=== PATIENT | female | born 1965 | race Caucasian/White ===

== ENCOUNTER 2019-02-04 14:30 | Outpatient (CLI) | payer OTHER, SELFPAY ==
--- NOTE | 2019-02-04 14:03 | DI.RAD_ITS ---
EXAM: XR KNEE RT 3V AP,LAT,PRAVIN INDICATION: R knee pain. COMPARISON: XR KNEE STANDING ALIGNMENT AP LAT AGUILAR SKYLINE RIGHT from 08/21/2017 TECHNIQUE: 2D digital imaging was performed. FINDINGS: There is [id number] narrowing of the medial femorotibial joint and the patellofemoral joint. P eriarticular spurring is seen in the lateral femorotibial joint and patellofemoral joint. The bones are intact and normally mineralized. Extensive atherosclerosis is present. IMPRESSION: Moderate degenerative changes in the right knee.
== END 2019-02-04 14:50 ==
PROVIDERS: PCP Family Medicine; Visit Provider Physician Assistant
DX: M25.561 Pain in right knee (principal); M17.11 Unilateral primary osteoarthritis, right knee
CPT/HCPCS: 73562

== ENCOUNTER 2019-08-19 12:15 | Emergency (ER) | payer MEDICARE, SELFPAY ==
[2019-08-19 12:18] VITALS: BP 193/95; PULSE 91; RESP 18; TEMP 36.9; O2SAT 97
--- NOTE | 2019-08-19 12:42 | W.ED.GENAD ---
Discharge Plan Disposition Patient Disposition: HOME Condition: Stable Discharge Details Chief Complaint: Urinary Clinical Impression: Bacterial vaginosis, Candidiasis of vagina Primary Care Provider: Sudarshan Deutsch ED Provider: Jhonatan Ponce Home Meds and New Rx's Prescriptions: New metronidazole [Flagyl] 500 mg tablet 500 mg PO Q12H Qty: 14 RF: 0 Clotrimazole-3 2 % cream 1 appful VG QHS 3 Days Qty: 3 RF: 0 Continued gabapentin 300 mg capsule 300 mg PO BID RF: 0 metformin 1,000 mg tablet 1,000 mg PO BID RF: 0 insulin aspart U-100 [Novolog Flexpen U-100 Insulin] 100 unit/mL (3 mL) insulin pen 10 unit SC BID RF: 0 hydrochlorothiazide 50 mg tablet 50 mg PO QAM RF: 0 omeprazole 40 mg capsule,delayed release(DR/EC) 40 mg PO DAILY RF: 0 montelukast 10 mg tablet 10 mg PO DAILY RF: 0 tramadol 50 mg tablet 50 mg PO TID PRNRF: 0 Discharge Instructions Instructions: Bacterial Vaginosis (ED), Yeast Infection (ED) Additional Instructions: I would like you to add on Flagyl and Clotrimazole-3 as directed. Please watch for new or worsening symptoms and return to the ER for any concerns. I recommend reaching out your primary care provider tomorrow for prompt outpatient reevaluation Discharge Data Discharge Date/Time-TO BE ENTERED AT DEPARTURE: 08/19/19 16:12 Medical Decision Making <Dayana Lao - Last Filed: 08/21/19 16:32> 53-year-old female presents to the ED with a chief complaint of vaginal itching, burning and dysuria which started . Patient was being treated by PCP over telemedicine and was prescribed fluconazole Monday night. Patient states that she took 1 tablet and felt like bugs were crawling all over her skin denies any new rash to body or extremities. She is a diabetic and takes metformin. Patient reports trying [id number] Monistat cream with little to no relief in symptoms. Patient is postmenopausal, , denies any concern for STDs. Pelvic exam performed and vaginal pathogen swab obtained. Awaiting urine results at this time, plan is to change medication to topical. Care to be handed out to oncoming provider CARLOTTA Moseley pending urinalysis and disposition with topical antifungal. <CARLOTTA Arteaga - Last Filed: 08/19/19 16:36> 53-year-old female with history of diabetes, currently being treated for a yeast infection via her primary care provider after a telemedicine appointment was signed out to me by ASHLEY Lao awaiting urinalysis and vaginal screen. Patient was treated and felt a reaction to the medication so came here for further evaluation. Catheter placed and pelvic exam already provided, see note of ASHLEY Lao. Patient resting comfortably in room 2A. She is ambulating steadily to the restroom using a walker. Abdomen is obese, soft, nontender. Patient appears well, nontoxic. Urinalysis reveals yellow urine, moderate blood, 20-50 high-power field red blood cells, negative leuk esterase, moderate epithelial cells, few bacteria. Appears to be contaminated, no culture indicated. Vaginal screen negative for Cortney and trichomonas. Positive for Gardnerella. Patient will discontinue her topical antifungal. Recommendation per ASHLEY Lao was to use topical antifungal and given the Gardnerella I will add on p.o. Flagyl. Patient comfortable with plan and has no additional questions or concerns. Encouraged to contact her primary care provider tomorrow for prompt outpatient reevaluation and to return to the ER for new or worsening symptoms Lab Data Lab results reviewed: Yes I reviewed the patient's lab results. Lab results narrative: 08/19/19 13:33 Vaginal Vaginitis Screen - Final Laboratory Tests Range/Units 08/19/19 13:33 Urine Color (Yellow) Yellow Urine Clarity (Clear) Clear Urine pH (5-8) 6.5 Ur Specific [place] (1.005-1.025) 1.020 Urine Protein (Negative) mg/dL >=300 H Urine Ketones (Negative) mg/dL Negative Urine Blood (Negative) Moderate H Urine Nitrite (Negative) Negative Urine Bilirubin (Negative) Negative Urine Urobilinogen (Up TO 0.2) EU/dL 0.2 Ur Leukocyte Esterase (Negative) Negative Urine RBC (0-2) HPF 20-50 H Urine WBC (0-5) HPF 0-2 Ur Epithelial Cells (Negative) HPF Moderate Urine Crystals (Negative) HPF Negative Urine Bacteria (Negative) HPF Few Urine Casts (Negative) LPF 3-5 hyaline Urine Mucus (Negative) Negative Urine Other (Negative) Ur Culture Indicated? No/sq. contamination Urine Glucose (Negative) mg/dL 500 H HPI <Dayana Lao - Last Filed: 08/21/19 16:32> General Mode of arrival: ambulatory. Date/Time Provider Initiated Documentation: 08/19/19 12:28. Limitations to Documentation: no limitations. Information obtained by: patient. HPI Narrative: 53-year-old female presents to the ED with a chief complaint of vaginal itching, burning and dysuria which started . Patient was being treated by PCP over telemedicine and was prescribed fluconazole Monday night. Patient states that she took 1 tablet and felt like bugs were crawling all over her skin denies any new rash to body or extremities. She is a diabetic and takes metformin. Patient reports trying [id number] Monistat cream with little to no relief in symptoms. Patient is postmenopausal, , denies any concern for STDs. Related Data Home Medications Medication Instructions Recorded Confirmed gabapentin 300 mg capsule 300 mg PO BID 02/04/19 08/19/19 hydrochlorothiazide 50 mg tablet 50 mg PO QAM 02/04/19 08/19/19 insulin aspart U-100 100 unit/mL 10 unit SC BID ml 02/04/19 08/19/19 (3 mL) subcutaneous pen metformin 1,000 mg tablet 1,000 mg PO BID 02/04/19 08/19/19 montelukast 10 mg tablet 10 mg PO DAILY 02/04/19 08/19/19 omeprazole 40 mg capsule,delayed 40 mg PO DAILY 02/04/19 08/19/19 release tramadol 50 mg tablet 50 mg PO TID PRN 02/04/19 08/19/19 clotrimazole [Clotrimazole-3] 1 appful VG QHS 3 Days #3 gm 08/19/19 metronidazole [Flagyl] 500 mg PO Q12H #14 tab 08/19/19 Previous Rx's Medication Instructions Recorded clotrimazole [Clotrimazole-3] 1 appful VG QHS 3 Days #3 gm 08/19/19 metronidazole [Flagyl] 500 mg PO Q12H #14 tab 08/19/19 Allergies Allergy/AdvReac Type Severity Reaction Status Date / Time acetaminophen [From Vicodin] Allergy Unverified 08/19/19 12:26 albuterol [From ProAir HFA] Allergy Unverified 08/19/19 12:26 amoxicillin Allergy Verified 08/19/19 12:26 cephalexin Allergy Unverified 08/19/19 12:26 guaifenesin Allergy Unverified 08/19/19 12:26 hydrocodone [From Vicodin] Allergy Unverified 08/19/19 12:26 omeprazole [From Prilosec] Allergy Unverified 08/19/19 12:26 promethazine Allergy Unverified 08/19/19 12:26 simvastatin Allergy Unverified 08/19/19 12:26 fluconazole AdvReac Intermediate feels like Unverified 08/19/19 12:26 bugs crawling on her lisinopril AdvReac NAUSEA Verified 08/19/19 12:26 General Stated Complaint: Urinary WILY: 3 Review of Systems <Dayana Lao - Last Filed: 08/21/19 16:32> Narrative: Constitutional: Negative for weight loss, alert and oriented, well groomed, normal body habitus, appears comfortable. HEENT: Denies trauma, headaches, blurry vision, nasal discharge, sore throat, trouble swallowing. Chest: Denies chest pain, palpitations, irregular rhythm, hypertension. Respiratory: Denies Shortness of breath, cough, hemoptysis. GI: Denies abdominal pain, nausea, vomiting, diarrhea, constipation. : Denies hematuria, flank pain, rectal bleeding. Positive dysuria, vaginal burning, swelling. Neuro: Denies dizziness, blurry vision, weakness, syncope, headache or facial numbness. Hematologic: Denies easy bruising, intolerance to heat or cold, hair loss. PFSH <Dayana Lao - Last Filed: 08/21/19 16:32> Social History Smoking/Tobacco Use Status: Never Alcohol Intake: current Alcohol Intake frequency: holidays/special occasions only Drug use: Never Current gender identity: female Do you feel safe at home: Yes Do you feel safe in your relationship?: Yes Female Reproductive History Menstrual Menopause type: natural Exam <Dayana Lao - Last Filed: 08/21/19 16:32> Narrative Exam Narrative: Constitutional: Alert and oriented x3. Appears stated age. Obese body habitus. Head: Normocephalic, no trauma. Eyes: Pupils PERRLA, Red reflex noted, EOM's intact. Eyelids symmetrical without lesions, discharge, or swelling. ENT: Bilateral TM's WNL, External ear normal to inspection, no mastoid TTP, swelling, or erythema, Nasal turbinates WNL, no nasal discharge. Normal dentition, Posterior pharynx WNL, no exudate. Chest: RRR, Normal S1, S2, distal pulses intact. Resp: Lungs clear to auscultation bilaterally, no wheezes, rales, or rhonchi. Musculoskeletal: Normal gait, 5/5 strength to all four extremities. Genitourinary: Pelvic exam performed with only witness Jin, vaginal pathogen swab collected, urine in and out catheter specimen obtained, patient tolerated with somewhat difficulty. Vaginal mucosa is very swollen, beefy red, with thick white cottage cheeselike discharge consistent with candidiasis. Skin: No suspicious rashes or lesions. Capillary refill less than 2 sec. Neurologic: Cranial nerves II-XII intact. Alert and oriented x 3. DTR's intact. Hematologic/Lymphatic: No ecchymosis, no lymphadenopathy. Course <Dayana Lao - Last Filed: 08/21/19 16:32> Vital Signs Vital signs: Vital Signs Temperature 36.9 C 08/19/19 12:18 Pulse 91 H 08/19/19 12:18 Respiratory Rate 18 08/19/19 12:18 Blood Pressure 193/95 H 08/19/19 12:18 Pulse Oximetry 97 08/19/19 12:18 Temperature 36.9 C 08/19/19 12:18 Temperature Source Skin 08/19/19 12:18 Pulse 91 H 08/19/19 12:18 Respiratory Rate 18 08/19/19 12:18 Respiratory Effort 08/19/19 12:28 Blood Pressure 193/95 H 08/19/19 12:18 Pulse Oximetry 97 08/19/19 12:18 Oxygen Delivery Method Room Air 08/19/19 12:18 Oxygen Flow Rate 0 08/19/19 12:18 Pain Level 10 08/19/19 12:26 Comment 08/19/19 12:18 Sign Out <Dayana Lao - Last Filed: 08/21/19 16:32> Sign Out Data: Sign Out Comment: Pending UA, Vag pathogen swab, discharge Last updated by Dayana Lao at 08/19/19 13:40
[2019-08-19 13:55] LABS: Bilirubin Negative (Negative); Blood Moderate (Negative); Clarity Clear (Clear); Glucose 500 mg/dL (Negative); Ketones Negative (Negative); Leukocyte Esterase Negative (Negative); Nitrite Negative (Negative); Urobilinogen 0.2 EU/dL (Up TO 0.2); pH 6.5 (5-8)
[2019-08-19 14:03] VITALS: BP 167/64; PULSE 90; RESP 20; TEMP 36.6; O2SAT 99
[2019-08-19 14:07] LABS: Bacteria Few HPF (Negative); Casts 3-5 Hyaline LPF (Negative); Crystals Negative HPF (Negative); Epithelial Cells Moderate HPF (Negative); Mucus Negative (Negative); RBC 20-50 HPF (0-2); WBC 0-2 HPF (0-5)
[2019-08-19 14:08] LABS: C & S Indicated? No/Sq. Contamination
== END 2019-08-19 16:12 | disposition home or self-care (01) ==
PROVIDERS: Registered Nurse Emergency; Emergency Provider Physician Assistant; PCP Nurse Practitioner Family
DX: N76.0 Acute vaginitis (principal); B96.89 Other specified bacterial agents as the cause of diseases classified elsewhere; B37.3 Candidiasis of vulva and vagina; Z87.440 Personal history of urinary (tract) infections; E11.9 Type 2 diabetes mellitus without complications; Z79.84 Long term (current) use of oral hypoglycemic drugs
CPT/HCPCS: 99284; 81003; 81015; 87480; 87510; 87660

== ENCOUNTER 2020-01-03 07:52 | Emergency (ER) | payer MEDICARE, SELFPAY ==
[2020-01-03 07:53] VITALS: BP 194/73; PULSE 77; RESP 16; TEMP 36.9; O2SAT 95
--- NOTE | 2020-01-03 08:07 | W.ED.GENAD ---
Discharge Plan Disposition Patient Disposition: HOME Condition: Stable Discharge Details Clinical Impression: Contusion of left chest wall Primary Care Provider: Michelle Augustin ED Provider: Bryan Chao Home Meds and New Rx's Prescriptions: Continued gabapentin 300 mg capsule 300 mg PO BID RF: 0 metformin 1,000 mg tablet 1,000 mg PO BID RF: 0 insulin aspart U-100 [Novolog Flexpen U-100 Insulin] 100 unit/mL (3 mL) insulin pen 10 unit SC BID RF: 0 hydrochlorothiazide 50 mg tablet 50 mg PO QAM RF: 0 omeprazole 40 mg capsule,delayed release(DR/EC) 40 mg PO DAILY RF: 0 montelukast 10 mg tablet 10 mg PO DAILY RF: 0 tramadol 50 mg tablet 50 mg PO TID PRNRF: 0 Discharge Instructions Instructions: Contusion in Adults (ED) Additional Instructions: follow up with your primary care provider if pain continues in a week if you have severe worsening pain or new pain such as abdominal pain or vomit return to the emergency department Medical Decision Making 54 yo female comes in after she fell and landed on her left chest. She was at her sister's house using her walker when it got stuck on a rug and caused her to fall to the left and land on her left chest on the walker. Denies any preceding symptoms such as lightheadedness, dyspnea, chest pain. Has pain over 7 and 8th ribs in mid axillary line on the left, normal lung sounds, no abdominal tenderness, no midline c/t/l spine pain and no signs of head trauma. Suspect contusion but will xray to evaluate for rib fx, has clear breath sounds so doubt ptx. xray is negative on my read, if radiology does not see any acute findings will d/c and have her f/u with pcp, return precautions given Differential Diagnosis Differential Diagnosis: contusion, fracture, ptx Imaging Data Radiologic Study: Attestation: I personally reviewed and interpreted this imaging study as follows: Imaging: X-Ray My impression: no acute findings HPI General Mode of arrival: EMS. Date/Time Provider Initiated Documentation: 01/03/20 07:52. Limitations to Documentation: no limitations. Information obtained by: patient. History of Present Illness 54 year old F presents to the emergency department with the chief complaint of left sided chest pain s/p fall, described as moderate, Patient reports no radiation. Patient started experiencing this hour(s) (1) and it has been constant. No relieving factors improve symptom(s), No exacerbating factors reported . Patient notes no other symptoms.. Patient did receive the following treatments prior to arrival, none Related Data Home Medications Medication Instructions Recorded Confirmed gabapentin 300 mg capsule 300 mg PO BID 02/04/19 01/03/20 hydrochlorothiazide 50 mg tablet 50 mg PO QAM 02/04/19 01/03/20 insulin aspart U-100 100 unit/mL 10 unit SC BID ml 02/04/19 01/03/20 (3 mL) subcutaneous pen metformin 1,000 mg tablet 1,000 mg PO BID 02/04/19 01/03/20 montelukast 10 mg tablet 10 mg PO DAILY 02/04/19 01/03/20 omeprazole 40 mg capsule,delayed 40 mg PO DAILY 02/04/19 01/03/20 release tramadol 50 mg tablet 50 mg PO TID PRN 02/04/19 01/03/20 Allergies Allergy/AdvReac Type Severity Reaction Status Date / Time acetaminophen [From Vicodin] Allergy Unverified 01/03/20 07:59 albuterol [From ProAir HFA] Allergy Unverified 01/03/20 07:59 amoxicillin Allergy Verified 01/03/20 07:59 cephalexin Allergy Unverified 01/03/20 07:59 guaifenesin Allergy Unverified 01/03/20 07:59 hydrocodone [From Vicodin] Allergy Unverified 01/03/20 07:59 omeprazole [From Prilosec] Allergy Unverified 01/03/20 07:59 promethazine Allergy Unverified 01/03/20 07:59 simvastatin Allergy Unverified 01/03/20 07:59 fluconazole AdvReac Intermediate feels like Unverified 01/03/20 07:59 bugs crawling on her lisinopril AdvReac NAUSEA Verified 01/03/20 07:59 General Stated Complaint: Chest/Rib WILY: 3 Review of Systems All systems reviewed & are unremarkable except as noted in HPI and below Constitutional Constitutional: Denies chills, Denies fever(s) and Denies weakness ENT Ears, Nose, Mouth, and Throat: Denies change in voice Cardiovascular Cardiovascular: Denies dyspnea Respiratory Respiratory: Denies cough and Denies dyspnea Gastrointestinal Gastrointestinal: Denies abdominal pain, Denies nausea and Denies vomiting Integumentary/Breasts Skin/Breast: Denies rash Neurologic Neurologic: Denies weakness Psychiatric Psychiatric: Denies depression [facility] Social History Smoking/Tobacco Use Status: Never Smoking risk assessment performed?: Yes Alcohol Intake: current Alcohol Intake frequency: holidays/special occasions only Drug use: Never Current gender identity: female Do you feel safe at home: Yes Do you feel safe in your relationship?: Yes Female Reproductive History Menstrual Menopause type: natural Exam Const General: no acute distress Orientation: alert HENMT Head: normal to inspection Ears: external ears normal General nose exam: external nose normal Mouth: moist mucous membranes Eyes General: appearance normal, both eyes and all related structures Neck Neck: normal visual inspection Chest Chest: no crepitus Resp Effort & Inspection: normal respiratory effort and able to speak in complete sentences Cardio Rate: regular rate Skin General skin exam: no rashes or lesions noted Neuro General: patient alert and patient oriented x3 Extrem General: normal to inspection Psych Mental Status: mental status grossly normal Course Vital Signs Vital signs: Vital Signs Temperature 36.9 C 01/03/20 07:53 Pulse 77 01/03/20 07:53 Respiratory Rate 16 01/03/20 07:53 Blood Pressure 194/73 H 01/03/20 07:53 Pulse Oximetry 95 01/03/20 07:53 Temperature 36.9 C 01/03/20 07:53 Temperature Source Skin 01/03/20 07:53 Pulse 77 01/03/20 07:53 Respiratory Rate 16 01/03/20 07:53 Respiratory Effort 01/03/20 07:58 Blood Pressure 194/73 H 01/03/20 07:53 Blood Pressure Position Sitting 01/03/20 07:53 Pulse Oximetry 95 01/03/20 07:53 Oxygen Delivery Method Room Air 01/03/20 07:53 Oxygen Flow Rate 0 01/03/20 07:53 Pain Level 8 01/03/20 07:53 Comment 01/03/20 07:53
[2020-01-03] MEDS: Acetaminophen 500 MG TAB 1000 MG PO (08:14)
--- NOTE | 2020-01-03 08:45 | DI.RAD_ITS ---
EXAM: XR CHEST 2V PA LATERAL CLINICAL HISTORY: left sided chest pain s/p fall TECHNIQUE: COMPARISON: No exams were available for comparison FINDINGS: The heart is not enlarged. Lungs are predominantly clear with minimal linear radiodensities in the l eft mid lung consistent with small area of scarring or atelectasis. No pleural effusion seen. No ev idence of pneumothorax. No gross rib fracture on this routine PA/lateral view. IMPRESSION: Question mild left-sided atelectasis, no other significant findings. RADIATION DOSE DELIVERED: Total DLP
[2020-01-03 09:07] VITALS: BP 164/70; PULSE 70; RESP 16; TEMP 36.9; O2SAT 96
== END 2020-01-03 09:06 | disposition home or self-care (01) ==
LOC: ER 08:52
PROVIDERS: Emergency Provider Emergency Medicine; PCP Physician Assistant Medical
DX: S20.212A Contusion of left front wall of thorax, initial encounter (principal); W01.0XXA Fall on same level from slipping, tripping and stumbling without subsequent striking against object, initial encounter
CPT/HCPCS: 99283; 71046

== ENCOUNTER 2021-01-13 07:40 | Outpatient (REF) | payer SELFPAY ==
[2021-01-13 08:59] LABS: AST 26 U/L (15-37); Albumin 1.9 g/dL (3.4-5.0); Alkaline Phosphatase 252 U/L (46-116); BUN 30 mg/dL (7-18); Bilirubin, Total 0.3 mg/dL (0.2-1.0); CREATININE 1.3 mg/dL (0.55-1.02); Calcium 7.9 mg/dL (8.5-10.1); Chloride 109 mmol/L (98-107); Estimated GFR 42.37 (mL/min/1.73m2); Glucose 69 mg/dL (74-106); Potassium 4.7 mmol/L (3.5-5.1); Sodium 142 mmol/L (136-145)
[2021-01-13 09:00] LABS: ALT 14 U/L (14-59)
== END 2021-01-13 07:41 | disposition home or self-care (01) ==
LOC: LBN 07:40
PROVIDERS: PCP Physician Assistant Medical; Visit Provider Family Medicine
DX: D50.9 Iron deficiency anemia, unspecified (principal); I10 Essential (primary) hypertension
CPT/HCPCS: 80053; 85025

== ENCOUNTER 2021-01-15 23:20 | Outpatient (REF) | payer SELFPAY ==
[2021-01-16 01:47] LABS: Abs Immature Grans 0.03 10^3/uL (0.0-0.06); Absolute Basophil Count 0.01 10^3/uL (0.0-0.2); Basophils % 0.1; HCT 29.5 % (36.0-46.0); HGB 9.1 g/dL (11.2-15.7); Immature Grans % 0.3; MCH 28.8 pg (27.0-33.0); MCHC 30.8 % (32.0-36.0); MCV 93.4 fL (80-95); MPV 10.5 fL (8.0-11.0); Monocytes % 6.9; Neutrophils % 89.7; Nucleated RBC 0 %; Platelet Count 183 10^3/uL (130-400); RBC 3.16 10^6/uL (3.93-5.22); RDW 16.4 % (11.7-14.6); RDW-SD 55.7 fL; WBC 10.14 10^3/uL (4.4-10.8)
[2021-01-16 02:09] LABS: ALT 39 U/L (14-59); AST 71 U/L (15-37); Albumin 2.2 g/dL (3.4-5.0); Alkaline Phosphatase 578 U/L (46-116); Anion Gap 9.2 mmol/L (3-11); BUN 28 mg/dL (7-18); Bilirubin, Total 1.2 mg/dL (0.2-1.0); CO2 22.8 mmol/L (21.0-32.0); CREATININE 1.4 mg/dL (0.55-1.02); Calcium 7.7 mg/dL (8.5-10.1); Chloride 106 mmol/L (98-107); Glucose 84 mg/dL (74-106); Potassium 5.1 mmol/L (3.5-5.1); Sodium 138 mmol/L (136-145); Total Protein 6.3 g/dL (6.4-8.2)
[2021-01-16 03:37] LABS: Clarity Cloudy (Clear); Leukocyte Esterase Negative (Negative); Nitrite Negative (Negative); Specific Gravity 1.025 (1.005-1.025)
[2021-01-16 03:38] LABS: Bilirubin Small (Negative); Blood Moderate (Negative); Glucose Negative (Negative); Ketones Negative (Negative)
[2021-01-16 03:40] LABS: Crystals Many Amorphous HPF (Negative)
[2021-01-16 03:41] LABS: C & S Indicated? C&S Done As Ordered
== END 2021-01-15 23:21 | disposition home or self-care (01) ==
LOC: LBN 23:20
PROVIDERS: PCP Physician Assistant Medical; Visit Provider Nurse Practitioner Family
DX: R50.9 Fever, unspecified (principal)
CPT/HCPCS: 80053; 81003; 81015; 85025; 87086

== ENCOUNTER 2021-01-25 18:03 | Outpatient (REF) | payer SELFPAY ==
[2021-01-25 19:33] LABS: Abs Immature Grans 0.02 10^3/uL (0.0-0.06); Absolute Basophil Count 0.01 10^3/uL (0.0-0.2); Absolute Eosinophil Count 0.01 10^3/uL (0.0-0.7); Absolute Lymphocyte Count 0.18 10^3/uL (1.2-3.4); Absolute Monocyte Count 0.32 10^3/uL (0.1-0.8); Absolute Neutrophil Count 5.56 10^3/uL (1.2-6.7); Basophils % 0.2; Eosinophils % 0.2; HGB 10.1 g/dL (11.2-15.7); Immature Grans % 0.3; MCH 28.5 pg (27.0-33.0); MCHC 29.7 % (32.0-36.0); MCV 95.8 fL (80-95); MPV 9.7 fL (8.0-11.0); Monocytes % 5.2; Neutrophils % 91.1; Nucleated RBC 0 %; Platelet Count 281 10^3/uL (130-400); RBC 3.55 10^6/uL (3.93-5.22); RDW-SD 60.1 fL
[2021-01-25 19:59] LABS: Iron 65 ug/dL (50-170)
[2021-01-25 20:07] LABS: ALT 39 U/L (14-59); AST 86 U/L (15-37); Albumin 2.6 g/dL (3.4-5.0); Alkaline Phosphatase 688 U/L (46-116); Anion Gap 15.4 mmol/L (3-11); BUN 35 mg/dL (7-18); Bilirubin, Total 1.8 mg/dL (0.2-1.0); CO2 20.6 mmol/L (21.0-32.0); CREATININE 1.5 mg/dL (0.55-1.02); Calcium 8.4 mg/dL (8.5-10.1); Chloride 105 mmol/L (98-107); Estimated GFR 35.92 (mL/min/1.73m2); Ferritin 129 ng/mL (8-252); Glucose 100 mg/dL (74-106); Sodium 141 mmol/L (136-145); Total Protein 7.6 g/dL (6.4-8.2)
[2021-01-25 20:33] LABS: NT-proBNP 7138 pg/mL (<300)
== END 2021-01-25 18:04 | disposition home or self-care (01) ==
LOC: LBN 18:03
PROVIDERS: PCP Physician Assistant Medical; Visit Provider Family Medicine
DX: I50.9 Heart failure, unspecified (principal); E11.9 Type 2 diabetes mellitus without complications; D50.9 Iron deficiency anemia, unspecified
CPT/HCPCS: 80053; 82728; 83540; 83880; 85025

== ENCOUNTER 2021-01-26 12:02 | Inpatient (IN) | payer MEDICARE, MEDICAID, SELFPAY ==
[2021-01-26] VITALS (92 sets, daily range): BP systolic 80–136; BP diastolic 32–106; PULSE 56–111; RESP 12–26; TEMP 35.6–36.8; O2SAT 90–97
--- NOTE | 2021-01-26 12:00 | RT.EKG_ITS ---
APPROVED REPORT Exam: Resting ECG Reason for Exam: SOB Patient Location: E HR:65 bpm ECG Measurements Heart Rate 65 AXIS SD 150 P 19 QRSd 76 QRS 7 QT 383 T 120 QTc 398 Conclusion Sinus rhythm...normal P axis, V-rate 60- 99 Nonspecific T abnormalities, lateral leads...T <-0.10mV, I aVL V5 V6. Sinus. No STEMI. I have reviewed and interpreted ECG and agree with software generated interpretation.
[2021-01-26 12:19] LABS: Abs Immature Grans 0.05 10^3/uL (0.0-0.06); Absolute Basophil Count 0.02 10^3/uL (0.0-0.2); Absolute Lymphocyte Count 0.52 10^3/uL (1.2-3.4); Absolute Neutrophil Count 9.79 10^3/uL (1.2-6.7); Basophils % 0.2; HCT 25.6 % (36.0-46.0); HGB 7.8 g/dL (11.2-15.7); Immature Grans % 0.4; Lymphocytes % 4.6; MCH 29.3 pg (27.0-33.0); MCHC 30.5 % (32.0-36.0); MCV 96.2 fL (80-95); MPV 9.3 fL (8.0-11.0); Neutrophils % 86.8; Nucleated RBC 0 %; Platelet Count 184 10^3/uL (130-400); RBC 2.66 10^6/uL (3.93-5.22); RDW 17.8 % (11.7-14.6); RDW-SD 62.7 fL; WBC 11.28 10^3/uL (4.4-10.8)
--- NOTE | 2021-01-26 12:31 | W.ED.GENAD ---
Discharge Plan Disposition Patient Disposition: [facility] INPATIENT Condition: Serious Discharge Details Chief Complaint: GenMedical Clinical Impression: UTI (urinary tract infection), Anemia, Heme positive stool, Acute hypotension, SOB (shortness of breath), ИВАН (acute kidney injury), Elevated troponin, CHF exacerbation Admit Date/Time: 01/26/21 16:01 Admit Provider: Casey Latham Attending Provider: Casey Latham Primary Care Provider: Michelle Augustin ED Provider: Gian Lopez Discharge Data Discharge Date/Time-TO BE ENTERED AT DEPARTURE: 01/26/21 16:55 Medical Decision Making Patient is a 55-year-old female presents today with chief complaint of not feeling well. She reports that she is currently residing at [facility]. Is a recovering from left humeral fracture with surgical fixation. Surgery was in December. Last night, patient had an episode of shortness of breath. During that time, her oxygen dropped. Back up currently, and not having any oxygen demand. Patient states that she is feeling fatigued. She denies any chest pain. She denies any current shortness of breath. She denies any recent fevers or chills. No cough. Patient has chronic bilateral extremity pain as well as restless legs that she is normal and chronic for her On exam, patient appears acutely ill. She is pale, appears sedate. She is easily arousable. I do not appreciate any focal deficit. Her lungs are clear. Normal cardiac exam. Initially, the patient pressure was 85/60 but her systolic since being here has been around 110. Heart rate has remained in the 60s. Rapid sequence patient does have a history of being on a beta-sheila, we will validate her medications. Her abdomen is benign. Bilateral calf tenderness. No appreciable edema. She states that the calf tenderness is chronic. EKG was reviewed by Dr. Barber. Patient is in a normal sinus rhythm with a rate of 65. No acute ischemic changes noted. Labs reviewed. Patient has a white count of 11.28. Hbg 7.8, this is down from 10.1 yesterday. CMP significant for sodium of 135, potassium of one 5.3, BUN of 43, creatinine of 2.4. This is up from 1.5 yesterday. Magnesium is low at 1.5, will replenish this therapy here. Her bili is up at 2.5, slept from 1.8 yesterday. Patient's BNP is 22,000, this is up from 7000 yesterday. Her alk phos is elevated at 520 which is typical. Troponin is elevated at 0.67. Patient is not endorsing chest pain. Patient history is not consistent at this time with ACS. However, I am certainly continuing to consider this. I am more concerned for cardiac strain. The patient had a recent leg fracture, has been sedentary, I am more concerned for pulmonary embolism. I am wondering if this is causing cardiac strain. However, with the patient acute kidney injury, unable to obtain CTA at this time. VQ scan was able to be ordered for tomorrow. Instead, will obtain bilateral DVT studies as well as echocardiogram for further evaluation. Also considered septicemia, CHF vs. other. Patient does have hx of CHF and is not currently on diuretic. Heme positive stool. No lucretia red blood, specles of blue on the testing strip. Stool appears grossly light browh. We will hold off on any anticoagulation at this time with this will consult with hospitalist. Type and screen ordered. Spoke with hospitalist who is concerned about cardiorenal syndrome and advised 40mg IV Lasix. We will continue to monitor the patient's blood pressure. Pressure slightly soft, held off on Lasix. Considered potential adrenal insufficiency and will give IV steroids. Will try the patient with a 250 cc bolus of fluids. Sent cortisol level, will also obtain TSH. Patient tolerated the 250 cc bolus well. Patient's pressures, heart rate and oxygen remained stable at this time. She continues to appear quite sedate. Lasix given. DVT study was limited secondary to calf tenderness. Patient is not able to tolerate left lower extreme Echo obtained and reviewed by morning show newscast producer: Conclusion Mild concentric left ventricular hypertrophy. Estimated ejection fraction is 55 to 60%. Wall motion is normal Normal right ventricular size and systolic function The left atrium is mildly dilated. The right atrium is normal in size Aortic valve is trileaflet and sclerotic with trace regurgitation. There is no aortic stenosis Moderate mitral annular calcification. Mild mitral regurgitation Normal tricuspid valve. Mild tricuspid regurgitation. Estimated right ventricular systolic pressure is 42 mmHg Normal pulmonic valve Urine appears consistent with UTI. Considered urosepsis. Will start on ciprofloxacin IV. Lactate 1.5. Discussed with hospitalist. He will repeat the Hgb at 1800 when patient is admitted to trend. If normal, plans to start on heparin drip. VQ scan in the AM. Patient remains quite ill and tenuous but stable now. Spoke with patients and sister who are both on the HIPPA. Advised that patient is quiet ill. Treating for UTI. Cocnerned for bleeding, possible PE or other cause of heart strain. Sister is also concerned for her mental health. Patients daughter one year ago, approaching anniversary. She has requested MH consult while patient is in house. HPI General Mode of arrival: EMS. Date/Time Provider Initiated Documentation: 01/26/21 12:31. Limitations to Documentation: no limitations. Information obtained by: patient, EMS, RN notes reviewed and old records reviewed. History of Present Illness 55 year old F presents to the emergency department with the chief complaint of SOB last night, general fatigue and malaise, described as moderate, Quality is described as other (has chronic pain in BLE, she denies any acute discomfort), Patient started experiencing this day(s) (1) and it has been now resolved (SOB resolved, malaise persisting). No relieving factors improve symptom(s), No exacerbating factors reported . Patient notes diaphoresis, loss of appetite, malaise, shortness of breath (resolved) and weakness (generalized weakness and fatigue); denies chest pain, cough, fever/chills, headaches, nausea/vomiting, rash and syncope. Patient did receive the following treatments prior to arrival, none Related Data Home Medications Medication Instructions Recorded Confirmed hydrochlorothiazide 50 mg tablet 50 mg PO QAM 02/04/19 01/26/21 insulin aspart U-100 100 unit/mL 10 unit SC TID ml 02/04/19 01/26/21 (3 mL) subcutaneous pen metformin 1,000 mg tablet 1,000 mg PO BID 02/04/19 01/26/21 tramadol 50 mg tablet 50 mg PO TID PRN 02/04/19 01/26/21 acetaminophen 1,000 mg PO .Q6HRS PRN 01/26/21 01/26/21 albuterol 180 mcg INHALATION Q4H PRN PRN 01/26/21 01/26/21 amlodipine 10 mg PO DAILY 01/26/21 01/26/21 atorvastatin 40 mg PO HS 01/26/21 01/26/21 cholecalciferol (vitamin D3) 125 mcg PO .Q Monday01/26/21 01/26/21 cyanocobalamin (vitamin B-12) 1,000 mcg PO DAILY 01/26/21 01/26/21 docusate sodium 100 mg PO .HS PRN 01/26/21 01/26/21 ferrous sulfate 325 mg PO QAM 01/26/21 01/26/21 gabapentin 300 mg PO BID 01/26/21 01/26/21 gabapentin 300 mg PO HS 01/26/21 01/26/21 hydromorphone 2 mg PO Q6H PRN 01/26/21 01/26/21 insulin glargine [Lantus Solostar 25 unit SUBCUT HS 01/26/21 01/26/21 U-100 Insulin] losartan 100 mg PO DAILY 01/26/21 01/26/21 metoprolol tartrate 50 mg PO BID 01/26/21 01/26/21 montelukast 10 mg PO DAILY 01/26/21 01/26/21 ondansetron HCl 8 mg PO Q8H PRN 01/26/21 01/26/21 pantoprazole 40 mg PO BID 01/26/21 01/26/21 polyethylene glycol 3350 [Miralax] 17 g PO .QHS 01/26/21 01/26/21 Allergies Allergy/AdvReac Type Severity Reaction Status Date / Time albuterol [From ProAir HFA] Allergy Unverified 01/26/21 12:11 amoxicillin Allergy Verified 01/26/21 12:11 cephalexin Allergy Unverified 01/26/21 12:11 guaifenesin Allergy Unverified 01/26/21 12:11 hydrocodone [From Vicodin] Allergy Unverified 01/26/21 12:11 omeprazole [From Prilosec] Allergy Unverified 01/26/21 12:11 promethazine Allergy Unverified 01/26/21 12:11 simvastatin Allergy Unverified 01/26/21 12:11 fluconazole AdvReac Intermediate feels like Unverified 01/26/21 12:11 bugs crawling on her lisinopril AdvReac NAUSEA Verified 01/26/21 12:11 General Stated Complaint: GenMedical WILY: 2 Review of Systems Narrative: Patient answering and short responses. She appears very sedate but is appropriate on questioning. Constitutional Constitutional: Reports as per HPI, Denies chills, Denies fever(s), Denies headache(s), Denies lethargy and Denies poor appetite Eyes Eyes: Denies change in vision ENT Ears, Nose, Mouth, and Throat: Denies dizziness and Denies headache(s) Cardiovascular Cardiovascular: Reports as per HPI, Denies chest pain, Denies chest pain with activity, Denies syncope, Denies edema, Reports claudication (reports chronic BLE pain), Denies lightheadedness and Reports dyspnea (last night, required O2 briefly, now resolved) Respiratory Respiratory: Reports as per HPI, Denies chest congestion, Denies cough, Denies pain on inspiration, Denies pain with cough and Reports dyspnea (last night, required O2 briefly, now resolved) Gastrointestinal Gastrointestinal: Reports as per HPI, Denies abdominal pain, Denies diarrhea, Denies nausea and Denies vomiting (vomted last night per H&R, patient denies nausea) Musculoskeletal Musculoskeletal: Reports as per HPI, Denies back pain and Reports other (BLE pain, states is chornic) Integumentary/Breasts Skin/Breast: Reports as per HPI and Denies rash Neurologic Neurologic: Reports as per HPI, Denies dizziness, Denies syncope and Denies headache(s) [facility] Active Problem List (Updated 01/27/21 @ 07:26 by Casey Latham MD) HLD (hyperlipidemia) (Acute) Morbid obesity (Acute) Restless leg syndrome (Acute) Diabetes mellitus (Chronic) Essential hypertension (Acute) Left humeral fracture (Acute) Heart failure with preserved ejection fraction (Acute) Blood loss anemia (Acute) Primary osteoarthritis of right knee (Acute) Social History Smoking/Tobacco Use Status: Never Smoking risk assessment performed?: Yes Alcohol Intake: current Alcohol Intake frequency: holidays/special occasions only Drug use: Never Current gender identity: female Do you feel safe at home: Yes Do you feel safe in your relationship?: Yes Female Reproductive History Menstrual Menopause type: natural Exam Const General: cooperative, no acute distress and ill appearing acutely Nutritional Appearance: well nourished and obese Orientation: alert, awake, oriented x3 and other (appears lethargic, need to arouse to get answers) HENMT Head: normal to inspection Ears: hearing grossly normal bilaterally Eyes General: appearance normal, both eyes and all related structures Pupils: PERRL EOM: EOM intact bilaterally Neck Neck: no lymphadenopathy and no meningeal signs Chest Chest: normal inspection of the chest, normal palpation of entire chest wall and no crepitus Resp Effort & Inspection: normal respiratory effort, able to speak in complete sentences and no respiratory distress Auscultation: clear to auscultation bilaterally, no rales, no rhonchi and no wheezes Cardio Rate: regular rate Rhythm: regular rhythm Heart Sounds: S1 normal and S2 normal GI Inspection: normal to inspection, no edema, non-distended and obesity Palpation: soft, no hepatosplenomegaly, not firm, no guarding, not rigid and nontender Auscultation: normal bowel sounds Back/Spine/Pelvis Back: no CVA tenderness Thoracic/Lumbar Spine: thoracic and lumbar spine normal to inspection Skin General skin exam: erythema (some break down on her bottom) Neuro General: patient alert, patient awake and patient oriented x3 (appears lethargic) Cognition: normal cognition Speech: speech normal Motor: muscle tone normal throughout, strength 5/5 throughout and movement abnormality noted (frequent movement of BLE, ) Extrem General: normal to inspection, capillary refill normal, no pedal edema and calf tenderness bilaterally Psych Appearance: grossly normal and well kempt Mental Status: mental status grossly normal Speech and Movement: speech and movement normal Course Vital Signs Vital signs: Vital Signs Temperature 36.8 C 01/26/21 12:02 Pulse 66 01/26/21 12:02 Respiratory Rate 18 01/26/21 12:02 Blood Pressure 85/56 L 01/26/21 12:02 Pulse Oximetry 97 01/26/21 12:02 Temperature 36.8 C 01/26/21 12:02 Temperature Source Skin 01/26/21 12:02 Pulse 66 01/26/21 12:02 Respiratory Rate 18 01/26/21 12:02 Respiratory Effort Non-Labored 01/26/21 12:02 Blood Pressure 85/56 L 01/26/21 12:02 Blood Pressure Position Sitting 01/26/21 12:02 Pulse Oximetry 97 01/26/21 12:02 Oxygen Delivery Method Room Air 01/26/21 12:02 Oxygen Flow Rate 0 01/26/21 12:02 Pain Level 7 01/26/21 12:02 Comment 01/26/21 12:02 Lab/Test Results Lab/Test Results: Laboratory Tests Range/Units 01/26/21 12:12 WBC (4.4-10.8) 10^3/uL 11.28 H D RBC (3.93-5.22) 10^6/uL 2.66 L Hgb (11.2-15.7) g/dL 7.8 L D Hct (36.0-46.0) % 25.6 L D MCV (80-95) fL 96.2 H MCH (27.0-33.0) pg 29.3 MCHC (32.0-36.0) % 30.5 L RDW (11.7-14.6) % 17.8 H Plt Count (130-400) 10^3/uL 184 MPV (8.0-11.0) fL 9.3 Immature Gran % 0.4 Neutrophils % 86.8 Lymphocytes % 4.6 Monocytes % 8.0 Eosinophils % 0.0 Basophils % 0.2 Nucleated RBC % % 0 Absolute Neutrophils (1.2-6.7) 10^3/uL 9.79 H Absolute Lymphocytes (1.2-3.4) 10^3/uL 0.52 L Absolute Monocytes (0.1-0.8) 10^3/uL 0.90 H Absolute Eosinophils (0.0-0.7) 10^3/uL 0.00 Absolute Basophils (0.0-0.2) 10^3/uL 0.02
[2021-01-26 12:40] LABS: ALT 32 U/L (14-59); AST 76 U/L (15-37); Albumin 1.8 g/dL (3.4-5.0); Alkaline Phosphatase 520 U/L (46-116); Anion Gap 10.1 mmol/L (3-11); BUN 43 mg/dL (7-18); Bilirubin, Total 2.5 mg/dL (0.2-1.0); CO2 19.9 mmol/L (21.0-32.0); CREATININE 2.4 mg/dL (0.55-1.02); Calcium 8.1 mg/dL (8.5-10.1); Chloride 105 mmol/L (98-107); Estimated GFR 20.88 (mL/min/1.73m2); Glucose 86 mg/dL (74-106); Magnesium 1.5 mg/dL (1.8-2.4); NT-proBNP 22739 pg/mL (<300); Potassium 5.3 mmol/L (3.5-5.1); Sodium 135 mmol/L (136-145); Total Protein 6.6 g/dL (6.4-8.2)
[2021-01-26 12:45] LABS: Troponin I 0.67 ng/mL (<0.06)
--- NOTE | 2021-01-26 12:45 | DI.US_ITS ---
Exam(s) US EXTREMITY VENOUS BI EXAM: US EXTREMITY VENOUS BI CLINICAL HISTORY: bilateral calf pain TECHNIQUE: Ultrasound performed using standard protocol. COMPARISON: No exams were available for comparison FINDINGS: This examination was planned as bilateral examination. The examination of the left leg was incomplet e as the patient was unable to tolerate the examination. There is normally compressible deep venous system of the right lower extremity, normal Doppler evalua tion on the right. No evidence of DVT. On the left common femoral vein, greater saphenous vein, profundus vein, proximal to mid femoral vein , and popliteal vein were visualized and appear normal. Distal portion of femoral vein and the deep veins of the calf were not included on the examination. IMPRESSION: No evidence of DVT. The examination was terminated at the patient's request, the deep calf veins and distal femoral vein of the left lower extremity were not examined. DATA REPOSITORY:
--- NOTE | 2021-01-26 13:00 | DI.US_ITS ---
APPROVED REPORT EXAM: Comprehensive 2D, Doppler, and color-flow Echocardiogram Patient Location: ER Room/Bed: 1 Assistant Branch Manager: Katey Meyer RDCS (AE) Indications: Cardiac strain, Elevated troponin, BNP, Hyptotensive Other Information Study Quality: Fair. Technically limited study due to body habitus, inability to position patient. Conclusion Mild concentric left ventricular hypertrophy. Estimated ejection fraction is 55 to 60%. Wall motio n is normal Normal right ventricular size and systolic function The left atrium is mildly dilated. The right atrium is normal in size Aortic valve is trileaflet and sclerotic with trace regurgitation. There is no aortic stenosis Moderate mitral annular calcification. Mild mitral regurgitation Normal tricuspid valve. Mild tricuspid regurgitation. Estimated right ventricular systolic pressure is 42 mmHg Normal pulmonic valve Wall motion Left Ventricle The left ventricle is normal size. The left ventricular systolic function is normal. The left ventric ular ejection fraction is within the normal range. Mild concentric left ventricular hypertrophy. Ther e is normal LV segmental wall motion. There is no ventricular septal defect visualized. LVEF is 57%. Right Ventricle The right ventricle is normal size. The right ventricular systolic function is normal. The RVSP is 42 .5 mmHg. Atria Left atrium is mildly dilated. The right atrium size is normal. The interatrial septum is intact with no evidence for an atrial septal defect. Aortic Valve The Aortic valve is sclerotic. Aortic valve is trileaflet. There is no aortic valvular stenosis. Trac e aortic regurgitation. Mitral Valve Moderate mitral annular calcification. No evidence of mitral valve stenosis. Mild mitral regurgitatio n. Tricuspid Valve The tricuspid valve is normal in structure. There is no tricuspid valve stenosis. Mild tricuspid regu rgitation. Pulmonic Valve The pulmonary valve is normal in structure. There is no pulmonic valvular stenosis. There is no pulmo marcos valvular regurgitation. Great Vessels The aortic root is normal in size. The ascending aorta is normal in size. Aortic arch is not well vis ualized. The IVC collapses <50% with inspiration. Pericardium There is no pericardial effusion. 2D Dimensions IVSD d PLAX 1.13 cm F: 0.6-1.0 LV Vol A2C d MOD 136.8 mL LVPW d PLAX 1.12 cm F: 0.6 - 1.0 LV Vol A4C d MOD 169.8 mL LVID d PLAX 4.71 cm F: 3.8 - 5.2 LA vol/ BSA A2C s A-L 28.8 mL/m2 LVDs 3.30 cm F: 2.2 - 3.5 LA vol/ BSA A4C s A-L 21.6 mL/m2 Ao Root d 2.84 cm F: 2.7 - 3.3 LA Vol/ BSA Biplane s A-L 26.6 mL/m2 RA Area A4C 16.55 cm2 LA Area A4C s MOD 16.89 cm2 RA Vol/ BSA A4C s A-L 19.3 mL/m2 LA Area A2C s MOD 20.79 cm2 Ao Asc Diam d 3.18 cm F: 2.3 - 3.1 LV EF A4C MOD 57.3 % LV EF Teichholz 56.2 % LV EF A2C MOD 56.3 % LVEF (Tellez's) 56.97 % F: 54 - 74 LV EF Biplane MOD 57.0 % LV Volume 113.72 mL F: 46 - 106 SV 89.95 mL LV Volume Index 50.09 mL/m2 F: 29 - 61 SV Index 39.62 mL/m2 LV Vol Biplane MOD 157.9 mL FS 29.30 % M-Mode TAPSE 1.63 cm (M/F) >1.7 LV Diastology MV E' medial 0.064 (>0.07 m/s) E/A Ratio 1.5 LV E/e MED 16.25 (<14) MV E Vmax 1.03 (0.4-1.3 m/s) MV E' lateral 0.068 (>0.1 m/s) MV A Vmax 0.70 (0.4-1.3 m/s) LV E/e LAT 15.10 (<14) MV E/A Ratio 1.43 MV E/E' medial 16.28 MV E/E' lateral 15.12 Aortic Valve LVOT Area 3.99 cm2 AoV Area Vmax 2.79 cm2 LVOT Vmax 1.15 m/s AoV Area/ BSA (Vmax) 1.23 cm2/m2 LVOT Mean Osbaldo. 0.68 m/s YOUNG Mean Osbaldo. 2.32 cm2 LVOT Peak Grad 5.3 mmHg YOUNG Mean Osbaldo. Index 1.02 cm2/m2 LVOT Mean Grad 2.3 mmHg LVOT VTI 0.270 m LVOT Diam s 2.25 cm AoV Vmax 1.65 m/s Velocity Ratio 0.69 AoV Mean Osbaldo. 1.17 m/s AoV Peak Grad 10.8 mmHg LVOT SV 107.63 mL AoV Mean Grad 6.1 mmHg AoV VTI 0.375 m AoV Area VTI 2.87 cm2 AoV Area/ BSA (VTI) 1.26 cm/m2 Mitral Valve MV DT 184 (160-240 msec) MV PHT 53 msec MV Area PHT 4.13 cm2 MV VTI 0.461 m MV Area VTI 2.34 (4.0-6.0 cm2) Pulmonary Valve PV Vmax 0.99 (0.5-1.5 m/s) RVOT Peak Gr. 1.13 mmHg PV Peak Grad 4.0 mmHg RVOT Mean Gr. 0.60 mmHg PV Mean Grad 1.9 mmHg RVOT VTI 0.121 m PV VTI 0.208 m RVOT Vmax 0.53 m/s Tricuspid Valve TR Peak Grad 34.5 mmHg TR Vmax 2.94 m/s RA Pressure 8.00 mmHg RVSP (TR) 42.5 mmHg
--- NOTE | 2021-01-26 13:05 | DI.RAD_ITS ---
Exam(s) XR PORTABLE CHEST AP EXAM: XR PORTABLE CHEST AP CLINICAL HISTORY: SOB TECHNIQUE: COMPARISON: CR XR CHEST 2V PA LATERAL from 01/03/2020 FINDINGS: Portable chest at 1305 hours. The heart appears mildly enlarged. There are predominantly linear are as of increased radiodensity in both lungs, these may represent areas of atelectasis. Possible multi focal consolidation. No gross pleural effusion on this frontal film. IMPRESSION: Findings suggesting atelectasis and/or consolidation. RADIATION DOSE DELIVERED: Total DLP
[2021-01-26 13:18] LABS: PTT Activated 37.7 sec (21.0-27.5); Prothrombin Time 12.5 sec (9.3-11.0)
[2021-01-26 13:19] LABS: INR 1.2 (0.9-1.1)
[2021-01-26] MEDS: MAGNESIUM SULFATE 1 GM/100 ML BAG IVPB (13:19)
[2021-01-26 13:40] LABS: D-Dimer 3586 ng/mlFEU (<500)
[2021-01-26 13:44] LABS: Lactate 1.5 mmol/L (0.6-1.4)
[2021-01-26] MEDS: Hydrocortisone SOD SUC. 100 MG VIAL IVP (13:53)
[2021-01-26 14:12] LABS: Bilirubin Moderate (Negative); Blood Trace-intact (Negative); Clarity Sl Cloudy (Clear); Glucose Negative (Negative); Ketones Negative (Negative); Leukocyte Esterase Small (Negative); Nitrite Negative (Negative); Specific Gravity >= 1.030 (1.005-1.025); pH 5.5 (5-8)
[2021-01-26 14:13] LABS: Source Nasal/Nares
[2021-01-26] MEDS: Normal Saline 250 ML IV ×2 (14:13→16:30)
[2021-01-26 14:25] LABS: Bacteria Many HPF (Negative); C & S Indicated? Yes; Casts 3-5 Coarse Granular LPF (Negative); Crystals Negative HPF (Negative); Epithelial Cells Rare HPF (Negative); Mucus Trace (Negative)
[2021-01-26 14:29] LABS: TSH (W/Ref FT4) 1.22 uIU/mL (0.36-3.74)
[2021-01-26] MEDS: Furosemide 40 MG/4 ML VIAL IVP (14:51)
[2021-01-26] MEDS: ACETAMINOPHEN 1,000 MG/100 ML BTL 400 MG IVPB (15:38)
[2021-01-26 15:54] LABS: COVID-19 PCR Negative (Negative)
[2021-01-26] MEDS: CIPROFLOXACIN 200 MG/100 ML BAG 100 MG IVPB (15:55)
[2021-01-26 16:12] LABS: Troponin I 0.75 ng/mL (<0.06)
[2021-01-26 17:18] LABS: Iron 16 ug/dL (50-170); Total Iron Binding Capacity 204 ug/dL (250-450); Transferrin Sat 8 % (15-50)
[2021-01-26] MEDS: IRON SUCROSE COMPLEX 300 MG in Normal Saline 250 ML 167 MG IVPB (18:19)
[2021-01-26] MEDS: MAGNESIUM SULFATE 4 GM/100 ML BAG IVPB (18:33)
[2021-01-26 18:45] LABS: Troponin I 0.79 ng/mL (<0.06)
[2021-01-26] MEDS: Acetaminophen 325 MG TAB 650 MG PO (20:12)
[2021-01-26] MEDS: Magnesium Oxide 400 MG TAB PO (20:12)
[2021-01-26] MEDS: diphenhydrAMINE 25 MG CAP PO (20:12)
[2021-01-26] MEDS: Gabapentin 300 MG CAP 600 MG PO (20:12)
[2021-01-26] MEDS: Normal Saline Flush 10 ML SYR IVP (20:13)
[2021-01-26] MEDS: Pantoprazole 40 MG VIAL 80 MG IVP (20:13)
--- NOTE | 2021-01-26 20:40 | W.PM.HP.N ---
Date of service: 01/26/21 Time of Service: 17:41 Assessment and Plan Assessment and plan (1) Blood loss anemia: Status: Acute Assessment and plan: No gross melena or hematochezia noted. Known iron deficiency and she states she was scheduled for IV iron. Transfuse 1 unit RBCs and monitor. PPI and carafate. Pt [place] [facility] will review their findings. Not on any anticoagulants or NSAIDS. (2) Heart failure with preserved ejection fraction: Status: Acute Assessment and plan: Likely demand ischemia d/t anemia. Transfuse; will d/w [facility] cardi[place] regarding target Hgb. On a BB (3) Left humeral fracture: Status: Acute Assessment and plan: Consult PT for ongoing rehab efforts. (4) Essential hypertension: Status: Acute Assessment and plan: Cont amlodipine and Metoprolol with parameters. Monitor. (5) Diabetes mellitus: Status: Chronic Assessment and plan: Pt on Lantus; will hold until blood glucose monitoring indicates the need during hospitalization. She states her appetite is poor at this time. ACHS glucose monitoring SS insulin correction dosing. Consistent carb diet. (6) Restless leg syndrome: Status: Acute Assessment and plan: Chronic but more pronounced currently per pt. Likely driven by Fe def anemia and hypomagnosemia. Cont gabapentin. Replete Mg. Venofer and RBC transfusions. (7) Morbid obesity: Status: Acute Assessment and plan: Will encourage activity and sensible calorie intake. (8) HLD (hyperlipidemia): Status: Acute Assessment and plan: Held atorvastatin d/t elevated bilirubin and mild AST elevation. Elevations likely from hepatic congestion. Follow lab and restart atorvastatin if values improve. History of Present Illness History of Present Illness Chief Complaint: SOA and fatigue Narrative: This is a 55 dyo female with a PMH of DM2, HTN, obesity, OA of knee, closed T12 fx. She is currently residing at [facility] s/o left humeral fracture with surgical fixation. She presented with the general complaint of not feeling well. The night prior to admission she had an episode of shortness of air and her O2 saturation was noted to drop but no specifics were related to the ED provider. She notes fatigued. No SOA in the ED. NO CP/palpitations. No cough/fever/chills. No N/V/abd pain/diarrhea. No dysuria. Her initial BP was 85/60 then improved into the low 100's. HR in the 60's. WBC count 11.28. Hgb 7.8 (10.1 the previous day from [facility] Na 135. K 5.3. BUN 43. Creatinine 2.4 (1.5 the previous day). Mg low at 1.5. Bilirubin 2.5 (1.8 the previous day). NTProBNP 57440 (7000). Troponin 0.67. D dimer 3586. Stool was heme positive w/o gross blood. 40mg IV lasix given. Transfusion of RBCs planned once admitted. Echocardiogram showed:Mild concentric left ventricular hypertrophy. Estimated ejection fraction is 55 to 60%. Wall motion is normal Normal right ventricular size and systolic function The left atrium is mildly dilated. The right atrium is normal in size Aortic valve is trileaflet and sclerotic with trace regurgitation. There is no aortic stenosis Moderate mitral annular calcification. Mild mitral regurgitation Normal tricuspid valve. Mild tricuspid regurgitation. Estimated right ventricular systolic pressure is 42 mmHg Normal pulmonic valve Concern was a possible pulmonary embolism but a CTA chest was not obtain d/t ИВАН. A V/Q scan ordered but cannot be performed until the following day. Venous doppler exam of BLEs: No evidence of DVT. The examination was terminated at the patient's request, the deep calf veins and distal femoral vein of the left lower extremity were not examined. Review of Systems All systems reviewed & are unremarkable except as noted in HPI and below PFSH Active Problem List (Updated 01/27/21 @ 07:26 by Casey Latham MD) HLD (hyperlipidemia) (Acute) Morbid obesity (Acute) Restless leg syndrome (Acute) Diabetes mellitus (Chronic) Essential hypertension (Acute) Left humeral fracture (Acute) Heart failure with preserved ejection fraction (Acute) Blood loss anemia (Acute) Primary osteoarthritis of right knee (Acute) Social History Smoking/Tobacco Use Status: Never Smoking risk assessment performed?: Yes Alcohol Intake: current Alcohol Intake frequency: holidays/special occasions only Drug use: Never Current gender identity: female Do you feel safe at home: Yes Do you feel safe in your relationship?: Yes Female Reproductive History Menstrual Menopause type: natural Meds Allergies and Home Medications Allergies Allergy/AdvReac Type Severity Reaction Status Date / Time albuterol [From ProAir HFA] Allergy Unverified 01/26/21 12:11 amoxicillin Allergy Verified 01/26/21 12:11 cephalexin Allergy Unverified 01/26/21 12:11 guaifenesin Allergy Unverified 01/26/21 12:11 hydrocodone [From Vicodin] Allergy Unverified 01/26/21 12:11 omeprazole [From Prilosec] Allergy Unverified 01/26/21 12:11 promethazine Allergy Unverified 01/26/21 12:11 simvastatin Allergy Unverified 01/26/21 12:11 fluconazole AdvReac Intermediate feels like Unverified 01/26/21 12:11 bugs crawling on her lisinopril AdvReac NAUSEA Verified 01/26/21 12:11 Home Medications Medication Instructions Recorded Confirmed Type hydrochlorothiazide 50 mg tablet 50 mg PO QAM 02/04/19 01/26/21 History insulin aspart U-100 100 unit/mL 10 unit SC TID ml 02/04/19 01/26/21 History (3 mL) subcutaneous pen metformin 1,000 mg tablet 1,000 mg PO BID 02/04/19 01/26/21 History tramadol 50 mg tablet 50 mg PO TID PRN 02/04/19 01/26/21 History acetaminophen 1,000 mg PO .Q6HRS PRN 01/26/21 01/26/21 History albuterol 180 mcg INHALATION Q4H PRN PRN 01/26/21 01/26/21 History amlodipine 10 mg PO DAILY 01/26/21 01/26/21 History atorvastatin 40 mg PO HS 01/26/21 01/26/21 History cholecalciferol (vitamin D3) 125 mcg PO .Q Monday01/26/21 01/26/21 History cyanocobalamin (vitamin B-12) 1,000 mcg PO DAILY 01/26/21 01/26/21 History docusate sodium 100 mg PO .HS PRN 01/26/21 01/26/21 History ferrous sulfate 325 mg PO QAM 01/26/21 01/26/21 History gabapentin 300 mg PO BID 01/26/21 01/26/21 History gabapentin 300 mg PO HS 01/26/21 01/26/21 History hydromorphone 2 mg PO Q6H PRN 01/26/21 01/26/21 History insulin glargine [Lantus Solostar 25 unit SUBCUT HS 01/26/21 01/26/21 History U-100 Insulin] losartan 100 mg PO DAILY 01/26/21 01/26/21 History metoprolol tartrate 50 mg PO BID 01/26/21 01/26/21 History montelukast 10 mg PO DAILY 01/26/21 01/26/21 History ondansetron HCl 8 mg PO Q8H PRN 01/26/21 01/26/21 History pantoprazole 40 mg PO BID 01/26/21 01/26/21 History polyethylene glycol 3350 [Miralax] 17 g PO .QHS 01/26/21 01/26/21 History Exam Narrative Exam Narrative: Fatigued appearing female that appears older than her stated age. Lying supine and in no distress. Face appears pale. Const General: cooperative Nutritional Appearance: obese Orientation: awake and oriented x3 HENMT Head: normocephalic and atraumatic Eyes General: appearance normal, both eyes and all related structures Conjunctivae: conjunctival abnormality (pale palpebral conjunctivae) Sclera: sclerae normal Neck Neck: no JVD (Difficult to adequately gauge JVD d/t large neck girth) Resp Effort & Inspection: normal respiratory effort Auscultation: clear to auscultation bilaterally Cardio Rate: bradycardic Rhythm: regular rhythm Heart Sounds: S1 normal, S2 normal and murmur GI Palpation: soft and nontender Auscultation: normal bowel sounds Skin General skin exam: no rashes or lesions noted and pallor (face) Neuro General: no focal motor deficits Cognition: normal cognition Speech: speech normal Extrem General: edema Laterality: bilateral (1+) and other (Tenderness diffusely of BLE below the knees.) Psych Speech and Movement: speech and movement normal Affect: blunted Results Labs Result diagrams: 01/27/21 04:15 01/27/21 04:07 Labs: Laboratory Results - last 24 hr 01/26/21 01/26/21 01/26/21 12:12 12:12 12:12 WBC 11.28 H D RBC 2.66 L Hgb 7.8 L D Hct 25.6 L D MCV 96.2 H MCH 29.3 MCHC 30.5 L RDW 17.8 H Plt Count 184 MPV 9.3 Immature Gran % 0.4 Neutrophils % 86.8 Lymphocytes % 4.6 Monocytes % 8.0 Eosinophils % 0.0 Basophils % 0.2 Nucleated RBC % 0 Absolute Neutrophils 9.79 H Absolute Lymphocytes 0.52 L Absolute Monocytes 0.90 H Absolute Eosinophils 0.00 Absolute Basophils 0.02 PT INR APTT D-Dimer VBG Lactate Sodium 135 L Potassium 5.3 H Chloride 105 Carbon Dioxide 19.9 L Anion Gap 10.1 BUN 43 H Creatinine 2.4 H D Estimated GFR/1.73 m2 20.88 Glucose 86 Calcium 8.1 L Magnesium 1.5 L Iron TIBC Transferrin % Sat Total Bilirubin 2.5 H AST 76 H ALT 32 Alkaline Phosphatase 520 H Troponin I 0.67 H* NT-Pro-B Natriuret Pep 96905 H Total Protein 6.6 Albumin 1.8 L TSH 1.22 Urine Color Urine Clarity Urine pH Ur Specific [place] Urine Protein Urine Ketones Urine Blood Urine Nitrite Urine Bilirubin Urine Urobilinogen Ur Leukocyte Esterase Urine RBC Urine WBC Ur Epithelial Cells Urine Crystals Urine Bacteria Urine Casts Urine Mucus Ur Culture Indicated? Urine Glucose COVID-19 Source SARS-CoV-2 (PCR) Patient ABO/Rh Antibody Screen Crossmatch 01/26/21 01/26/21 01/26/21 12:55 12:55 13:38 WBC RBC Hgb Hct MCV MCH MCHC RDW Plt Count MPV Immature Gran % Neutrophils % Lymphocytes % Monocytes % Eosinophils % Basophils % Nucleated RBC % Absolute Neutrophils Absolute Lymphocytes Absolute Monocytes Absolute Eosinophils Absolute Basophils PT 12.5 H INR 1.2 H APTT 37.7 H D-Dimer 3586 H VBG Lactate 1.5 H Sodium Potassium Chloride Carbon Dioxide Anion Gap BUN Creatinine Estimated GFR/1.73 m2 Glucose Calcium Magnesium Iron TIBC Transferrin % Sat Total Bilirubin AST ALT Alkaline Phosphatase Troponin I NT-Pro-B Natriuret Pep Total Protein Albumin TSH Urine Color Urine Clarity Urine pH Ur Specific [place] Urine Protein Urine Ketones Urine Blood Urine Nitrite Urine Bilirubin Urine Urobilinogen Ur Leukocyte Esterase Urine RBC Urine WBC Ur Epithelial Cells Urine Crystals Urine Bacteria Urine Casts Urine Mucus Ur Culture Indicated? Urine Glucose COVID-19 Source SARS-CoV-2 (PCR) Patient ABO/Rh Antibody Screen Crossmatch 01/26/21 01/26/21 01/26/21 13:38 13:38 14:05 WBC RBC Hgb Hct MCV MCH MCHC RDW Plt Count MPV Immature Gran % Neutrophils % Lymphocytes % Monocytes % Eosinophils % Basophils % Nucleated RBC % Absolute Neutrophils Absolute Lymphocytes Absolute Monocytes Absolute Eosinophils Absolute Basophils PT INR APTT D-Dimer VBG Lactate Sodium Potassium Chloride Carbon Dioxide Anion Gap BUN Creatinine Estimated GFR/1.73 m2 Glucose Calcium Magnesium Iron 16 L TIBC 204 L Transferrin % Sat 8 L Total Bilirubin AST ALT Alkaline Phosphatase Troponin I NT-Pro-B Natriuret Pep Total Protein Albumin TSH Urine Color Yellow Urine Clarity Sl Cloudy Urine pH 5.5 Ur Specific [place] >= 1.030 H Urine Protein >=300 H Urine Ketones Negative Urine Blood Trace-intact H Urine Nitrite Negative Urine Bilirubin Moderate H Urine Urobilinogen 4.0 H Ur Leukocyte Esterase Small H Urine RBC 3-5 H Urine WBC 5-10 Ur Epithelial Cells Rare Urine Crystals Negative Urine Bacteria Many Urine Casts 3-5 Coarse Granular Urine Mucus Trace Ur Culture Indicated? Yes Urine Glucose Negative COVID-19 Source SARS-CoV-2 (PCR) Patient ABO/Rh B Positive Antibody Screen NEGATIVE Crossmatch See Detail 01/26/21 01/26/21 01/26/21 14:10 15:20 18:12 WBC RBC Hgb Hct MCV MCH MCHC RDW Plt Count MPV Immature Gran % Neutrophils % Lymphocytes % Monocytes % Eosinophils % Basophils % Nucleated RBC % Absolute Neutrophils Absolute Lymphocytes Absolute Monocytes Absolute Eosinophils Absolute Basophils PT INR APTT D-Dimer VBG Lactate Sodium Potassium Chloride Carbon Dioxide Anion Gap BUN Creatinine Estimated GFR/1.73 m2 Glucose Calcium Magnesium Iron TIBC Transferrin % Sat Total Bilirubin AST ALT Alkaline Phosphatase Troponin I 0.75 H* 0.79 H* NT-Pro-B Natriuret Pep Total Protein Albumin TSH Urine Color Urine Clarity Urine pH Ur Specific [place] Urine Protein Urine Ketones Urine Blood Urine Nitrite Urine Bilirubin Urine Urobilinogen Ur Leukocyte Esterase Urine RBC Urine WBC Ur Epithelial Cells Urine Crystals Urine Bacteria Urine Casts Urine Mucus Ur Culture Indicated? Urine Glucose COVID-19 Source Nasal/Nares SARS-CoV-2 (PCR) Negative Patient ABO/Rh Antibody Screen Crossmatch Last Vital Signs Temp 36.0 C L 01/26/21 20:31 Pulse 58 L 01/26/21 20:31 Resp 15 01/26/21 20:31 BP 118/58 L 01/26/21 20:31 Pulse Ox 95 01/26/21 20:31
--- NOTE | 2021-01-26 22:45 | RT.EKG_ITS ---
APPROVED REPORT Exam: Resting ECG Reason for Exam: elevated troponin Patient Location: I HR:60 bpm ECG Measurements Heart Rate 60 AXIS WY 141 P 21 QRSd 82 QRS 7 QT 418 T 104 QTc 417 Conclusion Sinus rhythm...normal P axis, V-rate 60- 99 Nonspecific T abnormalities, lateral leads...T <-0.10mV, I aVL V5 V6
--- NOTE | 2021-01-26 23:09 | NUR.NOTE ---
faxed ekg taken 229901/26/21 and ekg taken in ed earlier tonight to [facility] cardiology [phone]
--- NOTE | 2021-01-26 23:39 | PGE_ITS ---
Date of Service Date of service: 01/26/21 Time of Service: 23:39 Subjective Subjective Interval history since last seen: Case discussed with [facility] Cardiology (Dr Mario). He feels anemia is the likely crude oil driver of the cardiac strain, and there is evidence of GI bleeding with dropping hemoglobin and hemoccult positive stool in the ED. The patient, in fact, had an EGD and colonoscopy at [facility] on December 24. EGD did not show active bleeding, but did demonstrate gastritis. Biopsies showed nonspecific reacitve gastropathy. Colonoscopy showed 7 nonbleeding polyps which were not biopsies or resected. There was evidence of a single colonic angioectasia, not actively bleeding. Dr Mario recommends transfusing and diuresing the patient (as we are) with target Hgb closer to 10. He specifically recommends against aspirin, plavix, or heparin. Recommends continuing to trend troponin. He does not feel that a transfer is indicated at this time. Objective Last Vital Signs Temp 35.8 C L 01/26/21 23:16 Pulse 60 01/26/21 21:16 Resp 17 01/26/21 21:16 BP 116/44 L 01/26/21 20:46 Pulse Ox 94 01/26/21 21:16 Laboratory Results - last 24 hr 01/26/21 01/26/21 01/26/21 12:12 12:12 12:12 WBC 11.28 H D RBC 2.66 L Hgb 7.8 L D Hct 25.6 L D MCV 96.2 H MCH 29.3 MCHC 30.5 L RDW 17.8 H Plt Count 184 MPV 9.3 Immature Gran % 0.4 Neutrophils % 86.8 Lymphocytes % 4.6 Monocytes % 8.0 Eosinophils % 0.0 Basophils % 0.2 Nucleated RBC % 0 Absolute Neutrophils 9.79 H Absolute Lymphocytes 0.52 L Absolute Monocytes 0.90 H Absolute Eosinophils 0.00 Absolute Basophils 0.02 PT INR APTT D-Dimer VBG Lactate Sodium 135 L Potassium 5.3 H Chloride 105 Carbon Dioxide 19.9 L Anion Gap 10.1 BUN 43 H Creatinine 2.4 H D Estimated GFR/1.73 m2 20.88 Glucose 86 Calcium 8.1 L Magnesium 1.5 L Iron TIBC Transferrin % Sat Total Bilirubin 2.5 H AST 76 H ALT 32 Alkaline Phosphatase 520 H Troponin I 0.67 H* NT-Pro-B Natriuret Pep 16360 H Total Protein 6.6 Albumin 1.8 L TSH 1.22 Urine Color Urine Clarity Urine pH Ur Specific [place] Urine Protein Urine Ketones Urine Blood Urine Nitrite Urine Bilirubin Urine Urobilinogen Ur Leukocyte Esterase Urine RBC Urine WBC Ur Epithelial Cells Urine Crystals Urine Bacteria Urine Casts Urine Mucus Ur Culture Indicated? Urine Glucose COVID-19 Source SARS-CoV-2 (PCR) Patient ABO/Rh Antibody Screen Crossmatch 01/26/21 01/26/21 01/26/21 12:55 12:55 13:38 WBC RBC Hgb Hct MCV MCH MCHC RDW Plt Count MPV Immature Gran % Neutrophils % Lymphocytes % Monocytes % Eosinophils % Basophils % Nucleated RBC % Absolute Neutrophils Absolute Lymphocytes Absolute Monocytes Absolute Eosinophils Absolute Basophils PT 12.5 H INR 1.2 H APTT 37.7 H D-Dimer 3586 H VBG Lactate 1.5 H Sodium Potassium Chloride Carbon Dioxide Anion Gap BUN Creatinine Estimated GFR/1.73 m2 Glucose Calcium Magnesium Iron TIBC Transferrin % Sat Total Bilirubin AST ALT Alkaline Phosphatase Troponin I NT-Pro-B Natriuret Pep Total Protein Albumin TSH Urine Color Urine Clarity Urine pH Ur Specific [place] Urine Protein Urine Ketones Urine Blood Urine Nitrite Urine Bilirubin Urine Urobilinogen Ur Leukocyte Esterase Urine RBC Urine WBC Ur Epithelial Cells Urine Crystals Urine Bacteria Urine Casts Urine Mucus Ur Culture Indicated? Urine Glucose COVID-19 Source SARS-CoV-2 (PCR) Patient ABO/Rh Antibody Screen Crossmatch 01/26/21 01/26/21 01/26/21 13:38 13:38 14:05 WBC RBC Hgb Hct MCV MCH MCHC RDW Plt Count MPV Immature Gran % Neutrophils % Lymphocytes % Monocytes % Eosinophils % Basophils % Nucleated RBC % Absolute Neutrophils Absolute Lymphocytes Absolute Monocytes Absolute Eosinophils Absolute Basophils PT INR APTT D-Dimer VBG Lactate Sodium Potassium Chloride Carbon Dioxide Anion Gap BUN Creatinine Estimated GFR/1.73 m2 Glucose Calcium Magnesium Iron 16 L TIBC 204 L Transferrin % Sat 8 L Total Bilirubin AST ALT Alkaline Phosphatase Troponin I NT-Pro-B Natriuret Pep Total Protein Albumin TSH Urine Color Yellow Urine Clarity Sl Cloudy Urine pH 5.5 Ur Specific [place] >= 1.030 H Urine Protein >=300 H Urine Ketones Negative Urine Blood Trace-intact H Urine Nitrite Negative Urine Bilirubin Moderate H Urine Urobilinogen 4.0 H Ur Leukocyte Esterase Small H Urine RBC 3-5 H Urine WBC 5-10 Ur Epithelial Cells Rare Urine Crystals Negative Urine Bacteria Many Urine Casts 3-5 Coarse Granular Urine Mucus Trace Ur Culture Indicated? Yes Urine Glucose Negative COVID-19 Source SARS-CoV-2 (PCR) Patient ABO/Rh B Positive Antibody Screen NEGATIVE Crossmatch See Detail 01/26/21 01/26/21 01/26/21 14:10 15:20 18:12 WBC RBC Hgb Hct MCV MCH MCHC RDW Plt Count MPV Immature Gran % Neutrophils % Lymphocytes % Monocytes % Eosinophils % Basophils % Nucleated RBC % Absolute Neutrophils Absolute Lymphocytes Absolute Monocytes Absolute Eosinophils Absolute Basophils PT INR APTT D-Dimer VBG Lactate Sodium Potassium Chloride Carbon Dioxide Anion Gap BUN Creatinine Estimated GFR/1.73 m2 Glucose Calcium Magnesium Iron TIBC Transferrin % Sat Total Bilirubin AST ALT Alkaline Phosphatase Troponin I 0.75 H* 0.79 H* NT-Pro-B Natriuret Pep Total Protein Albumin TSH Urine Color Urine Clarity Urine pH Ur Specific [place] Urine Protein Urine Ketones Urine Blood Urine Nitrite Urine Bilirubin Urine Urobilinogen Ur Leukocyte Esterase Urine RBC Urine WBC Ur Epithelial Cells Urine Crystals Urine Bacteria Urine Casts Urine Mucus Ur Culture Indicated? Urine Glucose COVID-19 Source Nasal/Nares SARS-CoV-2 (PCR) Negative Patient ABO/Rh Antibody Screen Crossmatch
[2021-01-26] MEDS: Polyethylene Glycol 3350 17 GM PACKET PO (23:40)
[2021-01-26] MEDS: Sucralfate 1 GM TAB PO (23:40)
[2021-01-27] VITALS (98 sets, daily range): BP systolic 109–159; BP diastolic 41–81; PULSE 53–77; RESP 10–22; TEMP 35.8–37.7; O2SAT 90–98
--- NOTE | 2021-01-27 | DI.US_ITS ---
Exam(s) US ABDOMEN EXAM: US ABDOMEN CLINICAL HISTORY: Elevated bilirubin TECHNIQUE: Ultrasound performed using standard protocol. COMPARISON: US US EXTREMITY VENOUS BI from 01/26/2021 FINDINGS: The examination was limited by patient's inability to cooperate fully, overlying bowel gas, and the p atient's body habitus. There is hepatosplenomegaly. Significant portions of the liver are nonvisual ized but there is no focal lesion seen. Gallbladder is poorly visualized, possible gallbladder neck stones. Gallbladder wall is thickened at about 5 millimeters. No biliary dilatation. Kidneys are grossly unremarkable with no hydronephrosis. Abdominal aorta is borderline aneurysmal at 2.7 cm in diameter. IMPRESSION: Limited scan. Suspect cholelithiasis. Repeat examination suggested when clinically appropriate. DATA REPOSITORY:
[2021-01-27] MEDS: HYDROmorphone 2 MG TAB PO ×2 (00:18→21:26)
[2021-01-27] MEDS: Normal Saline Flush 10 ML SYR IVP ×2 (00:18→21:25)
[2021-01-27 04:17] LABS: HCT 29.4 % (36.0-46.0); HGB 9.2 g/dL (11.2-15.7)
[2021-01-27 04:41] LABS: Troponin I 0.54 ng/mL (<0.06)
[2021-01-27] MEDS: Furosemide 40 MG TAB PO (05:13)
[2021-01-27 07:31] LABS: Abs Immature Grans 0.04 10^3/uL (0.0-0.06); Absolute Lymphocyte Count 0.39 10^3/uL (1.2-3.4); Absolute Neutrophil Count 7.66 10^3/uL (1.2-6.7); HCT 30.1 % (36.0-46.0); HGB 9.2 g/dL (11.2-15.7); Immature Grans % 0.5; Lymphocytes % 4.6; MCH 28.4 pg (27.0-33.0); MCHC 30.6 % (32.0-36.0); MCV 92.9 fL (80-95); MPV 9.7 fL (8.0-11.0); Monocytes % 4.7; Neutrophils % 90.2; Nucleated RBC 0 %; Platelet Count 174 10^3/uL (130-400); RBC 3.24 10^6/uL (3.93-5.22); RDW 18.6 % (11.7-14.6); RDW-SD 64.2 fL; WBC 8.49 10^3/uL (4.4-10.8)
[2021-01-27 07:42] LABS: ALT 28 U/L (14-59); AST 69 U/L (15-37); Albumin 1.9 g/dL (3.4-5.0); Alkaline Phosphatase 493 U/L (46-116); Anion Gap 12.5 mmol/L (3-11); BUN 46 mg/dL (7-18); CO2 19.5 mmol/L (21.0-32.0); CREATININE 2.4 mg/dL (0.55-1.02); Calcium 8.2 mg/dL (8.5-10.1); Chloride 104 mmol/L (98-107); Estimated GFR 20.88 (mL/min/1.73m2); Glucose 108 mg/dL (74-106); Magnesium 2.5 mg/dL (1.8-2.4); Potassium 5.3 mmol/L (3.5-5.1); Sodium 136 mmol/L (136-145); Total Protein 6.6 g/dL (6.4-8.2)
[2021-01-27] MEDS: Sucralfate 1 GM TAB PO ×2 (07:57→15:53)
[2021-01-27] MEDS: amLODIPine 10 MG TAB PO (07:57)
[2021-01-27] MEDS: Gabapentin 300 MG CAP PO (08:08)
[2021-01-27] MEDS: Pantoprazole 40 MG VIAL 80 MG IVP ×2 (08:09→21:24)
--- NOTE | 2021-01-27 09:01 | PDOC.CMIN ---
- If Service Date Differs Date of service: 01/27/21 Time of Service: 09:01 Care Management Initial Assess REASON FOR HOSPITALIZATION:: Anemia, Left Humeral Fracture PAST MEDICAL HISTORY/PAST SURGICAL HISTORY:: Active Problem List (Updated 01/27/21 @ 07:26 by Casey Latham MD). HLD (hyperlipidemia) (Acute). Morbid obesity (Acute). Restless leg syndrome (Acute). Diabetes mellitus (Chronic). Essential hypertension (Acute). Left humeral fracture (Acute). Heart failure with preserved ejection fraction (Acute). Blood loss anemia (Acute). Primary osteoarthritis of right knee (Acute) PREVIOUS FUNCTIONAL STATUS/SOCIAL/FAMILY SUPPORTS:: Desiree resides at [facility] for SNF following left humeral fracture and fixation. She anticipates being discharged back to the [facility] when she is medically ready. Historically she lives with her in [place] and was independent at baseline. When she is ready to be discharged home from [facility] she has made arrangements to stay with her sister Opal in [place] short term until she is fully independent on her own. CURRENT FUNCTIONAL STATUS:: Desiree was lying in bed when CM met with her. She was pleasant and easily engaged in conversation. She reports that [facility] is helping her with her insurance and she is anticipating her dropping off the forms for her to fill out. ADVANCE DIRECTIVES:: None on file Has patient been provided with info about the portal/API?: Yes Did the patient sign up for the portal?: Yes CODE STATUS:: Full Code INSURANCE COVERAGE / FINANCIAL ISSUES:: Medicaid. Medicare CURRENT HOME/COMMUNITY SERVICES/EQUIPMENT:: Uses a cane and walker. Has a wheelchair at home PRIMARY CARE PHYSICIAN:: Michelle Zuniga PATIENT/FAMILY EDUCATION NEEDS:: Review discharge instructions, limitations and plan to follow up with community providers. ask me three. TRANSPORTATION:: Desiree will transport back to [facility] via facility van. PLAN:: Anticipate Desiree will be discharged back to [facility] when medically cleared via facility van. Will follow up with community providers and discharge plan of care as prescribed.
--- NOTE | 2021-01-27 10:00 | DI.NM_ITS ---
Exam(s) NM LUNG SCAN VENT PERF AEROS EXAM: NM LUNG SCAN VENT PERF AEROS CLINICAL HISTORY: Shortness of breath. Elevated d dimer. COMPARISON: No exams were available for comparison TECHNIQUE: This examination was performed utilizing intravenous infusion of 4.3 millicuries of techn etium 99 labeled macroaggregated albumin and inhalation of 30.3 millicuries technetium 99 labeled DTP A. FINDINGS: The patient was claustrophobic and the examination was limited to only anterior and posterior perfusi on and ventilation views. Persist fusion and ventilation views are within normal limits with no sign ificant perfusion defect identified. IMPRESSION: Normal ventilation perfusion lung scan, no evidence of pulmonary embolic disease. DATA REPOSITORY:
--- NOTE | 2021-01-27 10:28 | PUCC_ITS ---
General Date of Service Date of service: 01/27/21 Time of Service: 07:30 Reason for Admission to ICU: Anemia Assessment and Plan Assessment and plan (1) Diabetes mellitus: Status: Chronic (2) Essential hypertension: Status: Acute (3) Blood loss anemia: Status: Acute (4) Elevated troponin: Status: Acute (5) Hypotension: Status: Acute Assessment and plan: This is a 55 yo female currently being worked up for blood loss anemia who presents with weakness and SOB found to have an acute drop in her Hb. She improved dramatically after blood transfusion. She had an elevated troponin with a normal echo and EKG. This most likely represents demand in the setting of acute anemia. I have no clinical suspicion for a PE and so the VQ scan was cancelled. Addiitonally, if PE was a true concern obtaining a CTPE is preferred regardless of whether an ИВАН is present or not. I do not beleive she needs further investigation into the troponin. She did have an increase in her bilirubin so ruling out an obstructive process is reasonable. Patient stable for transfer to Med/Surg. Recommendations Pulmonary: Atelectasis - seen on Xray - recommend Incentive spirometry Cardiac: Elevated troponin - in the setting of acute anemia - echo and EKG normal - no further work up needed Renal: ИВАН - likely prerenal 2/2 anemia - continue adequate PO intake - s/p transfusion - consider decreasing gabapentin dosing given ИВАН I&O: Intake & Output 01/24/21 01/25/21 01/26/21 01/27/21 23:59 23:59 23:59 23:59 Intake Total 1530 / 1530 1813 / 1813 Output Total 900 / 900 850 / 850 Balance 630 / 630 963 / 963 Weight 126.1 kg 131.3 kg Daily Fluid Goal:: Even GI Nutrition: OK for PO Elevated bilirubin - US abdomen ordered, again could be transient injury due to decreased oxygen carrying capacity of blood given anemia Date of Last Bowel Movement: 01/27/21 Infectious Disease: UTI - on Cipro, agree with this Hematologic: Blood loss Anemia - s/p transfusion - goal for transfusion should be 7, would not continue with transfusions to reach a higher goal - repeat CBC scheduled for 2pm this afternoon - Protonix IV bid Neurologic: No acute concerns Endocrine: Diabetes - on insulin Lines: PIV Prophylaxis: SCD's, on Protonix Code Status: Resuscitation Status Full Code Subjective Critical and life-threatening events over the past 24 hours: This is a 55 yo female with a recent humueral fracture s/p surgical fixation and blood loss anemia who is currently being worked up as an outpatient, including an endoscopy at [facility]. She presented with shortness of breath and weakness. Her Hb was found to be 3g lower than a recent CBC and she was transiently hypotensive. She was resuscitated with blood and transferred to the ICU. Her blood pressure quickly improved and her vital signs remained stable. There was some concern for a potential PE, however the patient is not hypoxic, never tachycardic and has an very viable explanation for any shortness of breath symptoms. Her EKG was normal, although her troponins were elevated (likely due to the anemia). This morning she is feeling much better. She has no chest pain or shortness of breath. Exam Const General: no acute distress Nutritional Appearance: obese [facility] Head: normocephalic Ears: external ears normal and no periauricular adenopathy General nose exam: nasal mucous membranes and turbinates normal Face and sinus: sinuses nontender Mouth: oropharynx normal and moist mucous membranes Teeth and gingiva: dentition normal Eyes General: appearance normal, both eyes and all related structures Pupils: PERRL Neck Neck: normal visual inspection and no lymphadenopathy Chest Chest: normal inspection of the chest Resp Effort & Inspection: normal respiratory effort Auscultation: clear to auscultation bilaterally, no rales, no rhonchi and no wheezes Cardio Rate: regular rate Rhythm: regular rhythm Heart Sounds: S1 normal, S2 normal and no murmurs Pulses: radial pulses present bilaterally GI Inspection: normal to inspection Palpation: soft Skin General skin exam: no rashes or lesions noted Neuro General: patient alert, patient awake and patient oriented x3 Extrem General: no clubbing, cyanosis or edema Psych Mental Status: mental status grossly normal Affect: normal affect Attitude: cooperative Most Recent VS/Results Last Vital Signs Temp 36.2 C L 01/27/21 08:31 Pulse 59 L 01/27/21 08:31 Resp 14 01/27/21 08:31 BP 143/76 H 01/27/21 08:31 Pulse Ox 97 01/27/21 08:31 Laboratory Results - last 24 hr 01/26/21 01/26/21 01/26/21 12:12 12:12 12:12 WBC 11.28 H D RBC 2.66 L Hgb 7.8 L D Hct 25.6 L D MCV 96.2 H MCH 29.3 MCHC 30.5 L RDW 17.8 H Plt Count 184 MPV 9.3 Immature Gran % 0.4 Neutrophils % 86.8 Lymphocytes % 4.6 Monocytes % 8.0 Eosinophils % 0.0 Basophils % 0.2 Nucleated RBC % 0 Absolute Neutrophils 9.79 H Absolute Lymphocytes 0.52 L Absolute Monocytes 0.90 H Absolute Eosinophils 0.00 Absolute Basophils 0.02 PT INR APTT D-Dimer VBG Lactate Sodium 135 L Potassium 5.3 H Chloride 105 Carbon Dioxide 19.9 L Anion Gap 10.1 BUN 43 H Creatinine 2.4 H D Estimated GFR/1.73 m2 20.88 Glucose 86 Calcium 8.1 L Magnesium 1.5 L Iron TIBC Transferrin % Sat Total Bilirubin 2.5 H AST 76 H ALT 32 Alkaline Phosphatase 520 H Troponin I 0.67 H* NT-Pro-B Natriuret Pep 86869 H Total Protein 6.6 Albumin 1.8 L TSH 1.22 Urine Color Urine Clarity Urine pH Ur Specific [place] Urine Protein Urine Ketones Urine Blood Urine Nitrite Urine Bilirubin Urine Urobilinogen Ur Leukocyte Esterase Urine RBC Urine WBC Ur Epithelial Cells Urine Crystals Urine Bacteria Urine Casts Urine Mucus Ur Culture Indicated? Urine Glucose COVID-19 Source SARS-CoV-2 (PCR) Patient ABO/Rh Antibody Screen Crossmatch 01/26/21 01/26/21 01/26/21 12:55 12:55 13:38 WBC RBC Hgb Hct MCV MCH MCHC RDW Plt Count MPV Immature Gran % Neutrophils % Lymphocytes % Monocytes % Eosinophils % Basophils % Nucleated RBC % Absolute Neutrophils Absolute Lymphocytes Absolute Monocytes Absolute Eosinophils Absolute Basophils PT 12.5 H INR 1.2 H APTT 37.7 H D-Dimer 3586 H VBG Lactate 1.5 H Sodium Potassium Chloride Carbon Dioxide Anion Gap BUN Creatinine Estimated GFR/1.73 m2 Glucose Calcium Magnesium Iron TIBC Transferrin % Sat Total Bilirubin AST ALT Alkaline Phosphatase Troponin I NT-Pro-B Natriuret Pep Total Protein Albumin TSH Urine Color Urine Clarity Urine pH Ur Specific [place] Urine Protein Urine Ketones Urine Blood Urine Nitrite Urine Bilirubin Urine Urobilinogen Ur Leukocyte Esterase Urine RBC Urine WBC Ur Epithelial Cells Urine Crystals Urine Bacteria Urine Casts Urine Mucus Ur Culture Indicated? Urine Glucose COVID-19 Source SARS-CoV-2 (PCR) Patient ABO/Rh Antibody Screen Crossmatch 01/26/21 01/26/21 01/26/21 13:38 13:38 14:05 WBC RBC Hgb Hct MCV MCH MCHC RDW Plt Count MPV Immature Gran % Neutrophils % Lymphocytes % Monocytes % Eosinophils % Basophils % Nucleated RBC % Absolute Neutrophils Absolute Lymphocytes Absolute Monocytes Absolute Eosinophils Absolute Basophils PT INR APTT D-Dimer VBG Lactate Sodium Potassium Chloride Carbon Dioxide Anion Gap BUN Creatinine Estimated GFR/1.73 m2 Glucose Calcium Magnesium Iron 16 L TIBC 204 L Transferrin % Sat 8 L Total Bilirubin AST ALT Alkaline Phosphatase Troponin I NT-Pro-B Natriuret Pep Total Protein Albumin TSH Urine Color Yellow Urine Clarity Sl Cloudy Urine pH 5.5 Ur Specific [place] >= 1.030 H Urine Protein >=300 H Urine Ketones Negative Urine Blood Trace-intact H Urine Nitrite Negative Urine Bilirubin Moderate H Urine Urobilinogen 4.0 H Ur Leukocyte Esterase Small H Urine RBC 3-5 H Urine WBC 5-10 Ur Epithelial Cells Rare Urine Crystals Negative Urine Bacteria Many Urine Casts 3-5 Coarse Granular Urine Mucus Trace Ur Culture Indicated? Yes Urine Glucose Negative COVID-19 Source SARS-CoV-2 (PCR) Patient ABO/Rh B Positive Antibody Screen NEGATIVE Crossmatch See Detail 01/26/21 01/26/21 01/26/21 14:10 15:20 18:12 WBC RBC Hgb Hct MCV MCH MCHC RDW Plt Count MPV Immature Gran % Neutrophils % Lymphocytes % Monocytes % Eosinophils % Basophils % Nucleated RBC % Absolute Neutrophils Absolute Lymphocytes Absolute Monocytes Absolute Eosinophils Absolute Basophils PT INR APTT D-Dimer VBG Lactate Sodium Potassium Chloride Carbon Dioxide Anion Gap BUN Creatinine Estimated GFR/1.73 m2 Glucose Calcium Magnesium Iron TIBC Transferrin % Sat Total Bilirubin AST ALT Alkaline Phosphatase Troponin I 0.75 H* 0.79 H* NT-Pro-B Natriuret Pep Total Protein Albumin TSH Urine Color Urine Clarity Urine pH Ur Specific [place] Urine Protein Urine Ketones Urine Blood Urine Nitrite Urine Bilirubin Urine Urobilinogen Ur Leukocyte Esterase Urine RBC Urine WBC Ur Epithelial Cells Urine Crystals Urine Bacteria Urine Casts Urine Mucus Ur Culture Indicated? Urine Glucose COVID-19 Source Nasal/Nares SARS-CoV-2 (PCR) Negative Patient ABO/Rh Antibody Screen Crossmatch 01/27/21 01/27/21 01/27/21 04:07 04:07 04:07 WBC RBC Hgb Hct MCV MCH MCHC RDW Plt Count MPV Immature Gran % Neutrophils % Lymphocytes % Monocytes % Eosinophils % Basophils % Nucleated RBC % Absolute Neutrophils Absolute Lymphocytes Absolute Monocytes Absolute Eosinophils Absolute Basophils PT INR APTT D-Dimer VBG Lactate Sodium 136 Potassium 5.3 H Chloride 104 Carbon Dioxide 19.5 L Anion Gap 12.5 H BUN 46 H Creatinine 2.4 H Estimated GFR/1.73 m2 20.88 Glucose 108 H Calcium 8.2 L Magnesium 2.5 H Iron TIBC Transferrin % Sat Total Bilirubin 4.0 H AST 69 H ALT 28 Alkaline Phosphatase 493 H Troponin I 0.54 H* NT-Pro-B Natriuret Pep Total Protein 6.6 Albumin 1.9 L TSH Urine Color Urine Clarity Urine pH Ur Specific [place] Urine Protein Urine Ketones Urine Blood Urine Nitrite Urine Bilirubin Urine Urobilinogen Ur Leukocyte Esterase Urine RBC Urine WBC Ur Epithelial Cells Urine Crystals Urine Bacteria Urine Casts Urine Mucus Ur Culture Indicated? Urine Glucose COVID-19 Source SARS-CoV-2 (PCR) Patient ABO/Rh Antibody Screen Crossmatch 01/27/21 01/27/21 04:07 04:15 WBC 8.49 RBC 3.24 L Hgb 9.2 L 9.2 L Hct 29.4 L 30.1 L MCV 92.9 D MCH 28.4 MCHC 30.6 L RDW 18.6 H Plt Count 174 MPV 9.7 Immature Gran % 0.5 Neutrophils % 90.2 Lymphocytes % 4.6 Monocytes % 4.7 Eosinophils % 0.0 Basophils % 0.0 Nucleated RBC % 0 Absolute Neutrophils 7.66 H Absolute Lymphocytes 0.39 L Absolute Monocytes 0.40 Absolute Eosinophils 0.00 Absolute Basophils 0.00 PT INR APTT D-Dimer VBG Lactate Sodium Potassium Chloride Carbon Dioxide Anion Gap BUN Creatinine Estimated GFR/1.73 m2 Glucose Calcium Magnesium Iron TIBC Transferrin % Sat Total Bilirubin AST ALT Alkaline Phosphatase Troponin I NT-Pro-B Natriuret Pep Total Protein Albumin TSH Urine Color Urine Clarity Urine pH Ur Specific [place] Urine Protein Urine Ketones Urine Blood Urine Nitrite Urine Bilirubin Urine Urobilinogen Ur Leukocyte Esterase Urine RBC Urine WBC Ur Epithelial Cells Urine Crystals Urine Bacteria Urine Casts Urine Mucus Ur Culture Indicated? Urine Glucose COVID-19 Source SARS-CoV-2 (PCR) Patient ABO/Rh Antibody Screen Crossmatch Review of Systems All systems reviewed & are unremarkable except as noted in HPI and below Time spent with patient Time spent in Critical Care: 35 Time spent in Critical care included: Coordination of care, Chart review, Documenting critically ill care, Time at immediate bedside and Discussing critically ill care with other medical staff
--- NOTE | 2021-01-27 11:27 | NUR.NOTE ---
ICU nurse takes call from optical coating technician who indicates lung scan has been cancelled. RN send SNPP message to Dr. Latham to place order anew.Nursing Note:
[2021-01-27] MEDS: CIPROFLOXACIN 200 MG/100 ML BAG 100 MG IVPB ×2 (11:28→21:26)
--- NOTE | 2021-01-27 11:44 | NUR.NOTE ---
At approximately 11:00 a.m. patient is transported from nuclear medicine to Med/Surg where patient will remain.Nursing Note:
[2021-01-27 14:01] LABS: Source Nasal/Nares
[2021-01-27 15:05] LABS: COVID-19 PCR Negative (Negative)
--- NOTE | 2021-01-27 16:11 | IN_ITS ---
Date of service: 01/27/21 Time of Service: 16:11 PT Notes Visit Reasons: Acute blood loss anemia, UTI Physical Therapy Inpatient Initial Evaluation Date: 01/27/2021 Referring Doctor: Casey Latham MD PT Orders: PT CONSULT: Eval/treat Precautions: Fall. Standard. NWB on left LE. Mechanical lift only for transfers. Patient Profile/Admitting Diagnosis: Desiree is a 55-year-old female who presented to the ED on 01/27/2021 due to weakness and shortness of breath. Patient had been receiving rehabilitation services at the [facility] for a left femoral neck fracture with surgical fixation at [facility] and for a close T12 compression fracture. Patient is in negative for NSTEMI. Will need to reach out to [facility] to clarify weight bearing precautions for the left LE. PMHX: Active Problem List (Updated 01/27/21 @ 07:26 by Casey Latham MD) HLD (hyperlipidemia) (Acute) Morbid obesity (Acute) Restless leg syndrome (Acute) Diabetes mellitus (Chronic) Essential hypertension (Acute) Left humeral fracture (Acute) Heart failure with preserved ejection fraction (Acute) Blood loss anemia (Acute) Primary osteoarthritis of right knee (Acute) Social History/Home Situation: Prior to SNF admission, patient lives with her in a private home in [place] with 3 steps to enter. She was independent with the use of a front wheel walker for all mobility ADL performance. Equipment Owned/DME: [facility] Subjective: Desiree states that the orthopedic surgeon at [facility] who repaired her left hip ordered non-weightbearing on the left LE until March 2021. She reports that for the past 20 days she has been at the SNF, she only has been wo rking on the use of a slide board for transferring as she did not feel safe standing up on the right foot yet. She feels that she needs more strengthening of her arms and her trunk. She stresses that both her knees have a tendency to give way and cause her to fall. Complained of low back pain during sit to supine movement transitions. Objective: General Observation: Supine in bed. High catheter in place. Surgical incision on the left thigh and knee well approximated. Swelling in BLE with the left more affected than the right Mental Status: Alert and oriented as to person, place, time, and purpose. Able to pay attention, focus, and respond appropriately. Pain: Reported significant pain in bilateral legs to palpation ROM: Right Upper Extremity: Shoulder Flexion lacks 50% of available range of motion. Shoulder abduction acks 50% of available range of motion. Elbow flexion WFL. Wrist flexion WFL. Functional opening and closing of hand WFL. Left Upper Extremity: houlder Flexion lacks 50% of available range of motion. Shoulder abduction acks 50% of available range of motion. Elbow flexion WFL. Wrist flexion WFL. Functional opening and closing of hand WFL. Right Lower Extremity: Hip flexion lacks 50% of available range of motion. Hip abduction lacks 50% of available range of motion. Knee flexion lacks 50% of available range of motion. Knee extension lacks 50% of available range of motion. Ankle dorsiflexion to neutral only. Ankle plantarflexion 30 degrees from neutral. Left Lower Extremity: Hip flexion lacks 75% of available range of motion. Hip abduction lacks 75% of available range of motion. Knee flexion 30 degrees to 50 degrees. Knee extension -30 degrees. Ankle dorsiflexion has less than 25% of active range of motion. Ankle plantarflexion has less than 25% of active range of motion. Strength: Right Upper Extremity: Shoulder flexors 3-/5. Shoulder abductors 3-/5. Elbow flexors 3-/5. Elbow extensors 3-/5. Water Treatment Technician strong. Left Upper Extremity: Shoulder flexors 3-/5. Shoulder abductors 3-/5. Elbow flexors 3-/5. Elbow extensors 3-/5. Water Treatment Technician strong. Right Lower Extremity: Hip flexors 3--/5. Hip abductors 3-/5. Knee flexors 3-/5. Knee extensors 3-/5. Ankle dorsiflexors 3-/5. Ankle plantarflexors 3-/5. Left Lower Extremity: Hip flexors 2-/5. Hip abductors 2-/5. Knee flexors 2-/5. Knee extensors 2-/5. Ankle dorsiflexors 2-/5. Ankle plantarflexors 2-/5. Bed Mobility/Transfers: Rolling moderate assist of 2 Supine to sit moderate assist of 2 Sit to supine moderate to maximal assist of 2 Gait: Will hold off on gait activities until clarification on weight bearing precautions has been sought from [facility] orthopedic surgeon. Balance: Static Sitting: Fair Dynamic Sitting: Fair Static Standing: Unable to test Dynamic Standing: Unable to test Special Tests: Mobility Limitations Standardized Measure [facility] AM-PAC 6 clicks Basic Mobility Inpatient Short Form: Raw Score: 6 CMS Score: 100% deficit Informed Consent/Education: Patient was instructed in purpose of PT consult and plan of care. Agreeable to proceed with established PT POC to achieve personal goals. Assessment: Will need to reach out to [facility] orthopedic surgeon for clarification of weight bearing caution to safely progress mobility level. Patient does not feel safe to be attempting any out of bed activities at this time unless mechanical lift is used. T12 compression fracture, restless leg syndrome, body habitus, and postoperative status all limit prognosis for achieving goals at this time. Patient presents with clinical signs and symptoms consistent with current/admitting diagnoses that have resulted to mobility limitations, gait instability, generalized weakness, and overall ADL decline as demonstrated by the following impairment level findings: 1. Decreased strength to BUE/LE major muscle groups 2. Impaired sitting balance 3. Impaired activity tolerance 4. Limitation of joint range of motion in B shoulders and B LE 5. Shortness of breath 6. Swelling in B LE with left more than the right Impairments are contributing to the following functional limitations: 1. Decline in bed mobility skills 2. Decline in transfer skills 3. Inability to ambulate due to fear of falling and orthopedic weight bearing precautions 4. Increased completion time for mobility ADL performance 5. Increased risk for falls Patient is assessed as a 00952 high complexity based on the following: History: 55-year-old female with past medical history as indicated above Examination: Demonstrable impairment in strength, balance, and mobility level with underlying impairments and functional limitations as exhibited above as well as deficit score of 100% utilizing the [facility] Mobility Inpatient Short Form Presentation: Evolving Decision Makin high complexity Goals: Goals X1 week 1. Supine-Sit minimal assist 2. Sit-Supine minimal assist 5. Bed-Chair minimal assist of 2 using slide board 6. Chair-Bed minimal assist of 2 using slide board 7. Normal static and dynamic sitting balance/tolerance 8. Minimal assist of 2 with scooting to R using B UE and R LE at edge of bed Plan of Care/Treatment Plan: 1-2x/day, 7 days/week x 1 week. Plan of care has been reviewed with the AUTOMOBILE INSPECTOR providing the service under Physical Therapy direction. Initiate Physical Therapy intervention for pain management as needed, strengthening, bed mobility, transfers, gait, stairs, balance training, and use of assistive device. DISCHARGE RECOMMENDATIONS: Return to SNF for continued rehabilitation once cleared by hospitalist. TREATMENT CODE/TIME: 34865 x 30 minutes, 63898 x 26 minutes beginning at 16:11 PM. Thank you for the opportunity to participate in the care of this patient. Iqra Luke PT, DPT, CLT [facility] [place], [place]
--- NOTE | 2021-01-27 16:16 | W.PM.PROGNOT ---
Date of Service Date of service: 01/27/21 Time of Service: 16:17 Assessment and Plan Assessment and plan (1) Blood loss anemia: Status: Acute Assessment and plan: No gross melena or hematochezia noted. Known iron deficiency and she states she was scheduled for IV iron. Transfused 3 unit RBCs. Hgb 9.2 after first two units. Hgb after 3rd unit pending. PPI and carafate. Pt [place] [facility] colonic angioectasia and gastritis but no active bleeding. Not on any anticoagulants or NSAIDS. (2) Heart failure with preserved ejection fraction: Status: Acute Assessment and plan: Likely demand ischemia d/t anemia. Transfuse; will d/w [facility] [place] regarding target Hgb. On a BB (3) Essential hypertension: Status: Acute Assessment and plan: Cont amlodipine and Metoprolol with parameters. Monitor. (4) Diabetes mellitus: Status: Chronic Assessment and plan: Pt on Lantus; continue to hold until blood glucose monitoring indicates the need during hospitalization. She states her appetite is poor at this time. ACHS glucose monitoring SS insulin correction dosing. Consistent carb diet. (5) Restless leg syndrome: Status: Acute Assessment and plan: Chronic but more pronounced currently per pt. Likely driven by Fe def anemia and hypomagnosemia. Cont gabapentin. Repleted Mg. Venofer and RBC transfusions. Improved. (6) Morbid obesity: Status: Acute Assessment and plan: Will encourage activity and sensible calorie intake. (7) HLD (hyperlipidemia): Status: Acute Assessment and plan: Held atorvastatin d/t elevated bilirubin and mild AST elevation. Elevations likely from hepatic congestion. Follow lab and restart atorvastatin if values improve. (8) Left femoral shaft fracture: Status: Acute Assessment and plan: REhabing at [facility]. Cont PT while hospitalized. (9) Hyperbilirubinemia: Status: Acute Assessment and plan: Total bilirubin has increased to 4.0; normal on 01/13 then has increased each day since then. Abd US was limited d/t large body habitus; read as likely cholelithiasis. Nontender abd. Consider MRCP vs CT abd/pelvis if continues to climb or becomes symptomatic. Monitor (10) Elevated d-dimer: Status: Acute Assessment and plan: V/Q scan; low probability of pulmonary embolism. Elevation likely d/t obesity, fracture, ИВАН. Subjective Subjective Patient reports: no new complaints, feels better and afebrile; denies diarrhea, nausea, vomiting and shortness of breath Exam Narrative Exam Narrative: Fatigued appearing female that appears older than her stated age. Lying supine and in no distress. No longer appears pale. Const General: cooperative Nutritional Appearance: obese Orientation: awake and oriented x3 HENMT Head: normocephalic and atraumatic Eyes General: appearance normal, both eyes and all related structures Conjunctivae: conjunctival abnormality (pale palpebral conjunctivae) Sclera: sclerae normal Neck Neck: no JVD (Difficult to adequately gauge JVD d/t large neck girth) Resp Effort & Inspection: normal respiratory effort Auscultation: clear to auscultation bilaterally Cardio Rate: bradycardic Rhythm: regular rhythm Heart Sounds: S1 normal, S2 normal and murmur GI Palpation: soft and nontender Auscultation: normal bowel sounds Skin General skin exam: no rashes or lesions noted and pallor (face) Neuro General: no focal motor deficits Cognition: normal cognition Speech: speech normal Extrem General: edema Laterality: bilateral (trace) and other (Tenderness diffusely of BLE below the knees.) Psych Speech and Movement: speech and movement normal Affect: blunted Objective Last Vital Signs Temp 36.8 C 01/27/21 14:14 Pulse 65 01/27/21 14:14 Resp 17 01/27/21 14:14 BP 135/78 01/27/21 14:14 Pulse Ox 96 01/27/21 14:14 Laboratory Results - last 24 hr 01/26/21 01/26/21 01/26/21 13:38 13:38 18:12 WBC RBC Hgb Hct MCV MCH MCHC RDW Plt Count MPV Immature Gran % Neutrophils % Lymphocytes % Monocytes % Eosinophils % Basophils % Nucleated RBC % Absolute Neutrophils Absolute Lymphocytes Absolute Monocytes Absolute Eosinophils Absolute Basophils Sodium Potassium Chloride Carbon Dioxide Anion Gap BUN Creatinine Estimated GFR/1.73 m2 Glucose Calcium Magnesium Iron 16 L TIBC 204 L Transferrin % Sat 8 L Total Bilirubin AST ALT Alkaline Phosphatase Troponin I 0.79 H* Total Protein Albumin COVID-19 Source SARS-CoV-2 (PCR) Patient ABO/Rh B Positive Antibody Screen NEGATIVE Crossmatch See Detail 01/27/21 01/27/21 01/27/21 04:07 04:07 04:07 WBC RBC Hgb Hct MCV MCH MCHC RDW Plt Count MPV Immature Gran % Neutrophils % Lymphocytes % Monocytes % Eosinophils % Basophils % Nucleated RBC % Absolute Neutrophils Absolute Lymphocytes Absolute Monocytes Absolute Eosinophils Absolute Basophils Sodium 136 Potassium 5.3 H Chloride 104 Carbon Dioxide 19.5 L Anion Gap 12.5 H BUN 46 H Creatinine 2.4 H Estimated GFR/1.73 m2 20.88 Glucose 108 H Calcium 8.2 L Magnesium 2.5 H Iron TIBC Transferrin % Sat Total Bilirubin 4.0 H AST 69 H ALT 28 Alkaline Phosphatase 493 H Troponin I 0.54 H* Total Protein 6.6 Albumin 1.9 L COVID-19 Source SARS-CoV-2 (PCR) Patient ABO/Rh Antibody Screen Crossmatch 01/27/21 01/27/21 01/27/21 04:07 04:15 12:01 WBC 8.49 RBC 3.24 L Hgb 9.2 L 9.2 L Hct 29.4 L 30.1 L MCV 92.9 D MCH 28.4 MCHC 30.6 L RDW 18.6 H Plt Count 174 MPV 9.7 Immature Gran % 0.5 Neutrophils % 90.2 Lymphocytes % 4.6 Monocytes % 4.7 Eosinophils % 0.0 Basophils % 0.0 Nucleated RBC % 0 Absolute Neutrophils 7.66 H Absolute Lymphocytes 0.39 L Absolute Monocytes 0.40 Absolute Eosinophils 0.00 Absolute Basophils 0.00 Sodium Cancelled Potassium Cancelled Chloride Cancelled Carbon Dioxide Cancelled Anion Gap Cancelled BUN Cancelled Creatinine Cancelled Estimated GFR/1.73 m2 Cancelled Glucose Cancelled Calcium Cancelled Magnesium Iron TIBC Transferrin % Sat Total Bilirubin Cancelled AST Cancelled ALT Cancelled Alkaline Phosphatase Cancelled Troponin I Total Protein Cancelled Albumin Cancelled COVID-19 Source SARS-CoV-2 (PCR) Patient ABO/Rh Antibody Screen Crossmatch 01/27/21 13:51 WBC RBC Hgb Hct MCV MCH MCHC RDW Plt Count MPV Immature Gran % Neutrophils % Lymphocytes % Monocytes % Eosinophils % Basophils % Nucleated RBC % Absolute Neutrophils Absolute Lymphocytes Absolute Monocytes Absolute Eosinophils Absolute Basophils Sodium Potassium Chloride Carbon Dioxide Anion Gap BUN Creatinine Estimated GFR/1.73 m2 Glucose Calcium Magnesium Iron TIBC Transferrin % Sat Total Bilirubin AST ALT Alkaline Phosphatase Troponin I Total Protein Albumin COVID-19 Source Nasal/Nares SARS-CoV-2 (PCR) Negative Patient ABO/Rh Antibody Screen Crossmatch
[2021-01-27 17:04] LABS: HCT 32.3 % (36.0-46.0); HGB 10.2 g/dL (11.2-15.7); MCH 29.1 pg (27.0-33.0); MCHC 31.6 % (32.0-36.0); MPV 9.6 fL (8.0-11.0); Platelet Count 198 10^3/uL (130-400); RBC 3.51 10^6/uL (3.93-5.22); RDW 18.6 % (11.7-14.6); RDW-SD 62.4 fL; WBC 9.17 10^3/uL (4.4-10.8)
[2021-01-27] MEDS: Gabapentin 300 MG CAP 600 MG PO (21:25)
[2021-01-28] VITALS (8 sets, daily range): BP systolic 146–163; BP diastolic 75–80; PULSE 65–74; RESP 12–20; TEMP 37–37.8; O2SAT 89–94
--- NOTE | 2021-01-28 | DI.RAD_ITS ---
Exam(s) XR PORTABLE CHEST AP EXAM: XR PORTABLE CHEST AP CLINICAL HISTORY: hypoxia TECHNIQUE: 2D digital imaging was performed. COMPARISON: CR XR CHEST 2V PA LATERAL from 01/03/2020 CR XR PORTABLE CHEST AP from 01/26/2021 FINDINGS: Limited exam due to patient body habitus and poor pulmonary inflation. LUNGS: Bilateral linear areas of atelectasis. Increased bilateral interstitial markings, CHF versus infiltrates.. No pleural abnormality seen. HEART: Mildly enlarged MEDIASTINUM: Pulmonary artery prominence. BONES: Unremarkable. IMPRESSION: Bilateral subsegmental atelectasis. Interstitial pneumonitis versus mild CHF. DATA REPOSITORY: RADIATION DOSE DELIVERED:
[2021-01-28] MEDS: Sucralfate 1 GM TAB PO ×5 (00:05→21:53)
[2021-01-28] MEDS: Polyethylene Glycol 3350 17 GM PACKET PO ×2 (00:05→21:51)
--- NOTE | 2021-01-28 03:14 | DI.VRAD_ITS ---
PROCEDURE INFORMATION: Exam: XR Chest Exam date and time: 01/28/2021 2:40 AM Age: 55 years old Clinical indication: Other: Hypoxia TECHNIQUE: Imaging protocol: XR of the chest. Views: 1 view. COMPARISON: CR XR PORTABLE CHEST AP 01/26/2021 12:57 PM FINDINGS: Lungs: Mild interstitial opacities and areas of subsegmental atelectasis Pleural spaces: No pleural effusion. No pneumothorax. Heart/Mediastinum: Mild cardiomegaly. Bones/joints: Degenerative changes in the shoulders. Mild gaseous distention in the upper abdomen IMPRESSION: Mild interstitial pneumonitis and areas of subsegmental atelectasis appear mildly increased since the prior study Dictated and Authenticated by: Joel Fortune MD. Ordering:GABRIEL Fortune MD
[2021-01-28 07:29] LABS: HCT 29.9 % (36.0-46.0); HGB 9.5 g/dL (11.2-15.7); MCH 28.9 pg (27.0-33.0); MCHC 31.8 % (32.0-36.0); MCV 90.9 fL (80-95); MPV 9.7 fL (8.0-11.0); Platelet Count 170 10^3/uL (130-400); RBC 3.29 10^6/uL (3.93-5.22); RDW 18.6 % (11.7-14.6); RDW-SD 61.9 fL; WBC 7.67 10^3/uL (4.4-10.8)
[2021-01-28 07:48] LABS: Magnesium 2.4 mg/dL (1.8-2.4)
[2021-01-28] MEDS: CIPROFLOXACIN 200 MG/100 ML BAG 100 MG IVPB ×2 (09:12→20:00)
[2021-01-28] MEDS: amLODIPine 10 MG TAB PO (09:12)
[2021-01-28] MEDS: Gabapentin 300 MG CAP PO (09:13)
[2021-01-28] MEDS: Furosemide 20 MG/2 ML VIAL IVP ×2 (09:13→16:37)
[2021-01-28] MEDS: Pantoprazole 40 MG VIAL 80 MG IVP ×2 (09:14→20:03)
[2021-01-28] MEDS: HYDROmorphone 2 MG TAB PO ×2 (11:31→20:21)
--- NOTE | 2021-01-28 11:33 | PGE_ITS ---
Date of Service Date of service: 01/28/21 Time of Service: 11:33 Assessment and Plan Assessment and plan (1) Blood loss anemia: Status: Acute Assessment and plan: No gross melena or hematochezia noted. Known iron deficiency and she states she was scheduled for IV iron. Transfused 3 unit RBCs. Hgb 9.2 after first two units. Hgb after 3rd unit 10.2, then 9.5 today. No melena or hematochezia PPI and carafate. Pt [place] [facility] [place] colonic angioectasia and gastritis but no active bleeding. Not on any anticoagulants or NSAIDS. (2) Heart failure with preserved ejection fraction: Status: Acute Assessment and plan: Likely demand ischemia d/t anemia. Target Hgb per [facility] [place] 10 >. On a BB (3) Essential hypertension: Status: Acute Assessment and plan: Cont amlodipine and Metoprolol with parameters. Monitor. (4) Diabetes mellitus: Status: Chronic Assessment and plan: Pt on Lantus; continue to hold until blood glucose monitoring indicates the need during hospitalization. She states her appetite is poor at this time. ACHS glucose monitoring SS insulin correction dosing. Consistent carb diet. (5) Restless leg syndrome: Status: Acute Assessment and plan: Chronic but more pronounced currently per pt. Likely driven by Fe def anemia and hypomagnosemia. Cont gabapentin. Repleted Mg. Venofer and RBC transfusions. Improved. (6) Morbid obesity: Status: Acute Assessment and plan: Will encourage activity and sensible calorie intake. (7) HLD (hyperlipidemia): Status: Acute Assessment and plan: Held atorvastatin d/t elevated bilirubin and mild AST elevation. Elevations likely from hepatic congestion. Follow lab and restart atorvastatin if values improve. (8) Left femoral shaft fracture: Status: Acute Assessment and plan: REhabing at [facility]. Cont PT while hospitalized. (9) Hyperbilirubinemia: Status: Acute Assessment and plan: Total bilirubin has increased to 4.0; normal on 01/13 then has increased each day since then. Lab pending. Abd US was limited d/t large body habitus; read as likely cholelithiasis. Nontender abd. Consider MRCP vs CT abd/pelvis if continues to climb or becomes symptomatic. Monitor (10) Elevated d-dimer: Status: Acute Assessment and plan: V/Q scan; low probability of pulmonary embolism. Elevation likely d/t obesity, fracture, ИВАН. (11) Urinary tract infection: Status: Acute Assessment and plan: Cipro IV initiated on admission. Urine cx growing E.Coli; sensitivities pending. WBC count normal. Subjective Subjective Patient reports: no new complaints, tolerating a regular diet (Diminished appetite) and afebrile; denies nausea, vomiting and shortness of breath Interval history since last seen: + restless leg last PM Exam Narrative Exam Narrative: Sitting up in bed. Conversant. No longer appears fatigued. Const General: cooperative Nutritional Appearance: obese Orientation: awake and oriented x3 HENMT Head: normocephalic and atraumatic Eyes General: appearance normal, both eyes and all related structures Conjunctivae: conjunctival abnormality (pale palpebral conjunctivae) Sclera: sclerae normal Neck Neck: no JVD (Difficult to adequately gauge JVD d/t large neck girth) Resp Effort & Inspection: normal respiratory effort Auscultation: clear to auscultation bilaterally Cardio Rate: bradycardic Rhythm: regular rhythm Heart Sounds: S1 normal, S2 normal and murmur GI Palpation: soft and nontender Auscultation: normal bowel sounds Skin General skin exam: no rashes or lesions noted and pallor (face) Neuro General: no focal motor deficits Cognition: normal cognition Speech: speech normal Extrem General: edema Laterality: bilateral (trace) and other (Tenderness diffusely of BLE below the knees.) Psych Speech and Movement: speech and movement normal Affect: blunted Objective Last Vital Signs Temp 37 C 01/28/21 09:22 Pulse 68 01/28/21 09:22 Resp 12 01/28/21 09:22 BP 153/79 H 01/28/21 09:22 Pulse Ox 93 01/28/21 09:22 Laboratory Results - last 24 hr 01/27/21 01/27/21 01/27/21 12:01 13:51 16:55 WBC 9.17 RBC 3.51 L Hgb 10.2 L Hct 32.3 L MCV 92.0 MCH 29.1 MCHC 31.6 L RDW 18.6 H Plt Count 198 MPV 9.6 Sodium Cancelled Potassium Cancelled Chloride Cancelled Carbon Dioxide Cancelled Anion Gap Cancelled BUN Cancelled Creatinine Cancelled Estimated GFR/1.73 m2 Cancelled Glucose Cancelled Calcium Cancelled Magnesium Total Bilirubin Cancelled AST Cancelled ALT Cancelled Alkaline Phosphatase Cancelled Total Protein Cancelled Albumin Cancelled COVID-19 Source Nasal/Nares SARS-CoV-2 (PCR) Negative 01/28/21 01/28/21 06:20 06:20 WBC 7.67 RBC 3.29 L Hgb 9.5 L Hct 29.9 L MCV 90.9 MCH 28.9 MCHC 31.8 L RDW 18.6 H Plt Count 170 MPV 9.7 Sodium Potassium Chloride Carbon Dioxide Anion Gap BUN Creatinine Estimated GFR/1.73 m2 Glucose Calcium Magnesium 2.4 Total Bilirubin AST ALT Alkaline Phosphatase Total Protein Albumin COVID-19 Source SARS-CoV-2 (PCR)
[2021-01-28 11:57] LABS: ALT 30 U/L (14-59); AST 79 U/L (15-37); Alkaline Phosphatase 521 U/L (46-116); Anion Gap 12.6 mmol/L (3-11); BUN 48 mg/dL (7-18); Bilirubin, Total 4.9 mg/dL (0.2-1.0); CO2 20.4 mmol/L (21.0-32.0); CREATININE 2.3 mg/dL (0.55-1.02); Calcium 7.8 mg/dL (8.5-10.1); Chloride 101 mmol/L (98-107); Estimated GFR 21.93 (mL/min/1.73m2); Glucose 121 mg/dL (74-106); Potassium 4.6 mmol/L (3.5-5.1); Sodium 134 mmol/L (136-145); Total Protein 6.9 g/dL (6.4-8.2)
[2021-01-28] MEDS: Gabapentin 300 MG CAP 600 MG PO (20:08)
[2021-01-28] MEDS: Insulin Aspart 300 UNITS/3 ML PEN SC (21:51)
[2021-01-28] MEDS: Acetaminophen 325 MG TAB 650 MG PO (21:53)
[2021-01-29 02:14] VITALS: BP 127/70; PULSE 62; RESP 19; TEMP 36.1; O2SAT 92
[2021-01-29 05:57] VITALS: BP 130/52; PULSE 60; RESP 20; TEMP 36.2; O2SAT 93
[2021-01-29 07:39] LABS: WBC 4.47 10^3/uL (4.4-10.8)
[2021-01-29 07:40] LABS: Abs Immature Grans 0.02 10^3/uL (0.0-0.06); Absolute Eosinophil Count 0.06 10^3/uL (0.0-0.7); Absolute Lymphocyte Count 0.58 10^3/uL (1.2-3.4); Absolute Monocyte Count 0.41 10^3/uL (0.1-0.8); Eosinophils % 1.3; HCT 29.8 % (36.0-46.0); HGB 9.5 g/dL (11.2-15.7); Immature Grans % 0.4; MCH 28.5 pg (27.0-33.0); MCHC 31.9 % (32.0-36.0); MCV 89.5 fL (80-95); MPV 9.7 fL (8.0-11.0); Monocytes % 9.2; Neutrophils % 76.1; Nucleated RBC 0 %; Platelet Count 137 10^3/uL (130-400); RBC 3.33 10^6/uL (3.93-5.22); RDW 18.1 % (11.7-14.6)
[2021-01-29 08:30] VITALS: O2SAT 94
[2021-01-29] MEDS: Pantoprazole 40 MG VIAL 80 MG IVP (08:30)
[2021-01-29] MEDS: Furosemide 20 MG/2 ML VIAL IVP (08:30)
[2021-01-29] MEDS: Normal Saline Flush 10 ML SYR IVP (08:31)
[2021-01-29] MEDS: amLODIPine 10 MG TAB PO (08:31)
[2021-01-29] MEDS: Sucralfate 1 GM TAB PO ×2 (08:31→11:39)
[2021-01-29 08:33] VITALS: BP 168/79; PULSE 63; RESP 18; TEMP 35.8; O2SAT 94
[2021-01-29] MEDS: CIPROFLOXACIN 200 MG/100 ML BAG 100 MG IVPB (09:47)
[2021-01-29] MEDS: Cholecalciferol (Vitamin D3) 1,000 UNIT TAB 5000 UNITS PO (09:49)
[2021-01-29] MEDS: Gabapentin 300 MG CAP PO (09:49)
[2021-01-29 09:50] LABS: Source Nasal/Nares
--- NOTE | 2021-01-29 10:59 | W.PM.DS.N ---
Date of service: 01/29/21 Time of Service: 10:59 DS: Diagnosis Discharge Diagnosis (1) Blood loss anemia: Status: Acute (2) Heart failure with preserved ejection fraction: Status: Acute (3) Essential hypertension: Status: Acute (4) Diabetes mellitus: Status: Chronic (5) Restless leg syndrome: Status: Acute (6) Morbid obesity: Status: Acute (7) HLD (hyperlipidemia): Status: Acute (8) Left femoral shaft fracture: Status: Acute (9) Hyperbilirubinemia: Status: Acute (10) Elevated d-dimer: Status: Acute (11) Urinary tract infection: Status: Acute Discharge Plan Disposition Patient Disposition: SNF (LEVEL 1) [facility] Condition: Improving Discharge Details Reason For Visit: Acute blood loss anemia, UTI Admit Date/Time: 01/26/21 16:01 Admit Provider: Casey Latham Attending Provider: Casey Latham Primary Care Provider: Michelle Augustin Hospital Course Hospital Course: This is a 55 dyo female with a PMH of DM2, HTN, obesity, OA of knee, closed T12 fx. She is currently residing at [facility] s/o left humeral fracture with surgical fixation. Is nonweightbearing on the left lower ext. She presented with the general complaint of not feeling well. The night prior to admission she had an episode of shortness of air and her O2 saturation was noted to drop but no specifics were related to the ED provider. She notes fatigued. No SOA in the ED. NO CP/palpitations. No cough/fever/chills. No N/V/abd pain/diarrhea. No dysuria. Her initial BP was 85/60 then improved into the low 100's. HR in the 60's. WBC count 11.28. Hgb 7.8 (10.1 the previous day from blood draw at [facility]). Na 135. K 5.3. BUN 43. Creatinine 2.4 (1.5 the previous day). Mg low at 1.5. Bilirubin 2.5 (1.8 the previous day). NTProBNP 54803 (7000). Troponin 0.67. D dimer 3586. Stool was heme positive w/o gross blood. 40mg IV lasix given. Transfusion of RBCs planned once admitted. Echocardiogram showed:Mild concentric left ventricular hypertrophy. Estimated ejection fraction is 55 to 60%. Wall motion is normal Normal right ventricular size and systolic function The left atrium is mildly dilated. The right atrium is normal in size Aortic valve is trileaflet and sclerotic with trace regurgitation. There is no aortic stenosis Moderate mitral annular calcification. Mild mitral regurgitation Normal tricuspid valve. Mild tricuspid regurgitation. Estimated right ventricular systolic pressure is 42 mmHg Normal pulmonic valve Concern was a possible pulmonary embolism but a CTA chest was not obtain d/t ИВАН. A V/Q scan was low probability for pulm. emboli. Venous doppler exam of BLEs: No evidence of DVT. The examination was terminated at the patient's request, the deep calf veins and distal femoral vein of the left lower extremity were not examined She was transfused 1 unit RBCs. Lasix administered. [facility] cardiology consulted and suggested a target hgb of around 10. They were awre of her troponin levels of 0.67>0.75>0.79>0.54. Likely d/t demand ischemia from anemia. She was transfused 2 more units of RBCs and her Hgb at time of d/c was 9.5. She was feeling, overall, better. Of note, she had a recent endoscopy at [facility] that found colonic angioectasia and gastritis but no active bleeding. She received further doses of IV lasix. Her pedal edema resolved. No further SOA. Her bilirubin (normal at 0.3 on 01/13/21) increased to 1.2>1.8>2.5>4.0>4.9 then declined to 3.5. AST mildly elevated. ALT normal. Abd US showed likely cholelithiasis. The study was difficult d/t large body habitus. She had no N/V/abd pain/fever. Her UA was positive; started on Rocephin. Urine cultures grew pansensitive haemophilus and ESBL E.Coli. She was given a dose of fosfomycin which will be repeat in 3 days. She is [facility] Repeat CMP to follow bilirubin suggested on 02/02/21. Home Meds and New Rx's Prescriptions: New fosfomycin tromethamine 3 gram Packet 3 g PO ONCE Qty: 1 RF: 0 sucralfate 1 gram Tablet 1 g PO AC & HS Qty: 0 RF: 0 Continued insulin aspart U-100 [Novolog Flexpen U-100 Insulin] 100 unit/mL (3 mL) insulin pen 10 unit SC TID RF: 0 hydrochlorothiazide 50 mg tablet 50 mg PO QAM RF: 0 tramadol 50 mg tablet 50 mg PO TID PRNRF: 0 hydromorphone 2 mg Tablet 2 mg PO Q6H PRNRF: 0 cyanocobalamin (vitamin B-12) 500 mcg Tablet 1,000 mcg PO DAILY RF: 0 amlodipine 10 mg Tablet 10 mg PO DAILY RF: 0 metoprolol tartrate 50 mg Tablet 50 mg PO BID RF: 0 docusate sodium 100 mg Capsule 100 mg PO .HS PRNRF: 0 polyethylene glycol 3350 [Miralax] 17 gram/dose Powder 17 g PO .QHS RF: 0 losartan 100 mg Tablet 100 mg PO DAILY RF: 0 cholecalciferol (vitamin D3) 125 mcg (5,000 unit) Capsule 125 mcg PO .Q MONDAY RF: 0 ferrous sulfate 325 mg (65 mg iron) Capsule, Extended Release 325 mg PO QAM RF: 0 Lantus Solostar U-100 Insulin 100 unit/mL (3 mL) Insulin Pen 25 unit SUBCUT HS RF: 0 acetaminophen 500 mg Tablet 1,000 mg PO .Q6HRS PRNRF: 0 gabapentin 300 mg Capsule 300 mg PO BID RF: 0 gabapentin 300 mg Capsule 300 mg PO HS RF: 0 ondansetron HCl 8 mg Tablet 8 mg PO Q8H PRNRF: 0 albuterol 90 mcg/actuation Aerosol 180 mcg INHALATION Q4H PRN PRNRF: 0 montelukast 10 mg Tablet 10 mg PO DAILY RF: 0 pantoprazole 40 mg Tablet,Delayed Release (Dr/Ec) 40 mg PO BID RF: 0 Discontinued metformin 1,000 mg tablet 1,000 mg PO BID RF: 0 atorvastatin 40 mg Tablet 40 mg PO HS RF: 0 Discharge Instructions Instructions: Urinary Tract Infection in Women (DC) Stand Alone Forms: Nursing Discharge Form Activity:: Non-weight bearing on LLE Equipment/Supplies:: No Equipment Needed Diet:: Carb controlled low Na Discharge Orders Discharge Orders: Discharge Order (Routine); Ordered 01/29/21 Ordered By: Casey Latham Discharge Data Discharge Date/Time-TO BE ENTERED AT DEPARTURE: 01/29/21 13:05 DS: Summary Time Spent with Patient providing and/or coordinating discharge services: Greater than 30 minutes Status at Discharge Functional status at discharge: wheelchair bound (while non-weight bearing on her left lower extremity.) Overall status at discharge: patient is progressing back to baseline Mental Status: mental status grossly normal Speech and Movement: speech and movement normal Mood: congruent mood Affect: normal affect Exam Narrative Exam Narrative: Sitting up in bed. Conversant. No longer appears fatigued. Const General: cooperative Nutritional Appearance: obese Orientation: awake and oriented x3 HENMT Head: normocephalic and atraumatic Eyes General: appearance normal, both eyes and all related structures Conjunctivae: conjunctival abnormality (pale palpebral conjunctivae) Sclera: sclerae normal Neck Neck: no JVD (Difficult to adequately gauge JVD d/t large neck girth) Resp Effort & Inspection: normal respiratory effort Auscultation: clear to auscultation bilaterally Cardio Rate: bradycardic Rhythm: regular rhythm Heart Sounds: S1 normal, S2 normal and murmur GI Palpation: soft and nontender Auscultation: normal bowel sounds Skin General skin exam: no rashes or lesions noted and pallor (face/improved. ) Full body images: 1. Well healed surgical wound w/o redness or drainage. Neuro General: no focal motor deficits Cognition: normal cognition Speech: speech normal Extrem General: edema Laterality: bilateral (trace) and other (Tenderness diffusely of BLE below the knees.) Psych Mental Status: mental status grossly normal Speech and Movement: speech and movement normal Mood: congruent mood Affect: normal affect DS: Data Vitals/I&O Vitals and I&O: Vital Signs Temperature 35.8 C L 01/29/21 08:33 Temperature Source Tympanic 01/29/21 08:33 Pulse 63 01/29/21 08:33 Pulse Rhythm Regular 01/29/21 02:15 Pulse 65 01/27/21 10:50 Respiratory Rate 18 01/29/21 08:33 Respiratory Effort 01/29/21 02:15 Respiratory Depth Normal 01/29/21 02:15 Respiratory Pattern Normal 01/29/21 02:15 Blood Pressure 168/79 H 01/29/21 08:33 Blood Pressure Mean 91 01/27/21 08:34 Blood Pressure Position Supine 01/27/21 08:00 Pulse Oximetry 94 01/29/21 08:33 Oxygen Delivery Method Nasal Cannula 01/29/21 08:33 Oxygen Flow Rate 2 01/29/21 08:33 Pain Level 0 01/29/21 08:33 Comment 01/27/21 21:22 Intake & Output 01/28/21 01/28/21 01/29/21 11:59 23:59 11:59 Intake Total 350 / 450 100 / 450 550 / 550 Output Total 750 / 1800 1050 / 1800 1800 / 1800 Balance -400 / -1350 -950 / -1350 -1250 / -1250 Weight 124 kg Intake: IV 200 / 300 100 / 300 Oral 150 / 150 550 / 550 Output: Urine 750 / 1800 1050 / 1800 1800 / 1800 Other: Urine Color Light Stephanie Light Stephanie Yellow Urine Appearance Sediment Sediment Clear Urine Odor Normal Normal Voiding Methods Indwelling Catheter Indwelling Catheter Data Completed and Pending Labs on day of discharge: Labs from last 24 hours 01/29/21 01/29/21 01/29/21 09:45 08:30 06:40 WBC 4.47 D RBC 3.33 L Hgb Cancelled 9.5 L Hct Cancelled 29.8 L MCV 89.5 MCH 28.5 MCHC 31.9 L RDW 18.1 H Plt Count 137 MPV 9.7 Immature Gran % 0.4 Neutrophils % 76.1 Lymphocytes % 13.0 Monocytes % 9.2 Eosinophils % 1.3 Basophils % 0.0 Nucleated RBC % 0 Absolute Neutrophils 3.40 Absolute Lymphocytes 0.58 L Absolute Monocytes 0.41 Absolute Eosinophils 0.06 Absolute Basophils 0.00 Sodium Potassium Chloride Carbon Dioxide Anion Gap BUN Creatinine Estimated GFR/1.73 m2 Glucose Calcium Total Bilirubin AST ALT Alkaline Phosphatase Total Protein Albumin COVID-19 Source Nasal/Nares SARS-CoV-2 (PCR) Pending 01/28/21 06:20 WBC RBC Hgb Hct MCV MCH MCHC RDW Plt Count MPV Immature Gran % Neutrophils % Lymphocytes % Monocytes % Eosinophils % Basophils % Nucleated RBC % Absolute Neutrophils Absolute Lymphocytes Absolute Monocytes Absolute Eosinophils Absolute Basophils Sodium 134 L Potassium 4.6 Chloride 101 Carbon Dioxide 20.4 L Anion Gap 12.6 H BUN 48 H Creatinine 2.3 H Estimated GFR/1.73 m2 21.93 Glucose 121 H Calcium 7.8 L Total Bilirubin 4.9 H AST 79 H ALT 30 Alkaline Phosphatase 521 H Total Protein 6.9 Albumin 2.0 L COVID-19 Source SARS-CoV-2 (PCR) Preliminary micro results at discharge 11/23/21 13:48 Blood Culture - Preliminary Blood NO GROWTH 48 HOURS 01/26/21 13:38 Blood Culture - Preliminary Blood NO GROWTH 48 HOURS PFS Active Problem List Urinary tract infection (Acute) Elevated d-dimer (Acute) Hyperbilirubinemia (Acute) Left femoral shaft fracture (Acute) Elevated troponin (Acute) Hypotension (Acute) HLD (hyperlipidemia) (Acute) Morbid obesity (Acute) Restless leg syndrome (Acute) Diabetes mellitus (Chronic) Essential hypertension (Acute) Left humeral fracture (Acute) Heart failure with preserved ejection fraction (Acute) Blood loss anemia (Acute) Primary osteoarthritis of right knee (Acute) Social History Smoking/Tobacco Use Status: Never Smoking risk assessment performed?: Yes Alcohol Intake: current Alcohol Intake frequency: holidays/special occasions only Drug use: Never Current gender identity: female Do you feel safe at home: Yes Do you feel safe in your relationship?: Yes Female Reproductive History Menstrual Menopause type: natural
[2021-01-29 11:27] LABS: ALT 33 U/L (14-59); AST 73 U/L (15-37); Albumin 1.9 g/dL (3.4-5.0); Alkaline Phosphatase 538 U/L (46-116); Anion Gap 10.7 mmol/L (3-11); BUN 47 mg/dL (7-18); Bilirubin, Total 3.5 mg/dL (0.2-1.0); CO2 22.3 mmol/L (21.0-32.0); CREATININE 2.2 mg/dL (0.55-1.02); Calcium 7.9 mg/dL (8.5-10.1); Chloride 102 mmol/L (98-107); Estimated GFR 23.09 (mL/min/1.73m2); Glucose 109 mg/dL (74-106); Sodium 135 mmol/L (136-145); Total Protein 6.2 g/dL (6.4-8.2)
[2021-01-29] MEDS: Fosfomycin Tromethamine 3 GM PACKET PO (11:39)
[2021-01-29 11:42] VITALS: BP 143/54; PULSE 67; RESP 18; TEMP 36.8; O2SAT 96
--- NOTE | 2021-01-29 12:11 | PDOC.CMDIS ---
- If Service Date Differs Date of service: 01/29/21 Time of Service: 12:11 LACE Index Scoring Tool - Questions: Length of Stay (in days): 3 Acuity (Admit via E.D.?): Yes Comorbidities: Diabetes w/o Complication, Congestive Heart Failure E.D. Visits: 1 - Answers: Total Score: 10 Risk of Readmission: High Risk Care Management Discharge Reason for Hospitalization: Anemia, Left Humeral Fracture Discharge Plan: Desiree will be discharged back to [facility] via ambulance coordinated by CM. She will follow up with community providers and discharge plan of care as prescribed. Patient/Family Education Needs: Review discharge instructions, limitations and plan to follow up with community providers. ask me three. Services Needed at Discharge: Long-Term Facility
[2021-01-29 12:48] LABS: COVID-19 PCR Negative (Negative)
--- NOTE | 2021-01-29 18:30 | INDS_ITS ---
Date of service: 01/27/21 PT Notes Visit Reasons: Acute Blood Loss Anemia, UTI Physical Therapy Inpatient Discharge Summary Date: 01/29/2021 Dates of Service: 01/27/2021 and 01/28/2021 only This is a clinical summary of care provided for the duration of dates listed above. No charge was made in the completion of this documentation. Referring Doctor: Casey Latham MD PT Orders: PT CONSULT: Eval/treat Precautions: Fall. Standard. NWB on left LE. Mechanical lift only for transfers. Patient Profile/Admitting Diagnosis: Desiree is a 55-year-old female who presented to the ED on 01/27/2021 due to weakness and shortness of breath. Patient had been receiving rehabilitation services at the [facility] for a left femoral neck fracture with surgical fixation at [facility] and for a close T12 compression fracture. Patient is in negative for NSTEMI. Will need to reach out to [facility] to clarify weight bearing precautions for the left LE. PMHX: Active Problem List (Updated 01/27/21 @ 07:26 by Casey Latham MD) HLD (hyperlipidemia) (Acute) Morbid obesity (Acute) Restless leg syndrome (Acute) Diabetes mellitus (Chronic) Essential hypertension (Acute) Left humeral fracture (Acute) Heart failure with preserved ejection fraction (Acute) Blood loss anemia (Acute) Primary osteoarthritis of right knee (Acute) Social History/Home Situation: Prior to SNF admission, patient lives with her in a private home in [place] with 3 steps to enter. She was independent with the use of a front wheel walker for all mobility ADL performance. Equipment Owned/DME: [facility] Subjective: NT. See most recent [employer] notes. Objective: General Observation: NT. See most recent [employer] notes. Mental Status: NT. See most recent [employer] notes. Pain: NT. See most recent [employer] notes. ROM: Right Upper Extremity: Shoulder Flexion lacks 50% of available range of motion. Shoulder abduction acks 50% of available range of motion. Elbow flexion WFL. Wrist flexion WFL. Functional opening and closing of hand WFL. Left Upper Extremity: houlder Flexion lacks 50% of available range of motion. Shoulder abduction acks 50% of available range of motion. Elbow flexion WFL. Wrist flexion WFL. Functional opening and closing of hand WFL. Right Lower Extremity: Hip flexion lacks 50% of available range of motion. Hip abduction lacks 50% of available range of motion. Knee flexion lacks 50% of available range of motion. Knee extension lacks 50% of available range of motion. Ankle dorsiflexion to neutral only. Ankle plantarflexion 30 degrees from neutral. Left Lower Extremity: Hip flexion lacks 75% of available range of motion. Hip abduction lacks 75% of available range of motion. Knee flexion 30 degrees to 50 degrees. Knee extension -30 degrees. Ankle dorsiflexion has less than 25% of active range of motion. Ankle plantarflexion has less than 25% of active range of motion. Strength: Right Upper Extremity: Shoulder flexors 3-/5. Shoulder abductors 3-/5. Elbow flexors 3-/5. Elbow extensors 3-/5. Machining [employer] Supervisor strong. Left Upper Extremity: Shoulder flexors 3-/5. Shoulder abductors 3-/5. Elbow flexors 3-/5. Elbow extensors 3-/5. Machining Department Supervisor strong. Right Lower Extremity: Hip flexors 3--/5. Hip abductors 3-/5. Knee flexors 3-/5. Knee extensors 3-/5. Ankle dorsiflexors 3-/5. Ankle plantarflexors 3-/5. Left Lower Extremity: Hip flexors 2-/5. Hip abductors 2-/5. Knee flexors 2-/5. Knee extensors 2-/5. Ankle dorsiflexors 2-/5. Ankle plantarflexors 2-/5. Bed Mobility/Transfers: Rolling moderate assist of 2 Supine to sit moderate assist of 2 Sit to supine moderate to maximal assist of 2 Gait: Will hold off on gait activities until clarification on weight bearing precautions has been sought from [facility] orthopedic surgeon. Balance: Static Sitting: Fair Dynamic Sitting: Fair Static Standing: Unable to test Dynamic Standing: Unable to test Assessment: Received copy of [facility] weight bearing order faxed by PT dept at [facility] regarding patient's NWB status on the L LE. Patient does not feel safe to be attempting any out of bed activities at this time unless mechanical lift is used. T12 compression fracture, restless leg syndrome, body habitus, and postoperative status all limit prognosis for achieving goals at this time. Patient presents with clinical signs and symptoms consistent with current/admitting diagnoses that have resulted to mobility limitations, gait instability, generalized weakness, and overall ADL decline as demonstrated by the following impairment level findings: 1. Decreased strength to BUE/LE major muscle groups 2. Impaired sitting balance 3. Impaired activity tolerance 4. Limitation of joint range of motion in B shoulders and B LE 5. Shortness of breath 6. Swelling in B LE with left more than the right Impairments are contributing to the following functional limitations: 1. Decline in bed mobility skills 2. Decline in transfer skills 3. Inability to ambulate due to fear of falling and orthopedic weight bearing precautions 4. Increased completion time for mobility ADL performance 5. Increased risk for falls Goals: Goals X1 week 1. Supine-Sit minimal assist NOT MET 2. Sit-Supine minimal assist NOT MET 5. Bed-Chair minimal assist of 2 using slide board NOT MET 6. Chair-Bed minimal assist of 2 using slide board NOT MET 7. Normal static and dynamic sitting balance/tolerance NOT MET 8. Minimal assist of 2 with scooting to R using B UE and R LE at edge of bed NOT MET DISCHARGE RECOMMENDATIONS: Return to SNF for continued rehabilitation once cleared by hospitalist. TREATMENT CODE/TIME: SD Thank you for the opportunity to participate in the care of this patient. Iqra Luke PT, DPT, CLT [facility] [place], [place]
[2021-02-01 13:46] LABS: Alkaline Phosphatase 514 U/L (35 - 104); Bone % 10.6 % (19.1-67.7); Liver % 62.3 % (27.8-76.3); Liver 2% 26.7 % (0.0-8.0)
== END 2021-01-29 13:05 | disposition skilled nursing facility (03) | DRG 811 ==
LOC: ER 15:14 → ICU 17:00 → MS 01-27 10:45
PROVIDERS: Internal Medicine; Student in an Organized Health Care Education/Training Program; Admitting Provider Family Medicine; Emergency Provider Physician Assistant; PCP Physician Assistant Medical; Visit Provider Family Medicine
DX: D62 Acute posthemorrhagic anemia (principal); I50.31 Acute diastolic (congestive) heart failure; N39.0 Urinary tract infection, site not specified; N17.9 Acute kidney failure, unspecified; Z68.42 Body mass index [BMI] 45.0-49.9, adult; I24.8 Other forms of acute ischemic heart disease; J98.11 Atelectasis; Z16.12 Extended spectrum beta lactamase (ESBL) resistance; I11.0 Hypertensive heart disease with heart failure; I95.9 Hypotension, unspecified; G25.81 Restless legs syndrome; E78.5 Hyperlipidemia, unspecified; E66.01 Morbid (severe) obesity due to excess calories; E11.9 Type 2 diabetes mellitus without complications; X58.XXXD Exposure to other specified factors, subsequent encounter; M17.11 Unilateral primary osteoarthritis, right knee; S72.8X2D Other fracture of left femur, subsequent encounter for closed fracture with routine healing; Z79.4 Long term (current) use of insulin; Z20.822 Contact with and (suspected) exposure to COVID-19; E80.6 Other disorders of bilirubin metabolism; E61.1 Iron deficiency; B96.20 Unspecified Escherichia coli [E. coli] as the cause of diseases classified elsewhere; B96.3 Hemophilus influenzae [H. influenzae] as the cause of diseases classified elsewhere; R19.5 Other fecal abnormalities
CPT/HCPCS: 36415; 36416; 36430; 51702; 80053; 82962; 84075; 84080; 85027; 86850; 86900; 86901; 86920; 87040; 87077; 87081; 87635; 93005; 93306; 96361; 96365; 96366; 96367; 96368; 96375; 97110; 97163; 97530; 99285; 71045; 76700; 78582; 81003; 81015; 83540; 83550; 83605; 83735; 83880; 84443; 84484; 85014; 85018; 85025; 85379; 85610; 85730; 87086; 87186; 93010; 93970; 99223; 99233; 99239; J0131; J0744; J1720; J1756; J1940; J1941; J3475; J3490; P9016

== ENCOUNTER 2021-02-04 20:06 | Outpatient (REF) | payer MEDICARE, SELFPAY ==
[2021-02-04 17:40] LABS: Abs Immature Grans 0.02 10^3/uL (0.0-0.06); Absolute Basophil Count 0.02 10^3/uL (0.0-0.2); Absolute Eosinophil Count 0.06 10^3/uL (0.0-0.7); Absolute Lymphocyte Count 0.76 10^3/uL (1.2-3.4); Absolute Monocyte Count 0.45 10^3/uL (0.1-0.8); Absolute Neutrophil Count 3.47 10^3/uL (1.2-6.7); Basophils % 0.4; Eosinophils % 1.3; HCT 34.6 % (36.0-46.0); HGB 10.6 g/dL (11.2-15.7); Immature Grans % 0.4; Lymphocytes % 15.9; MCH 28.6 pg (27.0-33.0); MCHC 30.6 % (32.0-36.0); MCV 93.5 fL (80-95); MPV 10.7 fL (8.0-11.0); Monocytes % 9.4; Neutrophils % 72.6; Nucleated RBC 0 %; Platelet Count 164 10^3/uL (130-400); RDW 18.3 % (11.7-14.6); WBC 4.78 10^3/uL (4.4-10.8)
[2021-02-04 17:49] LABS: Albumin 2.1 g/dL (3.4-5.0); Alkaline Phosphatase 753 U/L (46-116); Anion Gap 9.6 mmol/L (3-11); BUN 30 mg/dL (7-18); Bilirubin, Direct 0.8 mg/dL (0.0-0.2); Bilirubin, Total 1.2 mg/dL (0.2-1.0); CO2 23.4 mmol/L (21.0-32.0); CREATININE 1.3 mg/dL (0.55-1.02); Chloride 102 mmol/L (98-107); Estimated GFR 42.37 (mL/min/1.73m2); Glucose 138 mg/dL (74-106); LDH 322 U/L (81-234); Sodium 135 mmol/L (136-145)
[2021-02-04 20:58] LABS: ALT 30 U/L (14-59); AST 78 U/L (15-37)
[2021-02-08 09:19] LABS: Haptoglobin 195 mg/dL (32-197)
== END 2021-02-04 20:07 | disposition home or self-care (01) ==
LOC: LBN 20:06
PROVIDERS: PCP Physician Assistant Medical; Visit Provider Family Medicine
DX: D50.9 Iron deficiency anemia, unspecified (principal); I10 Essential (primary) hypertension; I50.31 Acute diastolic (congestive) heart failure; R79.89 Other specified abnormal findings of blood chemistry
CPT/HCPCS: 80053; 82248; 83010; 83615; 85025

== ENCOUNTER 2021-02-12 19:07 | Outpatient (REF) | payer MEDICARE, SELFPAY ==
[2021-02-12 19:21] LABS: Anion Gap 7.2 mmol/L (3-11); BUN 27 mg/dL (7-18); CO2 25.8 mmol/L (21.0-32.0); CREATININE 1.2 mg/dL (0.55-1.02); Calcium 8.3 mg/dL (8.5-10.1); Chloride 105 mmol/L (98-107); Estimated GFR 46.47 (mL/min/1.73m2); Glucose 137 mg/dL (74-106); Potassium 4.2 mmol/L (3.5-5.1); Sodium 138 mmol/L (136-145)
[2021-02-12 19:28] LABS: Abs Immature Grans 0.01 10^3/uL (0.0-0.06); Absolute Basophil Count 0.03 10^3/uL (0.0-0.2); Absolute Eosinophil Count 0.07 10^3/uL (0.0-0.7); Absolute Lymphocyte Count 0.87 10^3/uL (1.2-3.4); Absolute Monocyte Count 0.47 10^3/uL (0.1-0.8); Basophils % 0.8; Eosinophils % 1.8; HCT 32.7 % (36.0-46.0); Immature Grans % 0.3; Lymphocytes % 22.6; MCH 28.5 pg (27.0-33.0); MCHC 30.6 % (32.0-36.0); MCV 93.2 fL (80-95); Monocytes % 12.2; Neutrophils % 62.3; Nucleated RBC 0 %; Platelet Count 158 10^3/uL (130-400); RBC 3.51 10^6/uL (3.93-5.22); RDW 17.2 % (11.7-14.6); RDW-SD 59.1 fL; WBC 3.85 10^3/uL (4.4-10.8)
== END 2021-02-12 19:08 | disposition home or self-care (01) ==
LOC: LBN 19:07
PROVIDERS: PCP Physician Assistant Medical; Visit Provider Nurse Practitioner Family
DX: D50.0 Iron deficiency anemia secondary to blood loss (chronic) (principal); N17.9 Acute kidney failure, unspecified; I95.9 Hypotension, unspecified
CPT/HCPCS: 80048; 85025

== ENCOUNTER 2021-02-26 11:42 | Outpatient (REF) | payer MEDICARE, SELFPAY ==
[2021-02-26 11:59] LABS: Abs Immature Grans 0.01 10^3/uL (0.0-0.06); Absolute Basophil Count 0.03 10^3/uL (0.0-0.2); Absolute Eosinophil Count 0.16 10^3/uL (0.0-0.7); Absolute Lymphocyte Count 0.97 10^3/uL (1.2-3.4); Absolute Monocyte Count 0.39 10^3/uL (0.1-0.8); Absolute Neutrophil Count 3.37 10^3/uL (1.2-6.7); Basophils % 0.6; Eosinophils % 3.2; HCT 33.1 % (36.0-46.0); HGB 10.4 g/dL (11.2-15.7); Immature Grans % 0.2; Lymphocytes % 19.7; MCH 30.2 pg (27.0-33.0); MCHC 31.4 % (32.0-36.0); MCV 96.2 fL (80-95); MPV 10.5 fL (8.0-11.0); Monocytes % 7.9; Neutrophils % 68.4; Nucleated RBC 0 %; Platelet Count 189 10^3/uL (130-400); RBC 3.44 10^6/uL (3.93-5.22); RDW 16.9 % (11.7-14.6); RDW-SD 60.1 fL; WBC 4.93 10^3/uL (4.4-10.8)
[2021-02-26 12:09] LABS: ALT 32 U/L (14-59); AST 39 U/L (15-37); Albumin 2.6 g/dL (3.4-5.0); Alkaline Phosphatase 498 U/L (46-116); BUN 27 mg/dL (7-18); Bilirubin, Total 0.5 mg/dL (0.2-1.0); CREATININE 1.4 mg/dL (0.55-1.02); Calcium 8.7 mg/dL (8.5-10.1); Chloride 104 mmol/L (98-107); Glucose 115 mg/dL (74-106); Potassium 4.1 mmol/L (3.5-5.1); Sodium 139 mmol/L (136-145)
== END 2021-02-26 11:43 | disposition home or self-care (01) ==
LOC: LBN 11:42
PROVIDERS: PCP Physician Assistant Medical; Visit Provider Family Medicine
DX: E11.9 Type 2 diabetes mellitus without complications (principal); R79.89 Other specified abnormal findings of blood chemistry
CPT/HCPCS: 80053; 83036; 85025

== ENCOUNTER 2021-04-01 11:14 | Outpatient (REF) | payer MEDICARE, SELFPAY ==
[2021-04-01 13:19] LABS: MCH 29.7 pg (27.0-33.0); MCHC 29.7 % (32.0-36.0); MPV 10.5 fL (8.0-11.0); Platelet Count 178 10^3/uL (130-400); RBC 1.85 10^6/uL (3.93-5.22); RDW 13.6 % (11.7-14.6)
[2021-04-01 13:28] LABS: HGB 5.5 g/dL (11.2-15.7)
[2021-04-01 13:33] LABS: HCT 18.5 % (36.0-46.0)
[2021-04-01 13:37] LABS: ALT 27 U/L (14-59); AST 28 U/L (15-37); Albumin 2.5 g/dL (3.4-5.0); Alkaline Phosphatase 257 U/L (46-116); Anion Gap 7.9 mmol/L (3-11); BUN 50 mg/dL (7-18); Bilirubin, Total 0.2 mg/dL (0.2-1.0); CO2 24.1 mmol/L (21.0-32.0); CREATININE 1.8 mg/dL (0.55-1.02); Calcium 8.3 mg/dL (8.5-10.1); Chloride 106 mmol/L (98-107); Estimated GFR 29.11 (mL/min/1.73m2); Glucose 149 mg/dL (74-106); Potassium 4.7 mmol/L (3.5-5.1); Sodium 138 mmol/L (136-145); Total Protein 5.9 g/dL (6.4-8.2)
[2021-04-01 23:33] LABS: Estimated Average Glucose 94 mg/dL; Hemoglobin A1C 4.9 % (<5.7)
== END 2021-04-01 11:15 | disposition home or self-care (01) ==
LOC: LBN 11:14
PROVIDERS: PCP Physician Assistant Medical; Visit Provider Nurse Practitioner Family
DX: E11.40 Type 2 diabetes mellitus with diabetic neuropathy, unspecified (principal); E87.8 Other disorders of electrolyte and fluid balance, not elsewhere classified
CPT/HCPCS: 80053; 85027; 83036

== ENCOUNTER 2021-04-01 13:58 | Observation (INO) | payer MEDICARE, MEDICAID, SELFPAY ==
[2021-04-01] VITALS (156 sets, daily range): BP systolic 102–166; BP diastolic 34–82; PULSE 69–88; RESP 10–99; TEMP 36–37; O2SAT 96–100
--- NOTE | 2021-04-01 14:45 | DI.RAD_ITS ---
Exam(s) XR CHEST 2V PA LATERAL EXAM: XR CHEST 2V PA LATERAL CLINICAL HISTORY: GI bleed TECHNIQUE: 2D digital imaging was performed of the chest. Two images were obtained. PA and lateral views were obtained. COMPARISON: CR XR CHEST 2V PA LATERAL from 01/03/2020 CR,XR XR PORTABLE CHEST AP from 01/28/2021 FINDINGS: MEDIASTINUM: Normal. HEART: Normal. PULMONARY VASCULATURE: Normal. LUNGS: No focal consolidating infiltrates. Stable linear scarring or atelectasis in the left mid amos g. PLEURAL SPACE: No pleural effusion or pneumothorax. BONE:Within normal limits for the patient's age. OTHER FINDINGS:Normal. IMPRESSION: No acute pulmonary findings. DATA REPOSITORY: RADIATION DOSE DELIVERED:
--- NOTE | 2021-04-01 14:45 | RT.EKG_ITS ---
APPROVED REPORT Exam: Resting ECG Reason for Exam: gi blee Patient Location: E HR:73 bpm ECG Measurements Heart Rate 73 AXIS IL 145 P 15 QRSd 89 QRS 4 QT 374 T 92 QTc 413 Conclusion Sinus rhythm...normal P axis Probable LVH with secondary repol abnrm...multiple LVH criteria
[2021-04-01] MEDS: Normal Saline 1,000 ML 125 ML IV ×2 (14:58→20:53)
[2021-04-01 15:19] LABS: Source Nasal/Nares
[2021-04-01 15:35] LABS: ALT 22 U/L (14-59); AST 25 U/L (15-37); Albumin 2.6 g/dL (3.4-5.0); Alkaline Phosphatase 264 U/L (46-116); Anion Gap 8.1 mmol/L (3-11); BUN 47 mg/dL (7-18); Bilirubin, Total 0.2 mg/dL (0.2-1.0); CO2 23.9 mmol/L (21.0-32.0); CREATININE 1.6 mg/dL (0.55-1.02); Calcium 8.6 mg/dL (8.5-10.1); Chloride 104 mmol/L (98-107); Estimated GFR 33.34 (mL/min/1.73m2); Glucose 177 mg/dL (74-106); Lipase 82 U/L (73-393); Potassium 4.2 mmol/L (3.5-5.1); Sodium 136 mmol/L (136-145); Total Protein 6.7 g/dL (6.4-8.2)
[2021-04-01 16:08] LABS: COVID-19 PCR Negative (Negative)
--- NOTE | 2021-04-01 16:17 | W.ED.GENAD ---
Discharge Plan Disposition Patient Disposition: [facility] Condition: Stable Discharge Details Clinical Impression: Acute GI bleeding Admit Date/Time: 04/01/21 17:09 Admit Provider: Donn Rouse Attending Provider: Donn Rouse Primary Care Provider: Michelle Augustin ED Provider: Sybil Yeager Discharge Data Discharge Date/Time-TO BE ENTERED AT DEPARTURE: 04/01/21 18:39 Medical Decision Making Patient has tarry stools and is anemic, hemoglobin 5.5, hematocrit 18, significant change since January with a hemoglobin of 10 Initially patient was listed as being allergic to omeprazole, she is actually on Protonix at home and I will order 40 mg of Protonix in addition to the amount she currently takes She has been on telemetry, she is hemodynamically stable She has received 1 unit of packed red blood cells consent was obtained I am concerned for an upper GI bleed, I do not see a recent scope in her system Her BUN is also elevated, likely consistent with upper GI bleed Nontender abdominal exam, chest x-ray does not show evidence of free air, liver suspicion for perforation Alert, oriented, very anxious and claustrophobic Received infusion of saline, 1 unit of packed red blood cells Dr. Jordan will admit patient Medical Records Medical records reviewed: Yes I reviewed the patient's medical records. Lab Data Lab results reviewed: Yes I reviewed the patient's lab results. HPI General Mode of arrival: EMS. Date/Time Provider Initiated Documentation: 04/01/21 13:59. Limitations to Documentation: no limitations. Information obtained by: patient. HPI Narrative: This 55-year-old female with history of CHF, diabetes, GERD, hypertension, anemia, chronic pain presents with report of acute exacerbation of chronic anemia, 5.5 and 18. Hemoglobin and hematocrit respectively. This was drawn today at 9:00 from the rehab per patient. No new falls or injuries. Denies any abdominal pain or chest pain. Denies any current dizziness. Does states she feels mildly lightheaded. Denies any blood in stool. States her stools are always dark secondary to iron consumption. Denies any alcohol consumption. Currently resides at the rehabilitation center for her left hip fracture which was treated in December. Denies any vomiting. Denies any nonsteroidals, anticoagulation. Unsure as to when she had her last scope, she thinks she had a scope when she was at [facility] previously but is unsure as to the timeline. Related Data Home Medications Medication Instructions Recorded Confirmed hydrochlorothiazide 50 mg tablet 50 mg PO QAM 02/04/19 04/01/21 tramadol 50 mg tablet 50 mg PO TID PRN 02/04/19 04/01/21 Lantus Solostar U-100 Insulin 25 unit SUBCUT HS 01/26/21 04/01/21 acetaminophen 1,000 mg PO .Q6HRS PRN 01/26/21 04/01/21 albuterol 180 mcg INHALATION Q4H PRN PRN 01/26/21 04/01/21 amlodipine 10 mg PO DAILY 01/26/21 04/01/21 cholecalciferol (vitamin D3) 125 mcg PO .Q Monday01/26/21 04/01/21 cyanocobalamin (vitamin B-12) 1,000 mcg PO DAILY 01/26/21 04/01/21 docusate sodium 100 mg PO .HS PRN 01/26/21 04/01/21 ferrous sulfate 325 mg PO QAM 01/26/21 04/01/21 gabapentin 300 mg PO HS 01/26/21 04/01/21 hydromorphone 2 mg PO Q6H PRN 01/26/21 04/01/21 losartan 100 mg PO DAILY 01/26/21 04/01/21 montelukast 10 mg PO DAILY 01/26/21 04/01/21 ondansetron HCl 8 mg PO Q8H PRN 01/26/21 04/01/21 pantoprazole 40 mg PO BID 01/26/21 04/01/21 polyethylene glycol 3350 [Miralax] 17 g PO .QHS 01/26/21 04/01/21 sucralfate 1 g PO AC & HS #0 tab 01/29/21 04/01/21 clindamycin HCl 300 mg PO QID 04/01/21 04/01/21 cyclobenzaprine 5 mg PO DAILY PRN 04/01/21 04/01/21 magnesium oxide 400 mg PO DAILY 04/01/21 04/01/21 metformin 500 mg PO BID 04/01/21 04/01/21 Previous Rx's Medication Instructions Recorded sucralfate 1 g PO AC & HS #0 tab 01/29/21 Allergies Allergy/AdvReac Type Severity Reaction Status Date / Time albuterol [From ProAir HFA] Allergy Unverified 01/26/21 12:11 amoxicillin Allergy Verified 01/26/21 12:11 cephalexin Allergy Unverified 01/26/21 12:11 guaifenesin Allergy Unverified 01/26/21 12:11 hydrocodone [From Vicodin] Allergy Unverified 01/26/21 12:11 omeprazole [From Prilosec] Allergy Unverified 01/26/21 12:11 promethazine Allergy Unverified 01/26/21 12:11 simvastatin Allergy Unverified 01/26/21 12:11 fluconazole AdvReac Intermediate feels like Unverified 01/26/21 12:11 bugs crawling on her lisinopril AdvReac NAUSEA Verified 01/26/21 12:11 General Stated Complaint: GenMedical WILY: 2 Review of Systems All systems reviewed & are unremarkable except as noted in HPI and below PFSH All Active Problems (Updated 04/03/21 @ 20:43 by CARLOTTA Ibarra) Acute GI bleeding (Acute) Medical History Anxiety Chronic kidney disease Claustrophobia Elevated d-dimer Elevated troponin HLD (hyperlipidemia) Hyperbilirubinemia Hypotension Left humeral fracture Primary osteoarthritis of right knee Restless leg syndrome Urinary tract infection Social History Smoking/Tobacco Use Status: Never Smoking risk assessment performed?: Yes Alcohol Intake: current Alcohol Intake frequency: holidays/special occasions only Drug use: Never Current gender identity: female Do you feel safe at home: Yes Do you feel safe in your relationship?: Yes Female Reproductive History Menstrual Menopause type: natural Exam Const General: no acute distress Orientation: alert and oriented x3 HENMT Mouth: oral mucosae normal Chest Chest: normal inspection of the chest Resp Effort & Inspection: normal respiratory effort Auscultation: clear to auscultation bilaterally Cardio Rate: regular rate Rhythm: regular rhythm GI Other: Nontender abdominal exam Other: Guaiac positive tarry stool Skin General skin exam: no rashes or lesions noted Neuro General: patient alert and patient oriented x3 Extrem Other: Distal pulses intact Psych Appearance: well kempt Course Vital Signs Vital signs: Vital Signs Temperature 36 C L 04/01/21 14:02 Pulse 84 04/01/21 14:02 Respiratory Rate 99 H 04/01/21 14:02 Blood Pressure 166/82 H 04/01/21 14:02 Pulse Oximetry 99 04/01/21 14:02 Temperature 36 C L 04/01/21 14:02 Temperature Source Tympanic 04/01/21 14:02 Pulse 75 04/01/21 15:08 Respiratory Rate 15 04/01/21 15:08 Respiratory Effort 04/01/21 14:36 Respiratory Pattern Normal 04/01/21 14:36 Blood Pressure 116/39 L 04/01/21 15:08 Blood Pressure Position Supine 04/01/21 14:02 Pulse Oximetry 99 04/01/21 15:08 Oxygen Delivery Method Room Air 04/01/21 14:02 Oxygen Flow Rate 0 04/01/21 14:02 Pain Level 6 04/01/21 14:02 Lab/Test Results Lab/Test Results: Laboratory Tests Range/Units 04/01/21 04/01/21 04/01/21 15:03 15:03 15:13 Sodium (136-145) mmol/L 136 Potassium (3.5-5.1) mmol/L 4.2 Chloride (98-107) mmol/L 104 Carbon Dioxide (21.0-32.0) mmol/L 23.9 Anion Gap (3-11) mmol/L 8.1 BUN (7-18) mg/dL 47 H Creatinine (0.55-1.02) mg/dL 1.6 H Estimated GFR/1.73 m2 (mL/min/1.73m2) 33.34 Glucose (74-106) mg/dL 177 H Calcium (8.5-10.1) mg/dL 8.6 Total Bilirubin (0.2-1.0) mg/dL 0.2 AST (15-37) U/L 25 ALT (14-59) U/L 22 Alkaline Phosphatase (46-116) U/L 264 H Total Protein (6.4-8.2) g/dL 6.7 Albumin (3.4-5.0) g/dL 2.6 L Lipase (73-393) U/L 82 COVID-19 Source Nasal/Nares SARS-CoV-2 (PCR) (Negative) Negative Patient ABO/Rh B Positive Antibody Screen NEGATIVE Crossmatch See Detail Critical Care Time Critical Care Time Critical Care Time: Yes Total Critical Care Time: 40 Attestation: 1 unit of packed cells, telemetry monitoring, admission, diagnostic blood work
[2021-04-01] MEDS: Sucralfate 1 GM TAB PO ×2 (17:28→21:07)
--- NOTE | 2021-04-01 17:46 | W.PM.HP.N ---
Date of service: 04/01/21 Time of Service: 17:46 Assessment and Plan Assessment and plan (1) Blood loss anemia: Status: Acute Assessment and plan: She has known colonic angio ectasia. She has refused any further work-up or treatment for this. She will require subspecialty gastroenterology to consider ablation of these lesions. She appears to have chronic black tarry stools with slow ongoing blood loss. She was transfused in December 2020 and again in January 2021. Plan is to give her 1 unit of packed red cells and observe the response 30 minutes after the unit of blood is in. The goal is to maintain a hemoglobin above 7. She is on oral iron therapy. Iron studies were not drawn on this admission. Her iron level was normal at 65 on 01/25/2021. (2) Diabetes mellitus: Status: Chronic Assessment and plan: She is a diabetic on both Lantus and Metformin. Given her renal dysfunction we will hold the Metformin. We will give her Lantus 25 units in the a.m. as she has previously received it. We will put her on sliding scale aspart. Her last hemoglobin A1c on 02/26/2021 was 5%. (3) Essential hypertension: Status: Acute Assessment and plan: Her blood pressure is 116/39. We will hold on her blood pressure medications given the ongoing blood loss and concern for potential hypotension. (4) Heart failure with preserved ejection fraction: Status: Acute Assessment and plan: It sounds like she had evidence of fluid overload with a 3 units she received in January 2021. Her lungs are clear and her chest x-ray is negative at this time. Will monitor for evidence of fluid overload given her history. Her echocardiogram in January 2021 was reassuring. She did have a bump in her troponin during that admission which was thought to be related to her demand ischemia from the anemia. She is completely asymptomatic at this time. We will hold on trending troponins. (5) Left femoral shaft fracture: Status: Acute Assessment and plan: She has just begun full weightbearing as of 03/24/2021. We will ask physical therapy to see her regarding her ability to mobilize. (6) Morbid obesity: Status: Acute Assessment and plan: She has been immobile for more than 3 months now. She is in a weakened condition. We will ask physical therapy to help with mobilization. History of Present Illness History of Present Illness Chief Complaint: GI bleeding with anemia Narrative: This is a 57-year-old woman who has chronic anemia. She has had this worked up at [facility] including upper and lower endoscopy. Last endoscopy showed some gastritis and colonic angio- ectasia. Since that time she has refused further colonoscopies or work-up. She was admitted to [facility] in January 2021 for anemia and received 3 units of packed red cells. She had some trouble with fluid overload during that admission. An echocardiogram showed normal LV function. She resides at [facility] and rehab because of a left femur fracture in December 2020. She was at [facility] receiving a blood transfusion when she fell and suffered the femur fracture. She has been nonweightbearing on that left leg until 03/24/2021. She has just begun physical therapy at [facility]. Today she was feeling extremely weak and lightheaded and was transported to [facility] for evaluation. Her lab evaluation showed a hemoglobin of 5.5, down from a hemoglobin of 10 in February 2021. A rectal exam revealed dark tarry stool that was guaiac positive. She was given 1 unit of packed red cells in the ED which was transfusing at the time I evaluated her. She was recently started on clindamycin for a dental abscess. That will be completed on 04/04/2021. Review of Systems Narrative: Patient is alert and able to give somewhat of a history. She has chronic pain from the left femur fracture and osteoarthritis of the right knee. She takes chronic opiates and muscle relaxants. She has just begun physical therapy. She has been nonambulatory for several months. She is not having any chest pain or shortness of breath. She has no cough. She denies any Covid symptoms. She has no abdominal pain or discomfort. She has not been vomiting. She had a normal bowel movement yesterday which she does not see because she wears a diaper and someone else changes her. She has no recollection of any ongoing bleeding. [facility] All Active Problems (Updated 04/01/21 @ 17:53 by Bryan Jordan MD) Left femoral shaft fracture (Acute) Morbid obesity (Acute) Diabetes mellitus (Chronic) Essential hypertension (Acute) Heart failure with preserved ejection fraction (Acute) Blood loss anemia (Acute) Medical History (Updated 04/01/21 @ 17:53 by Bryan Jordan MD) Anxiety Chronic kidney disease Claustrophobia Elevated d-dimer Elevated troponin HLD (hyperlipidemia) Hyperbilirubinemia Hypotension Left humeral fracture Primary osteoarthritis of right knee Restless leg syndrome Urinary tract infection Social History Smoking/Tobacco Use Status: Never Smoking risk assessment performed?: Yes Alcohol Intake: current Alcohol Intake frequency: holidays/special occasions only Drug use: Never Current gender identity: female Do you feel safe at home: Yes Do you feel safe in your relationship?: Yes Female Reproductive History Menstrual Menopause type: natural Meds Allergies and Home Medications Allergies Allergy/AdvReac Type Severity Reaction Status Date / Time albuterol [From ProAir HFA] Allergy Unverified 01/26/21 12:11 amoxicillin Allergy Verified 01/26/21 12:11 cephalexin Allergy Unverified 01/26/21 12:11 guaifenesin Allergy Unverified 01/26/21 12:11 hydrocodone [From Vicodin] Allergy Unverified 01/26/21 12:11 omeprazole [From Prilosec] Allergy Unverified 01/26/21 12:11 promethazine Allergy Unverified 01/26/21 12:11 simvastatin Allergy Unverified 01/26/21 12:11 fluconazole AdvReac Intermediate feels like Unverified 01/26/21 12:11 bugs crawling on her lisinopril AdvReac NAUSEA Verified 01/26/21 12:11 Home Medications Medication Instructions Recorded Confirmed Type hydrochlorothiazide 50 mg tablet 50 mg PO QAM 02/04/19 04/01/21 History tramadol 50 mg tablet 50 mg PO TID PRN 02/04/19 04/01/21 History Lantus Solostar U-100 Insulin 25 unit SUBCUT HS 01/26/21 04/01/21 History acetaminophen 1,000 mg PO .Q6HRS PRN 01/26/21 04/01/21 History albuterol 180 mcg INHALATION Q4H PRN PRN 01/26/21 04/01/21 History amlodipine 10 mg PO DAILY 01/26/21 04/01/21 History cholecalciferol (vitamin D3) 125 mcg PO .Q Monday01/26/21 04/01/21 History cyanocobalamin (vitamin B-12) 1,000 mcg PO DAILY 01/26/21 04/01/21 History docusate sodium 100 mg PO .HS PRN 01/26/21 04/01/21 History ferrous sulfate 325 mg PO QAM 01/26/21 04/01/21 History gabapentin 300 mg PO HS 01/26/21 04/01/21 History hydromorphone 2 mg PO Q6H PRN 01/26/21 04/01/21 History losartan 100 mg PO DAILY 01/26/21 04/01/21 History montelukast 10 mg PO DAILY 01/26/21 04/01/21 History ondansetron HCl 8 mg PO Q8H PRN 01/26/21 04/01/21 History pantoprazole 40 mg PO BID 01/26/21 04/01/21 History polyethylene glycol 3350 [Miralax] 17 g PO .QHS 01/26/21 04/01/21 History sucralfate 1 g PO AC & HS #0 tab 01/29/21 04/01/21 Rx clindamycin HCl 300 mg PO QID 04/01/21 04/01/21 History cyclobenzaprine 5 mg PO DAILY PRN 04/01/21 04/01/21 History magnesium oxide 400 mg PO DAILY 04/01/21 04/01/21 History metformin 500 mg PO BID 04/01/21 04/01/21 History Exam Narrative Exam Narrative: On exam she is moderately obese, very pale appearing, she is alert and attentive. Her speech is clear. She has no respiratory difficulty. She was able to turn to the left side and auscultation of her lungs showed them to be completely clear. Her heart sounds were regular and there was no detectable murmur. Her abdomen is overall moderately obese but soft and nontender to palpation. No masses were palpable. A rectal exam was done in the ED by the PA. The lower extremities showed no significant edema. She has a well-healed surgical scar in the lateral portion of the left upper leg. There is no sign of infection. Neurologically she can follow commands and has relatively good upper body strength. I did not test her lower extremity strength. Results Labs Result diagrams: 04/01/21 15:03 Labs: Laboratory Results - last 24 hr 04/01/21 04/01/21 04/01/21 15:03 15:03 15:13 Sodium 136 Potassium 4.2 Chloride 104 Carbon Dioxide 23.9 Anion Gap 8.1 BUN 47 H Creatinine 1.6 H Estimated GFR/1.73 m2 33.34 Glucose 177 H Calcium 8.6 Total Bilirubin 0.2 AST 25 ALT 22 Alkaline Phosphatase 264 H Total Protein 6.7 Albumin 2.6 L Lipase 82 COVID-19 Source Nasal/Nares SARS-CoV-2 (PCR) Negative Patient ABO/Rh B Positive Antibody Screen NEGATIVE Crossmatch See Detail Last Vital Signs Temp 36.2 C L 04/01/21 16:57 Pulse 77 04/01/21 16:57 Resp 78 H 04/01/21 16:57 BP 124/58 L 04/01/21 16:57 Pulse Ox 99 04/01/21 16:57 PAWSS Pt Consumed Any Amount of Alcohol Within the Last 30 days OR had positive MCKENNA Upon Admission: No
[2021-04-01] MEDS: Pantoprazole 40 MG VIAL IVP (18:18)
[2021-04-01] MEDS: FAMOTIDINE 20 MG/50 ML BAG 200 MG (20:53)
[2021-04-01] MEDS: Pantoprazole 40 MG TABCR PO (21:07)
[2021-04-01] MEDS: Gabapentin 300 MG CAP PO (21:07)
[2021-04-01] MEDS: Clindamycin 300 MG CAP PO (21:07)
[2021-04-01 21:11] LABS: HCT 22.2 % (36.0-46.0)
[2021-04-01 21:18] LABS: HGB 6.8 g/dL (11.2-15.7)
[2021-04-01] MEDS: Insulin Glargine 300 UNITS/3 ML PEN 25 UNITS SC (21:44)
[2021-04-02 00:29] VITALS: BP 142/79; PULSE 70; RESP 19; TEMP 37.1; O2SAT 97
[2021-04-02 03:45] VITALS: BP 151/79; PULSE 72; RESP 18; TEMP 36.4; O2SAT 96
[2021-04-02] MEDS: Normal Saline 1,000 ML 125 ML IV (06:21)
[2021-04-02 07:00] VITALS: PULSE 63
[2021-04-02 07:13] LABS: Abs Immature Grans 0.01 10^3/uL (0.0-0.06); Absolute Basophil Count 0.02 10^3/uL (0.0-0.2); Absolute Eosinophil Count 0.14 10^3/uL (0.0-0.7); Absolute Lymphocyte Count 0.84 10^3/uL (1.2-3.4); Absolute Monocyte Count 0.47 10^3/uL (0.1-0.8); Absolute Neutrophil Count 2.46 10^3/uL (1.2-6.7); Basophils % 0.5; Eosinophils % 3.6; HCT 23.8 % (36.0-46.0); HGB 7.2 g/dL (11.2-15.7); Immature Grans % 0.3; Lymphocytes % 21.3; MCH 29.4 pg (27.0-33.0); MCHC 30.3 % (32.0-36.0); MCV 97.1 fL (80-95); Monocytes % 11.9; Neutrophils % 62.4; Nucleated RBC 0 %; Platelet Count 168 10^3/uL (130-400); RBC 2.45 10^6/uL (3.93-5.22); RDW 14.8 % (11.7-14.6); RDW-SD 53.1 fL; WBC 3.94 10^3/uL (4.4-10.8)
[2021-04-02 07:33] LABS: Anion Gap 8.4 mmol/L (3-11); BUN 41 mg/dL (7-18); CO2 24.6 mmol/L (21.0-32.0); CREATININE 1.5 mg/dL (0.55-1.02); Calcium 8.4 mg/dL (8.5-10.1); Chloride 106 mmol/L (98-107); Estimated GFR 35.92 (mL/min/1.73m2); Glucose 75 mg/dL (74-106); Potassium 4.1 mmol/L (3.5-5.1); Sodium 139 mmol/L (136-145)
[2021-04-02 07:41] VITALS: BP 156/80; PULSE 67; RESP 15; TEMP 36.6; O2SAT 98
[2021-04-02] MEDS: Sucralfate 1 GM TAB PO ×2 (08:16→11:40)
[2021-04-02] MEDS: Clindamycin 300 MG CAP PO ×2 (08:17→11:40)
[2021-04-02] MEDS: Pantoprazole 40 MG TABCR PO (08:18)
[2021-04-02] MEDS: traMADol 50 MG TAB PO (10:11)
--- NOTE | 2021-04-02 11:21 | IN_ITS ---
Date of service: 04/02/21 Time of Service: 11:21 PT Notes Visit Reasons: GI Bleed Physical Therapy Inpatient Initial Evaluation Date: 04/02/2021 Referring Doctor: Bryan Jordan MD PT Orders: PT CONSULT: Eval/treat Precautions: Fall. Standard. Per hospitalist, FWB on L LE with AD. Patient Profile/Admitting Diagnosis: Desiree is a 55-year-old female who presented to the ED on 04/01/2021 due to mild lightheadedness. Patient had been receiving rehabilitation services at the [facility] for a left femoral neck fracture with surgical fixation at [facility] and for a close T12 compression fracture. Per conversation with the therapy department at the [facility], patient has just been okayed to do FWB on L LE and that she has been doing sit<>stand inside parallel bars prior to hospital admission. PMHX: All Active Problems (Updated 04/01/21 @ 17:53 by Bryan Jordan MD) Left femoral shaft fracture (Acute) Morbid obesity (Acute) Diabetes mellitus (Chronic) Essential hypertension (Acute) Heart failure with preserved ejection fraction (Acute) Blood loss anemia (Acute) Medical History (Updated 04/01/21 @ 17:53 by Bryan Jordan MD) Anxiety Chronic kidney disease Claustrophobia Elevated d-dimer Elevated troponin HLD (hyperlipidemia) Hyperbilirubinemia Hypotension Left humeral fracture Primary osteoarthritis of right knee Restless leg syndrome Urinary tract infection Social History/Home Situation: Has been a resident of SNF since January of 2021 for rehab of a femoral shaft fracture on the L LE. Equipment Owned/DME: [facility] Subjective: Desiree states that the orthopedic surgeon at [facility] who repaired her left hip ordered non-weightbearing on the left LE until March 2021. She recently was allowed for FWB on the L LE last March 24, 2021. She however continues to be highly anxious and teary-eyed when she is asked to put weight on her legs. Needed three attempts today to stand up from the edge of bed. Was able to stand up about 1 minute and adamantly requested to sit back down stating that her feet hurt at 8/10. Nurse Mac mahan. Objective: General Observation: Supine in bed. High catheter in place. Surgical incision now well-healed. Mental Status: Alert and oriented as to person, place, time, and purpose. Able to pay attention, focus, and respond appropriately. Lacks motivation for standing. Pain: Reported significant pain in bilateral legs to palpation ROM: Right Upper Extremity: Shoulder Flexion lacks 25% of available range of motion. Shoulder abduction acks 50% of available range of motion. Elbow flexion WFL. Wrist flexion WFL. Functional opening and closing of hand WFL. Left Upper Extremity: houlder Flexion lacks 25% of available range of motion. Shoulder abduction acks 50% of available range of motion. Elbow flexion WFL. Wrist flexion WFL. Functional opening and closing of hand WFL. Right Lower Extremity: Hip flexion lacks 50% of available range of motion. Hip abduction lacks 50% of available range of motion. Knee flexion lacks 50% of av ailable range of motion. Knee extension lacks 50% of available range of motion. Ankle dorsiflexion to neutral only. Ankle plantarflexion 30 degrees from neutral. Left Lower Extremity: Hip flexion lacks 75% of available range of motion. Hip abduction lacks 75% of available range of motion. Knee flexion 30 degrees to 50 degrees. Knee extension -20 degrees. Ankle dorsiflexion has less than 25% of active range of motion. Ankle plantarflexion has less than 25% of active range of motion. Strength: Right Upper Extremity: Shoulder flexors 3-/5. Shoulder abductors 3-/5. Elbow flexors 3-/5. Elbow extensors 3-/5. Moisture Tester strong. Left Upper Extremity: Shoulder flexors 3-/5. Shoulder abductors 3-/5. Elbow flexors 3-/5. Elbow extensors 3-/5. Moisture Tester strong. Right Lower Extremity: Hip flexors 3-/5. Hip abductors 3-/5. Knee flexors 3-/5. Knee extensors 3-/5. Ankle dorsiflexors 3-/5. Ankle plantarflexors 3-/5. Left Lower Extremity: Hip flexors 2-/5. Hip abductors 2-/5. Knee flexors 2-/5. Knee extensors 2-/5. Ankle dorsiflexors 2-/5. Ankle plantarflexors 2-/5. Bed Mobility/Transfers: Rolling moderate assist of 2 Supine to sit moderate assist of 2 Sit to supine moderate to maximal assist of 2 Sit to stand moderate assist of 2 using STEDY LIFT Stand to sit moderate assist of 2 using STEDY LIFT Gait: Unable. Highly anxious and gets tearful about weight bearing at this time. Balance: Static Sitting: Fair Dynamic Sitting: Fair Static Standing: Unable to test Dynamic Standing: Unable to test Special Tests: Mobility Limitations Standardized Measure [facility] AM-PAC 6 clicks Basic Mobility Inpatient Short Form: Raw Score: 6 CMS Score: 100% deficit Informed Consent/Education: Patient was instructed in purpose of PT consult and plan of care. Agreeable to proceed with established PT POC to achieve personal goals. Assessment: Highly anxious and tearful about trying to put weight on L LE. At the SNF, therapy still has been slowly doing sit<>stand activities prior to hospital admission. Will need to be premedicated for pain. Patient presents with clinical signs and symptoms consistent with current/admitting diagnoses that have resulted to mobility limitations, gait instability, generalized weakness, and overall ADL decline as demonstrated by the following impairment level findings: 1. Decreased strength to BUE/LE major muscle groups 2. Impaired sitting balance 3. Impaired activity tolerance 4. Limitation of joint range of motion in B shoulders and B LE 5. Increasing anxiety over WB on L LE Impairments are contributing to the following functional limitations: 1. Decline in bed mobility skills 2. Decline in transfer skills 3. Inability to ambulate due to fear of falling and orthopedic weight bearing precautions 4. Increased completion time for mobility ADL performance 5. Increased risk for falls Patient is assessed as a [id number] high complexity based on the following: History: 55-year-old female with past medical history as indicated above Examination: Demonstrable impairment in strength, balance, and mobility level with underlying impairments and functional limitations as exhibited above as well as deficit score of 100% utilizing the [facility] Mobility Inpatient Short Form Presentation: Evolving Decision Makin high complexity Goals: Goals X1 week 1. Supine-Sit minimal assist 2. Sit-Supine minimal assist 5. Bed-Chair minimal assist of 2 using slide board 6. Chair-Bed minimal assist of 2 using slide board 7. Normal static and dynamic sitting balance/tolerance 8. Minimal assist of 2 with scooting to R using B UE and R LE at edge of bed Plan of Care/Treatment Plan: 1-2x/day, 7 days/week x 1 week. Plan of care has been reviewed with the FINANCIAL SPECIALIST providing the service under Physical Therapy direction. Initiate Physical Therapy intervention for pain management as needed, strengthening, bed mobility, transfers, gait, stairs, balance training, and use of assistive device. DISCHARGE RECOMMENDATIONS: Return to SNF for continued rehabilitation once cleared by hospitalist. TREATMENT CODE/TIME: 27921 x 30 minutes, 66451 x 19 minutes beginning at 9:20 AM, 10:02 AM, and 11:21 AM. Thank you for the opportunity to participate in the care of this patient. Iqra Luke PT, DPT, CLT [facility] [place], [place]
[2021-04-02 11:26] VITALS: BP 154/84; PULSE 70; RESP 16; TEMP 36.6; O2SAT 100
--- NOTE | 2021-04-02 11:46 | SCONE_ITS ---
Date of service: 04/02/21 Time of Service: 11:46 Assessment and Plan Assessment and plan (1) Morbid obesity: Status: Acute (2) Blood loss anemia: Status: Acute Assessment and plan: Patient with chronic anemia. Has history of both gastritis and AV malformations. Last EGD and [place] at [facility]. Patient is stable at this time. Recommend referal to [facility] for EGD and [place] as outpatient. Continue with Protonix 40 mg BID as outpatient in case this is a upper GI bleed. Will follow peripherally. History of Present Illness Narrative: This is a 57-year-old woman who has chronic anemia. She has had this worked up at [facility] including upper and lower endoscopy. Last endoscopy showed some gastritis and colonic angio- ectasia. Since that time she has refused further colonoscopies or work-up. She was admitted to [facility] in January 2021 for anemia and received 3 units of packed red cells. She had some trouble with fluid overload during that admission. An echocardiogram showed normal LV function. She resides at [facility] rehab because of a left femur fracture in December 2020. She was at [facility] receiving a blood transfusion when she fell and suffered the femur fracture. She has been nonweightbearing on that left leg until 03/24/2021. She has just begun physical therapy at [facility]. Today she was feeling extremely weak and lightheaded and was transported to [facility] for evaluation. Her lab evaluation showed a hemoglobin of 5.5, down from a hemoglobin of 10 in February 2021. A rectal exam revealed dark tarry stool that was guaiac positive. She was given 1 unit of packed red cells in the ED which was transfusing at the time I evaluated her. She was recently started on clindamycin for a dental abscess. That will be completed on 04/04/2021. PAtient is feeling better this am after having the one unit of blood. She is unaware of any bright red blood, per ER she had melena. Patient has history of GERD and av malformations. Consults Consult date: 04/02/21 Requesting physician: Devika Hdz Review of Systems Constitutional Constitutional: Reports fatigue, Denies fever(s), Denies headache(s) and Denies weight loss Eyes Eyes: Denies change in vision ENT Ears, Nose, Mouth, and Throat: Reports as per HPI, Denies dysphagia, Denies headache(s) and Denies hoarseness Cardiovascular Cardiovascular: Denies chest pain, Denies irregular heart rhythm, Denies palpitations and Denies dyspnea Respiratory Respiratory: Denies cough and Denies dyspnea Gastrointestinal Gastrointestinal: Reports as per HPI, Reports system reviewed and no additional complaints, except as documented, Denies dysphagia, Denies dyspepsia and Denies heartburn Genitourinary Genitourinary: Reports system reviewed and no additional complaints, except as documented Musculoskeletal Musculoskeletal: Reports system reviewed and no additional complaints, except as documented Neurologic Neurologic: Denies headache(s) Endocrine Endocrine: Reports fatigue and Denies palpitations PFSH All Active Problems Left femoral shaft fracture (Acute) Morbid obesity (Acute) Diabetes mellitus (Chronic) Essential hypertension (Acute) Heart failure with preserved ejection fraction (Acute) Blood loss anemia (Acute) Medical History Anxiety Chronic kidney disease Claustrophobia Elevated d-dimer Elevated troponin HLD (hyperlipidemia) Hyperbilirubinemia Hypotension Left humeral fracture Primary osteoarthritis of right knee Restless leg syndrome Urinary tract infection Social History Smoking/Tobacco Use Status: Never Smoking risk assessment performed?: Yes Alcohol Intake: current Alcohol Intake frequency: holidays/special occasions only Drug use: Never Current gender identity: female Do you feel safe at home: Yes Do you feel safe in your relationship?: Yes Female Reproductive History Menstrual Menopause type: natural Exam Const General: cooperative, comfortable and no acute distress Orientation: alert and oriented x3 HENWV Head: normocephalic and atraumatic Resp Effort & Inspection: normal respiratory effort Auscultation: clear to auscultation bilaterally Cardio Rate: regular rate Rhythm: regular rhythm GI Inspection: normal to inspection and obesity Palpation: soft, no hepatosplenomegaly and nontender Auscultation: normal bowel sounds Results Last Vital Signs Temp 97.9 F 04/02/21 11:26 Pulse 70 04/02/21 11:26 Resp 16 04/02/21 11:26 BP 154/84 H 04/02/21 11:26 Pulse Ox 100 04/02/21 11:26 Labs Result diagrams: 04/02/21 06:34 04/02/21 06:34 Labs: Laboratory Results - last 24 hr 04/01/21 04/01/21 04/01/21 15:03 15:03 15:13 WBC RBC Hgb Hct MCV MCH MCHC RDW Plt Count MPV Immature Gran % Neutrophils % Lymphocytes % Monocytes % Eosinophils % Basophils % Nucleated RBC % Absolute Neutrophils Absolute Lymphocytes Absolute Monocytes Absolute Eosinophils Absolute Basophils Sodium 136 Potassium 4.2 Chloride 104 Carbon Dioxide 23.9 Anion Gap 8.1 BUN 47 H Creatinine 1.6 H Estimated GFR/1.73 m2 33.34 Glucose 177 H Calcium 8.6 Total Bilirubin 0.2 AST 25 ALT 22 Alkaline Phosphatase 264 H Total Protein 6.7 Albumin 2.6 L Lipase 82 COVID-19 Source Nasal/Nares SARS-CoV-2 (PCR) Negative Patient ABO/Rh B Positive Antibody Screen NEGATIVE Crossmatch See Detail 04/01/21 04/02/21 04/02/21 21:00 06:34 06:34 WBC 3.94 L RBC 2.45 L Hgb 6.8 L* 7.2 L Hct 22.2 L 23.8 L MCV 97.1 H MCH 29.4 MCHC 30.3 L RDW 14.8 H Plt Count 168 MPV 10.0 Immature Gran % 0.3 Neutrophils % 62.4 Lymphocytes % 21.3 Monocytes % 11.9 Eosinophils % 3.6 Basophils % 0.5 Nucleated RBC % 0 Absolute Neutrophils 2.46 Absolute Lymphocytes 0.84 L Absolute Monocytes 0.47 Absolute Eosinophils 0.14 Absolute Basophils 0.02 Sodium 139 Potassium 4.1 Chloride 106 Carbon Dioxide 24.6 Anion Gap 8.4 BUN 41 H Creatinine 1.5 H Estimated GFR/1.73 m2 35.92 Glucose 75 D Calcium 8.4 L Total Bilirubin AST ALT Alkaline Phosphatase Total Protein Albumin Lipase COVID-19 Source SARS-CoV-2 (PCR) Patient ABO/Rh Antibody Screen Crossmatch
--- NOTE | 2021-04-02 13:12 | DSE_ITS ---
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 Her work u p in the ED shows hemoglobin of 5.5. Previously she has refused any further work-up or treatment for her colonic angio ectasia. She will require sub- specialty gastroenterology to consider ablation of these lesions. She appears to have chronic black tarry stools with slow ongoing blood loss. She was transfused in December 2020 and again in January 2021. Her work up was otherwise unremarkable and she was referred to observation for transfusion and received 2 units of packed red cells. The goal is to maintain a hemoglobin above 7. She is on oral iron therapy. Iron studies were not drawn on this admission. Her iron level was normal at 65 on 01/25/2021. after receiving the blood her hemoglobin dipesh to 6.8 and repeat this am was 7.2. she is tolerating orals well. no further c/o. We did as general surgery to consult and they feel she is safe for outpatient follow up with GI at [facility] [place]. discharge discussed with DR Gee Home Meds and New Rx's Prescriptions: Continued hydrochlorothiazide 50 mg tablet 50 mg PO QAM RF: 0 tramadol 50 mg tablet 50 mg PO TID PRNRF: 0 hydromorphone 2 mg Tablet 2 mg PO Q6H PRNRF: 0 cyanocobalamin (vitamin B-12) 500 mcg Tablet 1,000 mcg PO DAILY RF: 0 amlodipine 10 mg Tablet 10 mg PO DAILY RF: 0 docusate sodium 100 mg Capsule 100 mg PO .HS PRNRF: 0 polyethylene glycol 3350 [Miralax] 17 gram/dose Powder 17 g PO .QHS RF: 0 losartan 100 mg Tablet 100 mg PO DAILY RF: 0 cholecalciferol (vitamin D3) 125 mcg (5,000 unit) Capsule 125 mcg PO .Q MONDAY RF: 0 ferrous sulfate 325 mg (65 mg iron) Capsule, Extended Release 325 mg PO QAM RF: 0 Lantus Solostar U-100 Insulin 100 unit/mL (3 mL) Insulin Pen 25 unit SUBCUT HS RF: 0 acetaminophen 500 mg Tablet 1,000 mg PO .Q6HRS PRNRF: 0 gabapentin 300 mg Capsule 300 mg PO HS RF: 0 ondansetron HCl 8 mg Tablet 8 mg PO Q8H PRNRF: 0 albuterol 90 mcg/actuation Aerosol 180 mcg INHALATION Q4H PRN PRNRF: 0 montelukast 10 mg Tablet 10 mg PO DAILY RF: 0 pantoprazole 40 mg Tablet,Delayed Release (Dr/Ec) 40 mg PO BID RF: 0 sucralfate 1 gram Tablet 1 g PO AC & HS Qty: 0 RF: 0 clindamycin HCl 300 mg Capsule 300 mg PO QID RF: 0 cyclobenzaprine 5 mg Tablet 5 mg PO DAILY PRN (Reason: Pain) RF: 0 magnesium oxide 400 mg magnesium Capsule 400 mg PO DAILY RF: 0 metformin 500 mg Tablet 500 mg PO BID RF: 0 Discharge Instructions Instructions: Gastrointestinal Bleeding (DC) Stand Alone Forms: Nursing Discharge Form Referrals: GASTROENTEROLOGY,[facility] [place] [OTHER] - (Please for for an appointment in the next 2 weeks ) Activity:: Activity as Tolerated Equipment/Supplies:: No Equipment Needed Diet:: As Tolerated Discharge Orders Discharge Orders: Discharge Order (Routine); Ordered 04/02/21 Ordered By: Linda Escobar DS: Summary Time Spent with Patient providing and/or coordinating discharge services: Less than 30 minutes Status at Discharge Functional status at discharge: wheelchair bound Overall status at discharge: patient is back to baseline Mental Status: mental status grossly normal Speech and Movement: speech and movement normal Mood: congruent mood Affect: normal affect Exam Const General: no acute distress Orientation: alert and oriented x3 HENMT Mouth: oral mucosae normal Chest Chest: normal inspection of the chest Resp Effort & Inspection: normal respiratory effort Auscultation: clear to auscultation bilaterally Cardio Rate: regular rate Rhythm: regular rhythm Skin General skin exam: no rashes or lesions noted Neuro General: patient alert and patient oriented x3 Psych Mental Status: mental status grossly normal Speech and Movement: speech and movement normal Mood: congruent mood Affect: normal affect DS: Data Vitals/I&O Vitals and I&O: Vital Signs Temperature 36.6 C 04/02/21 11:26 Temperature Source Tympanic 04/02/21 11:26 Pulse 70 04/02/21 11:26 Pulse Rhythm Regular 04/02/21 10:43 Respiratory Rate 16 04/02/21 11:26 Respiratory Effort Non-Labored 04/02/21 10:43 Respiratory Depth Normal 04/02/21 10:43 Respiratory Pattern Normal 04/02/21 10:43 Blood Pressure 154/84 H 04/02/21 11:26 Blood Pressure Position Supine 04/01/21 14:02 Pulse Oximetry 100 04/02/21 11:26 Oxygen Delivery Method Room Air 04/02/21 11:26 Oxygen Flow Rate 0 04/02/21 11:26 Pain Level 6 04/02/21 11:26 Intake & Output 04/01/21 04/02/21 04/02/21 23:59 11:59 23:59 Intake Total 1089.583 / 7781.147 8587 / 1855 Balance 1089.583 / 4929.538 1275 / 1855 Weight 121.2 kg Intake: IV 739.583 / 489.169 0565 / 1000 Oral 480 / 480 Blood Product 350 / 350 300 / 300 Rbc Leuko Reduced Unit 300 / 300 [id number] Rbc Leuko Reduced Unit 350 / 350 [id number] Other 75 / 75 Rbc Leuko Reduced Unit 75 / 75 [id number] Other: Urine Color Straw Urine Appearance Clear Clear Voiding Methods Diaper Incontinent Data Completed and Pending Labs on day of discharge: Labs from last 24 hours 04/02/21 04/02/21 04/01/21 06:34 06:34 21:00 WBC 3.94 L RBC 2.45 L Hgb 7.2 L 6.8 L* Hct 23.8 L 22.2 L MCV 97.1 H MCH 29.4 MCHC 30.3 L RDW 14.8 H Plt Count 168 MPV 10.0 Immature Gran % 0.3 Neutrophils % 62.4 Lymphocytes % 21.3 Monocytes % 11.9 Eosinophils % 3.6 Basophils % 0.5 Nucleated RBC % 0 Absolute Neutrophils 2.46 Absolute Lymphocytes 0.84 L Absolute Monocytes 0.47 Absolute Eosinophils 0.14 Absolute Basophils 0.02 Sodium 139 Potassium 4.1 Chloride 106 Carbon Dioxide 24.6 Anion Gap 8.4 BUN 41 H Creatinine 1.5 H Estimated GFR/1.73 m2 35.92 Glucose 75 D Calcium 8.4 L Total Bilirubin AST ALT Alkaline Phosphatase Total Protein Albumin Lipase COVID-19 Source SARS-CoV-2 (PCR) Patient ABO/Rh Antibody Screen Crossmatch 04/01/21 04/01/21 04/01/21 15:13 15:03 15:03 WBC RBC Hgb Hct MCV MCH MCHC RDW Plt Count MPV Immature Gran % Neutrophils % Lymphocytes % Monocytes % Eosinophils % Basophils % Nucleated RBC % Absolute Neutrophils Absolute Lymphocytes Absolute Monocytes Absolute Eosinophils Absolute Basophils Sodium 136 Potassium 4.2 Chloride 104 Carbon Dioxide 23.9 Anion Gap 8.1 BUN 47 H Creatinine 1.6 H Estimated GFR/1.73 m2 33.34 Glucose 177 H Calcium 8.6 Total Bilirubin 0.2 AST 25 ALT 22 Alkaline Phosphatase 264 H Total Protein 6.7 Albumin 2.6 L Lipase 82 COVID-19 Source Nasal/Nares SARS-CoV-2 (PCR) Negative Patient ABO/Rh B Positive Antibody Screen NEGATIVE Crossmatch See Detail 04/01/21 17:11 Nose MRSA Screen - Pending Preliminary micro results at discharge 04/01/21 17:11 MRSA Screen - Pending Nose PFSH All Active Problems Left femoral shaft fracture (Acute) Morbid obesity (Acute) Diabetes mellitus (Chronic) Essential hypertension (Acute) Heart failure with preserved ejection fraction (Acute) Blood loss anemia (Acute) Medical History Anxiety Chronic kidney disease Claustrophobia Elevated d-dimer Elevated troponin HLD (hyperlipidemia) Hyperbilirubinemia Hypotension Left humeral fracture Primary osteoarthritis of right knee Restless leg syndrome Urinary tract infection Social History Smoking/Tobacco Use Status: Never Smoking risk assessment performed?: Yes Alcohol Intake: current Alcohol Intake frequency: holidays/special occasions only Drug use: Never Current gender identity: female Do you feel safe at home: Yes Do you feel safe in your relationship?: Yes Female Reproductive History Menstrual Menopause type: natural
--- NOTE | 2021-04-02 13:15 | CMPROGNOTE_ITS ---
- If Service Date Differs Date of service: 04/02/21 Time of Service: 13:15 Care Management Progress Note CM coordinated SNF return with [facility], Linda [facility]IRE[facility] request. piece goods clerkNena gustafson notified of timing and transport via [employer].
[2021-04-02 13:32] VITALS: PULSE 68
--- NOTE | 2021-04-02 14:09 | NUR.NOTE ---
Nursing Note: Patient's sister concerned that she needs [facility] to schedule follow up for the patient. I explained to the patient that she was admitted here for an acute problem . That problem was corrected. It is the responsibility of the patient or receiving facility to schedule follow up work.
== END 2021-04-02 14:01 | disposition skilled nursing facility (03) ==
LOC: ER 17:21 → MS 18:36
PROVIDERS: Family Medicine; Admitting Provider Family Medicine; Emergency Provider Physician Assistant; PCP Physician Assistant Medical; Visit Provider Family Medicine
DX: K92.1 Melena (principal); D50.0 Iron deficiency anemia secondary to blood loss (chronic); E11.9 Type 2 diabetes mellitus without complications; Z20.822 Contact with and (suspected) exposure to COVID-19; Z79.84 Long term (current) use of oral hypoglycemic drugs; Z79.4 Long term (current) use of insulin; I50.30 Unspecified diastolic (congestive) heart failure; Z79.891 Long term (current) use of opiate analgesic; F41.9 Anxiety disorder, unspecified; N18.9 Chronic kidney disease, unspecified; I13.0 Hypertensive heart and chronic kidney disease with heart failure and stage 1 through stage 4 chronic kidney disease, or unspecified chronic kidney disease; R74.8 Abnormal levels of other serum enzymes; E78.5 Hyperlipidemia, unspecified; M17.11 Unilateral primary osteoarthritis, right knee; G25.81 Restless legs syndrome; Z68.42 Body mass index [BMI] 45.0-49.9, adult; Q27.39 Arteriovenous malformation, other site; K21.9 Gastro-esophageal reflux disease without esophagitis
CPT/HCPCS: 36430; 80048; 80053; 83690; 86850; 86900; 86901; 86920; 87081; 87635; 93005; 96374; 97163; 97530; 99213; 99291; 71046; 85014; 85018; 85025; 93010; 99217; 99220; G0378; P9016

== ENCOUNTER 2021-04-04 17:03 | Outpatient (REF) | payer MEDICARE, SELFPAY ==
[2021-04-04 17:11] LABS: Abs Immature Grans 0.01 10^3/uL (0.0-0.06); Absolute Basophil Count 0.01 10^3/uL (0.0-0.2); Absolute Eosinophil Count 0.06 10^3/uL (0.0-0.7); Absolute Lymphocyte Count 0.76 10^3/uL (1.2-3.4); Absolute Monocyte Count 0.34 10^3/uL (0.1-0.8); Absolute Neutrophil Count 2.57 10^3/uL (1.2-6.7); Basophils % 0.3; Eosinophils % 1.6; HCT 26.9 % (36.0-46.0); HGB 8.2 g/dL (11.2-15.7); Immature Grans % 0.3; Lymphocytes % 20.3; MCH 29.5 pg (27.0-33.0); MCHC 30.5 % (32.0-36.0); MCV 96.8 fL (80-95); Monocytes % 9.1; Neutrophils % 68.4; Nucleated RBC 0 %; Platelet Count 177 10^3/uL (130-400); RBC 2.78 10^6/uL (3.93-5.22); WBC 3.75 10^3/uL (4.4-10.8)
[2021-04-04 17:17] LABS: Anion Gap 9.9 mmol/L (3-11); CO2 23.1 mmol/L (21.0-32.0); CREATININE 1.1 mg/dL (0.55-1.02); Calcium 9.1 mg/dL (8.5-10.1); Chloride 107 mmol/L (98-107); Estimated GFR 51.38 (mL/min/1.73m2); Glucose 87 mg/dL (74-106); Potassium 4.7 mmol/L (3.5-5.1); Sodium 140 mmol/L (136-145)
[2021-04-04 17:18] LABS: BUN 26 mg/dL (7-18)
== END 2021-04-04 17:04 | disposition home or self-care (01) ==
LOC: LBN 17:03
PROVIDERS: PCP Physician Assistant Medical; Visit Provider Nurse Practitioner Family
DX: D50.0 Iron deficiency anemia secondary to blood loss (chronic) (principal); I50.31 Acute diastolic (congestive) heart failure
CPT/HCPCS: 80048; 85025

== ENCOUNTER 2021-04-04 17:37 | Emergency (ER) | payer MEDICARE, SELFPAY ==
[2021-04-04] VITALS (9 sets, daily range): BP systolic 153–163; BP diastolic 42–71; PULSE 71–85; RESP 11–22; TEMP 36.7; O2SAT 98–100
[2021-04-04] MEDS: Normal Saline 500 ML IV (18:05)
[2021-04-04] MEDS: LORazepam 0.5 MG TAB PO (18:16)
[2021-04-04 18:17] LABS: Abs Immature Grans 0.01 10^3/uL (0.0-0.06); Absolute Basophil Count 0.01 10^3/uL (0.0-0.2); Absolute Eosinophil Count 0.06 10^3/uL (0.0-0.7); Absolute Neutrophil Count 2.74 10^3/uL (1.2-6.7); Basophils % 0.2; Eosinophils % 1.5; HCT 25.6 % (36.0-46.0); HGB 7.9 g/dL (11.2-15.7); Immature Grans % 0.2; Lymphocytes % 19.9; MCH 29.7 pg (27.0-33.0); MCHC 30.9 % (32.0-36.0); MCV 96.2 fL (80-95); MPV 9.6 fL (8.0-11.0); Neutrophils % 68.2; Nucleated RBC 0 %; Platelet Count 183 10^3/uL (130-400); RBC 2.66 10^6/uL (3.93-5.22); RDW-SD 49.6 fL; WBC 4.02 10^3/uL (4.4-10.8)
[2021-04-04] MEDS: ACETAMINOPHEN 1,000 MG/100 ML BTL 400 MG IVPB (18:17)
[2021-04-04 18:31] LABS: ALT 22 U/L (14-59); AST 27 U/L (15-37); Albumin 2.9 g/dL (3.4-5.0); Alkaline Phosphatase 262 U/L (46-116); Anion Gap 9.9 mmol/L (3-11); BUN 25 mg/dL (7-18); Bilirubin, Total 0.5 mg/dL (0.2-1.0); CO2 24.1 mmol/L (21.0-32.0); CREATININE 1.2 mg/dL (0.55-1.02); Calcium 9.1 mg/dL (8.5-10.1); Chloride 106 mmol/L (98-107); Estimated GFR 46.47 (mL/min/1.73m2); Glucose 87 mg/dL (74-106); Potassium 4.4 mmol/L (3.5-5.1); Sodium 140 mmol/L (136-145); Total Protein 7.2 g/dL (6.4-8.2)
--- NOTE | 2021-04-04 18:44 | ED.GENADUL_ITS ---
Discharge Plan Disposition Patient Disposition: HOME Condition: Stable Discharge Details Clinical Impression: Anemia, Oral thrush Primary Care Provider: Michelle Augustin ED Provider: Sybil Yeager Home Meds and New Rx's Prescriptions: New nystatin 100,000 unit/mL suspension 100,000 unit PO Q6H 7 Days Qty: 28 RF: 0 Continued hydrochlorothiazide 50 mg tablet 50 mg PO QAM RF: 0 tramadol 50 mg tablet 50 mg PO TID PRNRF: 0 hydromorphone 2 mg Tablet 2 mg PO Q6H PRNRF: 0 cyanocobalamin (vitamin B-12) 500 mcg Tablet 1,000 mcg PO DAILY RF: 0 amlodipine 10 mg Tablet 10 mg PO DAILY RF: 0 docusate sodium 100 mg Capsule 100 mg PO .HS PRNRF: 0 polyethylene glycol 3350 [Miralax] 17 gram/dose Powder 17 g PO .QHS RF: 0 losartan 100 mg Tablet 100 mg PO DAILY RF: 0 cholecalciferol (vitamin D3) 125 mcg (5,000 unit) Capsule 125 mcg PO .Q MONDAY RF: 0 ferrous sulfate 325 mg (65 mg iron) Capsule, Extended Release 325 mg PO QAM RF: 0 Lantus Solostar U-100 Insulin 100 unit/mL (3 mL) Insulin Pen 25 unit SUBCUT HS RF: 0 acetaminophen 500 mg Tablet 1,000 mg PO .Q6HRS PRNRF: 0 gabapentin 300 mg Capsule 300 mg PO HS RF: 0 ondansetron HCl 8 mg Tablet 8 mg PO Q8H PRNRF: 0 albuterol 90 mcg/actuation Aerosol 180 mcg INHALATION Q4H PRN PRNRF: 0 montelukast 10 mg Tablet 10 mg PO DAILY RF: 0 pantoprazole 40 mg Tablet,Delayed Release (Dr/Ec) 40 mg PO BID RF: 0 sucralfate 1 gram Tablet 1 g PO AC & HS Qty: 0 RF: 0 clindamycin HCl 300 mg Capsule 300 mg PO QID RF: 0 cyclobenzaprine 5 mg Tablet 5 mg PO DAILY PRN (Reason: Pain) RF: 0 magnesium oxide 400 mg magnesium Capsule 400 mg PO DAILY RF: 0 metformin 500 mg Tablet 500 mg PO BID RF: 0 Discharge Instructions Instructions: Anemia (ED) Additional Instructions: you must follow-up with pcp follow-up with [facility] as you will need GI follow-up closely take nystatin for thrush, return earlier with new or worsening complaints Referrals: Michelle Augustin [Primary Care Provider] - Discharge Data Discharge Date/Time-TO BE ENTERED AT DEPARTURE: 04/04/21 19:08 Medical Decision Making Patient is chronically ill, at this time she was recently admitted and fully evaluated, she have outpatient follow-up at [facility] There is no indication for emergent transfusion at this time Patient does appear anxious she was given 0.5 mg of Ativan I reviewed all patient's lab and I think at this time stable for discharge back to the rehabilitation center She patient reassessments, however there is no indication for admission or transfusion I did review her discharge summary from her hospitalization in detail Patient feels comfortable with plan I spoke with her regarding the need for outpatient follow-up Patient discharged home alert, oriented, stable Placed on nystatin outpatient for oral candidiasis, likely Throat Maintaining secretions, no indication for additional evaluation at this time Headache resolved at time of discharge home Medical Records Medical records reviewed: Yes I reviewed the patient's medical records. Lab Data Lab results reviewed: Yes I reviewed the patient's lab results. HPI General Mode of arrival: ambulatory . Date/Time Provider Initiated Documentation: 04/04/21 17:48 . Limitations to Documentation: no limitations . Information obtained by: patient . HPI Narrative: This 55-year-old female with history of chronic anemia and GI bleed, diabetes, hypertension, GERD presents with reports of sore throat and being concerned that her anemia is worsening. She states she had a mild headache today and has history of headaches. She states that this is not in fact why she is in the emergency room. She is requesting that her blood work be because she feels like she might be anemic. She denies any weakness or dizziness. She does report that she was transfused and discharged home yesterday. She denies any falls or injuries. She denies any nausea or vomiting. She denies any vision change. Related Data Home Medications Medication Instructions Recorded Confirmed hydrochlorothiazide 50 mg tablet 50 mg PO QAM 02/04/19 04/01/21 tramadol 50 mg tablet 50 mg PO TID PRN 02/04/19 04/01/21 Lantus Solostar U-100 Insulin 25 unit SUBCUT HS 01/26/21 04/01/21 acetaminophen 1,000 mg PO .Q6HRS PRN 01/26/21 04/01/21 albuterol 180 mcg INHALATION Q4H PRN PRN 01/26/21 04/01/21 amlodipine 10 mg PO DAILY 01/26/21 04/01/21 cholecalciferol (vitamin D3) 125 mcg PO .Q Monday01/26/21 04/01/21 cyanocobalamin (vitamin B-12) 1,000 mcg PO DAILY 01/26/21 04/01/21 docusate sodium 100 mg PO .HS PRN 01/26/21 04/01/21 ferrous sulfate 325 mg PO QAM 01/26/21 04/01/21 gabapentin 300 mg PO HS 01/26/21 04/01/21 hydromorphone 2 mg PO Q6H PRN 01/26/21 04/01/21 losartan 100 mg PO DAILY 01/26/21 04/01/21 montelukast 10 mg PO DAILY 01/26/21 04/01/21 ondansetron HCl 8 mg PO Q8H PRN 01/26/21 04/01/21 pantoprazole 40 mg PO BID 01/26/21 04/01/21 polyethylene glycol 3350 [Miralax] 17 g PO .QHS 01/26/21 04/01/21 sucralfate 1 g PO AC & HS #0 tab 01/29/21 04/01/21 clindamycin HCl 300 mg PO QID 04/01/21 04/01/21 cyclobenzaprine 5 mg PO DAILY PRN 04/01/21 04/01/21 magnesium oxide 400 mg PO DAILY 04/01/21 04/01/21 metformin 500 mg PO BID 04/01/21 04/01/21 nystatin 100,000 unit PO Q6H 7 Days #28 ml 04/04/21 Previous Rx's Medication Instructions Recorded sucralfate 1 g PO AC & HS #0 tab 01/29/21 nystatin 100,000 unit PO Q6H 7 Days #28 ml 04/04/21 Allergies Allergy/AdvReac Type Severity Reaction Status Date / Time albuterol [From ProAir HFA] Allergy Unverified 01/26/21 12:11 amoxicillin Allergy Verified 01/26/21 12:11 cephalexin Allergy Unverified 01/26/21 12:11 guaifenesin Allergy Unverified 01/26/21 12:11 hydrocodone [From Vicodin] Allergy Unverified 01/26/21 12:11 omeprazole [From Prilosec] Allergy Unverified 01/26/21 12:11 promethazine Allergy Unverified 01/26/21 12:11 simvastatin Allergy Unverified 01/26/21 12:11 fluconazole AdvReac Intermediate feels like Unverified 01/26/21 12:11 bugs crawling on her lisinopril AdvReac NAUSEA Verified 01/26/21 12:11 General Stated Complaint: GI Bleed WILY: 2 Review of Systems All systems reviewed & are unremarkable except as noted in HPI and below PFSH All Active Problems (Updated 04/04/21 @ 18:46 by CARLOTTA Ibarra) Acute GI bleeding (Acute) Anemia (Chronic) Oral thrush (Acute) Medical History Anxiety Chronic kidney disease Claustrophobia Elevated d-dimer Elevated troponin HLD (hyperlipidemia) Hyperbilirubinemia Hypotension Left humeral fracture Primary osteoarthritis of right knee Restless leg syndrome Urinary tract infection Social History Smoking/Tobacco Use Status: Never Smoking risk assessment performed?: Yes Alcohol Intake: current Alcohol Intake frequency: holidays/special occasions only Drug use: Never Current gender identity: female Do you feel safe at home: Yes Do you feel safe in your relationship?: Yes Female Reproductive History Menstrual Menopause type: natural Exam Const General: cooperative and comfortable Orientation: alert and oriented x3 Eyes Pupils: PERRL Other: Oral candidiasis, uvula midline, maintaining secretions Neck Other: No meningismus Resp Effort & Inspection: normal respiratory effort Auscultation: clear to auscultation bilaterally Cardio Rate: regular rate Rhythm: regular rhythm GI Other: No abdominal tenderness Skin General skin exam: no rashes or lesions noted Neuro General: patient alert and patient oriented x3 Course Vital Signs Vital signs: Vital Signs Temperature 36.7 C 04/04/21 17:38 Pulse 74 04/04/21 17:38 Respiratory Rate 13 04/04/21 17:38 Blood Pressure 155/65 H 04/04/21 17:38 Pulse Oximetry 100 04/04/21 17:38 Temperature 36.7 C 04/04/21 17:38 Temperature Source Skin 04/04/21 17:38 Pulse 71 04/04/21 18:31 Pulse 85 04/04/21 18:32 Respiratory Rate 11 L 04/04/21 18:32 Blood Pressure 153/54 H 04/04/21 18:31 Blood Pressure Mean 73 04/04/21 18:31 Pulse Oximetry 98 04/04/21 18:27 Oxygen Delivery Method Room Air 04/04/21 17:38 Oxygen Flow Rate 0 04/04/21 17:38 Pain Level 10 04/04/21 17:38 Comment 04/04/21 17:38 Lab/Test Results Lab/Test Results: Laboratory Tests Range/Units 04/04/21 04/04/21 17:55 17:55 WBC (4.4-10.8) 10^3/uL 4.02 L RBC (3.93-5.22) 10^6/uL 2.66 L Hgb (11.2-15.7) g/dL 7.9 L Hct (36.0-46.0) % 25.6 L MCV (80-95) fL 96.2 H MCH (27.0-33.0) pg 29.7 MCHC (32.0-36.0) % 30.9 L RDW (11.7-14.6) % 14.0 Plt Count (130-400) 10^3/uL 183 MPV (8.0-11.0) fL 9.6 Immature Gran % 0.2 Neutrophils % 68.2 Lymphocytes % 19.9 Monocytes % 10.0 Eosinophils % 1.5 Basophils % 0.2 Nucleated RBC % % 0 Absolute Neutrophils (1.2-6.7) 10^3/uL 2.74 Absolute Lymphocytes (1.2-3.4) 10^3/uL 0.80 L Absolute Monocytes (0.1-0.8) 10^3/uL 0.40 Absolute Eosinophils (0.0-0.7) 10^3/uL 0.06 Absolute Basophils (0.0-0.2) 10^3/uL 0.01 Sodium (136-145) mmol/L 140 Potassium (3.5-5.1) mmol/L 4.4 Chloride (98-107) mmol/L 106 Carbon Dioxide (21.0-32.0) mmol/L 24.1 Anion Gap (3-11) mmol/L 9.9 BUN (7-18) mg/dL 25 H Creatinine (0.55-1.02) mg/dL 1.2 H Estimated GFR/1.73 m2 (mL/min/1.73m2) 46.47 Glucose (74-106) mg/dL 87 Calcium (8.5-10.1) mg/dL 9.1 Total Bilirubin (0.2-1.0) mg/dL 0.5 AST (15-37) U/L 27 ALT (14-59) U/L 22 Alkaline Phosphatase (46-116) U/L 262 H Total Protein (6.4-8.2) g/dL 7.2 Albumin (3.4-5.0) g/dL 2.9 L
== END 2021-04-04 19:08 | disposition home or self-care (01) ==
PROVIDERS: Emergency Provider Physician Assistant; PCP Physician Assistant Medical
DX: D64.9 Anemia, unspecified (principal); B37.0 Candidal stomatitis; F41.9 Anxiety disorder, unspecified; R51.9 Headache, unspecified
CPT/HCPCS: 80053; 86900; 86901; 96361; 96365; 99284; 85025; 99283; J0131

== ENCOUNTER 2021-04-14 17:40 | Outpatient (REF) | payer MEDICARE, SELFPAY ==
[2021-04-14 19:30] LABS: Abs Immature Grans 0.01 10^3/uL (0.0-0.06); Absolute Basophil Count 0.02 10^3/uL (0.0-0.2); Absolute Eosinophil Count 0.14 10^3/uL (0.0-0.7); Absolute Lymphocyte Count 1.07 10^3/uL (1.2-3.4); Absolute Neutrophil Count 3.31 10^3/uL (1.2-6.7); Basophils % 0.4; Eosinophils % 2.8; HCT 29.3 % (36.0-46.0); HGB 8.9 g/dL (11.2-15.7); Immature Grans % 0.2; Lymphocytes % 21.2; MCH 28.6 pg (27.0-33.0); MCHC 30.4 % (32.0-36.0); MCV 94.2 fL (80-95); MPV 10.8 fL (8.0-11.0); Monocytes % 9.9; Neutrophils % 65.5; Nucleated RBC 0 %; Platelet Count 164 10^3/uL (130-400); RBC 3.11 10^6/uL (3.93-5.22); RDW 13.2 % (11.7-14.6); WBC 5.05 10^3/uL (4.4-10.8)
[2021-04-14 19:37] LABS: Iron 75 ug/dL (50-170); Total Iron Binding Capacity 293 ug/dL (250-450); Transferrin Sat 26 % (15-50)
[2021-04-14 19:50] LABS: Ferritin 28 ng/mL (8-252)
== END 2021-04-14 17:41 | disposition home or self-care (01) ==
LOC: LBN 17:40
PROVIDERS: PCP Physician Assistant Medical; Visit Provider Nurse Practitioner Family
DX: D50.0 Iron deficiency anemia secondary to blood loss (chronic) (principal); E11.9 Type 2 diabetes mellitus without complications
CPT/HCPCS: 82728; 83540; 83550; 85025

== ENCOUNTER 2021-04-29 01:33 | Outpatient (CLI) | payer MEDICARE, SELFPAY | END 2021-04-29 01:34 | disposition home or self-care (01) | LOC: LBO 01:33 | PROVIDERS: PCP Physician Assistant Medical; Visit Provider Internal Medicine ==

== ENCOUNTER 2021-05-11 16:29 | Outpatient (REF) | payer MEDICARE, SELFPAY ==
[2021-05-12 14:57] LABS: COVID-19 RT-PCR Result Positive ((See Note))
== END 2021-05-11 16:30 | disposition home or self-care (01) ==
LOC: LBN 16:29
PROVIDERS: PCP Physician Assistant Medical; Visit Provider Family Medicine
DX: Z20.822 Contact with and (suspected) exposure to COVID-19 (principal)
CPT/HCPCS: U0003

== ENCOUNTER 2021-06-07 20:17 | Outpatient (REF) | payer MEDICARE, SELFPAY ==
[2021-06-07 13:13] LABS: Abs Immature Grans 0.01 10^3/uL (0.0-0.06); Absolute Basophil Count 0.02 10^3/uL (0.0-0.2); Absolute Eosinophil Count 0.08 10^3/uL (0.0-0.7); Absolute Lymphocyte Count 0.89 10^3/uL (1.2-3.4); Absolute Monocyte Count 0.48 10^3/uL (0.1-0.8); Absolute Neutrophil Count 3.02 10^3/uL (1.2-6.7); Basophils % 0.4; Eosinophils % 1.8; HCT 28.4 % (36.0-46.0); HGB 8.6 g/dL (11.2-15.7); Immature Grans % 0.2; Lymphocytes % 19.8; MCH 29.7 pg (27.0-33.0); MCHC 30.3 % (32.0-36.0); MCV 97.9 fL (80-95); MPV 10.3 fL (8.0-11.0); Monocytes % 10.7; Neutrophils % 67.1; Nucleated RBC 0 %; Platelet Count 181 10^3/uL (130-400); RDW 14.3 % (11.7-14.6); RDW-SD 51.3 fL; Reticulocyte 3.6 % (0.5-2.4)
[2021-06-07 13:49] LABS: LDH 170 U/L (81-234)
[2021-06-07 14:14] LABS: Ferritin 32 ng/mL (8-252)
[2021-06-08 09:11] LABS: Haptoglobin 119 mg/dL (32-197)
== END 2021-06-07 20:18 | disposition home or self-care (01) ==
LOC: LBN 20:17
PROVIDERS: PCP Physician Assistant Medical; Visit Provider Nurse Practitioner Family
DX: D50.0 Iron deficiency anemia secondary to blood loss (chronic) (principal); N17.9 Acute kidney failure, unspecified
CPT/HCPCS: 82728; 83010; 83615; 85025; 85045

== ENCOUNTER 2021-06-18 18:49 | Outpatient (REF) | payer MEDICARE, MEDICAID, SELFPAY ==
[2021-06-18 17:31] LABS: Anion Gap 11.6 mmol/L (3-11); BUN 43 mg/dL (7-18); CO2 22.4 mmol/L (21.0-32.0); CREATININE 1.8 mg/dL (0.55-1.02); Calcium 8.3 mg/dL (8.5-10.1); Chloride 102 mmol/L (98-107); Estimated GFR 29.11 (mL/min/1.73m2); Glucose 156 mg/dL (74-106); Potassium 4.9 mmol/L (3.5-5.1); Sodium 136 mmol/L (136-145)
== END 2021-06-18 18:50 | disposition home or self-care (01) ==
LOC: LBN 18:49
PROVIDERS: PCP Physician Assistant Medical; Visit Provider Nurse Practitioner Family
DX: N17.9 Acute kidney failure, unspecified (principal)
CPT/HCPCS: 80048

== ENCOUNTER 2021-06-25 09:33 | Outpatient (REF) | payer MEDICARE, MEDICAID, SELFPAY ==
[2021-06-25 10:14] LABS: Abs Immature Grans 0.03 10^3/uL (0.0-0.06); Absolute Basophil Count 0.02 10^3/uL (0.0-0.2); Absolute Eosinophil Count 0.15 10^3/uL (0.0-0.7); Absolute Lymphocyte Count 0.87 10^3/uL (1.2-3.4); Absolute Neutrophil Count 4.01 10^3/uL (1.2-6.7); Basophils % 0.4; Eosinophils % 2.7; HCT 22.3 % (36.0-46.0); Immature Grans % 0.5; Lymphocytes % 15.6; MCH 28.7 pg (27.0-33.0); MCHC 30.5 % (32.0-36.0); MCV 94.1 fL (80-95); MPV 10.1 fL (8.0-11.0); Neutrophils % 71.8; Platelet Count 223 10^3/uL (130-400); RBC 2.37 10^6/uL (3.93-5.22); RDW 13.7 % (11.7-14.6); RDW-SD 47.1 fL; WBC 5.58 10^3/uL (4.4-10.8)
[2021-06-25 10:18] LABS: Anion Gap 6.9 mmol/L (3-11); BUN 52 mg/dL (7-18); CO2 25.1 mmol/L (21.0-32.0); CREATININE 1.8 mg/dL (0.55-1.02); Calcium 8.3 mg/dL (8.5-10.1); Chloride 101 mmol/L (98-107); Estimated GFR 29.11 (mL/min/1.73m2); Glucose 94 mg/dL (74-106); Potassium 4.7 mmol/L (3.5-5.1); Sodium 133 mmol/L (136-145)
[2021-06-25 10:27] LABS: HGB 6.8 g/dL (11.2-15.7)
== END 2021-06-25 09:34 | disposition home or self-care (01) ==
LOC: LBN 09:33
PROVIDERS: PCP Physician Assistant Medical; Visit Provider Nurse Practitioner Family
DX: D50.0 Iron deficiency anemia secondary to blood loss (chronic) (principal); N17.9 Acute kidney failure, unspecified; R53.83 Other fatigue
CPT/HCPCS: 80048; 85025

== ENCOUNTER 2021-06-25 11:42 | Emergency (ER) | payer MEDICARE, MEDICAID, SELFPAY ==
[2021-06-25] VITALS (40 sets, daily range): BP systolic 93–182; BP diastolic 48–82; PULSE 63–78; RESP 12–22; TEMP 36.5–37; O2SAT 93–100
--- NOTE | 2021-06-25 11:45 | DI.RAD_ITS ---
Exam(s) XR PORTABLE CHEST AP EXAM: XR PORTABLE CHEST AP CLINICAL HISTORY: shortness of breath, r/o acute disease TECHNIQUE: 2D digital imaging was performed. COMPARISON: CR XR CHEST 2V PA LATERAL from 01/03/2020 CR XR PORTABLE CHEST AP from 01/26/2021 CR XR CHEST 2V PA LATERAL from 04/01/2021 FINDINGS: LUNGS: Linear scarring above left diaphragm, otherwise clear. No pleural abnormality seen. HEART: Normal. MEDIASTINUM: Normal. BONES: Degenerative changes in the spine and shoulders. IMPRESSION: No acute pulmonary findings. DATA REPOSITORY: RADIATION DOSE DELIVERED:
--- NOTE | 2021-06-25 11:47 | ED.GENADUL_ITS ---
Discharge Plan Disposition Patient Disposition: HOME Condition: Stable Discharge Details Clinical Impression: Acute on chronic anemia Primary Care Provider: [facility] ED Provider: Shaneka Barber Home Meds and New Rx's Prescriptions: Continued hydrochlorothiazide 50 mg tablet 50 mg PO QAM 0RF tramadol 50 mg tablet 50 mg PO TID PRN0RF hydromorphone 2 mg Tablet 2 mg PO Q6H PRN0RF Rx Instructions: end 01/27 cyanocobalamin (vitamin B-12) 500 mcg Tablet 1,000 mcg PO DAILY 0RF amlodipine 10 mg Tablet 10 mg PO DAILY 0RF docusate sodium 100 mg Capsule 100 mg PO .HS PRN0RF polyethylene glycol 3350 [Miralax] 17 gram/dose Powder 17 g PO .QHS 0RF losartan 100 mg Tablet 100 mg PO DAILY 0RF cholecalciferol (vitamin D3) 125 mcg (5,000 unit) Capsule 125 mcg PO .Q MONDAY 0RF ferrous sulfate 325 mg (65 mg iron) Capsule, Extended Release 325 mg PO QAM 0RF Lantus Solostar U-100 Insulin 100 unit/mL (3 mL) Insulin Pen 25 unit SUBCUT HS 0RF acetaminophen 500 mg Tablet 1,000 mg PO .Q6HRS PRN0RF gabapentin 300 mg Capsule 300 mg PO HS 0RF ondansetron HCl 8 mg Tablet 8 mg PO Q8H PRN0RF albuterol 90 mcg/actuation Aerosol 180 mcg INHALATION Q4H PRN PRN0RF Rx Instructions: 2 PUFFS EVERY 4 TO 6 HOURS NEEDED montelukast 10 mg Tablet 10 mg PO DAILY 0RF pantoprazole 40 mg Tablet,Delayed Release (Dr/Ec) 40 mg PO BID 0RF sucralfate 1 gram Tablet 1 g PO AC & HS Qty: 0 0RF cyclobenzaprine 5 mg Tablet 5 mg PO DAILY PRN (Reason: Pain) 0RF magnesium oxide 400 mg magnesium Capsule 400 mg PO DAILY 0RF metformin 500 mg Tablet 500 mg PO BID 0RF simvastatin 40 mg Tablet 40 mg PO .QHS 0RF hydromorphone [Dilaudid] 2 mg tablet 2 mg PRN PRN0RF Label Comments: Take 1 tablet by mouth twice a day as needed for pain Discharge Instructions Instructions: Anemia (ED) Additional Instructions: Your lab work revealed today that your hemoglobin is 6.8. You were given 2 units of blood here in the emergency department. The parachutist/combatant diver qualified at [facility] were made aware of your hemoglobin and your blood transfusion here today. They recommend that you proceed with your planned EGD and colonoscopy on Wednesday 06/28. Continue all of your medications including your Protonix as directed. Return immediately to the emergency department if you develop any worsening or new concerning symptoms. Discharge Data Discharge Physician: Shaneka Barber Medical Decision Making 55-year-old female with a history of chronic blood loss anemia, GI bleed, morbid obesity, anxiety, hypertension, hyperlipidemia, diabetes, chronic kidney disease who presents from [facility] for hemoglobin of 6.8 today. Patient is complaining of only feeling cold and fatigue. She denies any hematemesis, known rectal bleeding, chest pain, shortness of breath or dizziness. Patient is hemodynamically stable. She appears comfortable and nontoxic. She is refused a rectal exam. Her abdomen is otherwise soft and nontender. Review of [facility] records note that she is scheduled for an EGD and colonoscopy on 06/28 at . Case discussed with charge nurse Darius Franz at the [facility] who stated that patient is followed by parachutist/combatant diver qualified Dr. Ball at [facility]. Labs repeated since this morning and confirm hemoglobin of 6.8. Remainder of her labs unremarkable. COVID-negative. 2 units of PRBCs ordered. Case discussed with [facility] gastroenterology who agreed with plan for blood transfusion here and as patient is hemodynamically stable without report of excessive rectal bleeding, plan for discharge back to the rehab with plan for scheduled EGD and colonoscopy on 06/28 after blood transfusion. Patient is already on Protonix twice daily. Patient is agreeable with this plan. Medical Records Medical records reviewed: Yes I reviewed the patient's medical records. Imaging Data Radiologic Study: Radiologist's impression: ?XR PORTABLE CHEST AP CLINICAL HISTORY:? shortness of breath, r/o acute disease TECHNIQUE:? 2D digital imaging was performed. COMPARISON:? CR XR CHEST 2V PA ? LATERAL from 01/03/2020 CR XR PORTABLE CHEST AP from 01/26/2021 CR XR CHEST 2V PA ? LATERAL from 04/01/2021 FINDINGS: LUNGS: Linear scarring above left diaphragm, otherwise clear.? No pleural abnormality seen. HEART: Normal. MEDIASTINUM: Normal. BONES: Degenerative changes in the spine and shoulders. IMPRESSION: No acute pulmonary findings. Lab Data Lab results reviewed: Yes I reviewed the patient's lab results. Labs: Laboratory Tests Range/Units 06/25/21 06/25/21 06/25/21 11:55 12:05 12:05 WBC (4.4-10.8) 10^3/uL 6.13 RBC (3.93-5.22) 10^6/uL 2.37 L Hgb (11.2-15.7) g/dL 6.8 L* Hct (36.0-46.0) % 22.4 L MCV (80-95) fL 94.5 MCH (27.0-33.0) pg 28.7 MCHC (32.0-36.0) % 30.4 L RDW (11.7-14.6) % 13.6 Plt Count (130-400) 10^3/uL 209 MPV (8.0-11.0) fL 9.2 Immature Gran % 0.3 Neutrophils % 75.2 Lymphocytes % 13.2 Monocytes % 8.8 Eosinophils % 2.3 Basophils % 0.2 Nucleated RBC % (0.0-0.3) % 0.0 Absolute Neutrophils (1.2-6.7) 10^3/uL 4.61 Absolute Lymphocytes (1.2-3.4) 10^3/uL 0.81 L Absolute Monocytes (0.1-0.8) 10^3/uL 0.54 Absolute Eosinophils (0.0-0.7) 10^3/uL 0.14 Absolute Basophils (0.0-0.2) 10^3/uL 0.01 Sodium (136-145) mmol/L 133 L Potassium (3.5-5.1) mmol/L 4.6 Chloride (98-107) mmol/L 100 Carbon Dioxide (21.0-32.0) mmol/L 25.3 Anion Gap (3-11) mmol/L 7.7 BUN (7-18) mg/dL 50 H Creatinine (0.55-1.02) mg/dL 1.9 H Estimated GFR/1.73 m2 (mL/min/1.73m2) 27.34 Glucose (74-106) mg/dL 103 Calcium (8.5-10.1) mg/dL 8.7 Total Bilirubin (0.2-1.0) mg/dL 0.3 AST (15-37) U/L 27 ALT (14-59) U/L 35 Alkaline Phosphatase (46-116) U/L 317 H Total Protein (6.4-8.2) g/dL 7.7 Albumin (3.4-5.0) g/dL 3.1 L COVID-19 Source Nasal/Nares SARS-CoV-2 (PCR) (Negative) Negative Patient ABO/Rh Antibody Screen Crossmatch Range/Units 06/25/21 12:05 WBC (4.4-10.8) 10^3/uL RBC (3.93-5.22) 10^6/uL Hgb (11.2-15.7) g/dL Hct (36.0-46.0) % MCV (80-95) fL MCH (27.0-33.0) pg MCHC (32.0-36.0) % RDW (11.7-14.6) % Plt Count (130-400) 10^3/uL MPV (8.0-11.0) fL Immature Gran % Neutrophils % Lymphocytes % Monocytes % Eosinophils % Basophils % Nucleated RBC % (0.0-0.3) % Absolute Neutrophils (1.2-6.7) 10^3/uL Absolute Lymphocytes (1.2-3.4) 10^3/uL Absolute Monocytes (0.1-0.8) 10^3/uL Absolute Eosinophils (0.0-0.7) 10^3/uL Absolute Basophils (0.0-0.2) 10^3/uL Sodium (136-145) mmol/L Potassium (3.5-5.1) mmol/L Chloride (98-107) mmol/L Carbon Dioxide (21.0-32.0) mmol/L Anion Gap (3-11) mmol/L BUN (7-18) mg/dL Creatinine (0.55-1.02) mg/dL Estimated GFR/1.73 m2 (mL/min/1.73m2) Glucose (74-106) mg/dL Calcium (8.5-10.1) mg/dL Total Bilirubin (0.2-1.0) mg/dL AST (15-37) U/L ALT (14-59) U/L Alkaline Phosphatase (46-116) U/L Total Protein (6.4-8.2) g/dL Albumin (3.4-5.0) g/dL COVID-19 Source SARS-CoV-2 (PCR) (Negative) Patient ABO/Rh B Positive Antibody Screen NEGATIVE Crossmatch See Detail HPI General Mode of arrival: ambulatory . Date/Time Provider Initiated Documentation: 06/25/21 11:44 . Limitations to Documentation: no limitations . Information obtained by: patient . HPI Narrative: Patient is a 55-year-old female with a known history of chronic blood loss anemia and GI bleed, anxiety, chronic kidney disease, hypertension, diabetes, obesity who presents from the health and rehab for a hemoglobin of 6.8. Patient is scheduled for an EGD and colonoscopy at [facility] on Wednesday 06/28. Records note that patient has been admitted in the past for blood loss anemia and has a history of known gastritis and AV malformations and has been referred to [facility] for endoscopy. Related Data Home Medications Medication Instructions Recorded Confirmed hydrochlorothiazide 50 mg tablet 50 mg PO QAM 02/04/19 06/25/21 tramadol 50 mg tablet 50 mg PO TID PRN 02/04/19 06/25/21 acetaminophen 500 mg tablet 1,000 mg PO .Q6HRS PRN 01/26/21 06/25/21 albuterol 90 mcg/actuation aerosol 180 mcg INHALATION Q4H PRN PRN 01/26/21 06/25/21 inhaler amlodipine 10 mg tablet 10 mg PO DAILY 01/26/21 06/25/21 cholecalciferol (vitamin D3) 125 125 mcg PO .Q Monday01/26/21 06/25/21 mcg (5,000 unit) capsule cyanocobalamin (vitamin B-12) 500 1,000 mcg PO DAILY 01/26/21 06/25/21 mcg tablet docusate sodium 100 mg capsule 100 mg PO .HS PRN 01/26/21 06/25/21 ferrous sulfate 325 mg (65 mg 325 mg PO QAM 01/26/21 06/25/21 iron) capsule,extended release gabapentin 300 mg capsule 300 mg PO HS 01/26/21 06/25/21 hydromorphone 2 mg tablet 2 mg PO Q6H PRN 01/26/21 06/25/21 insulin glargine 100 unit/mL (3 25 unit SUBCUT HS 01/26/21 06/25/21 mL) subcutaneous pen (Lantus Solostar U-100 Insulin) losartan 100 mg tablet 100 mg PO DAILY 01/26/21 06/25/21 montelukast 10 mg tablet 10 mg PO DAILY 01/26/21 06/25/21 ondansetron HCl 8 mg tablet 8 mg PO Q8H PRN 01/26/21 06/25/21 pantoprazole 40 mg tablet,delayed 40 mg PO BID 01/26/21 06/25/21 release polyethylene glycol 3350 17 17 g PO .QHS 01/26/21 06/25/21 gram/dose oral powder (Miralax) sucralfate 1 gram tablet 1 g PO AC & HS #0 tab 01/29/21 06/25/21 cyclobenzaprine 5 mg tablet 5 mg PO DAILY PRN 04/01/21 06/25/21 magnesium oxide 400 mg PO DAILY 04/01/21 06/25/21 metformin 500 mg tablet 500 mg PO BID 04/01/21 06/25/21 hydromorphone 2 mg tablet 2 mg PRN PRN 06/25/21 06/25/21 (Dilaudid) simvastatin 40 mg tablet 40 mg PO .QHS 06/25/21 06/25/21 Previous Rx's Medication Instructions Recorded sucralfate 1 gram tablet 1 g PO AC & HS #0 tab 01/29/21 Allergies Allergy/AdvReac Type Severity Reaction Status Date / Time albuterol [From ProAir HFA] Allergy Unverified 06/25/21 12:16 amoxicillin Allergy Verified 06/25/21 12:16 cephalexin Allergy Unverified 06/25/21 12:16 guaifenesin Allergy Unverified 06/25/21 12:16 hydrocodone [From Vicodin] Allergy Unverified 06/25/21 12:16 omeprazole [From Prilosec] Allergy Unverified 06/25/21 12:16 promethazine Allergy Unverified 06/25/21 12:16 simvastatin Allergy Unverified 06/25/21 12:16 fluconazole AdvReac Intermediate feels like Unverified 06/25/21 12:16 bugs crawling on her lisinopril AdvReac NAUSEA Verified 06/25/21 12:16 General Stated Complaint: GenMedical WILY: 3 Review of Systems All systems reviewed & are unremarkable except as noted in HPI and below Constitutional Constitutional: Denies chills, Denies excessive sweating, Reports fatigue, Denies fever(s), Denies weakness and Denies weight loss Eyes Eyes: Reports system reviewed and no additional complaints, except as documented and Denies blurry vision ENT Ears, Nose, Mouth, and Throat: Denies vertigo, Denies dizziness, Denies otalgia, Denies nasal congestion, Denies sore throat and Denies throat swelling Cardiovascular Cardiovascular: Denies chest pain, Denies syncope, Denies rapid heart rate and Denies dyspnea Respiratory Respiratory: Denies chest congestion, Denies cough, Denies pain on inspiration and Denies dyspnea Gastrointestinal Gastrointestinal: Denies abdominal pain, Denies diarrhea and Denies vomiting Genitourinary Genitourinary: Denies hematuria, Denies dysuria and Denies flank pain Musculoskeletal Musculoskeletal: Denies back pain and Denies joint swelling Integumentary/Breasts Skin/Breast: Denies lesions and Denies rash Neurologic Neurologic: Denies behavioral changes, Denies confusion, Denies vertigo, Denies dizziness, Denies syncope, Denies localized weakness and Denies weakness Psychiatric Psychiatric: Denies behavioral changes, Denies confusion and Denies depression Endocrine Endocrine: Denies excessive sweating and Reports fatigue Hematologic/Lymphatic Hematologic/Lymphatic: Denies easy bruising and Denies lymphadenopathy Allergic/Immunologic Allergic/Immunologic: Denies throat swelling PFSH All Active Problems (Updated 06/25/21 @ 14:12 by Shaneka Barber DO) Acute on chronic anemia (Acute) Acute GI bleeding (Acute) Medical History Anxiety Chronic kidney disease Claustrophobia Elevated d-dimer Elevated troponin HLD (hyperlipidemia) Hyperbilirubinemia Hypotension Left humeral fracture Primary osteoarthritis of right knee Restless leg syndrome Urinary tract infection Social History Smoking/Tobacco Use Status: Never Smoking risk assessment performed?: Yes Alcohol Intake: current Alcohol Intake frequency: holidays/special occasions only Drug use: Never Current gender identity: female Do you feel safe at home: Yes Do you feel safe in your relationship?: Yes Female Reproductive History Menstrual Menopause type: natural Exam Const General: cooperative and no acute distress Orientation: alert, awake and oriented x3 HENMT Head: normal to inspection Ears: hearing grossly normal bilaterally, external ears normal and TM's normal bilaterally General nose exam: external nose normal Face and sinus: normal facial exam Mouth: oral mucosae normal Teeth and gingiva: dentition normal Throat: posterior oropharynx normal Eyes General: appearance normal, both eyes and all related structures Eyelids: eyelids normal Pupils: PERRL EOM: EOM intact bilaterally Neck Neck: normal visual inspection Lymphatic: no lymphadenopathy noted Chest Chest: normal inspection of the chest Resp Effort & Inspection: normal respiratory effort and able to speak in complete sentences Auscultation: clear to auscultation bilaterally Cardio Rate: regular rate Rhythm: regular rhythm GI Inspection: normal to inspection and obesity Palpation: soft, not firm, no guarding, no hepatosplenomegaly, no masses and nontender Auscultation: normal bowel sounds Back/Spine/Pelvis Back: no CVA tenderness Skin General skin exam: no rashes or lesions noted Neuro General: patient alert and patient awake Cognition: normal cognition Speech: speech normal Gait: normal gait Motor: muscle tone normal throughout Sensory Exam: no sensory deficits noted Extrem General: normal to inspection, full ROM, capillary refill normal and no edema Psych Appearance: grossly normal Mental Status: mental status grossly normal Speech and Movement: speech and movement normal Affect: normal affect Thought Process: normal
[2021-06-25 11:58] LABS: Source Nasal/Nares
[2021-06-25 12:17] LABS: Abs Immature Grans 0.02 10^3/uL (0.0-0.06); Absolute Basophil Count 0.01 10^3/uL (0.0-0.2); Absolute Eosinophil Count 0.14 10^3/uL (0.0-0.7); Absolute Lymphocyte Count 0.81 10^3/uL (1.2-3.4); Absolute Monocyte Count 0.54 10^3/uL (0.1-0.8); Absolute Neutrophil Count 4.61 10^3/uL (1.2-6.7); Basophils % 0.2; Eosinophils % 2.3; HCT 22.4 % (36.0-46.0); Immature Grans % 0.3; Lymphocytes % 13.2; MCH 28.7 pg (27.0-33.0); MCHC 30.4 % (32.0-36.0); MCV 94.5 fL (80-95); MPV 9.2 fL (8.0-11.0); Monocytes % 8.8; Neutrophils % 75.2; Platelet Count 209 10^3/uL (130-400); RBC 2.37 10^6/uL (3.93-5.22); RDW 13.6 % (11.7-14.6); RDW-SD 46.5 fL; WBC 6.13 10^3/uL (4.4-10.8)
[2021-06-25 12:19] LABS: HGB 6.8 g/dL (11.2-15.7)
[2021-06-25 12:30] LABS: ALT 35 U/L (14-59); AST 27 U/L (15-37); Albumin 3.1 g/dL (3.4-5.0); Alkaline Phosphatase 317 U/L (46-116); Anion Gap 7.7 mmol/L (3-11); BUN 50 mg/dL (7-18); Bilirubin, Total 0.3 mg/dL (0.2-1.0); CO2 25.3 mmol/L (21.0-32.0); CREATININE 1.9 mg/dL (0.55-1.02); Calcium 8.7 mg/dL (8.5-10.1); Chloride 100 mmol/L (98-107); Estimated GFR 27.34 (mL/min/1.73m2); Glucose 103 mg/dL (74-106); Potassium 4.6 mmol/L (3.5-5.1); Sodium 133 mmol/L (136-145); Total Protein 7.7 g/dL (6.4-8.2)
[2021-06-25 12:38] LABS: COVID-19 PCR Negative (Negative)
[2021-06-25] MEDS: traMADol 50 MG TAB PO (15:45)
== END 2021-06-25 17:50 | disposition home or self-care (01) ==
PROVIDERS: Emergency Provider Physician Assistant
DX: D64.9 Anemia, unspecified (principal); R06.02 Shortness of breath
CPT/HCPCS: 36415; 36430; 80053; 86850; 86900; 86901; 86920; 87635; 99284; 99285; 71045; 85025; P9016

== ENCOUNTER 2021-07-16 15:28 | Outpatient (REF) | payer MEDICARE, MEDICAID, SELFPAY ==
[2021-07-16 16:02] LABS: Abs Immature Grans 0.02 10^3/uL (0.0-0.06); Absolute Basophil Count 0.01 10^3/uL (0.0-0.2); Absolute Eosinophil Count 0.09 10^3/uL (0.0-0.7); Absolute Lymphocyte Count 0.76 10^3/uL (1.2-3.4); Absolute Monocyte Count 0.44 10^3/uL (0.1-0.8); Basophils % 0.2; HCT 28.9 % (36.0-46.0); HGB 8.5 g/dL (11.2-15.7); Immature Grans % 0.5; Lymphocytes % 17.2; MCH 26.2 pg (27.0-33.0); MCHC 29.4 % (32.0-36.0); MCV 89 fL (80-95); MPV 10.2 fL (8.0-11.0); Neutrophils % 70.1; Platelet Count 196 10^3/uL (130-400); RBC 3.24 10^6/uL (3.93-5.22); RDW 14.2 % (11.7-14.6); RDW-SD 46.2 fL; Reticulocyte 2.3 % (0.5-2.4); WBC 4.42 10^3/uL (4.4-10.8)
[2021-07-16 16:12] LABS: Iron 28 ug/dL (50-170)
[2021-07-16 16:24] LABS: Anion Gap 9.4 mmol/L (3-11); BUN 29 mg/dL (7-18); CO2 24.6 mmol/L (21.0-32.0); CREATININE 1.3 mg/dL (0.55-1.02); Calcium 8.8 mg/dL (8.5-10.1); Chloride 107 mmol/L (98-107); Estimated GFR 42.37 (mL/min/1.73m2); Ferritin 14 ng/mL (8-252); Glucose 107 mg/dL (74-106); Potassium 4.5 mmol/L (3.5-5.1); Sodium 141 mmol/L (136-145)
== END 2021-07-16 15:29 | disposition home or self-care (01) ==
LOC: LBN 15:28
PROVIDERS: Visit Provider Nurse Practitioner Family
DX: D50.0 Iron deficiency anemia secondary to blood loss (chronic) (principal); I50.31 Acute diastolic (congestive) heart failure; E11.9 Type 2 diabetes mellitus without complications
CPT/HCPCS: 80048; 82728; 83540; 85025; 85045

== ENCOUNTER → 2021-08-06 00:25 | Outpatient (CLI) | payer MEDICARE, MEDICAID, SELFPAY ==
--- NOTE | 2021-08-06 14:39 | DI.CT_ITS ---
Exam(s) CT LOWER EXTREMITY LT WO EXAM: CT LOWER EXTREMITY LT WO CLINICAL HISTORY: TRAUMA T14.90XA FX DISTAL END LEFT FEMUR S72.492S. TECHNIQUE: Imaging Protocol: Axial computed tomography images with coronal and sagittal reformatted images were created and reviewed. COMPARISON: No priors for comparison. FINDINGS: Bones: There is a comminuted fracture involving the distal metadiaphysis of the left femur. Alignme nt appears to be near anatomic. No significant callus formation is seen about the fracture site. Th ere is a sideplate and proximal and distal screws transfixing the fracture. The fracture does not ex tend into the joint space. No other fracture is seen. The bones are osteopenic. Tricompartment deg enerative changes are seen in the knee. No lytic or sclerotic lesions are identified. No significant joint effusion is seen. Soft Tissues: Atherosclerosis is present. There is edema seen in the soft tissues of the knee. IMPRESSION: Comminuted fracture of the distal metadiaphysis of the left femur. RADIATION DOSE DELIVERED: 347mGy.cm Total DLP 347mGy.cm Total DLP DATA REPOSITORY: All CT scans at this facility are submitted to the National Radiology Data Registry (NRDR) Dose Index Registry (DIR) with the [employer] ([employer]). RADIATION OPTIMIZATION: All CT scans at this facility use at least one of these dose optimization te chniques: automated exposure control; mA and/or kV adjustment per patient size (includes targeted exa ms where dose is matched to clinical indication); or iterative reconstruction.
== END ==
PROVIDERS: Visit Provider Physician Assistant
DX: S72.492S Other fracture of lower end of left femur, sequela (principal); M85.88 Other specified disorders of bone density and structure, other site; R60.0 Localized edema
CPT/HCPCS: 73700

== ENCOUNTER 2021-08-06 15:03 | Outpatient (REF) | payer MEDICARE, MEDICAID, SELFPAY ==
[2021-08-06 15:20] LABS: HCT 28.5 % (36.0-46.0); HGB 8.4 g/dL (11.2-15.7); MCHC 29.5 % (32.0-36.0); MCV 88 fL (80-95); Platelet Count 176 10^3/uL (130-400); RBC 3.23 10^6/uL (3.93-5.22); RDW 14.5 % (11.7-14.6); RDW-SD 46.7 fL; WBC 4.54 10^3/uL (4.4-10.8)
== END 2021-08-06 15:04 | disposition home or self-care (01) ==
LOC: LBN 15:03
PROVIDERS: Visit Provider Nurse Practitioner Family
DX: D50.0 Iron deficiency anemia secondary to blood loss (chronic) (principal)
CPT/HCPCS: 85027

== ENCOUNTER 2021-08-15 20:32 | Emergency (ER) | payer MEDICARE, MEDICAID, SELFPAY ==
[2021-08-15] VITALS (43 sets, daily range): BP systolic 142–181; BP diastolic 62–95; PULSE 82–110; RESP 20–35; TEMP 36.1; O2SAT 47–100
--- NOTE | 2021-08-15 20:45 | DI.RAD_ITS ---
Exam(s) XR PORTABLE CHEST AP EXAM: XR PORTABLE CHEST AP CLINICAL HISTORY: dypsnea TECHNIQUE: 2D digital imaging was performed. COMPARISON: CR XR PORTABLE CHEST AP from 06/25/2021 FINDINGS: Exam limited by poor pulmonary inflation. LUNGS: Severe bilateral infiltrates,, greater at the lung bases, right greater than left. No gross p leural abnormality seen. HEART: Cardiac silhouette partially obscured by infiltrates. AORTA: Normal. BONES: Unremarkable for age. Soft tissues: Unremarkable. IMPRESSION: Severe bilateral pneumonia versus severe pulmonary edema. No effusions. DATA REPOSITORY: RADIATION DOSE DELIVERED:
--- NOTE | 2021-08-15 20:50 | W.ED.GENAD ---
Discharge Plan Disposition Patient Disposition: HOSPITAL, NON-SPECIFIC Condition: Stable Discharge Details Clinical Impression: Acute respiratory failure, Pulmonary edema, Non-ST elevation IN (NSTEMI) Primary Care Provider: [facility] ED Provider: Lacho Zee and New Rx's Prescriptions: No Action hydrochlorothiazide 50 mg tablet 50 mg PO QAM tramadol 50 mg tablet 50 mg PO TID PRN hydromorphone 2 mg Tablet 2 mg PO Q6H PRN Rx Instructions: end 01/27 cyanocobalamin (vitamin B-12) 500 mcg Tablet 1,000 mcg PO DAILY amlodipine 10 mg Tablet 10 mg PO DAILY docusate sodium 100 mg Capsule 100 mg PO .HS PRN polyethylene glycol 3350 [Miralax] 17 gram/dose Powder 17 g PO .QHS losartan 100 mg Tablet 100 mg PO DAILY cholecalciferol (vitamin D3) 125 mcg (5,000 unit) Capsule 125 mcg PO .Q MONDAY ferrous sulfate 325 mg (65 mg iron) Capsule, Extended Release 325 mg PO QAM insulin glargine [Lantus Solostar U-100 Insulin] 100 unit/mL (3 mL) Insulin Pen 25 unit SUBCUT HS acetaminophen 500 mg Tablet 1,000 mg PO .Q6HRS PRN gabapentin 300 mg Capsule 300 mg PO HS ondansetron HCl 8 mg Tablet 8 mg PO Q8H PRN albuterol 90 mcg/actuation Aerosol 180 mcg INHALATION Q4H PRN PRN Rx Instructions: 2 PUFFS EVERY 4 TO 6 HOURS NEEDED montelukast 10 mg Tablet 10 mg PO DAILY pantoprazole 40 mg Tablet,Delayed Release (Dr/Ec) 40 mg PO BID sucralfate 1 gram Tablet 1 g PO AC & HS Qty: 0 0RF cyclobenzaprine 5 mg Tablet 5 mg PO DAILY PRN (Reason: Pain) magnesium oxide 400 mg magnesium Capsule 400 mg PO DAILY metformin 500 mg Tablet 500 mg PO BID simvastatin 40 mg Tablet 40 mg PO .QHS hydromorphone [Dilaudid] 2 mg tablet 2 mg PRN PRN Label Comments: Take 1 tablet by mouth twice a day as needed for pain Medical Decision Making Patient arrives in respiratory distress with altered mental status and lethargy. Diffuse Rales throughout. Bilateral lower extremity edema. Prior history of congestive heart failure. Patient moved to our stretcher and switched over to our CPAP machine. Started 10 of PEEP with an FiO2 of 75%. IV established and nitroglycerin drip started for preload with. Patient improved slowly but saturations came up relatively quickly. Mental status improved over time. Initial VBG with pH of 7.19 and bicarb of 15 but normal PCO2. Initial EKG uninterpretable due to artifact but did not appear to have . White count elevated to almost 20,000. Kidney function with creatinine at home which is about 0.5 above her baseline. Electrolytes are okay. Glucose in the 250 range. Portable chest x-ray suggest edema though asymmetric with significant white out on the right. She has no fever and no report of cough but with elevated white count will need to cover with antibiotics as well and given she is in ECF with prior history of ESBL will give broad coverage. High placed and Lasix ordered. Initial troponin minimally elevated. U/A negative ketones. WBC and bacteria present but will be covered with Levaquin being used for possible HCAP. Patient's mental status has come back to baseline. She denies having any chest pain. Her breathing is improved on CPAP. She is having some discomfort and restless legs at this point. She is ordered for a little bit of Ativan. We were able to discontinue the nitroglycerin drip. She felt like she was going to vomit and had to be taken off CPAP momentarily. She almost immediately became hypoxic and distressed again. She was given Zofran and CPAP mask reapplied with good recovery. There are no beds here at this hospital. Currently looking to transfer to [facility]. Discussed with Dr. Desouza at [facility]. Reviewed presentation, history and findings. Patient accepted to [place]. Prior to transfer patient's oxygenation became tenuous. She probably put out about 600 mL of urine after 40 of Lasix. Lungs had been sounding clear but was starting to sound wet again. An ABG was obtained and confirmed oxygenation problem and not ventilation problem. Repeat EKG unchanged from previous but repeat troponin now elevated to 3800 suggesting NSTEMI despite patient denying chest pain. Nitroglycerin drip restarted. Rectal aspirin and IV heparin ordered. With the restart of nitroglycerin patient status improved and this preload reduction seems to be very helpful. Another dose of Lasix was given as well. We have been able to wean down her FiO2 and her pressure setting to some degree. She is more comfortable at this time. Update given to Dr. Desouza and [facility] critical care ground contacted for transfer. Medical Records Medical records reviewed: Yes I reviewed the patient's medical records. Lab Data Lab results reviewed: Yes I reviewed the patient's lab results. ECG Data Attestation: I personally reviewed and interpreted this ECG (s) as follows: Prior ECG tracings: available for review Interpretation: First 2 EKGs unreadable due to respiratory artifact but no obvious STEMI HPI General Mode of arrival: EMS. Date/Time Provider Initiated Documentation: 08/15/21 20:50. Limitations to Documentation: altered mental status. Information obtained by: EMS and old records reviewed. HPI Narrative: Patient brought to hospital from [facility] with respiratory distress. Patient unable to provide history. Per EMS they were told that patient has been having complaints of shortness of breath for the last 4 hours. No report of fever or complaint of chest pain. On EMS arrival to the [facility] patient's saturations were in the 60s and 70s with altered mental status. Patient was placed on CPAP and transported to ED which is less than 5 minutes away. On arrival here patient is altered, diaphoretic, and continued distress. Related Data Home Medications Medication Instructions Recorded Confirmed hydrochlorothiazide 50 mg tablet 50 mg PO QAM 02/04/19 08/15/21 tramadol 50 mg tablet 50 mg PO TID PRN 02/04/19 08/15/21 acetaminophen 500 mg tablet 1,000 mg PO .Q6HRS PRN 01/26/21 08/15/21 albuterol 90 mcg/actuation aerosol 180 mcg inhalation Q4H PRN PRN 01/26/21 08/15/21 inhaler amlodipine 10 mg tablet 10 mg PO DAILY 01/26/21 08/15/21 cholecalciferol (vitamin D3) 125 125 mcg PO .Q Monday01/26/21 08/15/21 mcg (5,000 unit) capsule cyanocobalamin (vitamin B-12) 500 1,000 mcg PO DAILY 01/26/21 08/15/21 mcg tablet docusate sodium 100 mg capsule 100 mg PO .HS PRN 01/26/21 08/15/21 ferrous sulfate 325 mg (65 mg 325 mg PO QAM 01/26/21 08/15/21 iron) capsule,extended release gabapentin 300 mg capsule 300 mg PO HS 01/26/21 08/15/21 hydromorphone 2 mg tablet 2 mg PO Q6H PRN 01/26/21 08/15/21 insulin glargine 100 unit/mL (3 25 unit subcut HS 01/26/21 08/15/21 mL) subcutaneous pen (Lantus Solostar U-100 Insulin) losartan 100 mg tablet 100 mg PO DAILY 01/26/21 08/15/21 montelukast 10 mg tablet 10 mg PO DAILY 01/26/21 08/15/21 ondansetron HCl 8 mg tablet 8 mg PO Q8H PRN 01/26/21 08/15/21 pantoprazole 40 mg tablet,delayed 40 mg PO BID 01/26/21 08/15/21 release polyethylene glycol 3350 17 17 g PO .QHS 01/26/21 08/15/21 gram/dose oral powder (Miralax) sucralfate 1 gram tablet 1 g PO AC & HS #0 tabs 01/29/21 08/15/21 cyclobenzaprine 5 mg tablet 5 mg PO DAILY PRN Pain 04/01/21 08/15/21 magnesium oxide 400 mg PO DAILY 04/01/21 08/15/21 metformin 500 mg tablet 500 mg PO BID 04/01/21 08/15/21 hydromorphone 2 mg tablet 2 mg PRN PRN 06/25/21 08/15/21 (Dilaudid) simvastatin 40 mg tablet 40 mg PO .QHS 06/25/21 08/15/21 Previous Rx's Medication Instructions Recorded sucralfate 1 gram tablet 1 g PO AC & HS #0 tabs 01/29/21 Allergies Allergy/AdvReac Type Severity Reaction Status Date / Time albuterol [From ProAir HFA] Allergy Unverified 08/15/21 21:47 amoxicillin Allergy Verified 08/15/21 21:47 cephalexin Allergy Unverified 08/15/21 21:47 guaifenesin Allergy Unverified 08/15/21 21:47 hydrocodone [From Vicodin] Allergy Unverified 08/15/21 21:47 omeprazole [From Prilosec] Allergy Unverified 08/15/21 21:47 promethazine Allergy Unverified 08/15/21 21:47 simvastatin Allergy Unverified 08/15/21 21:47 fluconazole AdvReac Intermediate feels like Unverified 08/15/21 21:47 bugs crawling on her lisinopril AdvReac NAUSEA Verified 08/15/21 21:47 General WILY: 3 Review of Systems Unobtainable due to mental status PFSH All Active Problems (Updated 08/16/21 @ 03:27 by Lacho Zee MD) Acute respiratory failure (Acute) Pulmonary edema (Acute) Non-ST elevation IN (NSTEMI) (Acute) Hyperbilirubinemia (Acute) Elevated troponin (Acute) Elevated d-dimer (Acute) Acute GI bleeding (Acute) Medical History Anxiety Chronic kidney disease Claustrophobia Diabetes mellitus Essential hypertension Heart failure with preserved ejection fraction HLD (hyperlipidemia) Left femoral shaft fracture Left humeral fracture Morbid obesity Primary osteoarthritis of right knee Restless leg syndrome Social History Smoking/Tobacco Use Status: Never Smoking risk assessment performed?: Yes Alcohol Intake: current Alcohol Intake frequency: holidays/special occasions only Drug use: Never Substance use type: does not use Current gender identity: female Do you feel safe at home: Yes Do you feel safe in your relationship?: Yes Female Reproductive History Menstrual Menopause type: natural Exam Narrative Exam Narrative: Const: Morbidly obese female who is somnolent and altered in respiratory distress despite EMS CPAP. HEENT: NC/AT. Normal facial exam. Eyes: Normal conjunctiva and sclera. Neck: Supple. Trachea midline. Lungs: Lungs with diffuse rales throughout. Cor: RRR without murmur/gallop. Good radial pulses. GI: Soft. NT/ND. Neuro: Lethargic, altered. Cranial nerves II - XII grossly intact. Moves all extremities x4. Ext: No C/C. Bilateral 3+ lower extremity edema. Skin: Warm and diaphoretic. Critical Care Time Critical Care Time Critical Care Time: Yes Total Critical Care Time: 90 Attestation: Upon my evaluation, this patient had a high probability of imminent or life-threatening deterioration, which required my direct attention, intervention, and personal management. I have personally provided 90 minutes of critical care time exclusive of time spent on separately billable procedures. Time includes review of laboratory data, radiology results, discussion with consultants, and monitoring for potential decompensation. Interventions were performed as documented above.
[2021-08-15] MEDS: nitroGLYcerin in D5W 50 MG/250 ML BTL IV (21:01)
[2021-08-15 21:02] LABS: BE (Venous) -12 mmol/L (-2-3); HCO3 (Venous) 17 mmol/L (23-28); O2 Sat (Venous) 85 %; TCO2 (Venous) 16 mmol/L (24-29); pCO2 (Venous) 44 mmHg (41-51); pO2 (Venous) 62 mmHg
[2021-08-15 21:04] LABS: Abs Immature Grans 0.12 10^3/uL (0.0-0.06); Absolute Monocyte Count 1.72 10^3/uL (0.1-0.8); Basophils % 0.6; HCT 33.2 % (36.0-46.0); HGB 9.7 g/dL (11.2-15.7); Immature Grans % 0.6; Lymphocytes % 23.9; MCH 25.3 pg (27.0-33.0); MCHC 29.2 % (32.0-36.0); MCV 87 fL (80-95); MPV 9.9 fL (8.0-11.0); Monocytes % 8.9; Platelet Count 455 10^3/uL (130-400); RBC 3.84 10^6/uL (3.93-5.22); RDW 14.8 % (11.7-14.6); WBC 19.32 10^3/uL (4.4-10.8); pH (Venous) 7.19 (7.31-7.41)
[2021-08-15 21:06] LABS: Absolute Basophil Count 0.12 10^3/uL (0.0-0.2); Absolute Eosinophil Count 0.39 10^3/uL (0.0-0.7); Absolute Lymphocyte Count 4.62 10^3/uL (1.2-3.4); Absolute Neutrophil Count 12.36 10^3/uL (1.2-6.7)
[2021-08-15 21:18] LABS: ALT 19 U/L (14-59); AST 29 U/L (15-37); Alkaline Phosphatase 312 U/L (46-116); Anion Gap 15.2 mmol/L (3-11); BUN 32 mg/dL (7-18); Bilirubin, Total 0.3 mg/dL (0.2-1.0); CO2 16.8 mmol/L (21.0-32.0); Calcium 8.5 mg/dL (8.5-10.1); Chloride 104 mmol/L (98-107); Estimated GFR 25.77 (mL/min/1.73m2); Glucose 291 mg/dL (74-106); Potassium 4.7 mmol/L (3.5-5.1); Sodium 136 mmol/L (136-145); Total Protein 8.6 g/dL (6.4-8.2)
[2021-08-15 21:25] LABS: Diff Comment Agrees w/ Instrument; RBC Morphology Normal
[2021-08-15 21:27] LABS: Magnesium 2.3 mg/dL (1.8-2.4); NT-proBNP 1587 pg/mL (<300)
[2021-08-15 21:30] LABS: Troponin I 71 ng/L (<or=60)
[2021-08-15 21:36] LABS: Bilirubin Negative (Negative); Blood Small (Negative); Clarity Clear (Clear); Glucose 250 mg/dL (Negative); Ketones Negative (Negative); Leukocyte Esterase Negative (Negative); Nitrite Negative (Negative); Specific Gravity 1.025 (1.005-1.025); Urobilinogen 0.2 EU/dL (Up TO 0.2)
[2021-08-15] MEDS: Furosemide 40 MG/4 ML VIAL IVP (21:36)
[2021-08-15 21:43] LABS: Epithelial Cells Few HPF (Negative); WBC 20-50 HPF (0-5)
[2021-08-15 21:44] LABS: Bacteria Many HPF (Negative); C & S Indicated? Yes; Casts 3-5 Hyaline LPF (Negative); Crystals Negative HPF (Negative); Mucus Negative (Negative); Other Cells Few Renal (Negative)
--- NOTE | 2021-08-15 21:45 | RT.EKG_ITS ---
APPROVED REPORT Exam: Resting ECG Reason for Exam: sob Patient Location: E HR:84 bpm ECG Measurements Heart Rate 84 AXIS VT 157 P 3 QRSd 97 QRS -10 QT 392 T 129 QTc 462 Conclusion Sinus rhythm...normal P axis, V-rate 60- 99 Probable LVH with secondary repol abnrm...multiple LVH criteria Normal [place] Nonspecific ST depression
--- NOTE | 2021-08-15 22:20 | DI.VRAD_ITS ---
PROCEDURE INFORMATION: Exam: XR Chest Exam date and time: 08/15/2021 8:56 PM Age: 55 years old Clinical indication: Dyspnea; Patient HX: Dypsnea TECHNIQUE: Imaging protocol: XR of the chest. Views: 1 view. COMPARISON: CR XR PORTABLE CHEST AP 06/25/2021 12:38 PM FINDINGS: Tubes, catheters and devices: Monitoring wires noted. Lungs: Extensive airspace opacity is present in both lungs, severe in the lung bases. Lung volumes are low. Pleural spaces: No specific pleural effusion or pneumothorax. Heart/Mediastinum: Unremarkable. No cardiomegaly. Bones/joints: Unremarkable. IMPRESSION: Severe pneumonia and/or edema. Dictated and Authenticated by: Bryan Noble MD. Ordering:CINDI Monk MD
--- NOTE | 2021-08-15 22:20 | NUR.NOTE ---
Nursing Note: Per Dr Zee nitroglyerin drip stopped at this time
[2021-08-15 22:37] LABS: BE (Venous) -5 mmol/L (-2-3); HCO3 (Venous) 22 mmol/L (23-28); O2 Sat (Venous) 72 %; TCO2 (Venous) 21 mmol/L (24-29); pCO2 (Venous) 45 mmHg (41-51); pH (Venous) 7.29 (7.31-7.41); pO2 (Venous) 43 mmHg
[2021-08-15] MEDS: CEFEPIME 2 GM in Normal Saline 100 ML IVPB (22:40)
[2021-08-15] MEDS: levoFLOXacin 750 MG/150 ML BAG 100 MG IVPB (22:40)
[2021-08-15 23:23] LABS: COVID-19 PCR Negative (Negative); Influenza A PCR Negative (Negative); Influenza B PCR Negative (Negative); RSV PCR Negative (Negative)
[2021-08-15 23:24] LABS: Source Nasopharynx
[2021-08-15] MEDS: LORazepam 2 MG/ML VIAL 0.5 MG IVP (23:27)
[2021-08-15] MEDS: LINEZOLID 600 MG/300 ML BAG 300 MG IVPB (23:27)
[2021-08-15] MEDS: Ondansetron 4 MG/2 ML VIAL (23:29)
[2021-08-16] MEDS: MORPHine 10 MG/ML VIAL 5 MG IVP (00:03)
[2021-08-16 00:27] VITALS: PULSE 84; RESP 18; RESP 26; O2SAT 92
--- NOTE | 2021-08-16 00:45 | RT.EKG_ITS ---
APPROVED REPORT Exam: Resting ECG Reason for Exam: dypsnea Patient Location: E HR:79 bpm ECG Measurements Heart Rate 79 AXIS IN 163 P 45 QRSd 87 QRS -4 QT 394 T 125 QTc 453 Conclusion Sinus rhythm...normal P axis, V-rate 60- 99 Probable LVH with secondary repol abnrm...multiple LVH criteria There are no significant changes compared to prior EKG performed on 08/15/2021 at 21:54.
[2021-08-16] MEDS: Furosemide 40 MG/4 ML VIAL IVP (01:15)
[2021-08-16 01:16] LABS: BE -4 mmol/L (-2-3); HCO3 22 mmol/L (22-26); pCO2 42 mmHg (35-45); pH 7.32 (7.35-7.45); pO2 52 mmHg (80-105); sO2 84 % (95-98); tCO2 21 mmol/L (23-27)
[2021-08-16 01:18] LABS: Site Right Radial
[2021-08-16] MEDS: nitroGLYcerin in D5W 50 MG/250 ML BTL IV (01:27)
[2021-08-16 01:42] LABS: Troponin I 3824 ng/L (<or=60)
[2021-08-16 01:47] VITALS: BP 172/66; PULSE 84; O2SAT 94
[2021-08-16 02:28] LABS: PTT Activated 36.1 sec (21.0-27.5); Prothrombin Time 12.4 sec (9.3-11.0)
[2021-08-16 02:30] LABS: INR 1.2 (0.9-1.1)
[2021-08-16] MEDS: Aspirin 300 MG SUPP PR (02:44)
--- NOTE | 2021-08-18 09:08 | NUR.NOTE ---
Nursing Note: Urine culture result faxed to [facility] where patient was transferred. Dr. Dakota scott. Rebekah Coombs
== END 2021-08-16 04:20 | disposition short-term general hospital (02) ==
PROVIDERS: Emergency Provider Emergency Medicine
DX: J96.00 Acute respiratory failure, unspecified whether with hypoxia or hypercapnia (principal); J81.1 Chronic pulmonary edema; I21.4 Non-ST elevation (NSTEMI) myocardial infarction; I13.0 Hypertensive heart and chronic kidney disease with heart failure and stage 1 through stage 4 chronic kidney disease, or unspecified chronic kidney disease; I50.30 Unspecified diastolic (congestive) heart failure; N18.9 Chronic kidney disease, unspecified; E11.22 Type 2 diabetes mellitus with diabetic chronic kidney disease; D72.829 Elevated white blood cell count, unspecified
CPT/HCPCS: 51702; 80053; 82805; 87040; 87077; 87637; 93005; 96365; 96366; 96367; 96368; 96375; 96376; 99291; 99292; 71045; 81003; 81015; 83735; 83880; 84484; 85025; 85610; 85730; 87086; 87186; 93010; J1940; J1956; J2020; J2060; J2270; J2405

== ENCOUNTER 2021-09-01 17:14 | Outpatient (REF) | payer MEDICARE, MEDICAID, SELFPAY ==
[2021-09-01 17:12] LABS: Abs Immature Grans 0.02 10^3/uL (0.0-0.06); Absolute Basophil Count 0.02 10^3/uL (0.0-0.2); Absolute Eosinophil Count 0.17 10^3/uL (0.0-0.7); Absolute Lymphocyte Count 1.07 10^3/uL (1.2-3.4); Absolute Monocyte Count 0.48 10^3/uL (0.1-0.8); Absolute Neutrophil Count 3.68 10^3/uL (1.2-6.7); Basophils % 0.4; Eosinophils % 3.1; HCT 29.4 % (36.0-46.0); HGB 9.1 g/dL (11.2-15.7); Immature Grans % 0.4; Lymphocytes % 19.7; MCH 26.2 pg (27.0-33.0); MCV 85 fL (80-95); MPV 11.6 fL (8.0-11.0); Monocytes % 8.8; Neutrophils % 67.6; Platelet Count 256 10^3/uL (130-400); RBC 3.47 10^6/uL (3.93-5.22); RDW 17.4 % (11.7-14.6); RDW-SD 52.2 fL; WBC 5.44 10^3/uL (4.4-10.8)
[2021-09-01 17:26] LABS: Anion Gap 7.7 mmol/L (3-11); BUN 58 mg/dL (7-18); CO2 27.3 mmol/L (21.0-32.0); CREATININE 2.3 mg/dL (0.55-1.02); Calcium 8.2 mg/dL (8.5-10.1); Chloride 96 mmol/L (98-107); Estimated GFR 21.93 (mL/min/1.73m2); Glucose 258 mg/dL (74-106); Sodium 131 mmol/L (136-145)
== END 2021-09-01 17:15 | disposition home or self-care (01) ==
LOC: LBN 17:14
PROVIDERS: Visit Provider Nurse Practitioner Family
DX: D50.0 Iron deficiency anemia secondary to blood loss (chronic) (principal); E78.5 Hyperlipidemia, unspecified
CPT/HCPCS: 80048; 85025

== ENCOUNTER 2021-10-08 15:47 | Outpatient (REF) | payer MEDICARE, MEDICAID, SELFPAY ==
[2021-10-08 17:55] LABS: ALT 26 U/L (14-59); AST 30 U/L (15-37); Albumin 2.9 g/dL (3.4-5.0); Alkaline Phosphatase 274 U/L (46-116); Anion Gap 2.3 mmol/L (3-11); BUN 26 mg/dL (7-18); Bilirubin, Total 0.2 mg/dL (0.2-1.0); CO2 29.7 mmol/L (21.0-32.0); CREATININE 1.7 mg/dL (0.55-1.02); Calcium 8.5 mg/dL (8.5-10.1); Chloride 98 mmol/L (98-107); Estimated GFR 31.09 (mL/min/1.73m2); Glucose 128 mg/dL (74-106); Potassium 4.3 mmol/L (3.5-5.1); Sodium 130 mmol/L (136-145)
[2021-10-08 18:02] LABS: Hemoglobin A1C 6.1 % (<5.7)
== END 2021-10-08 15:48 | disposition home or self-care (01) ==
LOC: LBN 15:47
PROVIDERS: Visit Provider Nurse Practitioner Family
DX: E11.9 Type 2 diabetes mellitus without complications (principal)
CPT/HCPCS: 80053; 83036

== ENCOUNTER 2021-10-12 15:03 | Emergency (ER) | payer MEDICARE, MEDICAID, SELFPAY ==
[2021-10-12] VITALS (45 sets, daily range): BP systolic 127–217; BP diastolic 46–103; PULSE 66–79; RESP 10–25; TEMP 36.7; O2SAT 96–100
--- NOTE | 2021-10-12 16:00 | RT.EKG_ITS ---
APPROVED REPORT Exam: Resting ECG Reason for Exam: heartburn GI bleed Patient Location: E HR:70 bpm ECG Measurements Heart Rate 70 AXIS RI 135 P 20 QRSd 82 QRS 6 QT 374 T 96 QTc 402 Conclusion Sinus rhythm...normal P axis, V-rate 60- 99 Probable LVH with secondary repol abnrm...multiple LVH criteria sinus rhythm, normal axis, normal intervals, nonischemic
--- NOTE | 2021-10-12 16:00 | DI.CT_ITS ---
Exam(s) CT ABDOMEN PELVIS WO EXAM: CT ABDOMEN PELVIS WO INDICATION: dark stool, anemia, abdominal pain. COMPARISON: No exams were available for comparison TECHNIQUE: FINDINGS: CT examination of the abdomen and pelvis was performed without contrast administration. Images obtained through the lung bases are unremarkable. The liver is nodular in contour consistent with cirrhosis.. Portal vein dilatation noted which may r eflect portal hypertension. Gallbladder and bile ducts are CT normal. Pancreas appears normal. There is mild splenomegaly.. Adrenals appear normal. There is no evidence of hydronephrosis. There is bilateral nonobstructing nephrolithiasis. There is an apparent 2 cm in diameter left renal cyst. Urinary bladder unremarkable. Abdominal aorta is of normal diameter and no major vascular abnormality is seen. No abdominal wall hernia. No abdominal or pelvic adenopathy. [employer] structures appear intact. Appendix is normal. No evidence of diverticulitis or bowel obstruction. IMPRESSION: No evidence of acute process. Bilateral nonobstructing nephrolithiasis. Hepatic appearance consistent with cirrhosis, suspect portal venous hypertension. Splenomegaly noted . RADIATION DOSE DELIVERED: 2,632.31mGy.cm Total DLP 2,632.31mGy.cm Total DLP !Error CTDIvol RADIATION OPTIMIZATION: All CT scans at this facility use at least one of these dose optimization te chniques: automated exposure control; mA and/or kV adjustment per patient size (includes targeted exa ms where dose is matched to clinical indication); or iterative reconstruction.
--- NOTE | 2021-10-12 16:04 | W.ED.GENAD ---
Discharge Plan Disposition Patient Disposition: HOME Condition: Improving Discharge Details Chief Complaint: GI Bleed Clinical Impression: Anemia Primary Care Provider: [facility] Provider: Casey Garza Home Meds and New Rx's Prescriptions: No Action hydrochlorothiazide 50 mg tablet 50 mg PO QAM tramadol 50 mg tablet 50 mg PO TID PRN hydromorphone 2 mg Tablet 2 mg PO Q6H PRN Rx Instructions: end 01/27 cyanocobalamin (vitamin B-12) 500 mcg Tablet 1,000 mcg PO DAILY amlodipine 10 mg Tablet 10 mg PO DAILY docusate sodium 100 mg Capsule 100 mg PO .HS PRN polyethylene glycol 3350 [Miralax] 17 gram/dose Powder 17 g PO .QHS PRN losartan 100 mg Tablet 100 mg PO DAILY cholecalciferol (vitamin D3) 125 mcg (5,000 unit) Capsule 125 mcg PO .Q MONDAY ferrous sulfate 325 mg (65 mg iron) Capsule, Extended Release 325 mg PO QAM insulin glargine [Lantus Solostar U-100 Insulin] 100 unit/mL (3 mL) Insulin Pen 25 unit SUBCUT HS acetaminophen 500 mg Tablet 1,000 mg PO .Q6HRS PRN gabapentin 300 mg Capsule 300 mg PO HS ondansetron HCl 8 mg Tablet 8 mg PO Q8H PRN albuterol 90 mcg/actuation Aerosol 180 mcg INHALATION Q4H PRN PRN Rx Instructions: 2 PUFFS EVERY 4 TO 6 HOURS NEEDED montelukast 10 mg Tablet 10 mg PO DAILY pantoprazole 40 mg Tablet,Delayed Release (Dr/Ec) 40 mg PO BID sucralfate 1 gram Tablet 1 g PO AC & HS Qty: 0 0RF cyclobenzaprine 5 mg Tablet 5 mg PO DAILY PRN (Reason: Pain) magnesium oxide 400 mg magnesium Capsule 400 mg PO DAILY metformin 500 mg Tablet 500 mg PO BID simvastatin 40 mg Tablet 40 mg PO .QHS hydromorphone [Dilaudid] 2 mg tablet 2 mg PRN PRN Label Comments: Take 1 tablet by mouth twice a day as needed for pain aspirin 81 mg Tablet,Chewable 81 mg PO DAILY carvedilol 6.25 mg Tablet 6.25 mg PO BID Rx Instructions: must administer with a meal/food cyanocobalamin (vitamin B-12) 100 mcg/mL Solution 1,000 mcg QMONTH bisacodyl [Dulcolax (bisacodyl)] 10 mg Suppository 10 mg WV DAILY PRN Fleet Enema 19-7 gram/118 mL Enema 118 ml WV DAILY PRN torsemide 20 mg Tablet 40 mg PO DAILY methylphenidate HCl 5 mg Tablet 5 mg PO DAILY spironolactone 25 mg Tablet 25 mg PO DAILY potassium chloride 20 mEq/15 mL Liquid 10 meq PO DAILY magnesium hydroxide 400 mg/5 mL Suspension 30 ml PO DAILY PRN sertraline 50 mg Tablet 50 mg PO DAILY insulin aspart U-100 [Novolog Flexpen U-100 Insulin] 100 unit/mL (3 mL) Insulin Pen 1 sliding scale dose SUBCUT USEASDIRECTD Discharge Instructions Instructions: Anemia (ED) Additional Instructions: Please follow-up with your primary care physician please return to the emergency department for any worsening symptoms. Medical Decision Making 55-year-old female history of anemia, diabetes, obesity, presents with abdominal pain and dark stool, also endorsing epigastric burning sensation consistent with gastritis/heartburn. Restless leg and left lower extremity without signs of trauma warm well perfused extremities mobile no focal deficits. Rectal exam showing external hemorrhoids, dark stool in vault however guaiac negative. Consider dark stool related to iron supplementation versus upper GI bleed must consider gastritis patient endorses she does have a history of colon polyps. Obtain basic labs, CT abdomen pelvis, GI cocktail. Close reassessment disposition pending results 18: 50 patient resting comfortably no acute distress labs and imaging unremarkable. Chronic anemia stable. Patient to follow with primary care physician. HPI General Date/Time Provider Initiated Documentation: 10/12/21 16:00. HPI Narrative: 55-year-old female history of diabetes, hypertension, obesity, anemia, presents referred in from rehabilitation facility for evaluation of dark stool and abdominal pain. Patient also is endorsing heartburn over the past several days. No trouble breathing no vomiting. Patient does take iron supplementation Related Data Home Medications Medication Instructions Recorded Confirmed hydrochlorothiazide 50 mg tablet 50 mg PO QAM 02/04/19 08/15/21 tramadol 50 mg tablet 50 mg PO TID PRN 02/04/19 10/12/21 acetaminophen 500 mg tablet 1,000 mg PO .Q6HRS PRN 01/26/21 10/12/21 albuterol 90 mcg/actuation aerosol 180 mcg inhalation Q4H PRN PRN 01/26/21 10/12/21 inhaler amlodipine 10 mg tablet 10 mg PO DAILY 01/26/21 08/15/21 cholecalciferol (vitamin D3) 125 125 mcg PO .Q Monday01/26/21 10/12/21 mcg (5,000 unit) capsule cyanocobalamin (vitamin B-12) 500 1,000 mcg PO DAILY 01/26/21 10/12/21 mcg tablet docusate sodium 100 mg capsule 100 mg PO .HS PRN 01/26/21 10/12/21 ferrous sulfate 325 mg (65 mg 325 mg PO QAM 01/26/21 10/12/21 iron) capsule,extended release gabapentin 300 mg capsule 300 mg PO HS 01/26/21 10/12/21 hydromorphone 2 mg tablet 2 mg PO Q6H PRN 01/26/21 08/15/21 insulin glargine 100 unit/mL (3 25 unit subcut HS 01/26/21 10/12/21 mL) subcutaneous pen (Lantus Solostar U-100 Insulin) losartan 100 mg tablet 100 mg PO DAILY 01/26/21 10/12/21 montelukast 10 mg tablet 10 mg PO DAILY 01/26/21 10/12/21 ondansetron HCl 8 mg tablet 8 mg PO Q8H PRN 01/26/21 10/12/21 pantoprazole 40 mg tablet,delayed 40 mg PO BID 01/26/21 10/12/21 release polyethylene glycol 3350 17 17 g PO .QHS PRN 01/26/21 10/12/21 gram/dose oral powder (Miralax) sucralfate 1 gram tablet 1 g PO AC & HS #0 tabs 01/29/21 10/12/21 cyclobenzaprine 5 mg tablet 5 mg PO DAILY PRN Pain 04/01/21 10/12/21 magnesium oxide 400 mg PO DAILY 04/01/21 10/12/21 metformin 500 mg tablet 500 mg PO BID 04/01/21 08/15/21 hydromorphone 2 mg tablet 2 mg PRN PRN 06/25/21 08/15/21 (Dilaudid) simvastatin 40 mg tablet 40 mg PO .QHS 06/25/21 10/12/21 aspirin 81 mg chewable tablet 81 mg PO DAILY 10/12/21 10/12/21 bisacodyl 10 mg rectal suppository 10 mg WV DAILY PRN 10/12/21 10/12/21 (Dulcolax (bisacodyl)) carvedilol 6.25 mg tablet 6.25 mg PO BID 10/12/21 10/12/21 cyanocobalamin (vitamin B-12) 100 1,000 mcg QMONTH 10/12/21 10/12/21 mcg/mL injection solution insulin aspart U-100 100 unit/mL 1 sliding scale dose subcut 10/12/21 10/12/21 (3 mL) subcutaneous pen (Novolog USEASDIRECTD Flexpen U-100 Insulin aspart) magnesium hydroxide 400 mg/5 mL 30 ml PO DAILY PRN 10/12/21 10/12/21 oral suspension methylphenidate HCl 5 mg tablet 5 mg PO DAILY 10/12/21 10/12/21 potassium chloride 20 mEq/15 mL 10 meq PO DAILY 10/12/21 10/12/21 oral liquid sertraline 50 mg tablet 50 mg PO DAILY 10/12/21 10/12/21 sodium phosphates 19 gram-7 118 ml WV DAILY PRN 10/12/21 10/12/21 gram/118 mL enema (Fleet Enema) spironolactone 25 mg tablet 25 mg PO DAILY 10/12/21 10/12/21 torsemide 20 mg tablet 40 mg PO DAILY 10/12/21 10/12/21 Previous Rx's Medication Instructions Recorded sucralfate 1 gram tablet 1 g PO AC & HS #0 tabs 01/29/21 Allergies Allergy/AdvReac Type Severity Reaction Status Date / Time albuterol [From ProAir HFA] Allergy Unverified 10/12/21 15:29 amoxicillin Allergy Verified 10/12/21 15:29 bee venom protein (honey bee) Allergy Unverified 10/12/21 15:54 cephalexin Allergy Unverified 10/12/21 15:29 exenatide Allergy Unverified 10/12/21 15:54 guaifenesin Allergy Unverified 10/12/21 15:29 hydrocodone [From Vicodin] Allergy Unverified 10/12/21 15:29 omeprazole [From Prilosec] Allergy Unverified 10/12/21 15:29 promethazine Allergy Unverified 10/12/21 15:29 simvastatin Allergy Unverified 10/12/21 15:29 fluconazole AdvReac Intermediate feels like Unverified 10/12/21 15:29 bugs crawling on her lisinopril AdvReac NAUSEA Verified 10/12/21 15:29 General Stated Complaint: GI Bleed WILY: 3 Review of Systems Narrative: Review of Systems Constitutional: negative Eyes: negative ENT: negative Cardiovascular: negative Respiratory: negative Gastrointestinal: dark stool, heartburn : negative Musculoskeletal: negative Skin: negative Neurologic: negative Psych: negative PFSH All Active Problems (Updated 10/12/21 @ 18:51 by Casey Garza MD) Anemia (Chronic) Hyperbilirubinemia (Acute) Elevated troponin (Acute) Elevated d-dimer (Acute) Acute GI bleeding (Acute) Medical History Anxiety Chronic kidney disease Claustrophobia Diabetes mellitus Essential hypertension Heart failure with preserved ejection fraction HLD (hyperlipidemia) Left femoral shaft fracture Left humeral fracture Morbid obesity Primary osteoarthritis of right knee Restless leg syndrome Social History Smoking/Tobacco Use Status: Never Smoking risk assessment performed?: Yes Alcohol Intake: former Drug use: Never Substance use type: does not use Current gender identity: female Do you feel safe at home: Yes Do you feel safe in your relationship?: Yes Female Reproductive History Menstrual Menopause type: natural Exam Narrative Exam Narrative: Physical Examination General: alert, awake, cooperative, resting comfortably, no acute distress HEENT: normocephalic, atraumatic; PERRL, EOM intact, conjunctiva pallor; no nasal discharge; moist mucous membranes, oral and pharyngeal mucosa normal, tolerating secretions Neck: supple, trachea midline; full ROM Chest: normal to inspection Respiratory: normal respiratory effort, speaking in full sentences, clear to auscultation, no wheezing, rales or rhonchi Cardiac: regular rate, regular rhythm, S1S2 intact, no murmurs rubs or gallops GI: abdomen soft, non-tender, non-distended; no palpable mass or hepatosplenomegaly Skin: no lesions, rashes or trauma appreciated Neuro: AAOx3, normal speech, moving all extremities Extremity: Evidence of restless leg left lower extremity, femoral orthopedic scar well-healed Psych: Appropriate mood and affect Course Vital Signs Vital signs: Vital Signs Temperature 36.7 C 10/12/21 15:07 Pulse 75 10/12/21 15:07 Respiratory Rate 18 10/12/21 15:07 Blood Pressure 215/67 H 10/12/21 15:07 Pulse Oximetry 100 10/12/21 15:07 Temperature 36.7 C 10/12/21 15:07 Temperature Source Temporal Artery Scan 10/12/21 15:07 Pulse 75 10/12/21 15:07 Respiratory Rate 18 10/12/21 15:07 Respiratory Effort 10/12/21 15:19 Blood Pressure 215/67 H 10/12/21 15:07 Pulse Oximetry 100 10/12/21 15:07 Oxygen Delivery Method Room Air 10/12/21 15:07 Oxygen Flow Rate 0 10/12/21 15:07 Pain Level 9 10/12/21 15:07 Comment 10/12/21 15:07
[2021-10-12 16:12] LABS: Abs Immature Grans 0.03 10^3/uL (0.0-0.06); Absolute Basophil Count 0.01 10^3/uL (0.0-0.2); Absolute Eosinophil Count 0.09 10^3/uL (0.0-0.7); Absolute Lymphocyte Count 0.83 10^3/uL (1.2-3.4); Absolute Monocyte Count 0.48 10^3/uL (0.1-0.8); Absolute Neutrophil Count 4.02 10^3/uL (1.2-6.7); Basophils % 0.2; Eosinophils % 1.6; HCT 31.2 % (36.0-46.0); HGB 9.8 g/dL (11.2-15.7); Immature Grans % 0.5; Lymphocytes % 15.2; MCH 27.7 pg (27.0-33.0); MCHC 31.4 % (32.0-36.0); MCV 88 fL (80-95); MPV 10.9 fL (8.0-11.0); Monocytes % 8.8; Neutrophils % 73.7; Platelet Count 183 10^3/uL (130-400); RBC 3.54 10^6/uL (3.93-5.22); RDW 18.3 % (11.7-14.6); RDW-SD 58.6 fL; WBC 5.46 10^3/uL (4.4-10.8)
[2021-10-12] MEDS: Famotidine 20 MG/2 ML VIAL IVP (16:26)
[2021-10-12] MEDS: traMADol 50 MG TAB PO (16:35)
[2021-10-12 16:37] LABS: ALT 22 U/L (14-59); AST 23 U/L (15-37); Albumin 2.6 g/dL (3.4-5.0); Alkaline Phosphatase 244 U/L (46-116); Anion Gap 7.4 mmol/L (3-11); BUN 24 mg/dL (7-18); Bilirubin, Total 0.2 mg/dL (0.2-1.0); CO2 25.6 mmol/L (21.0-32.0); CREATININE 1.4 mg/dL (0.55-1.02); Calcium 8.4 mg/dL (8.5-10.1); Chloride 106 mmol/L (98-107); Glucose 140 mg/dL (74-106); Potassium 4.9 mmol/L (3.5-5.1); Sodium 139 mmol/L (136-145); Troponin I < 50 ng/L (<or=60)
[2021-10-12 16:49] LABS: Bilirubin Negative (Negative); Blood Small (Negative); Clarity Clear (Clear); Glucose 100 mg/dL (Negative); Ketones Negative (Negative); Leukocyte Esterase Negative (Negative); Nitrite Negative (Negative); Specific Gravity 1.025 (1.005-1.025); Urobilinogen 0.2 EU/dL (Up TO 0.2); pH 6.5 (5-8)
[2021-10-12 17:16] LABS: PTT Activated 26.7 sec (21.0-27.5); Prothrombin Time 10.2 sec (9.3-11.0)
[2021-10-12 17:17] LABS: Bacteria Negative HPF (Negative); C & S Indicated? No/Sq. Contamination; Casts Negative LPF (Negative); Crystals Negative HPF (Negative); Epithelial Cells Moderate HPF (Negative); Mucus Negative (Negative); Other Cells Negative (Negative)
--- NOTE | 2021-10-12 17:27 | NUR.NOTE ---
Nursing Note:Pt is pale and resting in bed. No complaints of chest pain currently but has been having Acid Reflux. Famotidine given, viscous lidocaine refused for now because not actively burning. Labs drawn, IV #20 in LFA. EKG complete, has been sent to CT for scan. BP has been high, HRR and stable. Legs are uncomfortable and restless, Tramadol given.
--- NOTE | 2021-10-12 18:07 | DI.VRAD_ITS ---
PROCEDURE INFORMATION: Exam: CT Abdomen And Pelvis Without Contrast Exam date and time: 10/12/2021 17:09 Age: 55 years old Clinical indication: Other: Dark stool, anemia, abdominal pain TECHNIQUE: Imaging protocol: Computed tomography of the abdomen and pelvis without contrast. Radiation optimization: All CT scans at this facility use at least one of these dose optimization techniques: automated exposure control; mA and/or kV adjustment per patient size (includes targeted exams where dose is matched to clinical indication); or iterative reconstruction. COMPARISON: US ABDOMEN 01/27/2021 14:39 FINDINGS: Liver: Cirrhosis. Nodular liver contour. No gross lesions on noncontrast imaging. Gallbladder and bile ducts: Cholelithiasis. Pancreas: No ductal dilation. No masses. Spleen: Splenomegaly. Diastasis recti. Adrenal glands: No mass. Kidneys and ureters: Nonobstructive bilateral nephrolithiasis. No hydronephrosis. Benign-appearing renal cysts. Stomach and bowel: No gross pathology in small bowel or colon allowing for motion and noncontrast technique. No significant diverticular disease is seen. Appendix: No evidence of appendicitis. Intraperitoneal space: Mild motion artifact throughout the abdomen and pelvis. Trace free fluid in the right upper quadrant. Vasculature: The portal vein is probably dilated. Not optimally assessed on these noncontrast images. Lymph nodes: No significantly enlarged lymph nodes. Urinary bladder: Unremarkable as visualized. Reproductive: Unremarkable as visualized. Bones/joints: Chronic appearing deformity of T12. Degenerative changes in the spine. No gross acute bony pathology allowing for motion. Soft tissues: No lesions or collections. IMPRESSION: 1. Cirrhosis. Nodular liver contour. 2. Portal hypertension. Splenomegaly. Trace free fluid in the right upper quadrant. 3. Additional findings as described. Dictated and Authenticated by: Shanique Hardwick MD. Ordering:NELA Peña MD
== END 2021-10-12 20:00 | disposition home or self-care (01) ==
PROVIDERS: Emergency Provider Emergency Medicine
DX: D64.9 Anemia, unspecified (principal); I13.0 Hypertensive heart and chronic kidney disease with heart failure and stage 1 through stage 4 chronic kidney disease, or unspecified chronic kidney disease; I50.30 Unspecified diastolic (congestive) heart failure; N18.9 Chronic kidney disease, unspecified; E11.22 Type 2 diabetes mellitus with diabetic chronic kidney disease; K64.4 Residual hemorrhoidal skin tags; Z79.4 Long term (current) use of insulin; Z79.84 Long term (current) use of oral hypoglycemic drugs
CPT/HCPCS: 36415; 80053; 86900; 86901; 93005; 96374; 99284; 74176; 81003; 81015; 84484; 85014; 85018; 85025; 85610; 85730; 93010

== ENCOUNTER 2021-11-19 16:55 | Outpatient (REF) | payer MEDICARE, MEDICAID, SELFPAY ==
[2021-11-19 17:48] LABS: Abs Immature Grans 0.01 10^3/uL (0.0-0.06); Absolute Basophil Count 0.01 10^3/uL (0.0-0.2); Absolute Eosinophil Count 0.07 10^3/uL (0.0-0.7); Absolute Lymphocyte Count 0.71 10^3/uL (1.2-3.4); Absolute Monocyte Count 0.46 10^3/uL (0.1-0.8); Absolute Neutrophil Count 2.27 10^3/uL (1.2-6.7); Basophils % 0.3; HCT 28.2 % (36.0-46.0); Immature Grans % 0.3; Lymphocytes % 20.1; MCH 29.8 pg (27.0-33.0); MCHC 31.9 % (32.0-36.0); MCV 93 fL (80-95); MPV 10.5 fL (8.0-11.0); Neutrophils % 64.3; Platelet Count 139 10^3/uL (130-400); RBC 3.02 10^6/uL (3.93-5.22); RDW 14.9 % (11.7-14.6); RDW-SD 50.7 fL; WBC 3.53 10^3/uL (4.4-10.8)
[2021-11-19 19:07] LABS: ALT 20 U/L (14-59); AST 19 U/L (15-37); Alkaline Phosphatase 222 U/L (46-116); Anion Gap 9.4 mmol/L (3-11); BUN 43 mg/dL (7-18); Bilirubin, Total 0.2 mg/dL (0.2-1.0); CO2 24.6 mmol/L (21.0-32.0); Calcium 8.5 mg/dL (8.5-10.1); Chloride 105 mmol/L (98-107); Estimated GFR 28.78 (mL/min/1.73m2); Ferritin 21 ng/mL (8-252); Glucose 198 mg/dL (74-106); Potassium 5.7 mmol/L (3.5-5.1); Sodium 139 mmol/L (136-145)
== END 2021-11-19 16:56 | disposition home or self-care (01) ==
LOC: LBN 16:55
PROVIDERS: Visit Provider Nurse Practitioner Family
DX: J96.01 Acute respiratory failure with hypoxia (principal)
CPT/HCPCS: 80053; 82728; 85025

== ENCOUNTER → 2021-12-23 11:13 | Outpatient (CLI) | payer MEDICARE, MEDICAID, SELFPAY ==
--- NOTE | 2021-12-23 | DI.RAD_ITS ---
Exam(s) XR KNEE LT 2V AP,LAT EXAM: XR KNEE LT 2V AP,LAT CLINICAL HISTORY: PAIN, SWELLING TECHNIQUE: COMPARISON: CR XR KNEE RT 3V AP,LAT,PRAVIN from 02/04/2019 FINDINGS: Four views were obtained. There is mildly comminuted fracture of the distal femur with plate and scr ew fixation place period there appears to be mild callus formation at the fracture site. No prior fi lms available for comparison. IMPRESSION: RADIATION DOSE DELIVERED: Total DLP
== END ==
PROVIDERS: Visit Provider Family Medicine
DX: S72.402A Unspecified fracture of lower end of left femur, initial encounter for closed fracture (principal); X58.XXXA Exposure to other specified factors, initial encounter
CPT/HCPCS: 73560

== ENCOUNTER 2021-12-24 13:53 | Outpatient (REF) | payer MEDICARE, MEDICAID, SELFPAY ==
[2021-12-24 14:24] LABS: Abs Immature Grans 0.02 10^3/uL (0.0-0.06); Absolute Basophil Count 0.02 10^3/uL (0.0-0.2); Absolute Eosinophil Count 0.15 10^3/uL (0.0-0.7); Absolute Lymphocyte Count 0.95 10^3/uL (1.2-3.4); Absolute Monocyte Count 0.37 10^3/uL (0.1-0.8); Absolute Neutrophil Count 2.93 10^3/uL (1.2-6.7); Basophils % 0.5; Eosinophils % 3.4; HCT 31.9 % (36.0-46.0); HGB 9.6 g/dL (11.2-15.7); Immature Grans % 0.5; Lymphocytes % 21.4; MCHC 30.1 % (32.0-36.0); MCV 96 fL (80-95); Monocytes % 8.3; Neutrophils % 65.9; RBC 3.31 10^6/uL (3.93-5.22); RDW 12.8 % (11.7-14.6); RDW-SD 45.1 fL; WBC 4.44 10^3/uL (4.4-10.8)
[2021-12-24 14:43] LABS: Ferritin 30 ng/mL (8-252)
[2021-12-24 14:49] LABS: Diff Comment PLT Morph Reviewed
== END 2021-12-24 13:54 | disposition home or self-care (01) ==
LOC: LBN 13:53
PROVIDERS: Visit Provider Family Medicine
DX: D50.0 Iron deficiency anemia secondary to blood loss (chronic) (principal)
CPT/HCPCS: 82728; 85025

== ENCOUNTER 2022-02-04 13:49 | Outpatient (REF) | payer MEDICARE, MEDICAID, SELFPAY ==
[2022-02-04 16:26] LABS: Abs Immature Grans 0.02 10^3/uL (0.0-0.06); Absolute Basophil Count 0.02 10^3/uL (0.0-0.2); Absolute Eosinophil Count 0.09 10^3/uL (0.0-0.7); Absolute Lymphocyte Count 0.72 10^3/uL (1.2-3.4); Absolute Monocyte Count 0.48 10^3/uL (0.1-0.8); Absolute Neutrophil Count 3.25 10^3/uL (1.2-6.7); Basophils % 0.4; HCT 32.8 % (36.0-46.0); HGB 9.8 g/dL (11.2-15.7); Immature Grans % 0.4; Lymphocytes % 15.7; MCH 28.5 pg (27.0-33.0); MCHC 29.9 % (32.0-36.0); MCV 95 fL (80-95); MPV 10.7 fL (8.0-11.0); Monocytes % 10.5; Platelet Count 134 10^3/uL (130-400); RBC 3.44 10^6/uL (3.93-5.22); RDW 13.3 % (11.7-14.6); RDW-SD 46.5 fL; WBC 4.58 10^3/uL (4.4-10.8)
[2022-02-04 16:36] LABS: ALT 18 U/L (14-59); AST 19 U/L (15-37); Albumin 3.1 g/dL (3.4-5.0); Alkaline Phosphatase 236 U/L (46-116); BUN 53 mg/dL (7-18); Bilirubin, Total 0.2 mg/dL (0.2-1.0); CREATININE 2.5 mg/dL (0.55-1.02); Calcium 8.7 mg/dL (8.5-10.1); Chloride 105 mmol/L (98-107); Estimated GFR 21.88 (mL/min/1.73m2); Glucose 251 mg/dL (74-106); Potassium 5.7 mmol/L (3.5-5.1); Sodium 134 mmol/L (136-145); Total Protein 7.1 g/dL (6.4-8.2)
== END 2022-02-04 13:50 | disposition home or self-care (01) ==
LOC: LBN 13:49
PROVIDERS: Visit Provider Family Medicine
DX: I21.4 Non-ST elevation (NSTEMI) myocardial infarction (principal)
CPT/HCPCS: 80053; 85025

== ENCOUNTER 2022-02-16 17:05 | Outpatient (REF) | payer MEDICARE, MEDICAID, SELFPAY ==
[2022-02-16 18:53] LABS: Bilirubin Negative (Negative); Blood Moderate (Negative); Clarity Sl Cloudy (Clear); Glucose 100 mg/dL (Negative); Ketones Negative (Negative); Leukocyte Esterase Negative (Negative); Nitrite Negative (Negative); Specific Gravity 1.025 (1.005-1.025); Urobilinogen 0.2 EU/dL (Up TO 0.2)
[2022-02-16 19:10] LABS: Epithelial Cells Many HPF (Negative); Other Cells Few Yeast (Negative); WBC >50 HPF (0-5)
[2022-02-16 19:11] LABS: Bacteria Few HPF (Negative); C & S Indicated? No/Sq. Contamination; Casts 0-2 Hyaline LPF (Negative); Crystals Negative HPF (Negative); Mucus Negative (Negative)
== END 2022-02-16 17:06 | disposition home or self-care (01) ==
LOC: LBN 17:05
PROVIDERS: Visit Provider Family Medicine
DX: M54.59 Other low back pain (principal); N20.0 Calculus of kidney; N39.0 Urinary tract infection, site not specified
CPT/HCPCS: 81003; 81015

== ENCOUNTER 2022-03-10 12:41 | Outpatient (REF) | payer MEDICARE, MEDICAID, SELFPAY ==
[2022-03-10 12:56] LABS: Abs Immature Grans 0.04 10^3/uL (0.0-0.06); Absolute Basophil Count 0.02 10^3/uL (0.0-0.2); Absolute Eosinophil Count 0.04 10^3/uL (0.0-0.7); Absolute Lymphocyte Count 0.71 10^3/uL (1.2-3.4); Absolute Monocyte Count 0.52 10^3/uL (0.1-0.8); Absolute Neutrophil Count 6.74 10^3/uL (1.2-6.7); Basophils % 0.2; Eosinophils % 0.5; HCT 35.5 % (36.0-46.0); HGB 11.2 g/dL (11.2-15.7); Immature Grans % 0.5; Lymphocytes % 8.8; MCH 28.6 pg (27.0-33.0); MCHC 31.5 % (32.0-36.0); MCV 91 fL (80-95); MPV 9.9 fL (8.0-11.0); Monocytes % 6.4; Neutrophils % 83.6; Platelet Count 156 10^3/uL (130-400); RBC 3.92 10^6/uL (3.93-5.22); RDW 13.3 % (11.7-14.6); RDW-SD 44.6 fL; WBC 8.07 10^3/uL (4.4-10.8)
[2022-03-10 13:42] LABS: ALT 15 U/L (14-59); AST 20 U/L (15-37); Albumin 2.6 g/dL (3.4-5.0); Alkaline Phosphatase 435 U/L (46-116); BUN 37 mg/dL (7-18); Bilirubin, Total 0.6 mg/dL (0.2-1.0); CREATININE 1.6 mg/dL (0.55-1.02); Calcium 8.7 mg/dL (8.5-10.1); Chloride 104 mmol/L (98-107); Estimated GFR 37.38 (mL/min/1.73m2); Glucose 159 mg/dL (74-106); Potassium 4.6 mmol/L (3.5-5.1); Sodium 138 mmol/L (136-145); Total Protein 6.9 g/dL (6.4-8.2)
[2022-03-10 13:47] LABS: Vitamin B12 > 2000 pg/mL (193-986)
== END 2022-03-10 12:42 | disposition home or self-care (01) ==
LOC: LBN 12:41
PROVIDERS: Visit Provider Family Medicine
DX: I50.31 Acute diastolic (congestive) heart failure (principal); I21.4 Non-ST elevation (NSTEMI) myocardial infarction
CPT/HCPCS: 80053; 82607; 85025

== ENCOUNTER 2022-05-03 19:14 | Outpatient (REF) | payer MEDICARE, MEDICAID, SELFPAY ==
[2022-05-03 19:30] LABS: Abs Immature Grans 0.03 10^3/uL (0.0-0.06); Absolute Basophil Count 0.02 10^3/uL (0.0-0.2); Absolute Eosinophil Count 0.15 10^3/uL (0.0-0.7); Absolute Lymphocyte Count 0.93 10^3/uL (1.2-3.4); Absolute Neutrophil Count 4.83 10^3/uL (1.2-6.7); Basophils % 0.3; Eosinophils % 2.3; HCT 27.9 % (36.0-46.0); Immature Grans % 0.5; Lymphocytes % 14.4; MCHC 32.3 % (32.0-36.0); MCV 93 fL (80-95); MPV 9.9 fL (8.0-11.0); Monocytes % 7.7; Neutrophils % 74.8; Platelet Count 170 10^3/uL (130-400); RDW 15.6 % (11.7-14.6); RDW-SD 53.1 fL; WBC 6.46 10^3/uL (4.4-10.8)
[2022-05-03 20:06] LABS: ALT 23 U/L (14-59); AST 26 U/L (15-37); Albumin 2.7 g/dL (3.4-5.0); Alkaline Phosphatase 371 U/L (46-116); Anion Gap 10.3 mmol/L (3-11); BUN 68 mg/dL (7-18); Bilirubin, Total 0.3 mg/dL (0.2-1.0); CO2 24.7 mmol/L (21.0-32.0); CREATININE 2.3 mg/dL (0.55-1.02); Calcium 8.8 mg/dL (8.5-10.1); Chloride 104 mmol/L (98-107); Estimated GFR 24.19 (mL/min/1.73m2); Glucose 172 mg/dL (74-106); Potassium 5.2 mmol/L (3.5-5.1); Sodium 139 mmol/L (136-145); TSH 1.47 uIU/mL (0.36-3.74); Total Protein 6.7 g/dL (6.4-8.2); Vitamin B12 1344 pg/mL (193-986)
== END 2022-05-03 19:15 | disposition home or self-care (01) ==
LOC: LBN 19:14
PROVIDERS: Visit Provider Family Medicine
DX: D50.0 Iron deficiency anemia secondary to blood loss (chronic) (principal); I50.31 Acute diastolic (congestive) heart failure; E53.8 Deficiency of other specified B group vitamins; E11.22 Type 2 diabetes mellitus with diabetic chronic kidney disease; E78.5 Hyperlipidemia, unspecified
CPT/HCPCS: 80053; 82607; 84443; 85025

== ENCOUNTER 2022-06-05 15:03 | Outpatient (REF) | payer MEDICARE, MEDICAID, SELFPAY ==
[2022-06-05 15:33] LABS: Bilirubin Negative (Negative); Blood Moderate (Negative); Clarity Cloudy (Clear); Glucose 100 mg/dL (Negative); Ketones Negative (Negative); Leukocyte Esterase Moderate (Negative); Nitrite Negative (Negative); Specific Gravity 1.025 (1.005-1.025); Urobilinogen 0.2 mg/dL (Up to 0.2); pH 5.5 (5-8)
[2022-06-05 15:41] LABS: Bacteria Many HPF (Negative); C & S Indicated? Yes; Casts Negative LPF (Negative); Crystals Negative HPF (Negative); Epithelial Cells Few HPF (Negative); Mucus Moderate (Negative); WBC >50 HPF (0-5)
== END 2022-06-05 15:04 | disposition home or self-care (01) ==
LOC: LBN 15:03
PROVIDERS: Visit Provider Family Medicine
DX: N18.9 Chronic kidney disease, unspecified (principal); R82.998 Other abnormal findings in urine
CPT/HCPCS: 81003; 81015; 87086

== ENCOUNTER 2022-07-25 17:10 | Outpatient (REF) | payer MEDICARE, MEDICAID, SELFPAY ==
[2022-07-25 17:54] LABS: Iron 34 ug/dL (50-170)
[2022-07-26 11:38] LABS: Hemoglobin A1C 5.7 % (<5.7)
== END 2022-07-25 17:11 | disposition home or self-care (01) ==
LOC: LBN 17:10
PROVIDERS: Family Medicine; Visit Provider Physician Assistant
DX: E11.9 Type 2 diabetes mellitus without complications (principal); D50.0 Iron deficiency anemia secondary to blood loss (chronic)
CPT/HCPCS: 83036; 83540

== ENCOUNTER 2022-09-09 15:27 | Outpatient (REF) | payer MEDICARE, MEDICAID, SELFPAY ==
[2022-09-09 14:49] LABS: Abs Immature Grans 0.01 10^3/uL (0.0-0.06); Absolute Basophil Count 0.01 10^3/uL (0.0-0.2); Absolute Eosinophil Count 0.13 10^3/uL (0.0-0.7); Absolute Lymphocyte Count 0.58 10^3/uL (1.2-3.4); Absolute Monocyte Count 0.44 10^3/uL (0.1-0.8); Basophils % 0.3; Eosinophils % 3.3; HCT 26.9 % (36.0-46.0); HGB 8.1 g/dL (11.2-15.7); Immature Grans % 0.3; Lymphocytes % 14.6; MCH 27.5 pg (27.0-33.0); MCHC 30.1 % (32.0-36.0); MCV 91 fL (80-95); MPV 10.1 fL (8.0-11.0); Monocytes % 11.1; Neutrophils % 70.4; Platelet Count 144 10^3/uL (130-400); RBC 2.95 10^6/uL (3.93-5.22); RDW 16.1 % (11.7-14.6); RDW-SD 52.6 fL; WBC 3.97 10^3/uL (4.4-10.8)
[2022-09-09 14:50] LABS: Absolute Neutrophil Count 2.79 10^3/uL (1.2-6.7)
[2022-09-09 15:40] LABS: Iron 161 ug/dL (50-170)
== END 2022-09-09 15:28 | disposition home or self-care (01) ==
LOC: LBN 15:27
PROVIDERS: Visit Provider Physician Assistant
DX: D50.0 Iron deficiency anemia secondary to blood loss (chronic) (principal); I10 Essential (primary) hypertension
CPT/HCPCS: 83540; 85025

== ENCOUNTER 2022-10-11 18:45 | Outpatient (REF) | payer MEDICARE, MEDICAID, SELFPAY | END 2022-10-11 18:46 | disposition home or self-care (01) | LOC: LBN 18:45 | PROVIDERS: Visit Provider Physician Assistant | DX: I21.4 Non-ST elevation (NSTEMI) myocardial infarction (principal); Z68.42 Body mass index [BMI] 45.0-49.9, adult | CPT/HCPCS: 82306 ==

== ENCOUNTER 2022-10-14 16:46 | Inpatient (IN) | payer MEDICARE, MEDICAID, SELFPAY ==
[2022-10-14] VITALS (46 sets, daily range): BP systolic 107–156; BP diastolic 38–91; PULSE 59–78; RESP 11–22; TEMP 36.6–36.7; O2SAT 96
--- NOTE | 2022-10-14 18:11 | ED.GENADUL_ITS ---
Discharge Plan Disposition Patient Disposition: Admit to [facility] Specific Acute Inpt Facility: [facility] Condition: Stable Condition: Serious Discharge Details Chief Complaint: GenMedical Clinical Impression: Elevated troponin Admit Date/Time: 10/14/22 23:03 Admit Provider: Donn Zamora Attending Provider: Donn Zamora Primary Care Provider: Unknown,Unknown ED Provider: Linda Escobar Discharge Instructions Activity:: Bedrest Equipment/Supplies:: No Equipment Needed Diet:: NPO Discharge Orders Discharge Orders: Discharge Order (Routine); Ordered 10/15/22 Ordered By: Casey Latham Discharge Data Discharge Date/Time-TO BE ENTERED AT DEPARTURE: 10/15/22 00:10 Medical Decision Making Patient presents for evaluation of general malaise and not feeling well since Monday afternoon after experiencing substernal chest pain that lasted several hours. She has had no recurrent chest pain since. She denies any shortness of breath or increased edema. Hemodynamically has been stable afebrile no cough no other complaints. CODE STATUS and limits of care have been discussed with patient and she would like to remain a full code at this time. Initially she denied chest pain stating she was chest pain-free but after reviewing initial lab that was initiated with working diagnosis of a possible infection causing her symptoms of lethargy and weakness finding the troponin elevated over 4000. An EKG was obtained at that point that showed no acute ischemic changes. She was given IV Lasix as her chest x-ray and BMP both concerning for fluid overload. She was at this point also given aspirin 325 mg to chew. After further query does tell me she was having chest pain on Monday and has not felt well since then. She denies any chest pain since Monday so we will repeat her troponin in 3 hours no heparin at this time as she has been pain-free all week. It is most likely troponin trending downward but remains elevated secondary to fluid overload and acute on chronic kidney injury. After further review of her home medication list Lasix 80 mg is given. Repeat troponin rising, again of unknown significance as she is chest pain-free but will initiate a heparin drip per ACS protocol and consult cardiology at [facility]. Her case was discussed with Dr. Madison who is in agreement with continuing heparin at this point and she will be excepted under Dr. Allen for inpatient ischemic work-up. There were no beds tonight so she will be admitted here to our ICU while bed pending. Hemodynamically she has remained stable. Her case is discussed with Dr. Thomas from hospitalist shelia bhatti who accepts care of patient Medical Records Medical records reviewed: Yes I reviewed the patient's medical records. HPI General Mode of arrival: EMS . Date/Time Provider Initiated Documentation: 10/14/22 18:00 . Limitations to Documentation: altered mental status . Information obtained by: EMS . HPI Narrative: Presents to the emergency department by EMS from [facility] re[facility] with complaints of altered mental status with reported decline since Monday. Reportedly afebrile. Vital signs are stable no respiratory symptoms or distress. Patient tells me she had substernal chest pain on Monday that lasted several hours and finally subsided. She states since then she has not felt well. She has no shortness of breath she has had no further chest pain. Related Data Home Medications Medication Instructions Recorded Confirmed hydrochlorothiazide 50 mg tablet 50 mg PO QAM 02/04/19 10/14/22 tramadol 50 mg tablet 50 mg PO TID PRN 02/04/19 10/14/22 acetaminophen 500 mg tablet 1,000 mg PO .Q6HRS PRN 01/26/21 10/14/22 albuterol 90 mcg/actuation aerosol 180 mcg inhalation Q4H PRN PRN 01/26/21 10/14/22 inhaler amlodipine 10 mg tablet 10 mg PO DAILY 01/26/21 10/14/22 cholecalciferol (vitamin D3) 125 125 mcg PO .Q Monday01/26/21 10/14/22 mcg (5,000 unit) capsule cyanocobalamin (vitamin B-12) 500 1,000 mcg PO DAILY 01/26/21 10/14/22 mcg tablet docusate sodium 100 mg capsule 100 mg PO .HS PRN 01/26/21 10/14/22 ferrous sulfate 325 mg (65 mg 325 mg PO QAM 01/26/21 10/14/22 iron) capsule,extended release gabapentin 300 mg capsule 300 mg PO HS 01/26/21 10/14/22 hydromorphone 2 mg tablet 2 mg PO Q6H PRN 01/26/21 10/14/22 insulin glargine 100 unit/mL (3 25 unit subcut HS 01/26/21 10/14/22 mL) subcutaneous pen (Lantus Solostar U-100 Insulin) losartan 100 mg tablet 100 mg PO DAILY 01/26/21 10/14/22 montelukast 10 mg tablet 10 mg PO DAILY 01/26/21 10/14/22 ondansetron HCl 8 mg tablet 8 mg PO Q8H PRN 01/26/21 10/14/22 pantoprazole 40 mg tablet,delayed 40 mg PO BID 01/26/21 10/14/22 release polyethylene glycol 3350 17 17 g PO .QHS PRN 01/26/21 10/14/22 gram/dose oral powder (Miralax) sucralfate 1 gram tablet 1 g PO AC & HS #0 tabs 01/29/21 10/14/22 cyclobenzaprine 5 mg tablet 5 mg PO DAILY PRN Pain 04/01/21 10/14/22 magnesium oxide 400 mg PO DAILY 04/01/21 10/14/22 metformin 500 mg tablet 500 mg PO BID 04/01/21 10/14/22 hydromorphone 2 mg tablet 2 mg PRN PRN 06/25/21 10/14/22 (Dilaudid) simvastatin 40 mg tablet 40 mg PO .QHS 06/25/21 10/14/22 aspirin 81 mg chewable tablet 81 mg PO DAILY 10/12/21 10/14/22 bisacodyl 10 mg rectal suppository 10 mg ND DAILY PRN 10/12/21 10/14/22 (Dulcolax (bisacodyl)) carvedilol 6.25 mg tablet 6.25 mg PO BID 10/12/21 10/14/22 cyanocobalamin (vitamin B-12) 100 1,000 mcg QMONTH 10/12/21 10/14/22 mcg/mL injection solution insulin aspart U-100 100 unit/mL 1 sliding scale dose subcut 10/12/21 10/14/22 (3 mL) subcutaneous pen (Novolog USEASDIRECTD FlexPen U-100 Insulin aspart) magnesium hydroxide 400 mg/5 mL 30 ml PO DAILY PRN 10/12/21 10/14/22 oral suspension methylphenidate HCl 5 mg tablet 5 mg PO DAILY 10/12/21 10/14/22 potassium chloride 20 mEq/15 mL 10 meq PO DAILY 10/12/21 10/14/22 oral liquid sertraline 50 mg tablet 50 mg PO DAILY 10/12/21 10/14/22 sodium phosphates 19 gram-7 118 ml ND DAILY PRN 10/12/21 10/14/22 gram/118 mL enema (Fleet Enema) spironolactone 25 mg tablet 25 mg PO DAILY 10/12/21 10/14/22 torsemide 20 mg tablet 40 mg PO DAILY 10/12/21 10/14/22 Previous Rx's Medication Instructions Recorded sucralfate 1 gram tablet 1 g PO AC & HS #0 tabs 01/29/21 Allergies Allergy/AdvReac Type Severity Reaction Status Date / Time albuterol [From ProAir HFA] Allergy Unverified 10/12/21 15:29 amoxicillin Allergy Verified 10/12/21 15:29 bee venom protein (honey bee) Allergy Unverified 10/12/21 15:54 cephalexin Allergy Unverified 10/12/21 15:29 exenatide Allergy Unverified 10/12/21 15:54 guaifenesin Allergy Unverified 10/12/21 15:29 hydrocodone [From Vicodin] Allergy Unverified 10/12/21 15:29 omeprazole [From Prilosec] Allergy Unverified 10/12/21 15:29 promethazine Allergy Unverified 10/12/21 15:29 simvastatin Allergy Unverified 10/12/21 15:29 fluconazole AdvReac Intermediate feels like Unverified 10/12/21 15:29 bugs crawling on her lisinopril AdvReac NAUSEA Verified 10/12/21 15:29 General Stated Complaint: GenMedical WILY: 3 Review of Systems All systems reviewed & are unremarkable except as noted in HPI and below PFSH All Active Problems (Updated 10/16/22 @ 22:13 by Linda Escobar NP) Non-ST elevation MA (NSTEMI) (Acute) Hyperbilirubinemia (Acute) Elevated troponin (Acute) Elevated d-dimer (Acute) Medical History Anxiety Chronic kidney disease Claustrophobia Diabetes mellitus Essential hypertension Heart failure with preserved ejection fraction HLD (hyperlipidemia) Left femoral shaft fracture Left humeral fracture Morbid obesity Primary osteoarthritis of right knee Restless leg syndrome Surgical History Status post fracture of femur surgical repar Social History Smoking/Tobacco Use Status: Never Smoking risk assessment performed?: Yes Alcohol Intake: former Drug use: Never Substance use type: does not use Housing: prison Current gender identity: female Do you feel safe at home: Yes Do you feel safe in your relationship?: Yes Additional Social history: Living at [facility] since 2020 Female Reproductive History Menstrual Menopause type: natural Exam Const General: disheveled, frail appearing, ill appearing acutely and chronically and lethargic Nutritional Appearance: obese Orientation: oriented to person, oriented to place, oriented to time and other (Poor historian) HENMT Head: normal to inspection Mouth: moist mucous membranes abnormal Chest Chest: normal inspection of the chest Resp Auscultation: diminished lung sounds bilaterally, no rhonchi and no wheezes Cardio Rate: regular rate Rhythm: regular rhythm GI Inspection: obesity Palpation: soft and nontender Skin Rashes: no rashes Neuro General: no focal motor deficits Extrem General: edema Laterality: bilateral Course Vital Signs Vital signs: Vital Signs Temperature 36.6 C 10/14/22 16:46 Pulse 65 10/14/22 16:46 Respiratory Rate 20 10/14/22 16:46 Blood Pressure 141/58 H 10/14/22 16:46 Pulse Oximetry 96 10/14/22 16:46 Temperature 36.6 C 10/14/22 16:46 Temperature Source Oral 10/14/22 16:46 Pulse 65 10/14/22 16:46 Respiratory Rate 22 10/14/22 17:11 Respiratory Effort Normal 10/14/22 17:11 Respiratory Depth Shallow 10/14/22 17:11 Respiratory Pattern Normal 10/14/22 17:11 Blood Pressure 141/58 H 10/14/22 16:46 Blood Pressure Position Sitting 10/14/22 16:46 Pulse Oximetry 96 10/14/22 16:46 Oxygen Delivery Method Nasal Cannula 10/14/22 16:46 Oxygen Flow Rate 2 10/14/22 16:46
[2022-10-14 18:25] LABS: Abs Immature Grans 0.01 10^3/uL (0.0-0.06); Absolute Basophil Count 0.01 10^3/uL (0.0-0.2); Absolute Eosinophil Count 0.22 10^3/uL (0.0-0.7); Absolute Lymphocyte Count 0.62 10^3/uL (1.2-3.4); Absolute Monocyte Count 0.42 10^3/uL (0.1-0.8); Absolute Neutrophil Count 2.75 10^3/uL (1.2-6.7); Basophils % 0.2; Eosinophils % 5.5; HCT 26.9 % (36.0-46.0); HGB 8.1 g/dL (11.2-15.7); Immature Grans % 0.2; Lymphocytes % 15.4; MCH 27.5 pg (27.0-33.0); MCHC 30.1 % (32.0-36.0); MCV 91 fL (80-95); Monocytes % 10.4; Neutrophils % 68.3; Platelet Count 153 10^3/uL (130-400); RBC 2.95 10^6/uL (3.93-5.22); RDW 15.9 % (11.7-14.6); WBC 4.03 10^3/uL (4.4-10.8)
[2022-10-14 18:43] LABS: ALT 10 U/L (14-59); AST 21 U/L (15-37); Albumin 1.9 g/dL (3.4-5.0); Alkaline Phosphatase 198 U/L (46-116); Anion Gap 9.7 mmol/L (3-11); BUN 44 mg/dL (7-18); Bilirubin, Total 0.2 mg/dL (0.2-1.0); CO2 20.3 mmol/L (21.0-32.0); CREATININE 2.6 mg/dL (0.55-1.02); Calcium 7.6 mg/dL (8.5-10.1); Chloride 109 mmol/L (98-107); Estimated GFR 20.88 (mL/min/1.73m2); Glucose 114 mg/dL (74-106); Potassium 4.9 mmol/L (3.5-5.1); Sodium 139 mmol/L (136-145); Total Protein 5.9 g/dL (6.4-8.2)
--- NOTE | 2022-10-14 18:45 | RT.EKG_ITS ---
APPROVED REPORT Exam: Resting ECG Reason for Exam: chest pain, elevated troponin Patient Location: E HR:62 bpm ECG Measurements Heart Rate 62 AXIS PA 144 P 10 QRSd 93 QRS -4 QT 388 T 165 QTc 394 Conclusion Sinus rhythm...normal P axis, V-rate 60- 99 Abnormal T, consider ischemia, lateral leads...T <-0.20mV, I aVL V5 V6 LAD, Q waves in III and aVF. T wave inversion in I and aVL. Slight changes from previous. No STEMI
[2022-10-14 18:52] LABS: Troponin I 4702 ng/L (<or=60)
--- NOTE | 2022-10-14 19:00 | DI.RAD_ITS ---
Exam(s) XR PORTABLE CHEST AP EXAM: XR PORTABLE CHEST AP CLINICAL HISTORY: Myocardial infarction TECHNIQUE: 2D digital imaging was performed. COMPARISON: CR,XR XR PORTABLE CHEST AP from 08/15/2021 FINDINGS: Extremely limited exam by underpenetration, respiratory motion, poor pulmonary inflation, rotation an d leads overlying the chest. LUNGS: Diffuse bilateral infiltrates. Prominence of the pulmonary vasculature. Findings could repre sent pulmonary edema versus bilateral pneumonia. No gross pleural abnormality seen. HEART: Difficult to assess due to technique AORTA: Normal diameter. BONES: Degenerative changes. Spine mostly obscured. Soft tissues: Unremarkable. IMPRESSION: Severely limited exam. CHF versus bilateral pneumonia. DATA REPOSITORY: RADIATION DOSE DELIVERED:
[2022-10-14] MEDS: Aspirin 81 MG CHEW 324 MG CH (19:30)
[2022-10-14 19:38] LABS: NT-proBNP 16922 pg/mL (<300)
--- NOTE | 2022-10-14 19:41 | DI.VRAD_ITS ---
PROCEDURE INFORMATION: Exam: XR Chest Exam date and time: 10/14/2022 7:29 PM Age: 56 years old Clinical indication: Other: Myocardial infarction TECHNIQUE: Imaging protocol: Radiologic exam of the chest. Views: 1 view. COMPARISON: CR XR PORTABLE CHEST AP 08/15/2021 8:56 PM FINDINGS: Lungs: Increased interstitial lung markings bilaterally and perihilar airspace consolidative features suggesting a developing process such as pulmonary edema or bilateral pneumonia. Pleural spaces: Blunting of the costophrenic angle suggesting mild pleural effusions. Heart/Mediastinum: Cardiomegaly moderate to severe nature. Bones/joints: No acute skeletal features. IMPRESSION: 1. Bilateral increased interstitial lung markings and perihilar airspace consolidation which may represent developing pulmonary edema. Differential diagnosis of a bilateral pneumonitis. 2. Cardiomegaly. 3. Minor bilateral pleural effusions. Dictated and Authenticated by: Deepak Benton MD. Ordering:SILVIA Mckeon MD
[2022-10-14] MEDS: Furosemide 20 MG/2 ML VIAL IVP (20:11)
[2022-10-14 21:34] LABS: Troponin I 5162 ng/L (<or=60)
--- NOTE | 2022-10-14 21:45 | RT.EKG_ITS ---
APPROVED REPORT Exam: Resting ECG Reason for Exam: elevated troponin Patient Location: E HR:61 bpm ECG Measurements Heart Rate 61 AXIS IA 137 P 11 QRSd 92 QRS -6 QT 399 T 165 QTc 403 Conclusion Sinus rhythm...normal P axis, V-rate 60- 99 Abnormal T, consider ischemia, lateral leads...T <-0.20mV, I aVL V5 V6
[2022-10-14] MEDS: Heparin in 0.45% NaCl 25,000 UNIT/250 ML BAG 10 UNIT IV (22:11)
[2022-10-14] MEDS: Furosemide 100 MG/10 ML VIAL 80 MG IVP (23:03)
[2022-10-15] VITALS (62 sets, daily range): BP systolic 127–160; BP diastolic 51–88; PULSE 52–72; RESP 6–22; TEMP 35.8–37; O2SAT 92–99
--- NOTE | 2022-10-15 02:09 | HPE_ITS ---
Date of service: 10/15/22 Time of Service: 02:10 Assessment and Plan Assessment and plan (1) Non-ST elevation [place] (NSTEMI): Status: Acute Assessment and plan: Elevated troponin suggests chest pain event 5.5 days ago was a myocardial infarction. However troponin increasing suggesting ischemia that is still evolving. Case reviewed with [facility] cardi[facility], recommended heparin drip/ASA. Will change statin to high intensity, continue other outpatient medications. She has not had chest pain during this admission. To [facility] for PCI later today (2) Anemia: Status: Inactive Assessment and plan: She has a chronic anemia from GI losses. I will continue high dose PPI and monitor blood counts. (3) Chronic kidney disease: Assessment and plan: She has had progressive CKD, but it is difficult to determine her baseline. Will follow. (4) Diabetes mellitus: Assessment and plan: Her A1c was last 5.7, suggesting she is being overtreated. I cut the basal insulin dose. Her GFR is now too low for metformin so I am stopping this. She is also getting a catheterization. I am giving her D5 containing fluids while she is NPO. (5) DVT prophylaxis: Status: Acute Assessment and plan: SHe is on full dose heparin (6) Discharge planning issues: Status: Acute Assessment and plan: She is accepted by Dr. Navarrete for transfer to [facility] cardiology October 15. History of Present Illness History of Present Illness Chief Complaint: fatigue Narrative: 56 yo F with history of CAD, DM, mobid obesity, and complicated leg fracture that left her dependant on nursing care and living at [facility] who is presenting with general fatigue and malaise since Monday, 5.5 days prior to admission. On that day she had upper chest pain that she felt in both arms, both arms were trembling. She thought it was a panic attack. At the time she felt she needed to sit up to breath. She was able to sleep and the pain resolved the next day. Since then, however, she has had general fatigue and feeling down. She denies current chest pain or shortness of breath. She never had palpitations a fainting spell. She has not been eating as well this week. She has not had other pains. Her legs do feel more swollen. Review of Systems Constitutional Constitutional: Denies anorexia, Denies chills, Denies fever(s) and Reports lethargy Eyes Eyes: Denies change in vision and Denies irritation ENT Ears, Nose, Mouth, and Throat: Denies dizziness, Denies nasal congestion, Denies nasal discharge and Denies sore throat Cardiovascular Cardiovascular: Reports as per HPI, Denies lightheadedness, Denies palpitations and Denies orthopnea Respiratory Respiratory: Denies cough, Denies excessive phlegm production and Denies whee zing Gastrointestinal Gastrointestinal: Denies abdominal pain, Denies melena, Denies hematochezia, Denies change in bowel habits, Denies change in stool character, Reports constipation (chronic), Denies heartburn and Denies vomiting Genitourinary Genitourinary: Denies hematuria, Denies dysuria and Denies urinary incontinence Musculoskeletal Musculoskeletal: Denies arthralgias Integumentary/Breasts Skin/Breast: Denies rash and Denies skin ulcer Neurologic Neurologic: Denies confusion, Denies dizziness and Denies sensory deficit Psychiatric Psychiatric: Denies confusion, Reports depression, Denies mood swings and Reports panic attacks Endocrine Endocrine: Denies palpitations Hematologic/Lymphatic Hematologic/Lymphatic: Denies easy bleeding Allergic/Immunologic Allergic/Immunologic: Denies wheezing PFSH All Active Problems (Updated 10/15/22 @ 02:44 by Donn Zamora) DVT prophylaxis (Acute) Discharge planning issues (Acute) Non-ST elevation WA (NSTEMI) (Acute) Hyperbilirubinemia (Acute) Elevated troponin (Acute) Elevated d-dimer (Acute) Medical History (Updated 10/15/22 @ 02:44 by Donn Zamora) Anxiety Chronic kidney disease Claustrophobia Diabetes mellitus Essential hypertension Heart failure with preserved ejection fraction HLD (hyperlipidemia) Left femoral shaft fracture Left humeral fracture Morbid obesity Primary osteoarthritis of right knee Restless leg syndrome Surgical History (Updated 10/15/22 @ 02:23 by Donn Zamora) Status post fracture of femur surgical repar Social History (Updated 10/15/22 @ 02:21 by Donn Zamora) Smoking/Tobacco Use Status: Never Smoking risk assessment performed?: Yes Alcohol Intake: former Drug use: Never Substance use type: does not use Housing: [facility] Current gender identity: female Do you feel safe at home: Yes Do you feel safe in your relationship?: Yes Additional Social history: Living at [facility] since 2020 Female Reproductive History Menstrual Menopause type: natural Meds Allergies and Home Medications Allergies Allergy/AdvReac Type Severity Reaction Status Date / Time albuterol [From ProAir HFA] Allergy Unverified 10/12/21 15:29 amoxicillin Allergy Verified 10/12/21 15:29 bee venom protein (honey bee) Allergy Unverified 10/12/21 15:54 cephalexin Allergy Unverified 10/12/21 15:29 exenatide Allergy Unverified 10/12/21 15:54 guaifenesin Allergy Unverified 10/12/21 15:29 hydrocodone [From Vicodin] Allergy Unverified 10/12/21 15:29 omeprazole [From Prilosec] Allergy Unverified 10/12/21 15:29 promethazine Allergy Unverified 10/12/21 15:29 simvastatin Allergy Unverified 10/12/21 15:29 fluconazole AdvReac Intermediate feels like Unverified 10/12/21 15:29 bugs crawling on her lisinopril AdvReac NAUSEA Verified 10/12/21 15:29 Home Medications Medication Instructions Recorded Confirmed Type hydrochlorothiazide 50 mg tablet 50 mg PO QAM 02/04/19 10/14/22 History tramadol 50 mg tablet 50 mg PO TID PRN 02/04/19 10/14/22 History acetaminophen 500 mg tablet 1,000 mg PO .Q6HRS PRN 01/26/21 10/14/22 History albuterol 90 mcg/actuation aerosol 180 mcg inhalation Q4H PRN PRN 01/26/21 10/14/22 History inhaler amlodipine 10 mg tablet 10 mg PO DAILY 01/26/21 10/14/22 History cholecalciferol (vitamin D3) 125 125 mcg PO .Q Monday01/26/21 10/14/22 History mcg (5,000 unit) capsule cyanocobalamin (vitamin B-12) 500 1,000 mcg PO DAILY 01/26/21 10/14/22 History mcg tablet docusate sodium 100 mg capsule 100 mg PO .HS PRN 01/26/21 10/14/22 History ferrous sulfate 325 mg (65 mg 325 mg PO QAM 01/26/21 10/14/22 History iron) capsule,extended release gabapentin 300 mg capsule 300 mg PO HS 01/26/21 10/14/22 History hydromorphone 2 mg tablet 2 mg PO Q6H PRN 01/26/21 10/14/22 History insulin glargine 100 unit/mL (3 25 unit subcut HS 01/26/21 10/14/22 History mL) subcutaneous pen (Lantus Solostar U-100 Insulin) losartan 100 mg tablet 100 mg PO DAILY 01/26/21 10/14/22 History montelukast 10 mg tablet 10 mg PO DAILY 01/26/21 10/14/22 History ondansetron HCl 8 mg tablet 8 mg PO Q8H PRN 01/26/21 10/14/22 History pantoprazole 40 mg tablet,delayed 40 mg PO BID 01/26/21 10/14/22 History release polyethylene glycol 3350 17 17 g PO .QHS PRN 01/26/21 10/14/22 History gram/dose oral powder (Miralax) sucralfate 1 gram tablet 1 g PO AC & HS #0 tabs 01/29/21 10/14/22 Rx cyclobenzaprine 5 mg tablet 5 mg PO DAILY PRN Pain 04/01/21 10/14/22 History magnesium oxide 400 mg PO DAILY 04/01/21 10/14/22 History metformin 500 mg tablet 500 mg PO BID 04/01/21 10/14/22 History hydromorphone 2 mg tablet 2 mg PRN PRN 06/25/21 10/14/22 History (Dilaudid) simvastatin 40 mg tablet 40 mg PO .QHS 06/25/21 10/14/22 History aspirin 81 mg chewable tablet 81 mg PO DAILY 10/12/21 10/14/22 History bisacodyl 10 mg rectal suppository 10 mg AK DAILY PRN 10/12/21 10/14/22 History (Dulcolax (bisacodyl)) carvedilol 6.25 mg tablet 6.25 mg PO BID 10/12/21 10/14/22 History cyanocobalamin (vitamin B-12) 100 1,000 mcg QMONTH 10/12/21 10/14/22 History mcg/mL injection solution insulin aspart U-100 100 unit/mL 1 sliding scale dose subcut 10/12/21 10/14/22 History (3 mL) subcutaneous pen (Novolog USEASDIRECTD FlexPen U-100 Insulin aspart) magnesium hydroxide 400 mg/5 mL 30 ml PO DAILY PRN 10/12/21 10/14/22 History oral suspension methylphenidate HCl 5 mg tablet 5 mg PO DAILY 10/12/21 10/14/22 History potassium chloride 20 mEq/15 mL 10 meq PO DAILY 10/12/21 10/14/22 History oral liquid sertraline 50 mg tablet 50 mg PO DAILY 10/12/21 10/14/22 History sodium phosphates 19 gram-7 118 ml AK DAILY PRN 10/12/21 10/14/22 History gram/118 mL enema (Fleet Enema) spironolactone 25 mg tablet 25 mg PO DAILY 10/12/21 10/14/22 History torsemide 20 mg tablet 40 mg PO DAILY 10/12/21 10/14/22 History Exam Narrative Exam Narrative: GEN: Sleepy, speaks softly and slowly but oriented, pleasant and cooperative, gives linear history but minimal details. No acute distress at rest. HEENT: Head atraumatic. Conjunctiva clear, no icterus. PEERL, EOMI. no rhino rrhea. MMM, OP benign. Neck is supple with no masses or lymphadenopathy, trachea midline LUNGS: Normal effort lying in bed, rales 1/3 up posterior lung kerns CV: RRR with no murmurs, gallops, or rubs. ABD: +BS, soft, NT/ND EXT: no cyanosis, clubbing. 2+chai edema to knees chai. A little tender along the shins but not otherwise to palpation MSK: No joint redness or swelling NEURO: CN 2-12 grossly intact. Normal movement of 4 extremities. Normal oordination. Speech slow but intellible. SKIN: No rashes or open wounds. PSYCH: Mood and affect depressed Results Imaging Chest x-ray: report reviewed (1. Bilateral increased interstitial lung markings and perihilar airspace consolidation which may represent developing pulmonary edema. Differential diagnosis of a bilateral pneumonitis. 2. Ca rdiomegaly. 3. Minor bilateral pleural effusions.) EKG: image reviewed ( 18:59 and 22:00 both NSR, nl axis, no STEMI, flat Ts laterally, no significant change) Labs 10/14/22 18:15 10/14/22 18:15 Labs: Laboratory Results - last 24 hr 08/11/23 08/11/23 08/11/23 18:15 18:15 18:15 WBC 4.03 L RBC 2.95 L Hgb 8.1 L Hct 26.9 L MCV 91 MCH 27.5 MCHC 30.1 L RDW 15.9 H Plt Count 153 MPV 10.0 Immature Gran % 0.2 Neutrophils % 68.3 Lymphocytes % 15.4 Monocytes % 10.4 Eosinophils % 5.5 Basophils % 0.2 Nucleated RBC % 0.0 Absolute Neutrophils 2.75 Absolute Lymphocytes 0.62 L Absolute Monocytes 0.42 Absolute Eosinophils 0.22 Absolute Basophils 0.01 Sodium 139 Potassium 4.9 Chloride 109 H Carbon Dioxide 20.3 L Anion Gap 9.7 BUN 44 H Creatinine 2.6 H Est GFR (CKD-EPI 2020) 20.88 Glucose 114 H Calcium 7.6 L Total Bilirubin 0.2 AST 21 ALT 10 L Alkaline Phosphatase 198 H Troponin I 4702 H* NT-Pro-B Natriuret Pep 59266 H Total Protein 5.9 L Albumin 1.9 L Digoxin 10/14/22 10/15/22 21:00 05:35 WBC RBC Hgb Hct MCV MCH MCHC RDW Plt Count MPV Immature Gran % Neutrophils % Lymphocytes % Monocytes % Eosinophils % Basophils % Nucleated RBC % Absolute Neutrophils Absolute Lymphocytes Absolute Monocytes Absolute Eosinophils Absolute Basophils Sodium Potassium Chloride Carbon Dioxide Anion Gap BUN Creatinine Est GFR (CKD-EPI 2020) Glucose Calcium Total Bilirubin AST ALT Alkaline Phosphatase Troponin I 5162 H* NT-Pro-B Natriuret Pep Total Protein Albumin Digoxin Cancelled Last Vital Signs Temp 36.3 C L 10/15/22 00:28 Pulse 58 L 10/15/22 02:01 Resp 16 10/15/22 00:49 BP 154/82 H 10/15/22 02:01 Pulse Ox 97 10/15/22 02:01 Time Spent Time spent with Patient: >75 minutes Time was spent: preparing to see the patient(eg.review tests), obtaining and/or reviewing separately otained hiistory, ordering medications,tests, procedures, referring, communicating with other health care worker, indepentently interpreting results and counseling the patient
[2022-10-15] MEDS: Atorvastatin 40 MG TAB 80 MG PO (02:28)
[2022-10-15] MEDS: DEXTROSE 5%-0.45% SALINE 1,000 ML 75 ML IV (02:39)
[2022-10-15 03:08] LABS: HCT 27.4 % (36.0-46.0); HGB 8.3 g/dL (11.2-15.7); MCH 27.5 pg (27.0-33.0); MCHC 30.3 % (32.0-36.0); MCV 91 fL (80-95); MPV 9.8 fL (8.0-11.0); Platelet Count 154 10^3/uL (130-400); RBC 3.02 10^6/uL (3.93-5.22); RDW 15.8 % (11.7-14.6); RDW-SD 52.6 fL; WBC 3.73 10^3/uL (4.4-10.8)
[2022-10-15 03:17] LABS: Anion Gap 9.1 mmol/L (3-11); BUN 48 mg/dL (7-18); CO2 21.9 mmol/L (21.0-32.0); CREATININE 2.7 mg/dL (0.55-1.02); Calcium 8.1 mg/dL (8.5-10.1); Chloride 108 mmol/L (98-107); Estimated GFR 19.95 (mL/min/1.73m2); Glucose 77 mg/dL (74-106); Potassium 4.9 mmol/L (3.5-5.1); Sodium 139 mmol/L (136-145)
[2022-10-15 03:29] LABS: Troponin I 5239 ng/L (<or=60)
[2022-10-15 05:31] LABS: Prothrombin Time 10.6 sec (9.3-11.0)
[2022-10-15 07:17] LABS: HGB 8.6 g/dL (11.2-15.7); MCHC 29.7 % (32.0-36.0); MCV 91 fL (80-95); MPV 9.2 fL (8.0-11.0); Platelet Count 146 10^3/uL (130-400); RBC 3.18 10^6/uL (3.93-5.22); RDW 15.8 % (11.7-14.6); RDW-SD 53.3 fL; WBC 3.52 10^3/uL (4.4-10.8)
[2022-10-15 07:46] LABS: Troponin I 5368 ng/L (<or=60)
[2022-10-15] MEDS: Carvedilol 6.25 MG TAB PO (08:58)
[2022-10-15] MEDS: Losartan 50 MG TAB 100 MG PO (08:58)
[2022-10-15] MEDS: amLODIPine 10 MG TAB PO (09:00)
[2022-10-15] MEDS: hydroCHLOROthiazide 25 MG TAB 50 MG PO (09:00)
[2022-10-15] MEDS: Aspirin 81 MG CHEW PO (09:00)
[2022-10-15] MEDS: Magnesium Oxide 400 MG TAB PO (09:29)
[2022-10-15] MEDS: Methylphenidate 10 MG TAB 5 MG PO (09:29)
[2022-10-15] MEDS: Sertraline 50 MG TAB PO (09:29)
[2022-10-15] MEDS: Montelukast 10 MG TAB PO (09:29)
[2022-10-15] MEDS: Pantoprazole 40 MG VIAL IVP (09:30)
[2022-10-15] MEDS: Spironolactone 25 MG TAB PO (09:30)
--- NOTE | 2022-10-15 10:31 | NUR.NOTE ---
Picc line team assistant is unable to place Midline because of poor access but is now attempting peripheral access.Nursing Note:
--- NOTE | 2022-10-15 10:46 | NUR.NOTE ---
Midline and peripheral access unsuccessful by Picc line long line teamster. RN will contact Dr. Latham to see if he might want a central line placed by surgery.Nursing Note:
[2022-10-15] MEDS: Heparin in 0.45% NaCl 25,000 UNIT/250 ML BAG 14.5 UNIT IV (11:24)
--- NOTE | 2022-10-15 11:40 | INITIAL_ITS ---
Date of service: 10/15/22 Time of Service: 11:43 Care Management Initial Assmt Initial Assessment REASON FOR HOSPITALIZATION:: NSTEMI, heart failure PREVIOUS FUNCTIONAL STATUS/SOCIAL/FAMILY SUPPORTS:: Desiree currently resides at [facility], where she has lived since 2020. She is , and has a sister who lives nearby. She requires assistance with ADL's. CURRENT FUNCTIONAL STATUS:: Desiree was sleeping when CM attempted to meet with her. CM did not wake her, as she is waiting to be transferred. Per , she was accepted at [facility], pending bed availability. She will transport via EMS, coordinated by RN administrative staff supervisor. CM will continue to follow. ADVANCE DIRECTIVES:: Not on file; CM will offer forms. Has patient been provided with info about the portal/API?: Yes Did the patient sign up for the portal?: Yes CODE STATUS:: Full Code INSURANCE COVERAGE / FINANCIAL ISSUES:: MCR/LUDMILA CURRENT HOME/COMMUNITY SERVICES/EQUIPMENT:: FWW. Desiree lives at [facility], where she has support for ADLs. PRIMARY CARE PHYSICIAN:: facility provider POTENTIAL DISCHARGE NEEDS:: Coordinated return to SNF vs transfer PATIENT/FAMILY EDUCATION NEEDS:: Review discharge instructions and limitations, discussion of self care needs including ask me three. ANTICIPATED BARRIERS TO DISCHARGE:: None identified. TRANSPORTATION:: EMS transport for transfer, coordinated by RN administrative staff supervisor PLAN:: Per , Desiree has been accepted in transfer by [facility], pending bed availability. She will transport via EMS, coordinated by RN administrative staff supervisor. She will follow up with her PCP and discharge plan of care. CM will continue to follow. PFSH All Active Problems (Updated 10/15/22 @ 02:44 by Donn Zamora) DVT prophylaxis (Acute) Discharge planning issues (Acute) Non-ST elevation [place] (NSTEMI) (Acute) Hyperbilirubinemia (Acute) Elevated troponin (Acute) Elevated d-dimer (Acute) Medical History (Updated 10/15/22 @ 02:44 by Donn Zamora) Anxiety Chronic kidney disease Claustrophobia Diabetes mellitus Essential hypertension Heart failure with preserved ejection fraction HLD (hyperlipidemia) Left femoral shaft fracture Left humeral fracture Morbid obesity Primary osteoarthritis of right knee Restless leg syndrome Surgical History (Updated 10/15/22 @ 02:23 by Donn Zamora) Status post fracture of femur surgical repar Social History (Updated 10/15/22 @ 02:21 by Donn Zamora) Smoking/Tobacco Use Status: Never Smoking risk assessment performed?: Yes Alcohol Intake: former Drug use: Never Substance use type: does not use Housing: assisted Current gender identity: female Do you feel safe at home: Yes Do you feel safe in your relationship?: Yes Additional Social history: Living at [facility] since 2020 Female Reproductive History Menstrual Menopause type: natural
[2022-10-15 12:34] LABS: INR 1.1 (0.9-1.1); Prothrombin Time 10.7 sec (9.3-11.0)
[2022-10-15 13:28] LABS: PTT Activated 108.6 sec (21.5-31.9)
--- NOTE | 2022-10-15 15:53 | W.PM.DS.N ---
Date of service: 10/15/22 Time of Service: 15:53 DS: Diagnosis Discharge Diagnosis (1) Non-ST elevation UT (NSTEMI): Status: Acute Asessment and Plan: Initial troponin of 4702. It then elevated: 5162>5239>5368. Heparin drip initiated. Continued aspirin, BB and statin. She had no further chest pain or diaphorses. She remained lethargic but responsive and not confused. (2) Anemia: Status: Inactive Asessment and Plan: Initial hemoglobin 8.1. Improved to 8.6. (3) Chronic kidney disease: Asessment and Plan: Creatinine of 2.6, 2.7. Her baseline is not clear but on 03/10/22 her creatinine was 1.6. (4) Diabetes mellitus: Asessment and Plan: Her A1c was last 5.7, suggesting she is being overtreated.? Her basal insulin dose was decreased.? Her GFR is now too low for metformin so this was stopped.? She is receiving D5 containing fluids while she is NPO. (5) Discharge planning issues: Status: Acute Asessment and Plan: Accepted at [facility] for cardiac catheterization. Discharge Plan Disposition Patient Disposition: Transfer-Acute Inpatient Care Specific Acute In Facility: [facility] Condition: Serious Discharge Details Reason For Visit: NSTEMI, heart failure Admit Date/Time: 10/14/22 23:03 Admit Provider: Donn aZmora Attending Provider: Donn Zamora Primary Care Provider: Unknown,Unknown Hospital Course Hospital Course: This is a 56 yo F with history of CAD, DM, mobid obesity, and complicated leg fracture that left her dependant on nursing care and living at [facility] who presented with general fatigue and malaise since Monday, 5.5 days prior to admission.? On that day she had upper chest pain that she felt in both arms, both arms were trembling.? She thought it was a panic attack.? At the time she felt she needed to sit up to breath.? She was able to sleep and the pain resolved the next day.? Since then, however, she has had general fatigue and feeling down.? She denied current chest pain or shortness of breath.? She never had palpitations or syncope.? She has not been eating as well this week.? She has not had other pains.? Her legs do feel more swollen. Her initial troponin was 5162. EKG showed abnormal T wave in lateral leads; [place] [address]. [facility] cardiology accepted pt when bed available. See Diagnosis Home Meds and New Rx's Prescriptions: No Action hydrochlorothiazide 50 mg tablet 50 mg PO QAM tramadol 50 mg tablet 50 mg PO TID PRN hydromorphone 2 mg Tablet 2 mg PO Q6H PRN Rx Instructions: end 01/27 cyanocobalamin (vitamin B-12) 500 mcg Tablet 1,000 mcg PO DAILY amlodipine 10 mg Tablet 10 mg PO DAILY docusate sodium 100 mg Capsule 100 mg PO .HS PRN polyethylene glycol 3350 [Miralax] 17 gram/dose Powder 17 g PO .QHS PRN losartan 100 mg Tablet 100 mg PO DAILY cholecalciferol (vitamin D3) 125 mcg (5,000 unit) Capsule 125 mcg PO .Q MONDAY ferrous sulfate 325 mg (65 mg iron) Capsule, Extended Release 325 mg PO QAM insulin glargine [Lantus Solostar U-100 Insulin] 100 unit/mL (3 mL) Insulin Pen 25 unit SUBCUT HS acetaminophen 500 mg Tablet 1,000 mg PO .Q6HRS PRN gabapentin 300 mg Capsule 300 mg PO HS ondansetron HCl 8 mg Tablet 8 mg PO Q8H PRN albuterol 90 mcg/actuation Aerosol 180 mcg INHALATION Q4H PRN PRN Rx Instructions: 2 PUFFS EVERY 4 TO 6 HOURS NEEDED montelukast 10 mg Tablet 10 mg PO DAILY pantoprazole 40 mg Tablet,Delayed Release (Dr/Ec) 40 mg PO BID sucralfate 1 gram Tablet 1 g PO AC & HS Qty: 0 0RF cyclobenzaprine 5 mg Tablet 5 mg PO DAILY PRN (Reason: Pain) magnesium oxide 400 mg magnesium Capsule 400 mg PO DAILY metformin 500 mg Tablet 500 mg PO BID simvastatin 40 mg Tablet 40 mg PO .QHS hydromorphone [Dilaudid] 2 mg tablet 2 mg PRN PRN Patient Comments: Take 1 tablet by mouth twice a day as needed for pain aspirin 81 mg Tablet,Chewable 81 mg PO DAILY carvedilol 6.25 mg Tablet 6.25 mg PO BID Rx Instructions: must administer with a meal/food cyanocobalamin (vitamin B-12) 100 mcg/mL Solution 1,000 mcg QMONTH bisacodyl [Dulcolax (bisacodyl)] 10 mg Suppository 10 mg NJ DAILY PRN Fleet Enema 19-7 gram/118 mL Enema 118 ml NJ DAILY PRN torsemide 20 mg Tablet 40 mg PO DAILY methylphenidate HCl 5 mg Tablet 5 mg PO DAILY spironolactone 25 mg Tablet 25 mg PO DAILY potassium chloride 20 mEq/15 mL Liquid 10 meq PO DAILY magnesium hydroxide 400 mg/5 mL Suspension 30 ml PO DAILY PRN sertraline 50 mg Tablet 50 mg PO DAILY insulin aspart U-100 [Novolog FlexPen U-100 Insulin] 100 unit/mL (3 mL) Insulin Pen 1 sliding scale dose SUBCUT USEASDIRECTD Discharge Instructions Activity:: Bedrest Equipment/Supplies:: No Equipment Needed Diet:: NPO Discharge Orders Discharge Orders: Discharge Order (Routine); Ordered 10/15/22 Ordered By: Casey Latham DS: Summary Time Spent with Patient providing and/or coordinating discharge services: Greater than 30 minutes Status at Discharge Functional status at discharge: independent ambulation Overall status at discharge: patient is not back to baseline Mental Status: mental status grossly normal Speech and Movement: speech clear Mood: euthymic mood Affect: blunted Exam Psych Mental Status: mental status grossly normal Speech and Movement: speech clear Mood: euthymic mood Affect: blunted DS: Data Vitals/I&O Vitals and I&O: Vital Signs Temperature 36.3 C L 10/15/22 14:15 Temperature Source Temporal Artery Scan 10/15/22 14:15 Pulse 58 L 10/15/22 14:15 Pulse 59 L 10/15/22 14:08 Respiratory Rate 13 10/15/22 14:15 Respiratory Effort Normal 10/15/22 14:15 Respiratory Depth Normal 10/15/22 14:15 Respiratory Pattern Normal 10/15/22 14:15 Blood Pressure 151/69 H 10/15/22 14:15 Blood Pressure Mean 96 10/15/22 14:15 Blood Pressure Position Supine 10/15/22 14:15 Pulse Oximetry 95 10/15/22 14:15 Oxygen Delivery Method Room Air 10/15/22 14:15 Oxygen Flow Rate 0 10/15/22 14:15 Pain Level 0 10/15/22 14:15 Intake & Output 10/14/22 10/15/2223 23:59 11:59 23:59 Intake Total 636.250 / 666.700 30.45 / 666.700 Output Total 800 / 800 Balance -163.750 / -133.300 30.45 / -133.300 Weight 138.346 kg 138.34 kg Intake: IV 636.250 / 666.700 30.45 / 666.700 Output: Urine 800 / 800 Other: Urine Color Yellow Urine Appearance Cloudy Urine Odor None Comment Patient is on a lasix drip and is putting sufficient amount of urine through her collazo catheter. Patient has a collazo catheter Voiding Methods Indwelling Catheter Data Completed and Pending Labs on day of discharge: Labs from last 24 hours 10/15/22 10/15/22 10/15/22 21:00 12:14 12:14 WBC RBC Hgb Hct MCV MCH MCHC RDW Plt Count MPV Immature Gran % Neutrophils % Lymphocytes % Monocytes % Eosinophils % Basophils % Nucleated RBC % Absolute Neutrophils Absolute Lymphocytes Absolute Monocytes Absolute Eosinophils Absolute Basophils PT 10.7 INR 1.1 APTT Pending 108.6 H* Sodium Potassium Chloride Carbon Dioxide Anion Gap BUN Creatinine Est GFR (CKD-EPI 2020) Glucose Calcium Total Bilirubin AST ALT Alkaline Phosphatase Troponin I NT-Pro-B Natriuret Pep Total Protein Albumin Digoxin 10/15/22 10/15/22 10/15/22 07:10 07:10 05:35 WBC 3.52 L RBC 3.18 L Hgb 8.6 L Hct 29.0 L MCV 91 MCH 27.0 MCHC 29.7 L RDW 15.8 H Plt Count 146 MPV 9.2 Immature Gran % Neutrophils % Lymphocytes % Monocytes % Eosinophils % Basophils % Nucleated RBC % Absolute Neutrophils Absolute Lymphocytes Absolute Monocytes Absolute Eosinophils Absolute Basophils PT INR APTT Sodium Potassium Chloride Carbon Dioxide Anion Gap BUN Creatinine Est GFR (CKD-EPI 2020) Glucose Calcium Total Bilirubin AST ALT Alkaline Phosphatase Troponin I 5368 H* NT-Pro-B Natriuret Pep Total Protein Albumin Digoxin Cancelled 10/15/22 10/15/22 10/15/22 02:56 02:56 02:56 WBC 3.73 L RBC 3.02 L Hgb 8.3 L Hct 27.4 L MCV 91 MCH 27.5 MCHC 30.3 L RDW 15.8 H Plt Count 154 MPV 9.8 Immature Gran % Neutrophils % Lymphocytes % Monocytes % Eosinophils % Basophils % Nucleated RBC % Absolute Neutrophils Absolute Lymphocytes Absolute Monocytes Absolute Eosinophils Absolute Basophils PT 10.6 INR 1.0 APTT Sodium 139 Potassium 4.9 Chloride 108 H Carbon Dioxide 21.9 Anion Gap 9.1 BUN 48 H Creatinine 2.7 H Est GFR (CKD-EPI 2020) 19.95 Glucose 77 Calcium 8.1 L Total Bilirubin AST ALT Alkaline Phosphatase Troponin I NT-Pro-B Natriuret Pep Total Protein Albumin Digoxin 10/15/22 10/14/22 10/14/22 02:56 21:00 18:15 WBC RBC Hgb Hct MCV MCH MCHC RDW Plt Count MPV Immature Gran % Neutrophils % Lymphocytes % Monocytes % Eosinophils % Basophils % Nucleated RBC % Absolute Neutrophils Absolute Lymphocytes Absolute Monocytes Absolute Eosinophils Absolute Basophils PT INR APTT Sodium Potassium Chloride Carbon Dioxide Anion Gap BUN Creatinine Est GFR (CKD-EPI 2020) Glucose Calcium Total Bilirubin AST ALT Alkaline Phosphatase Troponin I 5239 H* 5162 H* NT-Pro-B Natriuret Pep 85648 H Total Protein Albumin Digoxin 10/14/22 10/14/22 18:15 18:15 WBC 4.03 L RBC 2.95 L Hgb 8.1 L Hct 26.9 L MCV 91 MCH 27.5 MCHC 30.1 L RDW 15.9 H Plt Count 153 MPV 10.0 Immature Gran % 0.2 Neutrophils % 68.3 Lymphocytes % 15.4 Monocytes % 10.4 Eosinophils % 5.5 Basophils % 0.2 Nucleated RBC % 0.0 Absolute Neutrophils 2.75 Absolute Lymphocytes 0.62 L Absolute Monocytes 0.42 Absolute Eosinophils 0.22 Absolute Basophils 0.01 PT INR APTT Sodium 139 Potassium 4.9 Chloride 109 H Carbon Dioxide 20.3 L Anion Gap 9.7 BUN 44 H Creatinine 2.6 H Est GFR (CKD-EPI 2020) 20.88 Glucose 114 H Calcium 7.6 L Total Bilirubin 0.2 AST 21 ALT 10 L Alkaline Phosphatase 198 H Troponin I 4702 H* NT-Pro-B Natriuret Pep Total Protein 5.9 L Albumin 1.9 L Digoxin 10/14/22 23:38 Nose MRSA Screen - Pending Preliminary micro results at discharge 10/14/22 23:38 MRSA Screen - Pending Nose PFSH All Active Problems DVT prophylaxis (Acute) Discharge planning issues (Acute) Non-ST elevation UT (NSTEMI) (Acute) Hyperbilirubinemia (Acute) Elevated troponin (Acute) Elevated d-dimer (Acute) Medical History Anxiety Chronic kidney disease Claustrophobia Diabetes mellitus Essential hypertension Heart failure with preserved ejection fraction HLD (hyperlipidemia) Left femoral shaft fracture Left humeral fracture Morbid obesity Primary osteoarthritis of right knee Restless leg syndrome Surgical History Status post fracture of femur surgical repar Social History Smoking/Tobacco Use Status: Never Smoking risk assessment performed?: Yes Alcohol Intake: former Drug use: Never Substance use type: does not use Housing: retirement Current gender identity: female Do you feel safe at home: Yes Do you feel safe in your relationship?: Yes Additional Social history: Living at [facility] since 2020 Female Reproductive History Menstrual Menopause type: natural Time Spent with Patient Time Spent with Patient: 45-69 minutes Time was spent: preparing to see the patient(eg.review tests), obtaining and/or reviewing separately otained hiistory, ordering medications,tests, procedures, referring, communicating with other health landcare facilitator, indepentently interpreting results, counseling the patient and care coordination
[2022-10-15] MEDS: Sucralfate 1 GM TAB PO (17:26)
[2022-10-15] MEDS: Glucose Oral Gel 15 GM/37.5 GM TUBE PO (17:26)
[2022-10-15 18:12] LABS: Lab Add On Test DONE
[2022-10-15 18:19] LABS: Magnesium 2.1 mg/dL (1.8-2.4)
[2022-10-15 19:41] LABS: PTT Activated 45.5 sec (21.5-31.9)
--- NOTE | 2022-10-15 20:31 | NUR.NOTE ---
Pt encouraged to call/text to notify family EMS not coming sometime after 1900. PT used her cell phone to contact familyNursing Note:
== END 2022-10-15 19:55 | disposition short-term general hospital (02) | DRG 281 ==
LOC: ER 17:17 → ICU 10-15 00:12
PROVIDERS: Family Medicine; Admitting Provider Family Medicine; Emergency Provider Nurse Practitioner Acute Care; Visit Provider Family Medicine
DX: I21.4 Non-ST elevation (NSTEMI) myocardial infarction (principal); I13.0 Hypertensive heart and chronic kidney disease with heart failure and stage 1 through stage 4 chronic kidney disease, or unspecified chronic kidney disease; Z68.43 Body mass index [BMI] 50.0-59.9, adult; I50.30 Unspecified diastolic (congestive) heart failure; N18.9 Chronic kidney disease, unspecified; E11.22 Type 2 diabetes mellitus with diabetic chronic kidney disease; D64.9 Anemia, unspecified; Z79.4 Long term (current) use of insulin; I25.10 Atherosclerotic heart disease of native coronary artery without angina pectoris; E66.01 Morbid (severe) obesity due to excess calories; R53.1 Weakness; R79.1 Abnormal coagulation profile; G25.81 Restless legs syndrome; M17.11 Unilateral primary osteoarthritis, right knee; E78.5 Hyperlipidemia, unspecified
CPT/HCPCS: 36415; 36416; 80048; 80053; 82962; 85027; 87081; 93005; 96374; 96376; 99285; 71045; 80162; 83735; 83880; 84484; 85025; 85610; 85730; 93010; 99239; J1940; J1941; J3490

== ENCOUNTER 2022-11-02 08:44 | Emergency (ER) | payer MEDICARE, MEDICAID, SELFPAY ==
[2022-11-02] VITALS (132 sets, daily range): BP systolic 76–161; BP diastolic 16–96; PULSE 50–93; RESP 12–29; TEMP 36.1–36.6; O2SAT 67–95
--- NOTE | 2022-11-02 08:45 | RT.EKG_ITS ---
APPROVED REPORT Exam: Resting ECG Reason for Exam: hypoxia Patient Location: E HR:87 bpm ECG Measurements Heart Rate 87 AXIS FL 173 P 18 QRSd 107 QRS -2 QT 371 T 136 QTc 447 Conclusion Sinus rhythm...normal P axis, V-rate 60- 99 Incomplete left bundle branch block...QRSd>110mS, terminal axis(-90,-1) Low voltage, precordial leads...precordial leads <1.0mV
[2022-11-02] MEDS: Rocuronium 50 MG/5 ML SYR 100 MG IVP (09:00)
[2022-11-02] MEDS: Etomidate 20 MG/10 ML VIAL IVP (09:00)
--- NOTE | 2022-11-02 09:00 | DI.CT_ITS ---
Exam(s) CT BRAIN NECK CTA EXAM: CT BRAIN NECK CTA CLINICAL HISTORY: left sided weakness this AM with speech deficit. TECHNIQUE: Imaging Protocol: Axial CT angiography was performed with multi-slice acquisition and mu lti-planar and 3D reconstructions. CONTRAST MATERIAL: Intravenous: Omnipaque 350 Contrast volume:100 ml COMPARISON: CT CT ABDOMEN PELVIS WO from 10/12/2021 CR,XR XR PORTABLE CHEST AP from 10/14/2022 FINDINGS: CT Head W/O and W contrast: Ventricles and Extra axial spaces: Normal in size and morphology for the patient's age. Hemorrhage: None. Cerebral parenchyma: Patchy areas low attenuation in the white matter consistent with microvascular d isease. Midline shift: None. Brainstem/Cerebellum: Normal. Calvarium: Normal. Visualized Paranasal sinuses/Mastoids: Mucous retention within left maxillary sinus. Fluid/secretion s in the posterior nasal cavity. Soft Tissues: Unremarkable. Enhancement: Normal. CTA Brain W: Internal Carotid Arteries: Petrous: Normal. Cavernous: Normal. Cerebral: Normal. Middle Cerebral Arteries: Right: No aneurysm, occlusion or significant stenosis. Left: No aneurysm, occlusion or significant stenosis. Anterior Cerebral Arteries: Right: No aneurysm, occlusion or significant stenosis. Left: No aneurysm, occlusion or significant stenosis. Posterior cerebral Arteries: Right: No aneurysm, occlusion or significant stenosis. Left: No aneurysm, occlusion or significant stenosis. Vertebral Arteries: Right: No aneurysm, occlusion or significant stenosis. Left: No aneurysm, occlusion or significant stenosis. Basilar Artery: No aneurysm, occlusion or significant stenosis. CTA Neck W: Common Carotid: Right: Calcification at the common carotid bulb. No dissection, occlusion or significant stenosis. Left: Calcification at the common carotid bulb. No dissection, occlusion or significant stenosis. External Carotid: Right: No dissection, occlusion or significant stenosis. Left: No dissection, occlusion or significant stenosis. Internal Carotid: Right: No dissection, occlusion or significant stenosis. Left: No dissection, occlusion or significant stenosis. Vertebral Artery: Right: Distal calcifications. No dissection, occlusion or significant stenosis. Left: Distal calcification. No dissection, occlusion or significant stenosis. Bones: No acute abnormality. Soft Tissues: Normal. Endotracheal tube. IMPRESSION: 1. Normal CTA examination of the [place]. 2. Head CT: No acute abnormality. White matter changes of small vessel disease. 3. CTA of the neck: Calcification at the common carotid bulb without significant stenosis. Calcifica tion of the distal vertebral arteries without significant stenosis. RADIATION DOSE DELIVERED: 2,468.45mGy.cm Total DLP DATA REPOSITORY: All CT scans at this facility are submitted to the National Radiology Data Registry (NRDR) Dose Index Registry (DIR) with the [employer] (A[employer]). RADIATION OPTIMIZATION: All CT scans at this facility use at least one of these dose optimization te chniques: automated exposure control; mA and/or kV adjustment per patient size (includes targeted exa ms where dose is matched to clinical indication); or iterative reconstruction.
--- NOTE | 2022-11-02 09:00 | DI.CT_ITS ---
Exam(s) CT CHEST PE CTA EXAM: CT CHEST PE CTA CLINICAL HISTORY: respiratory arrest. TECHNIQUE: Imaging Protocol: Axial CT angiography was performed with multi-slice acquisition and mu lti-planar reconstructions as well as axial, coronal and sagittal MIP reconstructions. CONTRAST MATERIAL: Intravenous: Omnipaque 350 Contrast volume:100 ml COMPARISON: CR,XR XR PORTABLE CHEST AP from 08/15/[address] ABDOMEN PELVIS WO from 10/12/2021 CR,XR XR PORTABLE CHEST AP from 10/14/[address] BRAIN NECK CTA from 11/02/2022 FINDINGS: Pulmonary Arteries: No evidence of filling defect to suggest pulmonary emboli. Tracheobronchial tree: Patent where visualized. Mediastinum and Myla: No dominant adenopathy or fluid collection. Pulmonary parenchyma: Extensive consolidation of the right lung both upper and lower lobes. Consolid ation in portions of the left lung, greatest posteromedially. Pleura: No pneumothorax. Small bilateral pleural effusions. Heart: The heart is dilated. Severe coronary artery calcifications are seen versus stents. Aorta: Thoracic aorta non-dilated. No aneurysm. No dissection. Upper abdomen: Small amount of ascites. Cirrhotic appearing liver. Enlarged spleen. Bones: Stable T12 mild compression fracture. Tubes, Catheters, and Lines: Endotracheal tube positioned with tip at the level of the aortic arch. IMPRESSION: No evidence of pulmonary embolism or aortic dissection.. Severe bilateral pulmonary consolidation, right greater than left. Small bilateral pleural effusions . Findings called to Dr. Chapman of the emergency department. RADIATION DOSE DELIVERED: 1,155.22mGy.cm Total DLP DATA REPOSITORY: All CT scans at this facility are submitted to the National Radiology Data Registry (NRDR) Dose Index Registry (DIR) with the [employer] (ACR). RADIATION OPTIMIZATION: All CT scans at this facility use at least one of these dose optimization te chniques: automated exposure control; mA and/or kV adjustment per patient size (includes targeted exa ms where dose is matched to clinical indication); or iterative reconstruction.
[2022-11-02] MEDS: PROPOFOL 500 MG/50 ML BTL 21.366 MG IV (09:03)
--- NOTE | 2022-11-02 09:11 | W.ED.GENAD ---
Discharge Plan Disposition Patient Disposition: Transfer-Acute Inpatient Care Specific Acute Inpt Facility: [facility] Discharge Details Clinical Impression: Acute respiratory failure, Pneumonia, Acute CHF, Chronic kidney disease Primary Care Provider: Unknown,Unknown ED Provider: Dakota Chapman Meds and New Rx's Prescriptions: No Action hydrochlorothiazide 50 mg tablet 50 mg PO QAM Patient Comments: not on med list tramadol 50 mg tablet 50 mg PO TID PRN hydromorphone 2 mg Tablet 2 mg PO Q6H PRN Patient Comments: not on med list Rx Instructions: end 01/27 cyanocobalamin (vitamin B-12) 500 mcg Tablet 1,000 mcg PO DAILY amlodipine 10 mg Tablet 10 mg PO DAILY docusate sodium 100 mg Capsule 100 mg PO .HS PRN polyethylene glycol 3350 [Miralax] 17 gram/dose Powder 17 g PO .QHS PRN losartan 100 mg Tablet 100 mg PO DAILY Patient Comments: not on med list cholecalciferol (vitamin D3) 125 mcg (5,000 unit) Capsule 125 mcg PO .Q MONDAY ferrous sulfate 325 mg (65 mg iron) Capsule, Extended Release 325 mg PO QAM insulin glargine [Lantus Solostar U-100 Insulin] 100 unit/mL (3 mL) Insulin Pen 25 unit SUBCUT HS acetaminophen 500 mg Tablet 1,000 mg PO .Q6HRS PRN gabapentin 300 mg Capsule 300 mg PO BID ondansetron HCl 8 mg Tablet 8 mg PO Q8H PRN albuterol 90 mcg/actuation Aerosol 180 mcg INHALATION Q4H PRN PRN Rx Instructions: 2 PUFFS EVERY 4 TO 6 HOURS NEEDED montelukast 10 mg Tablet 10 mg PO DAILY pantoprazole 40 mg Tablet,Delayed Release (Dr/Ec) 40 mg PO BID Patient Comments: not on med list sucralfate 1 gram Tablet 1 g PO AC & HS Qty: 0 0RF atorvastatin 80 mg Tablet 80 mg PO QHS azithromycin 250 mg Tablet See Rx Instructions .ROUTE .COMPLEX Rx Instructions: Take 1 tab 24 hours prior to dental procedure clopidogrel 75 mg Tablet 75 mg PO DAILY ropinirole 1 mg Tablet 1 mg PO QHS isosorbide mononitrate 60 mg Tablet Extended Release 24 Hr 60 mg PO DAILY magnesium hydroxide [Milk of Magnesia] 400 mg/5 mL Suspension 30 ml PO QHS PRN furosemide 80 mg Tablet 80 mg PO DAILY pantoprazole [Protonix] 40 mg Tablet,Delayed Release (Dr/Ec) 40 mg PO BID diphenhydramine HCl 25 mg Tablet 25 mg PO Q6H PRN gabapentin 300 mg Capsule 900 mg PO HS cyclobenzaprine 5 mg Tablet 5 mg PO DAILY PRN (Reason: Pain) magnesium oxide 400 mg magnesium Capsule 400 mg PO DAILY metformin 500 mg Tablet 1,000 mg PO BID simvastatin 40 mg Tablet 40 mg PO .QHS Patient Comments: not on med list hydromorphone [Dilaudid] 2 mg tablet 2 mg PRN PRN Patient Comments: not on med list aspirin 81 mg Tablet,Chewable 81 mg PO DAILY carvedilol 6.25 mg Tablet 6.25 mg PO BID Rx Instructions: must administer with a meal/food cyanocobalamin (vitamin B-12) 100 mcg/mL Solution 1,000 mcg QMONTH Patient Comments: not on med list bisacodyl [Dulcolax (bisacodyl)] 10 mg Suppository 10 mg NV DAILY PRN Fleet Enema 19-7 gram/118 mL Enema 118 ml NV DAILY PRN torsemide 20 mg Tablet 40 mg PO DAILY Patient Comments: not on med list methylphenidate HCl 5 mg Tablet 5 mg PO DAILY Patient Comments: not on med list spironolactone 25 mg Tablet 25 mg PO DAILY Patient Comments: not on med list potassium chloride 20 mEq/15 mL Liquid 10 meq PO DAILY Patient Comments: not on med list magnesium hydroxide 400 mg/5 mL Suspension 30 ml PO DAILY PRN Patient Comments: not on med list sertraline 50 mg Tablet 50 mg PO DAILY Patient Comments: not on med list insulin aspart U-100 [Novolog FlexPen U-100 Insulin] 100 unit/mL (3 mL) Insulin Pen 1 sliding scale dose SUBCUT USEASDIRECTD Patient Comments: not on med list Discharge Data Discharge Date/Time-TO BE ENTERED AT DEPARTURE: 11/02/22 16:17 Medical Decision Making 915 --56-year-old female with multiple medical problems including CAD, DM, mobid obesity, and CT and living at [facility], arrives in acute respiratory distress. Patient in severe critical condition on arrival. Patient tachycardic and hypoxic in the 70s despite high flow nonrebreather. Trial of high flow nonrebreather unsuccessful. Patient in acute respiratory failure. RSI was performed. Intubation successful on first attempt with glide scope. Patient did desaturate briefly for less than 30 seconds to 40s to 50s. Oxygenation improved dramatically postintubation into the upper 90s. For acute life-threatening pulmonary embolism versus CHF. Consider COVID disease. Will obtain CTA of the chest. Given apparent neurologic deficits at [facility] and rehab, consider CVA. Plan to obtain CT of the head and CTA of the head and neck. EKG was reviewed and interpreted by me: Please see report, sinus rhythm T wave in his inverted 1, aVL, V6 with ST depressions lateral. I compared to prior EKG from 10/14/2022 where she did have signs of lateral ischemia with less pronounced ST depressions. 930 --prior labs reviewed and patient does have history of chronic kidney disease. I think the benefit of CT imaging at this point to assess for acute life-threatening illness outweighs risk. -- Spoke with patient's and alerted him to condition. 1041 --patient reassessed multiple times. Remains hemodynamically stable. Propofol titrated down. Patient saturating in the mid 90s on 100% with PEEP of 10. She does have some desaturations to 80s with movements. Labs were reviewed: Leukocytosis noted. Elevated BNP as well as elevated troponin. Creatinine is elevated BUN is slightly elevated. Patient has received normal saline 500 mL bolus. ABG reviewed and within normal limits. This was performed on initial blood draw prior to intubation. CT of the head and CTA of the head and neck interpreted by radiology: Negative. CT of the chest was interpreted by radiology: No pulmonary embolism, dense bilateral pulmonary consolidation right greater than left with small effusion. Concern for pneumonia. COVID is pending. I will initiate treatment with antibiotic coverage vancomycin and Levaquin, patient has allergy listed to cephalosporins and penicillin. Lactate and blood cultures now pending. Note atypical presentation for pneumonia given history. RT with the patient performing ventilator adjustments. I have consulted critical care and spoke with Dr. Gonzalez regarding ED presentation and course and she will evaluate the patient at this time. 1115 --she was seen by Dr. Gonzalez who performed bedside POCUS and visualize B-lines. She is recommending Lasix IV. She recommends transfer to tertiary care facility. Trauma transfer center has already been called and awaiting callback from critical care team. 1125 --I spoke with Dr. Corbett, critical care physician at [facility], discussed ED presentation and course, no further recommendations regarding care at this point, Dr. Padilla will be receiving physician. Awaiting bed availability. 1330 --troponin is trending up and now 478. Repeat EKG was reviewed and interpreted by me: ST depressions less pronounced. Attempted to contact [facility] accepting physician to discuss treatment recommendations. Awaiting callback. I will initiate treatment with heparin ACS protocol. 1530-- Patient was started on fentanyl for analgesia. Propofol was titrated for sedation and hemodynamics. Chest x-ray was reviewed and interpreted by radiology after OG tube placement by nursing: Satisfactory placement of orogastric tube. Notified by [facility] that bed is available and will arrange for EMS transportation at this time. Medical Records Medical records reviewed: Yes I reviewed the patient's medical records. Lab Data Lab results reviewed: Yes I reviewed the patient's lab results. Labs: 11/02/22 13:03 Blood Blood Culture - Pending 11/02/22 11:55 Blood Blood Culture - Pending 11/02/22 10:35 Urine - Reflex from Ua Urine Culture - Pending Laboratory Tests Range/Units 11/02/22 11/02/22 11/02/22 09:13 09:13 09:13 WBC (4.4-10.8) 10^3/uL 12.98 H RBC (3.93-5.22) 10^6/uL 4.07 Hgb (11.2-15.7) g/dL 10.8 L Hct (36.0-46.0) % 35.6 L MCV (80-95) fL 88 MCH (27.0-33.0) pg 26.5 L MCHC (32.0-36.0) % 30.3 L RDW (11.7-14.6) % 15.9 H Plt Count (130-400) 10^3/uL 325 MPV (8.0-11.0) fL 10.3 Immature Gran % 0.5 Neutrophils % 68.2 Lymphocytes % 18.6 Monocytes % 8.8 Eosinophils % 3.4 Basophils % 0.5 Nucleated RBC % (0.0-0.3) % 0.0 Absolute Neutrophils (1.2-6.7) 10^3/uL 8.85 H Absolute Lymphocytes (1.2-3.4) 10^3/uL 2.41 Absolute Monocytes (0.1-0.8) 10^3/uL 1.14 H Absolute Eosinophils (0.0-0.7) 10^3/uL 0.44 Absolute Basophils (0.0-0.2) 10^3/uL 0.06 APTT (21.5-31.9) sec VBG pH (7.31-7.41) 7.33 VBG pCO2 (41-51) mmHg 49 VBG pO2 mmHg 102 VBG HCO3 (23-28) mmol/L 26 VBG Total CO2 (24-29) mmol/L 27 VBG O2 Saturation % 97 VBG Base Excess (-2-3) mmol/L 0 VBG Lactate (0.6-1.4) mmol/L Sodium (136-145) mmol/L 136 Potassium (3.5-5.1) mmol/L 4.8 Chloride (98-107) mmol/L 97 L Carbon Dioxide (21.0-32.0) mmol/L 25.2 Anion Gap (3-11) mmol/L 13.8 H BUN (7-18) mg/dL 43 H Creatinine (0.55-1.02) mg/dL 3.1 H Est GFR (CKD-EPI 2020) (mL/min/1.73m2) 16.90 Glucose (74-106) mg/dL 165 H Calcium (8.5-10.1) mg/dL 8.8 Magnesium (1.8-2.4) mg/dL 2.2 Total Bilirubin (0.2-1.0) mg/dL 0.3 AST (15-37) U/L 29 ALT (14-59) U/L 11 L Alkaline Phosphatase (46-116) U/L 289 H Troponin I (<or=60) ng/L 95 H* NT-Pro-B Natriuret Pep (<300) pg/mL 6746 H Total Protein (6.4-8.2) g/dL 7.9 Albumin (3.4-5.0) g/dL 2.5 L Urine Color (Yellow) Urine Clarity (Clear) Urine pH (5-8) Ur Specific Gentry (1.005-1.025) Urine Protein (Negative) mg/dL Urine Ketones (Negative) mg/dL Urine Blood (Negative) Urine Nitrite (Negative) Urine Bilirubin (Negative) Urine Urobilinogen (Up to 0.2) mg/dL Ur Leukocyte Esterase (Negative) Urine RBC (0-2) HPF Urine WBC (0-5) HPF Ur Epithelial Cells (Negative) HPF Urine Crystals (Negative) HPF Urine Bacteria (Negative) HPF Urine Casts (Negative) LPF Urine Mucus (Negative) Urine Other (Negative) Ur Culture Indicated? Urine Glucose (Negative) mg/dL COVID-19 Source SARS-CoV-2 (PCR) (Negative) Range/Units 11/02/22 11/02/22 11/02/22 09:24 10:03 10:35 WBC (4.4-10.8) 10^3/uL RBC (3.93-5.22) 10^6/uL Hgb (11.2-15.7) g/dL Hct (36.0-46.0) % MCV (80-95) fL MCH (27.0-33.0) pg MCHC (32.0-36.0) % RDW (11.7-14.6) % Plt Count (130-400) 10^3/uL MPV (8.0-11.0) fL Immature Gran % Neutrophils % Lymphocytes % Monocytes % Eosinophils % Basophils % Nucleated RBC % (0.0-0.3) % Absolute Neutrophils (1.2-6.7) 10^3/uL Absolute Lymphocytes (1.2-3.4) 10^3/uL Absolute Monocytes (0.1-0.8) 10^3/uL Absolute Eosinophils (0.0-0.7) 10^3/uL Absolute Basophils (0.0-0.2) 10^3/uL APTT (21.5-31.9) sec VBG pH (7.31-7.41) Cancelled VBG pCO2 (41-51) mmHg Cancelled VBG pO2 mmHg Cancelled VBG HCO3 (23-28) mmol/L Cancelled VBG Total CO2 (24-29) mmol/L Cancelled VBG O2 Saturation % Cancelled VBG Base Excess (-2-3) mmol/L Cancelled VBG Lactate (0.6-1.4) mmol/L Sodium (136-145) mmol/L Potassium (3.5-5.1) mmol/L Chloride (98-107) mmol/L Carbon Dioxide (21.0-32.0) mmol/L Anion Gap (3-11) mmol/L BUN (7-18) mg/dL Creatinine (0.55-1.02) mg/dL Est GFR (CKD-EPI 2020) (mL/min/1.73m2) Glucose (74-106) mg/dL Calcium (8.5-10.1) mg/dL Magnesium (1.8-2.4) mg/dL Total Bilirubin (0.2-1.0) mg/dL AST (15-37) U/L ALT (14-59) U/L Alkaline Phosphatase (46-116) U/L Troponin I (<or=60) ng/L NT-Pro-B Natriuret Pep (<300) pg/mL Total Protein (6.4-8.2) g/dL Albumin (3.4-5.0) g/dL Urine Color (Yellow) Yellow Urine Clarity (Clear) Turbid Urine pH (5-8) 5.5 Ur Specific Gentry (1.005-1.025) 1.025 Urine Protein (Negative) mg/dL >=300 H Urine Ketones (Negative) mg/dL Negative Urine Blood (Negative) Large H Urine Nitrite (Negative) Negative Urine Bilirubin (Negative) Negative Urine Urobilinogen (Up to 0.2) mg/dL 0.2 Ur Leukocyte Esterase (Negative) Large H Urine RBC (0-2) HPF 5-10 H Urine WBC (0-5) HPF >50 H Ur Epithelial Cells (Negative) HPF Rare Urine Crystals (Negative) HPF Negative Urine Bacteria (Negative) HPF Rare Urine Casts (Negative) LPF Negative Urine Mucus (Negative) Trace Urine Other (Negative) Negative Ur Culture Indicated? Yes Urine Glucose (Negative) mg/dL Negative COVID-19 Source Nasal/Nares SARS-CoV-2 (PCR) (Negative) Negative Range/Units 11/02/22 11/02/22 11/02/22 11:55 11:55 14:33 WBC (4.4-10.8) 10^3/uL RBC (3.93-5.22) 10^6/uL Hgb (11.2-15.7) g/dL Hct (36.0-46.0) % MCV (80-95) fL MCH (27.0-33.0) pg MCHC (32.0-36.0) % RDW (11.7-14.6) % Plt Count (130-400) 10^3/uL MPV (8.0-11.0) fL Immature Gran % Neutrophils % Lymphocytes % Monocytes % Eosinophils % Basophils % Nucleated RBC % (0.0-0.3) % Absolute Neutrophils (1.2-6.7) 10^3/uL Absolute Lymphocytes (1.2-3.4) 10^3/uL Absolute Monocytes (0.1-0.8) 10^3/uL Absolute Eosinophils (0.0-0.7) 10^3/uL Absolute Basophils (0.0-0.2) 10^3/uL APTT (21.5-31.9) sec 36.8 H VBG pH (7.31-7.41) VBG pCO2 (41-51) mmHg VBG pO2 mmHg VBG HCO3 (23-28) mmol/L VBG Total CO2 (24-29) mmol/L VBG O2 Saturation % VBG Base Excess (-2-3) mmol/L VBG Lactate (0.6-1.4) mmol/L 1.2 Sodium (136-145) mmol/L Potassium (3.5-5.1) mmol/L Chloride (98-107) mmol/L Carbon Dioxide (21.0-32.0) mmol/L Anion Gap (3-11) mmol/L BUN (7-18) mg/dL Creatinine (0.55-1.02) mg/dL Est GFR (CKD-EPI 2020) (mL/min/1.73m2) Glucose (74-106) mg/dL Calcium (8.5-10.1) mg/dL Magnesium (1.8-2.4) mg/dL Total Bilirubin (0.2-1.0) mg/dL AST (15-37) U/L ALT (14-59) U/L Alkaline Phosphatase (46-116) U/L Troponin I (<or=60) ng/L 478 H* NT-Pro-B Natriuret Pep (<300) pg/mL Total Protein (6.4-8.2) g/dL Albumin (3.4-5.0) g/dL Urine Color (Yellow) Urine Clarity (Clear) Urine pH (5-8) Ur Specific Gentry (1.005-1.025) Urine Protein (Negative) mg/dL Urine Ketones (Negative) mg/dL Urine Blood (Negative) Urine Nitrite (Negative) Urine Bilirubin (Negative) Urine Urobilinogen (Up to 0.2) mg/dL Ur Leukocyte Esterase (Negative) Urine RBC (0-2) HPF Urine WBC (0-5) HPF Ur Epithelial Cells (Negative) HPF Urine Crystals (Negative) HPF Urine Bacteria (Negative) HPF Urine Casts (Negative) LPF Urine Mucus (Negative) Urine Other (Negative) Ur Culture Indicated? Urine Glucose (Negative) mg/dL COVID-19 Source SARS-CoV-2 (PCR) (Negative) HPI General Mode of arrival: EMS. Date/Time Provider Initiated Documentation: 11/02/22 08:48. Limitations to Documentation: altered mental status. Information obtained by: RN/MD and EMS. HPI Narrative: 56 yo F with history of CAD, DM, mobid obesity, recent CT, currently being cared for at [facility] re[facility], sent for evaluation this morning for speech deficit and left-sided weakness. Patient apparently was noted to appear well at 815, on reassessment at 824 she was exhibiting left-sided weakness as well as speech deficit. EMS arrived to find the patient hypoxic and in respiratory distress. High flow nonrebreather oxygen applied. History and review of systems limited secondary to acuity of condition and altered mental status. Related Data Home Medications Medication Instructions Recorded Confirmed hydrochlorothiazide 50 mg tablet 50 mg PO QAM 02/04/19 10/14/22 tramadol 50 mg tablet 50 mg PO TID PRN 02/04/19 11/02/22 acetaminophen 500 mg tablet 1,000 mg PO .Q6HRS PRN 01/26/21 11/02/22 albuterol 90 mcg/actuation aerosol 180 mcg inhalation Q4H PRN PRN 01/26/21 10/14/22 inhaler amlodipine 10 mg tablet 10 mg PO DAILY 01/26/21 11/02/22 cholecalciferol (vitamin D3) 125 125 mcg PO .Q Monday01/26/21 10/14/22 mcg (5,000 unit) capsule cyanocobalamin (vitamin B-12) 500 1,000 mcg PO DAILY 01/26/21 11/02/22 mcg tablet docusate sodium 100 mg capsule 100 mg PO .HS PRN 01/26/21 11/02/22 ferrous sulfate 325 mg (65 mg 325 mg PO QAM 01/26/21 11/02/22 iron) capsule,extended release gabapentin 300 mg capsule 300 mg PO BID 01/26/21 11/02/22 hydromorphone 2 mg tablet 2 mg PO Q6H PRN 01/26/21 10/14/22 insulin glargine 100 unit/mL (3 25 unit subcut HS 01/26/21 11/02/22 mL) subcutaneous pen (Lantus Solostar U-100 Insulin) losartan 100 mg tablet 100 mg PO DAILY 01/26/21 10/14/22 montelukast 10 mg tablet 10 mg PO DAILY 01/26/21 11/02/22 ondansetron HCl 8 mg tablet 8 mg PO Q8H PRN 01/26/21 11/02/22 pantoprazole 40 mg tablet,delayed 40 mg PO BID 01/26/21 10/14/22 release polyethylene glycol 3350 17 17 g PO .QHS PRN 01/26/21 11/02/22 gram/dose oral powder (Miralax) sucralfate 1 gram tablet 1 g PO AC & HS #0 tabs 01/29/21 11/02/22 cyclobenzaprine 5 mg tablet 5 mg PO DAILY PRN Pain 04/01/21 11/02/22 magnesium oxide 400 mg PO DAILY 04/01/21 11/02/22 metformin 500 mg tablet 1,000 mg PO BID 04/01/21 11/02/22 hydromorphone 2 mg tablet 2 mg PRN PRN 06/25/21 10/14/22 (Dilaudid) simvastatin 40 mg tablet 40 mg PO .QHS 06/25/21 10/14/22 aspirin 81 mg chewable tablet 81 mg PO DAILY 10/12/21 11/02/22 bisacodyl 10 mg rectal suppository 10 mg NV DAILY PRN 10/12/21 11/02/22 (Dulcolax (bisacodyl)) carvedilol 6.25 mg tablet 6.25 mg PO BID 10/12/21 11/02/22 cyanocobalamin (vitamin B-12) 100 1,000 mcg QMONTH 10/12/21 10/14/22 mcg/mL injection solution insulin aspart U-100 100 unit/mL 1 sliding scale dose subcut 10/12/21 10/14/22 (3 mL) subcutaneous pen (Novolog USEASDIRECTD FlexPen U-100 Insulin aspart) magnesium hydroxide 400 mg/5 mL 30 ml PO DAILY PRN 10/12/21 10/14/22 oral suspension methylphenidate HCl 5 mg tablet 5 mg PO DAILY 10/12/21 10/14/22 potassium chloride 20 mEq/15 mL 10 meq PO DAILY 10/12/21 10/14/22 oral liquid sertraline 50 mg tablet 50 mg PO DAILY 10/12/21 10/14/22 sodium phosphates 19 gram-7 118 ml NV DAILY PRN 10/12/21 11/02/22 gram/118 mL enema (Fleet Enema) spironolactone 25 mg tablet 25 mg PO DAILY 10/12/21 10/14/22 torsemide 20 mg tablet 40 mg PO DAILY 10/12/21 10/14/22 atorvastatin 80 mg tablet 80 mg PO QHS 11/02/22 11/02/22 azithromycin 250 mg tablet See Rx Instructions .Route .COMPLEX 11/02/22 11/02/22 clopidogrel 75 mg tablet 75 mg PO DAILY 11/02/22 11/02/22 diphenhydramine HCl 25 mg tablet 25 mg PO Q6H PRN 11/02/22 11/02/22 furosemide 80 mg tablet 80 mg PO DAILY 11/02/22 11/02/22 gabapentin 300 mg capsule 900 mg PO HS 11/02/22 11/02/22 isosorbide mononitrate 60 mg 60 mg PO DAILY 11/02/22 11/02/22 tablet,extended release 24 hr magnesium hydroxide 400 mg/5 mL 30 ml PO QHS PRN 11/02/22 11/02/22 oral suspension (Milk of Magnesia) pantoprazole 40 mg tablet,delayed 40 mg PO BID 11/02/22 11/02/22 release (Protonix) ropinirole 1 mg tablet 1 mg PO QHS 11/02/22 11/02/22 Previous Rx's Medication Instructions Recorded sucralfate 1 gram tablet 1 g PO AC & HS #0 tabs 01/29/21 Allergies Allergy/AdvReac Type Severity Reaction Status Date / Time albuterol [From ProAir HFA] Allergy Unverified 11/02/22 13:34 amoxicillin Allergy Verified 11/02/22 13:34 bee venom protein (honey bee) Allergy Unverified 11/02/22 13:34 cephalexin Allergy Unverified 11/02/22 13:34 exenatide Allergy Unverified 11/02/22 13:34 guaifenesin Allergy Unverified 11/02/22 13:34 hydrocodone [From Vicodin] Allergy Unverified 11/02/22 13:34 omeprazole [From Prilosec] Allergy Unverified 11/02/22 13:34 promethazine Allergy Unverified 11/02/22 13:34 simvastatin Allergy Unverified 11/02/22 13:34 fluconazole AdvReac Intermediate feels like Unverified 11/02/22 13:34 bugs crawling on her lisinopril AdvReac NAUSEA Verified 11/02/22 13:34 General WILY: 3 Review of Systems Unobtainable due to mental status PFSH All Active Problems (Updated 11/02/22 @ 16:38 by Tania Gonzalez MD) Pyuria (Acute) Leukocytosis (Acute) Respiratory failure with hypoxia (Acute) Acute respiratory failure (Acute) Pneumonia (Acute) Acute CHF (Acute) Chronic kidney disease (Chronic) Non-ST elevation CT (NSTEMI) (Acute) Hyperbilirubinemia (Acute) Elevated troponin (Acute) Elevated d-dimer (Acute) Medical History Anxiety Chronic kidney disease Claustrophobia Diabetes mellitus Essential hypertension Heart failure with preserved ejection fraction HLD (hyperlipidemia) Left femoral shaft fracture Left humeral fracture Morbid obesity Primary osteoarthritis of right knee Restless leg syndrome Surgical History Status post fracture of femur surgical repar Social History Smoking/Tobacco Use Status: Never Smoking risk assessment performed?: Yes Alcohol Intake: former Drug use: Never Substance use type: does not use Housing: senior care Current gender identity: female Do you feel safe at home: Yes Do you feel safe in your relationship?: Yes Additional Social history: Living at [facility] since 2020 Female Reproductive History Menstrual Menopause type: natural Exam Const General: acute distress severe and respiratory Nutritional Appearance: obese Orientation: confused HENAZ Head: normocephalic and atraumatic Mouth: moist mucous membranes Eyes Conjunctivae: normal conjunctivae Sclera: normal sclerae Neck Neck: trachea midline and supple Resp Effort & Inspection: labored and tachypneic Auscultation: rales and rhonchi Cardio Rate: tachycardic Rhythm: regular rhythm GI Palpation: soft, not firm, no guarding, no masses, not rigid and nontender Skin General skin exam: no rashes or lesions noted Neuro General: patient awake Extrem General: edema Laterality: bilateral Psych Appearance: grossly normal Procedures Intubation Time out performed: Yes sedative: Etomidate Mg Given: 20 paralytic: Rocuronium Mg Given: 100 Laryngoscope: fiberoptic video scope ET Tube Size: 7.5 Tube Secured Depth (cm): 25 Tube Secured Location: teeth Tube Placement Confirmation: visualized tube passing through cords Patient Tolerated Procedure: well Intubation Complications: hypoxia Additional Comments: Despite preoxygenation with high flow nonrebreather and high flow nasal cannula through [employer] airway, patient was hypoxic at the start of intubation and dropped further during intubation. Fortunately this was a very brief. As intubation was successful on first attempt. Patient rapidly improved to upper 90s with bagging postintubation. Critical Care Time Critical Care Time Critical Care Time: Yes Total Critical Care Time: 185 Attestation: I spent greater than 185 minutes addressing this patient's immediate life threats. Please see MDM section of note. This time was spent engaged in work directly related to the patient's care, exclusive of separate procedures, and failure to initiate these interventions would have likely resulted in clinically significant or life threatening deterioration in the patient's condition.
[2022-11-02 09:19] LABS: Abs Immature Grans 0.06 10^3/uL (0.0-0.06); Absolute Basophil Count 0.06 10^3/uL (0.0-0.2); Absolute Eosinophil Count 0.44 10^3/uL (0.0-0.7); Absolute Lymphocyte Count 2.41 10^3/uL (1.2-3.4); Absolute Monocyte Count 1.14 10^3/uL (0.1-0.8); Absolute Neutrophil Count 8.85 10^3/uL (1.2-6.7); Basophils % 0.5; Eosinophils % 3.4; HCT 35.6 % (36.0-46.0); HGB 10.8 g/dL (11.2-15.7); Immature Grans % 0.5; Lymphocytes % 18.6; MCH 26.5 pg (27.0-33.0); MCHC 30.3 % (32.0-36.0); MCV 88 fL (80-95); MPV 10.3 fL (8.0-11.0); Monocytes % 8.8; Neutrophils % 68.2; Platelet Count 325 10^3/uL (130-400); RBC 4.07 10^6/uL (3.93-5.22); RDW 15.9 % (11.7-14.6); WBC 12.98 10^3/uL (4.4-10.8)
[2022-11-02 09:22] LABS: BE (Venous) 0 mmol/L (-2-3); HCO3 (Venous) 26 mmol/L (23-28); O2 Sat (Venous) 97 %; TCO2 (Venous) 27 mmol/L (24-29); pCO2 (Venous) 49 mmHg (41-51); pH (Venous) 7.33 (7.31-7.41); pO2 (Venous) 102 mmHg
[2022-11-02 09:28] LABS: Source Nasal/Nares
[2022-11-02 09:42] LABS: ALT 11 U/L (14-59); AST 29 U/L (15-37); Albumin 2.5 g/dL (3.4-5.0); Alkaline Phosphatase 289 U/L (46-116); Anion Gap 13.8 mmol/L (3-11); BUN 43 mg/dL (7-18); Bilirubin, Total 0.3 mg/dL (0.2-1.0); CO2 25.2 mmol/L (21.0-32.0); CREATININE 3.1 mg/dL (0.55-1.02); Calcium 8.8 mg/dL (8.5-10.1); Chloride 97 mmol/L (98-107); Glucose 165 mg/dL (74-106); Magnesium 2.2 mg/dL (1.8-2.4); NT-proBNP 6746 pg/mL (<300); Potassium 4.8 mmol/L (3.5-5.1); Sodium 136 mmol/L (136-145); Total Protein 7.9 g/dL (6.4-8.2)
[2022-11-02 09:47] LABS: Troponin I 95 ng/L (<or=60)
[2022-11-02 10:41] LABS: COVID-19 PCR Negative (Negative)
[2022-11-02] MEDS: Furosemide 20 MG/2 ML VIAL IVP (11:16)
--- NOTE | 2022-11-02 11:19 | W.PULMCC ---
General Date of Service Date of service: 11/02/22 Time of Service: 10:45 Assessment and Plan Assessment and plan (1) Respiratory failure with hypoxia: Status: Acute (2) Pneumonia: Status: Acute (3) Acute CHF: Status: Acute (4) Chronic kidney disease: Status: Chronic (5) Non-ST elevation IL (NSTEMI): Status: Acute (6) Leukocytosis: Status: Acute (7) Anemia: Status: Inactive (8) Pyuria: Status: Acute Assessment and plan: This is a 56 yo comorbid critically ill patient who was intubated in the ED and is requiring maximal ventilator support. She has what appears to be a dense socked in pnuemonia. This could reflect a large aspiration event given the acuity and lack of prodromic symptoms. She is acutely volume overloaded and she has gained 10lbs since Monday. On POCUS her IVF is large and plethoric and there are pathologic B-lines throughout the anterior lung kerns with what appeared to be a diminished EF (however suboptimal views). He lung compliance is very poor at 24, but she does have a decent driving pressure at 15-16 with the PEEP of 10. Given the maximal ventilatory support, inability to perform a brain MRI to fully rule out a stroke, and lack of 26/09 data collection technician coverage, I do believe she will be better served a tertiary care facility, which I discussed with Dr. Chapman. I did also recommend diuresis as her blood pressure would tolerate given her volume overloaded state. On re-review of the chart it does appear as though she has been accepted to [facility]. Recommendations Pulmonary: Acute hypoxic respiratory failure - continue on VC/AC, with PEEP 10 - can titrate to target driving pressure of 15 - titrate O2 as able - recommend diuresis as below - recommend tertiary transfer Cardiac: NSTEMI - severe underlying CAD, likely type 2 from pneumonia, however cannot rule out Type 1 - agree with heparin CHF Exacerbation - recommend diuresis as able to-1L in 24 hours - hold BP lowing meds Renal: ИВАН on CKD - ATN vs congestion - diuresis as above - High - strict I/O's I&O: Intake & Output 10/30/22 10/31/22 11/01/22 11/02/22 23:59 23:59 23:59 23:59 Intake Total Output Total 125 / 125 Balance -105 / -105 Weight 118.7 kg Daily Fluid Goal:: -1L in 24 hours GI Nutrition: NPO for now, OG placed Infectious Disease: Pneumonia - concern for aspiration given clinical story (acuity) - s/p vanc and levaquin - would await further diagnostic testing to be done at [facility] (urine antigens, bronch, etc) Pyuris - urine culture sent - levofloxacin should cover Hematologic: Leukocytosis - infection, monitor Anemia - chronic, monitor Neurologic: Concern for CVA/AMS - consider MRI at tertiary Prophylaxis: on heparin rec GI ppx Code Status: Full Subjective Critical and life-threatening events over the past 24 hours: This is a 56 yo co morbid (CAD, DM, obesity, recent IL) who arrived to the ED via [facility] rehab. She was in acute respiratory distress with severe hypoxia an ultimately required intubation. She was discharged from [facility] for an IL on Monday. Her chest CT was negative for PE but was significant for dense right sided consolidations consistent with pneumonia as well as some left sided infiltrates. Her blood work shows a leukocytosis, anemia, normal lactate, ИВАН, elevated troponin and bnp, pyruria on UA and negative COVID. There was concern for a potential CVA as well so a Head/Neck CTA was performed and was negative. She was given 500cc IVF. She also received vancomycin and levofloxacin in addition to being started on a heparin infusion. I was consulted to assess the patient for safety of [facility] admission versus transfer to [facility]. On assessment patient had stable vital signs on 100% FiO2 with a PEEP of 10, poor compliance at 24 and a driving pressure of 15-16. Her SpO2 was 91%. Exam Narrative Exam Narrative: Gen: intubated and sedated, obese HENT: PERRL Chest: No respiratory distress, normal appearance of chest, bilateral crackles Heart: regular rate and rhythym, no murmurs, rubs or gallops Abdomen: Non-distended, soft Extremities: + lower extremity edema Neuro: AAOx3 , non focal Psych: cooperative, appropriate mental affect Most Recent VS/Results Last Vital Signs Temp 36.6 C 11/02/22 10:59 Pulse 68 11/02/22 10:55 Resp 18 11/02/22 10:55 BP 116/58 L 11/02/22 10:55 Pulse Ox 67 L 11/02/22 08:40 Laboratory Results - last 24 hr 08/30/23 08/30/23 08/30/23 09:13 09:13 09:13 WBC 12.98 H RBC 4.07 Hgb 10.8 L Hct 35.6 L MCV 88 MCH 26.5 L MCHC 30.3 L RDW 15.9 H Plt Count 325 MPV 10.3 Immature Gran % 0.5 Neutrophils % 68.2 Lymphocytes % 18.6 Monocytes % 8.8 Eosinophils % 3.4 Basophils % 0.5 Nucleated RBC % 0.0 Absolute Neutrophils 8.85 H Absolute Lymphocytes 2.41 Absolute Monocytes 1.14 H Absolute Eosinophils 0.44 Absolute Basophils 0.06 VBG pH 7.33 VBG pCO2 49 VBG pO2 102 VBG HCO3 26 VBG Total CO2 27 VBG O2 Saturation 97 VBG Base Excess 0 Sodium 136 Potassium 4.8 Chloride 97 L Carbon Dioxide 25.2 Anion Gap 13.8 H BUN 43 H Creatinine 3.1 H Est GFR (CKD-EPI 2020) 16.90 Glucose 165 H Calcium 8.8 Magnesium 2.2 Total Bilirubin 0.3 AST 29 ALT 11 L Alkaline Phosphatase 289 H Troponin I 95 H* NT-Pro-B Natriuret Pep 6746 H Total Protein 7.9 Albumin 2.5 L COVID-19 Source SARS-CoV-2 (PCR) 11/02/22 11/02/22 09:24 10:03 WBC RBC Hgb Hct MCV MCH MCHC RDW Plt Count MPV Immature Gran % Neutrophils % Lymphocytes % Monocytes % Eosinophils % Basophils % Nucleated RBC % Absolute Neutrophils Absolute Lymphocytes Absolute Monocytes Absolute Eosinophils Absolute Basophils VBG pH Cancelled VBG pCO2 Cancelled VBG pO2 Cancelled VBG HCO3 Cancelled VBG Total CO2 Cancelled VBG O2 Saturation Cancelled VBG Base Excess Cancelled Sodium Potassium Chloride Carbon Dioxide Anion Gap BUN Creatinine Est GFR (CKD-EPI 2020) Glucose Calcium Magnesium Total Bilirubin AST ALT Alkaline Phosphatase Troponin I NT-Pro-B Natriuret Pep Total Protein Albumin COVID-19 Source Nasal/Nares SARS-CoV-2 (PCR) Negative Review of Systems Unobtainable due to endotracheal tube Time spent with patient Time spent in Critical Care: 60 Time spent in Critical care included: Chart review, Documenting critically ill care, Time at immediate bedside, Discussing critically ill care with other medical staff and Discussing care with family members Pocus Exam Limited Cardiac Exam DATE OF EXAM: 11/02/22 TIME OF EXAM: 10:45 PROVIDER THAT PERFORMED THE STUDY: Tania Gonzalez IS THIS A REPEAT EXAM DURING THIS ENCOUNTER: no REASON FOR EXAM: Hypoxia VISUALIZED STRUCTURES: four chambers, Interventricular septum and IVC VIEW OBTAINED: Apical 4-Chamber, Parasternal long-axis, Parasternal short-axis and Subxiphoid PERTINENT FINDINGS/IMPRESSION: LV dysfunction and Plethoric IVC; No pericardial effusion Exam complete Limited Thoracic Lung Exam DATE OF EXAM: 11/02/22 TIME OF EXAM: 10:50 PROVIDER THAT PERFORMED THE STUDY: Tania Gonzalez IS THIS A REPEAT EXAM DURING THIS ENCOUNTER: No REASON FOR EXAM: Hypoxia and Pneumonia VISUALIZED STRUCTURES: right anterior and left anterior PERTINENT FINDINGS/IMPRESSION: B-lines/left side and B-lines/right side Exam complete
[2022-11-02 11:24] LABS: Bilirubin Negative (Negative); Blood Large (Negative); Clarity Turbid (Clear); Glucose Negative (Negative); Ketones Negative (Negative); Leukocyte Esterase Large (Negative); Nitrite Negative (Negative); Specific Gravity 1.025 (1.005-1.025); Urobilinogen 0.2 mg/dL (Up to 0.2); pH 5.5 (5-8)
[2022-11-02 11:34] LABS: Bacteria Rare HPF (Negative); C & S Indicated? Yes; Casts Negative LPF (Negative); Crystals Negative HPF (Negative); Epithelial Cells Rare HPF (Negative); Mucus Trace (Negative); Other Cells Negative (Negative); WBC >50 HPF (0-5)
[2022-11-02 12:04] LABS: Lactate 1.2 mmol/L (0.6-1.4)
--- NOTE | 2022-11-02 12:15 | DI.RAD_ITS ---
Exam(s) XR PORTABLE CHEST AP EXAM: XR PORTABLE CHEST AP CLINICAL HISTORY: post OG placement TECHNIQUE: 2D digital imaging was performed. COMPARISON: CT CT CHEST PE CTA from 11/02/2022 FINDINGS: Exam includes the majority of the chest and portion of the upper abdomen. Lung apices not included o n exam. Exam is limited by significant underpenetration. LUNGS: Dense infiltrate right lung. Milder densities seen left lung base. HEART: Normal size. AORTA: Normal diameter. BONES: Unremarkable for age. Soft tissues: Orogastric tube projects in stomach. IMPRESSION: Satisfactory placement of orogastric tube. DATA REPOSITORY: RADIATION DOSE DELIVERED:
--- NOTE | 2022-11-02 12:30 | RT.EKG_ITS ---
APPROVED REPORT Exam: Resting ECG Reason for Exam: trop increasing Patient Location: E HR:63 bpm ECG Measurements Heart Rate 63 AXIS DE 168 P 20 QRSd 98 QRS 2 QT 428 T 130 QTc 437 Conclusion Sinus rhythm...normal P axis, V-rate 60- 99 Low voltage, precordial leads...precordial leads <1.0mV Probable LVH with secondary repol abnrm...multiple LVH criteria
[2022-11-02 12:38] LABS: Troponin I 478 ng/L (<or=60)
[2022-11-02] MEDS: levoFLOXacin 750 MG/150 ML BAG 100 MG IVPB (12:38)
[2022-11-02] MEDS: VANCOMYCIN/WATER (PEG) 2 GM/400 ML BAG IV (12:38)
[2022-11-02] MEDS: fentaNYL 1,000 MCG in Normal Saline 80 ML 11.87 MCG IV (13:08)
[2022-11-02] MEDS: PROPOFOL 1,000 MG/100 ML BTL 17.805 MG IV (13:52)
[2022-11-02] MEDS: Heparin in 0.45% NaCl 25,000 UNIT/250 ML BAG 10 UNIT IV (14:51)
[2022-11-02 14:57] LABS: PTT Activated 36.8 sec (21.5-31.9)
--- NOTE | 2022-11-05 08:10 | NUR.NOTE ---
Nursing Note:in chart for antibitotics
== END 2022-11-02 16:17 | disposition short-term general hospital (02) ==
PROVIDERS: Emergency Provider Student in an Organized Health Care Education/Training Program
DX: J96.91 Respiratory failure, unspecified with hypoxia; I25.10 Atherosclerotic heart disease of native coronary artery without angina pectoris; E66.01 Morbid (severe) obesity due to excess calories; I25.2 Old myocardial infarction; Z88.0 Allergy status to penicillin; Z88.1 Allergy status to other antibiotic agents; R41.82 Altered mental status, unspecified; R53.1 Weakness; I13.0 Hypertensive heart and chronic kidney disease with heart failure and stage 1 through stage 4 chronic kidney disease, or unspecified chronic kidney disease; E11.22 Type 2 diabetes mellitus with diabetic chronic kidney disease; N18.9 Chronic kidney disease, unspecified; I50.9 Heart failure, unspecified; J18.9 Pneumonia, unspecified organism; I21.4 Non-ST elevation (NSTEMI) myocardial infarction; D72.829 Elevated white blood cell count, unspecified; D64.9 Anemia, unspecified; R82.81 Pyuria
CPT/HCPCS: 31500; 36415; 51702; 70496; 70498; 71275; 80053; 82805; 82962; 87040; 87077; 87635; 93005; 96365; 96366; 96367; 96368; 96375; 99291; 99292; 71045; 81003; 81015; 83605; 83735; 83880; 84484; 85025; 85730; 87086; 87186; 93010; J1941; J1956; J3010